=== PATIENT | female | born 1950 | race Caucasian/White ===

== ENCOUNTER 2022-01-05 12:39 | Emergency (ER) | payer MEDICARE ==
[2022-01-05 13:19] VITALS: BP 128/73; PULSE 66; RESP 20; TEMP 98.2
[2022-01-05] MEDS ORDERED: MORPHINE SULFATE 4 MG/ML SYRINGE IM STA (15:08)
[2022-01-05] MEDS ORDERED: KETOROLAC 15 MG/ML 1 ML VIAL IM STA (15:09)
[2022-01-05] MEDS ORDERED: ONDANSETRON ODT 4 MG TAB PO STA (15:09)
--- NOTE | 2022-01-05 15:14 | ED ---
Back Pain HPI - General Chief Complaint: Back Pain/Injury Stated Complaint: back pain Time Seen by Provider: 01/05/22 14:43 Source: patient, RN notes reviewed Mode of arrival: ambulatory Limitations: no limitations - History of Present Illness Initial Comments: 71-year-old female presents emergency Department chief complaint of back pain. This is chronic back pain in nature. Patient states she's had multiple surgeries. She has seen her primary care physician and was seen by another ER has had multiple imaging with no acute findings. Patient does have MRI pending. She is denies any bowel, bladder incontinence or retention. She takes [place] 10-25 [id number]. She denies any rashes denies any dysuria hematuria no abdominal complaints. Patient has no difficulty ambulate in. - Related Data Home Medications Medication Instructions Recorded Confirmed Cholecalciferol [Vitamin D3 (25 2,000 unit PO DAILY 10/30/19 10/30/19 Mcg = 1000 Iu)] Cyanocobalamin (Vitamin B-12) 1,000 mcg PO DAILY 10/30/19 10/30/19 [Vitamin B-12] DULoxetine HCL [Cymbalta] 60 mg PO DAILY 10/30/19 10/30/19 Esomeprazole Magnesium 40 mg PO DAILY 10/30/19 10/30/19 Ezetimibe [Zetia] 10 mg PO DAILY 10/30/19 10/30/19 Folic Acid 1 mg PO DAILY 10/30/19 10/30/19 Furosemide [Lasix] 40 mg PO DAILY PRN 10/30/19 10/30/19 Gabapentin [Neurontin] 400 mg PO TID 10/30/19 10/30/19 HYDROcodone/APAP 10-325MG [[place] 1 tab PO Q6H PRN 10/30/19 10/30/19 10-325] Isosorbide Mononitrate ER [Imdur] 60 mg PO BID 10/30/19 10/30/19 Levothyroxine Sodium [Levo-T] 150 mcg PO DIRECTED 10/30/19 10/30/19 Levothyroxine Sodium [Levo-T] 175 mcg PO DIRECTED 10/30/19 10/30/19 Metoprolol Succinate [Toprol XL] 100 mg PO BID 10/30/19 10/30/19 Nitroglycerin 0.4 mg SL TID PRN 10/30/19 10/30/19 Rosuvastatin [Crestor] 5 mg PO HS 10/30/19 10/30/19 Warfarin Sodium [Coumadin] 5 mg PO DAILY 10/30/19 10/30/19 Warfarin Sodium [Coumadin] 7.5 mg PO DIRECTED 10/30/19 10/30/19 gemfibroziL [Lopid] 600 mg PO BID 10/30/19 10/30/19 Previous Rx's Medication Instructions Recorded Ondansetron Odt [Zofran Odt] 4 mg PO Q8HR PRN #10 tab 01/05/22 predniSONE 50 mg PO DAILY #5 tab 01/05/22 Allergies Allergy/AdvReac Type Severity Reaction Status Date / Time azithromycin [From Zithromax] Allergy Severe Rash/Hives Verified 01/05/22 13:19 bupropion [From Wellbutrin] Allergy Severe Rash/Hives Verified 01/05/22 13:19 cephalexin [From Keflex] Allergy Intermediate Rash/Hives Verified 01/05/22 13:19 lisinopril [From Prinivil] Allergy Intermediate Rash/Hives Verified 01/05/22 13:19 nitrofurantoin Allergy Intermediate Rash/Hives Verified 01/05/22 13:19 [From Macrobid] pentazocine [From Talwin] Allergy Intermediate Rash/Hives Verified 01/05/22 13:19 topiramate [From Topamax] Allergy Intermediate Rash/Hives Verified 01/05/22 13:19 hydromorphone [From Dilaudid] AdvReac Severe Unknown Verified 01/05/22 13:19 propranolol [From Inderal LA] AdvReac Severe Unknown Verified 01/05/22 13:19 codeine AdvReac Intermediate Unknown Verified 01/05/22 13:19 ibuprofen [From Motrin] AdvReac Intermediate Unknown Verified 01/05/22 13:19 Review of Systems ROS Statement: Those systems with pertinent positive or pertinent negative responses have been documented in the HPI. ROS Other: All systems not noted in ROS Statement are negative. Past Medical History Past Medical History: Chest Pain / Angina, COPD, Deep Vein Thrombosis (DVT), GERD/Reflux, Hyperlipidemia, Hypertension, Neurologic Disorder, Osteoarthritis (OA), Thyroid Disorder Additional Past Medical History / Comment(s): SKIN CANCER, CERVICAL CANCER AND THYROID CANCER. DVT IN BOTH LEGS. MS History of Any Multi-Drug Resistant Organisms: None Reported Past Surgical History: Adenoidectomy, Appendectomy, Back Surgery, Breast Surgery, Hysterectomy, Orthopedic Surgery, Tonsillectomy, Tubal Ligation Additional Past Surgical History / Comment(s): CYSTS REMOVED FROM BILATERAL BREASTS. Past Anesthesia/Blood Transfusion Reactions: No Reported Reaction Past Psychological History: Anxiety, Depression Smoking Status: Never smoker Past Alcohol Use History: None Reported Past Drug Use History: None Reported General Exam Limitations: no limitations Head exam: Present: atraumatic, normocephalic, normal inspection Eye exam: Present: normal appearance, PERRL, EOMI. Absent: scleral icterus, conjunctival injection, periorbital swelling ENT exam: Present: normal exam, normal oropharynx, mucous membranes moist Neck exam: Present: normal inspection, full ROM. Absent: tenderness, meningismus, lymphadenopathy Respiratory exam: Present: normal lung sounds bilaterally. Absent: respiratory distress, wheezes, rales, rhonchi, stridor Cardiovascular Exam: Present: regular rate, normal rhythm, normal heart sounds. Absent: systolic murmur, diastolic murmur, rubs, gallop, clicks GI/Abdominal exam: Present: soft, normal bowel sounds. Absent: distended, tenderness, guarding, rebound, rigid Extremities exam: Present: other (Lower extremity strength equal bilaterally neurovascular intact) Back exam: Present: tenderness, muscle spasm, paraspinal tenderness. Absent: full ROM (Pain with range of motion), vertebral tenderness Neurological exam: Present: reflexes normal. Absent: motor sensory deficit Course Vital Signs 01/05/22 13:17 Temperature 98.2 F Pulse Rate 66 Respiratory 20 Rate Blood Pressure 128/73 O2 Sat by Pulse 99 Oximetry Medical Decision Making - Medical Decision Making Patient was offered x-ray patient states she's had multiple x-rays of recent, states that she needs MRI did expand her that she does not have a red flag symptoms she does not have emergent need for an MRI. She has a scheduled appointment for MRI. Patient is on chronic pain medication which she is prescribed patient was given relief in emergency department will be discharged in stable condition she was able to ambulate with no difficulty. She is instructed follow-up with her PCP for further pain medication or increasing pain medication. Disposition Clinical Impression: Lumbar back pain Disposition: HOME SELF-CARE Condition: Stable Instructions (If sedation given, give patient instructions): Back Pain (ED) Additional Instructions: Please return to the Emergency Department if symptoms worsen or any other concerns. Prescriptions: predniSONE 50 mg PO DAILY #5 tab Ondansetron Odt [Zofran Odt] 4 mg PO Q8HR PRN #10 tab PRN Reason: Nausea Is patient prescribed a controlled substance at d/c from ED?: No Referrals: Jj Cee DO [Primary Care Provider] - 1-2 days Time of Disposition: 15:13
== END 2022-01-05 16:22 | disposition home or self-care (01) ==
LOC: EC 12:39
DX: M54.50 Low back pain, unspecified (principal); J44.9 Chronic obstructive pulmonary disease, unspecified; I10 Essential (primary) hypertension; E78.5 Hyperlipidemia, unspecified; K21.9 Gastro-esophageal reflux disease without esophagitis; E03.9 Hypothyroidism, unspecified; Z79.899 Other long term (current) drug therapy; Z79.01 Long term (current) use of anticoagulants; Z88.1 Allergy status to other antibiotic agents; Z88.5 Allergy status to narcotic agent; Z88.2 Allergy status to sulfonamides; Z88.8 Allergy status to other drugs, medicaments and biological substances; Z88.4 Allergy status to anesthetic agent
CPT/HCPCS: 96372 ×2; 99283 ×2; J2270; J1885

== ENCOUNTER 2022-01-07 18:50 | Inpatient (IN) | payer MEDICARE ==
--- NOTE | 2022-01-07 22:31 | XR ---
EXAMINATION TYPE: XR chest 2V DATE OF EXAM: 01/07/2022 COMPARISON: NONE HISTORY: Cough TECHNIQUE: 2 views FINDINGS: There is some patchy airspace pneumonia in the left upper lobe and left lower lobe. Right l raquel is fairly clear. Heart is normal. There is cervical spine fusion surgery. There are no hilar mass es. Diaphragm is normal. Heart size is normal. IMPRESSION: There is diffuse left-sided pneumonia. Normal heart
[2022-01-07] MEDS ORDERED: fentaNYL (PF) 50 MCG/ML 2 ML AMP IVP STA (23:04)
[2022-01-07] MEDS ORDERED: SODIUM CHLORIDE 0.9% 1,000 ML IV ONE (23:05)
[2022-01-07] MEDS ORDERED: LEVOFLOXACIN 500MG-D5W PMX 500 MG in DEXTROSE/WATER 1 100ML.BAG IVPB STA (23:06)
[2022-01-07] MEDS ORDERED: SODIUM CHLORIDE 0.9% 1,000 ML IV SCH (23:15)
[2022-01-07 23:50] LABS: Albumin 3.6 g/dL (3.5-5.0); Calcium 9.5 mg/dL (8.4-10.2); Potassium 3.9 mmol/L (3.5-5.1); Total Bilirubin 0.6 mg/dL (0.2-1.3); Total Protein 5.5 g/dL (6.3-8.2)
[2022-01-08 00:16] LABS: HCT 43.5 % (34.0-46.0); MCH 31.1 pg (25.0-35.0); MCHC 32.3 g/dL (31.0-37.0); MCV 96.3 fL (80.0-100.0); Mean Platelet Volume 8.2; Platelet Count 165 k/uL (150-450); RBC 4.52 m/uL (3.80-5.40); RDW 13.8 % (11.5-15.5); WBC 21.2 k/uL (3.8-10.6)
[2022-01-08] MEDS ORDERED: ALBUTEROL NEBULIZED 2.5 MG/3 ML INHALATION STA (01:05)
[2022-01-08] MEDS ORDERED: IPRATROPIUM-ALBUTEROL 3 ML NEB INHALATION STA (01:05)
[2022-01-08] MEDS ORDERED: NALOXONE 0.4 MG/ML 1 ML VIAL IV PRN (01:24)
--- NOTE | 2022-01-08 01:27 | ED ---
General Adult HPI - General Chief complaint: Back Pain/Injury Stated complaint: Vomiting,coughing blood Time Seen by Provider: 01/07/22 22:54 Source: patient, RN notes reviewed, old records reviewed Mode of arrival: wheelchair Limitations: no limitations - History of Present Illness Initial comments: 71-year-old female presenting for evaluation of cough, dyspnea, back pain. Patient has had symptoms of cough, congestion and chills for the past 5 days. She has a history of COPD. Additionally she developed a right flank pain which radiates to the front and is superficial in nature. She states her skin is tender to the touch. There's been no rash. - Related Data Home Medications Medication Instructions Recorded Confirmed Cholecalciferol [Vitamin D3 (25 2,000 unit PO DAILY 10/30/19 10/30/19 Mcg = 1000 Iu)] Cyanocobalamin (Vitamin B-12) 1,000 mcg PO DAILY 10/30/19 10/30/19 [Vitamin B-12] DULoxetine HCL [Cymbalta] 60 mg PO DAILY 10/30/19 10/30/19 Esomeprazole Magnesium 40 mg PO DAILY 10/30/19 10/30/19 Ezetimibe [Zetia] 10 mg PO DAILY 10/30/19 10/30/19 Folic Acid 1 mg PO DAILY 10/30/19 10/30/19 Furosemide [Lasix] 40 mg PO DAILY PRN 10/30/19 10/30/19 Gabapentin [Neurontin] 400 mg PO TID 10/30/19 10/30/19 HYDROcodone/APAP 10-325MG [[place] 1 tab PO Q6H PRN 10/30/19 10/30/19 10-325] Isosorbide Mononitrate ER [Imdur] 60 mg PO BID 10/30/19 10/30/19 Levothyroxine Sodium [Levo-T] 150 mcg PO DIRECTED 10/30/19 10/30/19 Levothyroxine Sodium [Levo-T] 175 mcg PO DIRECTED 10/30/19 10/30/19 Metoprolol Succinate [Toprol XL] 100 mg PO BID 10/30/19 10/30/19 Nitroglycerin 0.4 mg SL TID PRN 10/30/19 10/30/19 Rosuvastatin [Crestor] 5 mg PO HS 10/30/19 10/30/19 Warfarin Sodium [Coumadin] 5 mg PO DAILY 10/30/19 10/30/19 Warfarin Sodium [Coumadin] 7.5 mg PO DIRECTED 10/30/19 10/30/19 gemfibroziL [Lopid] 600 mg PO BID 10/30/19 10/30/19 Previous Rx's Medication Instructions Recorded Ondansetron Odt [Zofran Odt] 4 mg PO Q8HR PRN #10 tab 01/05/22 predniSONE 50 mg PO DAILY #5 tab 01/05/22 Allergies Allergy/AdvReac Type Severity Reaction Status Date / Time azithromycin [From Zithromax] Allergy Severe Rash/Hives Verified 01/05/22 13:19 bupropion [From Wellbutrin] Allergy Severe Rash/Hives Verified 01/05/22 13:19 cephalexin [From Keflex] Allergy Intermediate Rash/Hives Verified 01/05/22 13:19 lisinopril [From Prinivil] Allergy Intermediate Rash/Hives Verified 01/05/22 13:19 nitrofurantoin Allergy Intermediate Rash/Hives Verified 01/05/22 13:19 [From Macrobid] pentazocine [From Talwin] Allergy Intermediate Rash/Hives Verified 01/05/22 13:19 topiramate [From Topamax] Allergy Intermediate Rash/Hives Verified 01/05/22 13:19 hydromorphone [From Dilaudid] AdvReac Severe Unknown Verified 01/05/22 13:19 propranolol [From Inderal LA] AdvReac Severe Unknown Verified 01/05/22 13:19 codeine AdvReac Intermediate Unknown Verified 01/05/22 13:19 ibuprofen [From Motrin] AdvReac Intermediate Unknown Verified 01/05/22 13:19 Review of Systems ROS Statement: Those systems with pertinent positive or pertinent negative responses have been documented in the HPI. ROS Other: All systems not noted in ROS Statement are negative. Past Medical History Past Medical History: Chest Pain / Angina, COPD, Deep Vein Thrombosis (DVT), GERD/Reflux, Hyperlipidemia, Hypertension, Neurologic Disorder, Osteoarthritis (OA), Thyroid Disorder Additional Past Medical History / Comment(s): SKIN CANCER, CERVICAL CANCER AND THYROID CANCER. DVT IN BOTH LEGS. MS History of Any Multi-Drug Resistant Organisms: None Reported Past Surgical History: Adenoidectomy, Appendectomy, Back Surgery, Breast Surge ry, Hysterectomy, Orthopedic Surgery, Tonsillectomy, Tubal Ligation Additional Past Surgical History / Comment(s): CYSTS REMOVED FROM BILATERAL BREASTS. Past Anesthesia/Blood Transfusion Reactions: No Reported Reaction Past Psychological History: Anxiety, Depression Smoking Status: Never smoker Past Alcohol Use History: None Reported Past Drug Use History: None Reported General Exam Limitations: no limitations General appearance: alert, in no apparent distress Head exam: Present: atraumatic, normocephalic Eye exam: Present: normal appearance, PERRL ENT exam: Present: normal exam Neck exam: Present: normal inspection. Absent: tenderness, meningismus Respiratory exam: Present: respiratory distress, wheezes, rhonchi, decreased breath sounds Cardiovascular Exam: Present: regular rate, normal rhythm GI/Abdominal exam: Present: soft. Absent: distended, tenderness, guarding Extremities exam: Present: normal capillary refill Back exam: Present: CVA tenderness (R) Neurological exam: Present: alert, oriented X3, CN II-XII intact. Absent: motor sensory deficit Psychiatric exam: Present: normal affect, normal mood Skin exam: Present: warm, dry, intact. Absent: cyanosis, diaphoretic Course Vital Signs 01/07/22 01/08/22 01/08/22 19:34 01:37 01:39 Temperature 98.5 F 99.2 F Pulse Rate 50 L 68 67 Respiratory 16 18 Rate Blood Pressure 95/54 121/83 O2 Sat by Pulse 92 L 95 Oximetry EKG Findings - EKG Comments: EKG Findings:: EKG: Sinus rhythm rate is 68 NH interval 163, QRS duration 96, QTC [address] segment elevation. Medical Decision Making - Medical Decision Making 71-year-old female with cough, fever, vomiting, dyspnea and wheezing. X-ray shows an extensive left upper and left lower pneumonia. She has a leukocytosis of 20. Normal electrolytes, normal lactic acid. Initial blood pressure is low but this does respond to fluids. Patient is started on IV antibiotics and IV steroids in addition to IV fluid. She had complained of a right-sided flank pain which is superficial in nature. This may be a developing zoster although there is no rash currently. Abdomen is soft. She will be admitted with pulmonology on consult. - Lab Data Result diagrams: 01/07/22 23:24 01/07/22 23:24 Lab Results 01/07/22 01/07/22 01/07/22 Range/Units 23:24 23:24 23:24 WBC 21.2 H (3.8-10.6) k/uL RBC 4.52 (3.80-5.40) m/uL Hgb 14.0 (11.4-16.0) gm/dL Hct 43.5 (34.0-46.0) % MCV 96.3 (80.0-100.0) fL MCH 31.1 (25.0-35.0) pg MCHC 32.3 (31.0-37.0) g/dL RDW 13.8 (11.5-15.5) % Plt Count 165 (150-450) k/uL MPV 8.2 Neutrophils % (Manual) 75 % Band Neuts % (Manual) 16 % Lymphocytes % (Manual) 6 % Monocytes % (Manual) 3 % Eosinophils % (Manual) 1 % Neutrophils # (Manual) 19.20 H (1.3-7.7) k/uL Lymphocytes # (Manual) 1.27 (1.0-4.8) k/uL Monocytes # (Manual) 0.64 (0-1.0) k/uL Eosinophils # (Manual) 0.21 (0-0.7) k/uL Nucleated RBCs 0 (0-0) /100 WBC Manual Slide Review Performed Anisocytosis (manual) Present Sodium 135 L (137-145) mmol/L Potassium 3.9 (3.5-5.1) mmol/L Chloride 101 (98-107) mmol/L Carbon Dioxide 29 (22-30) mmol/L Anion Gap 5 mmol/L BUN 27 H (7-17) mg/dL Creatinine 0.80 (0.52-1.04) mg/dL Est GFR (CKD-EPI)AfAm 87 (>60 ml/min/1.73 sqM) Est GFR (CKD-EPI)NonAf 75 (>60 ml/min/1.73 sqM) Glucose 90 (74-99) mg/dL Plasma Lactic Acid [place] 1.7 (0.7-2.0) mmol/L Calcium 9.5 (8.4-10.2) mg/dL Total Bilirubin 0.6 (0.2-1.3) mg/dL AST 23 (14-36) U/L ALT 17 (4-34) U/L Alkaline Phosphatase 56 (38-126) U/L NT-Pro-B Natriuret Pep pg/mL Total Protein 5.5 L (6.3-8.2) g/dL Albumin 3.6 (3.5-5.0) g/dL Coronavirus (PCR) (Not Detectd) 01/07/22 01/07/22 Range/Units 23:24 23:24 WBC (3.8-10.6) k/uL RBC (3.80-5.40) m/uL Hgb (11.4-16.0) gm/dL Hct (34.0-46.0) % MCV (80.0-100.0) fL MCH (25.0-35.0) pg MCHC (31.0-37.0) g/dL RDW (11.5-15.5) % Plt Count (150-450) k/uL MPV Neutrophils % (Manual) % Band Neuts % (Manual) % Lymphocytes % (Manual) % Monocytes % (Manual) % Eosinophils % (Manual) % Neutrophils # (Manual) (1.3-7.7) k/uL Lymphocytes # (Manual) (1.0-4.8) k/uL Monocytes # (Manual) (0-1.0) k/uL Eosinophils # (Manual) (0-0.7) k/uL Nucleated RBCs (0-0) /100 WBC Manual Slide Review Anisocytosis (manual) Sodium (137-145) mmol/L Potassium (3.5-5.1) mmol/L Chloride (98-107) mmol/L Carbon Dioxide (22-30) mmol/L Anion Gap mmol/L BUN (7-17) mg/dL Creatinine (0.52-1.04) mg/dL Est GFR (CKD-EPI)AfAm (>60 ml/min/1.73 sqM) Est GFR (CKD-EPI)NonAf (>60 ml/min/1.73 sqM) Glucose (74-99) mg/dL Plasma Lactic Acid [place] (0.7-2.0) mmol/L Calcium (8.4-10.2) mg/dL Total Bilirubin (0.2-1.3) mg/dL AST (14-36) U/L ALT (4-34) U/L Alkaline Phosphatase (38-126) U/L NT-Pro-B Natriuret Pep 1390 pg/mL Total Protein (6.3-8.2) g/dL Albumin (3.5-5.0) g/dL Coronavirus (PCR) Not Detected (Not Detectd) Disposition Clinical Impression: Pneumonia, COPD exacerbation Disposition: ADMITTED IP TO THIS HOSP Condition: Stable Is patient prescribed a controlled substance at d/c from ED?: No Time of Disposition: 01:27
[2022-01-08 01:39] LABS: Band Neutrophils % 16 %; Eosinophils # (M) 0.21 k/uL (0-0.7); Lymphocytes # (M) 1.27 k/uL (1.0-4.8); Monocytes # (M) 0.64 k/uL (0-1.0); Neutrophils % (M) 75 %; Nucleated Red Blood Cells 0 /100 WBC (0-0); Total Cells Counted 200
[2022-01-08 01:40] LABS: Anisocytosis (M) Present
[2022-01-08] MEDS: SODIUM CHLORIDE 0.9% 1,000 ML IV SCH ×3 (03:55→17:58)
[2022-01-08] MEDS: ACETAMINOPHEN TAB 325 MG TAB PO PRN (08:46)
[2022-01-08] MEDS: methylPREDNISolone SOD SUCCI 125 MG/2 ML VIAL IV SCH ×2 (09:00→17:14)
[2022-01-08] MEDS ORDERED: IPRATROPIUM-ALBUTEROL 3 ML NEB INHALATION PRN (09:47)
--- NOTE | 2022-01-08 11:35 | P.CNPUL ---
History of Present Illness Consult date: 01/08/22 Requesting physician: Darling Farias Reason for consult: dyspnea, cough, abnormal CXR/CT Chief complaint: Shortness of breath and cough. History of present illness: Pulmonary consult dated 01/08/2022. 71-year-old female who was seen in the emergency department, on January 07. She apparently came in complaining of back pain, cough, shortness of breath, and coughing up bright red blood. She hadn't been feeling well for a couple weeks prior to admission. She came into the ER on January 05 and was discharged, and then came back in on the , and was admitted. The patient's chest x-ray showed what appears to be pneumonia. The patient does have a history of significant tobacco use, and likely has underlying COPD. Although she did not mention it to me, we talked about her complaints, on auscultation, she was very tight, and she has significant rhonchi and wheezes. White count 21.2, hemoglobin 14, hematocrit 43.5, platelet count 265,000. Sodium 135, potassium 3.9, chlorides 101, CO2 29, BUN 27, and creatinine 0.8. Nasal swab for coronavirus was negative. N-terminal proBNP was 1390. Chest x-ray showed left- sided pneumonia. Review of Systems REVIEW OF SYSTEMS: CONSTITUTIONAL: [Negative.] NEUROLOGIC: [ Negative.] HEENT: [ Negative.] CARDIAC: [Negative.] PULMONARY: Cough, shortness of breath, and hemoptysis. GI: [Negative.] : [Negative.] RHEUMATOLOGIC: Back pain. IMMUNOLOGIC: [ Negative.] ENDOCRINE: [Negative. ] DERMATOLOGIC: [Negative.] Past Medical History Past Medical History: Chest Pain / Angina, COPD, Deep Vein Thrombosis (DVT), GERD/Reflux, Hyperlipidemia, Hypertension, Neurologic Disorder, Osteoarthritis (OA), Thyroid Disorder Additional Past Medical History / Comment(s): SKIN CANCER, CERVICAL CANCER AND THYROID CANCER. DVT IN BOTH LEGS. MS History of Any Multi-Drug Resistant Organisms: None Reported Past Surgical History: Adenoidectomy, Appendectomy, Back Surgery, Breast Surgery, Hysterectomy, Orthopedic Surgery, Tonsillectomy, Tubal Ligation Additional Past Surgical History / Comment(s): CYSTS REMOVED FROM BILATERAL BREASTS. Past Anesthesia/Blood Transfusion Reactions: No Reported Reaction Past Psychological History: Anxiety, Depression Smoking Status: Never smoker Past Alcohol Use History: None Reported Past Drug Use History: None Reported Medications and Allergies Home Medications Medication Instructions Recorded Confirmed Type Cyanocobalamin (Vitamin B-12) 1,000 mcg PO DAILY 10/30/19 01/08/22 History [Vitamin B-12] Esomeprazole Magnesium 40 mg PO BID 10/30/19 01/08/22 History Ezetimibe [Zetia] 10 mg PO DAILY 10/30/19 01/08/22 History Folic Acid 1 mg PO DAILY 10/30/19 01/08/22 History Furosemide [Lasix] 40 mg PO DAILY 10/30/19 01/08/22 History HYDROcodone/APAP 10-325MG [[place] 1 tab PO Q6H PRN 10/30/19 01/08/22 History 10-325] Isosorbide Mononitrate ER [Imdur] 60 mg PO BID 10/30/19 01/08/22 History Levothyroxine Sodium [Levo-T] 150 mcg PO DAILY 10/30/19 01/08/22 History Nitroglycerin 0.4 mg SUBLINGUAL Q5M PRN 10/30/19 01/08/22 History Warfarin Sodium [Coumadin] 5 mg PO [id number] 10/30/19 01/08/22 History Warfarin Sodium [Coumadin] 7.5 mg PO SUMO 10/30/19 01/08/22 History Ondansetron Odt [Zofran Odt] 4 mg PO Q8HR PRN #10 tab 01/05/22 01/08/22 Rx predniSONE 50 mg PO DAILY #5 tab 01/05/22 01/08/22 Rx Cholecalciferol [Vitamin D3 (25 50 mcg PO DAILY 01/08/22 01/08/22 History Mcg = 1000 Iu)] DULoxetine HCL [Cymbalta] 60 mg PO BID 01/08/22 01/08/22 History Gabapentin 800 mg PO BID 01/08/22 01/08/22 History Metoprolol Succinate (ER) [Toprol 50 mg PO DAILY 01/08/22 01/08/22 History Xl] Potassium Chloride [Klor-Con M10] 10 meq PO DAILY 01/08/22 01/08/22 History dilTIAZem HCL [Cardizem] 90 mg PO TID 01/08/22 01/08/22 History Allergies Allergy/AdvReac Type Severity Reaction Status Date / Time azithromycin [From Zithromax] Allergy Severe Rash/Hives Verified 01/08/22 08:37 bupropion [From Wellbutrin] Allergy Severe Rash/Hives Verified 01/08/22 08:37 cephalexin [From Keflex] Allergy Intermediate Rash/Hives Verified 01/08/22 08:37 lisinopril [From Prinivil] Allergy Intermediate Rash/Hives Verified 01/08/22 08:37 nitrofurantoin Allergy Intermediate Rash/Hives Verified 01/08/22 08:37 [From Macrobid] pentazocine [From Talwin] Allergy Intermediate Rash/Hives Verified 01/08/22 08:37 topiramate [From Topamax] Allergy Intermediate Rash/Hives Verified 01/08/22 08:37 hydromorphone [From Dilaudid] AdvReac Severe Unknown Verified 01/08/22 08:37 propranolol [From Inderal LA] AdvReac Severe Unknown Verified 01/08/22 08:37 codeine AdvReac Intermediate Unknown Verified 01/08/22 08:37 ibuprofen [From Motrin] AdvReac Intermediate Unknown Verified 01/08/22 08:37 Physical Exam Osteopathic Statement: *. No significant issues noted on an osteopathic structural exam other than those noted in the History and Physical/Consult. Vitals: Vital Signs Temp Pulse Pulse Resp BP BP Pulse Ox 01/08/22 08:00 81 22 01/08/22 07:00 100.0 F H 81 22 142/68 93 L 01/08/22 03:54 98.9 F 75 19 163/85 92 L 01/08/22 01:58 73 01/08/22 01:39 67 01/08/22 01:37 99.2 F 68 18 121/83 95 01/07/22 19:34 98.5 F 50 L 16 95/54 92 L Intake and Output 01/07/22 01/08/22 01/08/22 22:59 06:59 14:59 Other: # Voids 1 Weight 79.379 kg 79.379 kg No acute distress, oriented 3. No respiratory distress. The patient's on 2 L of oxygen. No audible wheezing. No use of accessory muscles. HEENT examination is grossly unremarkable. Neck supple. Full range of motion. No adenopathy thyromegaly or neck vein distention. Cardiovascular examination reveals regular rhythm rate. S1-S2 normal. No S3 or S4. No discernible murmur noted. Heart sounds are distant. Heart rate 81 bpm. Lungs reveal diminished bilateral breath sounds. There is inspiratory and expiratory wheezes and rhonchi. Slight prolongation on forced maneuver. No crackles. Adventitious lung sounds are bit more prominent on the left side than on the right. Saturations are 93%. Abdomen soft bowel sounds are heard. No masses or tenderness. Extremities are intact. No cyanosis clubbing or edema. Skin is without rash or lesion. Neurologic examination is brief but nonfocal. Results - Laboratory Findings CBC and BMP: 01/07/22 23:24 01/07/22 23:24 Abnormal lab findings: Abnormal Labs 01/07/22 01/07/22 23:24 23:24 WBC 21.2 H Neutrophils # (Manual) 19.20 H Sodium 135 L BUN 27 H Total Protein 5.5 L - Diagnostic Findings Chest x-ray: image reviewed Assessment and Plan Assessment: COPD exacerbation complicated by left-sided pneumonia. History of heavy tobacco use, and likely, underlying COPD. History of bilateral DVT. History of GERD. History of hyperlipidemia. History of hypertension. History of osteoarthritis. History of skin, cervical, and thyroid cancer. Plan: Plan dated 01/08/2022. The patient was placed on DuoNeb's, 4 times a day and when necessary. In addition, we added Levaquin 500 mg a day, and Symbicort 160/4.5, 2 puffs twice a day. Also, the patient's on Solu-Medrol, 60 mg IV push every 8 hours. The patient's getting oxygen at 2 L, and also saline at 130 mL an hour. We will continue to follow the patient and make recommendations along the way. We also ordered a pro-calcitonin level on this patient. We counseled her about the importance of smoking cessation. A nicotine patch will probably help. Time with Patient: Greater than 30
[2022-01-08] MEDS: IPRATROPIUM-ALBUTEROL 3 ML NEB INHALATION SCH ×3 (12:04→19:34)
[2022-01-08] MEDS: SYMBICORT 160-4.5 MCG INHALER INHALATION SCH (19:34)
[2022-01-08] MEDS: LEVOFLOXACIN 500 MG TAB PO SCH (21:07)
[2022-01-09] MEDS: methylPREDNISolone SOD SUCCI 125 MG/2 ML VIAL IV SCH ×4 (00:46→23:12)
[2022-01-09] MEDS: SODIUM CHLORIDE 0.9% 1,000 ML IV SCH ×3 (06:04→23:13)
[2022-01-09] MEDS: SYMBICORT 160-4.5 MCG INHALER INHALATION SCH ×3 (08:55→20:14)
[2022-01-09] MEDS: IPRATROPIUM-ALBUTEROL 3 ML NEB INHALATION SCH ×5 (08:55→20:14)
[2022-01-09] MEDS: ISOSORBIDE MONONITRATE ER 60 MG TAB.ER.24H PO SCH ×2 (09:59→21:29)
[2022-01-09] MEDS: METOPROLOL SUCCINATE (ER) 50 MG TAB.ER.24H PO SCH (10:00)
[2022-01-09] MEDS: DULoxetine HCL 60 MG CAPSULE.DR PO SCH ×2 (10:00→21:29)
[2022-01-09] MEDS: LEVOTHYROXINE 75 MCG TAB PO SCH (10:00)
[2022-01-09] MEDS ORDERED: GABAPENTIN 400 MG CAP PO SCH (10:00)
[2022-01-09] MEDS: DILTIAZEM ORAL 30 MG TAB PO SCH ×3 (10:00→21:29)
[2022-01-09 10:47] LABS: INR 1.4 (<1.2); Prothrombin Time 14.1 sec (9.0-12.0)
[2022-01-09 12:31] LABS: African American GFR (CKD) >90 (>60 ml/min/1.73 sqM); Anion Gap 8 mmol/L; Blood Urea Nitrogen 18 mg/dL (7-17); Calcium 9.4 mg/dL (8.4-10.2); Carbon Dioxide 25 mmol/L (22-30); Chloride 106 mmol/L (98-107); Glucose 144 mg/dL (74-99); Non-African American GFR(CKD) >90 (>60 ml/min/1.73 sqM); Potassium 3.6 mmol/L (3.5-5.1); Sodium 139 mmol/L (137-145)
[2022-01-09 12:32] LABS: Basophils % (A) 0 %; Eosinophils % (A) 0 %; HCT 44.9 % (34.0-46.0); HGB 14.1 gm/dL (11.4-16.0); Lymphocytes # (A) 0.4 k/uL (1.0-4.8); Lymphocytes % (A) 2 %; MCH 29.6 pg (25.0-35.0); MCHC 31.4 g/dL (31.0-37.0); MCV 94.4 fL (80.0-100.0); Mean Platelet Volume 8.3; Monocytes # (A) 0.3 k/uL (0-1.0); Monocytes % (A) 2 %; Neutrophils # (A) 20.4 k/uL (1.3-7.7); Neutrophils % (A) 96 %; Platelet Count 150 k/uL (150-450); RBC 4.76 m/uL (3.80-5.40); RDW 13.5 % (11.5-15.5); WBC 21.1 k/uL (3.8-10.6)
--- NOTE | 2022-01-09 13:46 | P.HPIM ---
History of Present Illness H&P Date: 01/08/22 Chief Complaint: Cough/dyspnea/back pain 71-year-old female presenting for evaluation of cough, dyspnea, back pain. Patient has had symptoms of cough, congestion and chills for the past 5 days. Patient reports that she has been coughing up bright red blood occasionally. She has a history of COPD. Additionally she developed a right flank pain which radiates to the front and is superficial in nature. She states her skin is tender to the touch. There's been no rash. She came into the ER on January 05 and was discharged, and then came back in on the , and was admitted. The patient's chest x-ray showed what appears to be pneumonia. The patient does have a history of significant tobacco use, and likely has underlying COPD. Although she did not mention it to me, we talked about her complaints, on auscultation, she was very tight, and she has significant rhonchi and wheezes. White count 21.2, hemoglobin 14, hematocrit 43.5, platelet count 265,000. Sodium 135, potassium 3.9, chlorides 101, CO2 29, BUN 27, and creatinine 0.8. Nasal swab for coronavirus was negative. N- terminal proBNP was 1390. Chest x-ray showed left-sided pneumonia. Review of Systems REVIEW OF SYSTEMS: CONSTITUTIONAL: No fever, no malaise, no fatigue. HEENT: No recent visual problems or hearing problems. Denied any sore throat. CARDIOVASCULAR: No chest pain, orthopnea, PND, no palpitations, no syncope. PULMONARY: No shortness of breath, no cough, no hemoptysis. GASTROINTESTINAL: No diarrhea, no nausea, no vomiting, no abdominal pain. NEUROLOGICAL: No headaches, no weakness, no numbness. HEMATOLOGICAL: Denies any bleeding or petechiae. GENITOURINARY: Denies any burning micturition, frequency, or urgency. MUSCULOSKELETAL/RHEUMATOLOGICAL: Denies any joint pain, swelling, or any muscle pain. ENDOCRINE: Denies any polyuria or polydipsia. The rest of the 14-point review of systems is negative. Past Medical History Past Medical History: Chest Pain / Angina, COPD, Deep Vein Thrombosis (DVT), GERD/Reflux, Hyperlipidemia, Hypertension, Neurologic Disorder, Osteoarthritis (OA), Thyroid Disorder Additional Past Medical History / Comment(s): SKIN CANCER, CERVICAL CANCER AND THYROID CANCER. DVT IN BOTH LEGS. MS History of Any Multi-Drug Resistant Organisms: None Reported Past Surgical History: Adenoidectomy, Appendectomy, Back Surgery, Breast Surgery, Hysterectomy, Orthopedic Surgery, Tonsillectomy, Tubal Ligation Additional Past Surgical History / Comment(s): CYSTS REMOVED FROM BILATERAL BREASTS. Past Anesthesia/Blood Transfusion Reactions: No Reported Reaction Past Psychological History: Anxiety, Depression Smoking Status: Never smoker Past Alcohol Use History: None Reported Past Drug Use History: None Reported Medications and Allergies Home Medications Medication Instructions Recorded Confirmed Type Cyanocobalamin (Vitamin B-12) 1,000 mcg PO DAILY 10/30/19 01/08/22 History [Vitamin B-12] Esomeprazole Magnesium 40 mg PO BID 10/30/19 01/08/22 History Ezetimibe [Zetia] 10 mg PO DAILY 10/30/19 01/08/22 History Folic Acid 1 mg PO DAILY 10/30/19 01/08/22 History Furosemide [Lasix] 40 mg PO DAILY 10/30/19 01/08/22 History HYDROcodone/APAP 10-325MG [[place] 1 tab PO Q6H PRN 10/30/19 01/08/22 History 10-325] Isosorbide Mononitrate ER [Imdur] 60 mg PO BID 10/30/19 01/08/22 History Levothyroxine Sodium [Levo-T] 150 mcg PO DAILY 10/30/19 01/08/22 History Nitroglycerin 0.4 mg SUBLINGUAL Q5M PRN 10/30/19 01/08/22 History Warfarin Sodium [Coumadin] 5 mg PO [id number] 10/30/19 01/08/22 History Warfarin Sodium [Coumadin] 7.5 mg PO SUMO 10/30/19 01/08/22 History Ondansetron Odt [Zofran Odt] 4 mg PO Q8HR PRN #10 tab 01/05/22 01/08/22 Rx predniSONE 50 mg PO DAILY #5 tab 01/05/22 01/08/22 Rx Cholecalciferol [Vitamin D3 (25 50 mcg PO DAILY 01/08/22 01/08/22 History Mcg = 1000 Iu)] DULoxetine HCL [Cymbalta] 60 mg PO BID 01/08/22 01/08/22 History Gabapentin 800 mg PO BID 01/08/22 01/08/22 History Metoprolol Succinate (ER) [Toprol 50 mg PO DAILY 01/08/22 01/08/22 History Xl] Potassium Chloride [Klor-Con M10] 10 meq PO DAILY 01/08/22 01/08/22 History dilTIAZem HCL [Cardizem] 90 mg PO TID 01/08/22 01/08/22 History Allergies Allergy/AdvReac Type Severity Reaction Status Date / Time azithromycin [From Zithromax] Allergy Severe Rash/Hives Verified 01/08/22 08:37 bupropion [From Wellbutrin] Allergy Severe Rash/Hives Verified 01/08/22 08:37 cephalexin [From Keflex] Allergy Intermediate Rash/Hives Verified 01/08/22 08:37 lisinopril [From Prinivil] Allergy Intermediate Rash/Hives Verified 01/08/22 08:37 nitrofurantoin Allergy Intermediate Rash/Hives Verified 01/08/22 08:37 [From Macrobid] pentazocine [From Talwin] Allergy Intermediate Rash/Hives Verified 01/08/22 08:37 topiramate [From Topamax] Allergy Intermediate Rash/Hives Verified 01/08/22 08:37 hydromorphone [From Dilaudid] AdvReac Severe Unknown Verified 01/08/22 08:37 propranolol [From Inderal LA] AdvReac Severe Unknown Verified 01/08/22 08:37 codeine AdvReac Intermediate Unknown Verified 01/08/22 08:37 ibuprofen [From Motrin] AdvReac Intermediate Unknown Verified 01/08/22 08:37 Physical Exam Vitals: Vital Signs Temp Pulse Pulse Resp BP BP Pulse Ox 01/08/22 08:00 81 22 01/08/22 07:00 100.0 F H 81 22 142/68 93 L 01/08/22 03:54 98.9 F 75 19 163/85 92 L 01/08/22 01:58 73 01/08/22 01:39 67 01/08/22 01:37 99.2 F 68 18 121/83 95 01/07/22 19:34 98.5 F 50 L 16 95/54 92 L Intake and Output 01/07/22 01/08/22 01/08/22 22:59 06:59 14:59 Other: # Voids 1 Weight 79.379 kg 79.379 kg No acute distress, oriented 3. No respiratory distress. The patient's on 2 L of oxygen. No audible wheezing. No use of accessory muscles. HEENT examination is grossly unremarkable. Neck supple. Full range of motion. No adenopathy thyromegaly or neck vein distention. Cardiovascular examination reveals regular rhythm rate. S1-S2 normal. No S3 or S4. No discernible murmur noted. Heart sounds are distant. Heart rate 81 bpm. Lungs reveal diminished bilateral breath sounds. There is inspiratory and expi ratory wheezes and rhonchi. Slight prolongation on forced maneuver. No crackles. Adventitious lung sounds are bit more prominent on the left side than on the right. Saturations are 93%. Abdomen soft bowel sounds are heard. No masses or tenderness. Extremities are intact. No cyanosis clubbing or edema. Skin is without rash or lesion. Neurologic examination is brief but nonfocal. Results CBC & Chem 7: 01/09/22 10:03 01/09/22 10:03 Labs: Abnormal Lab Results - Last 24 Hours (Table) 01/07/22 01/07/22 Range/Units 23:24 23:24 WBC 21.2 H (3.8-10.6) k/uL Neutrophils # (Manual) 19.20 H (1.3-7.7) k/uL Sodium 135 L (137-145) mmol/L BUN 27 H (7-17) mg/dL Total Protein 5.5 L (6.3-8.2) g/dL Thrombosis Risk Factor Assmnt - Choose All That Apply Any of the Below Risk Factors Present?: Yes Each Factor Represents 1 point: Abnormal pulmonary function (COPD), Obesity (BMI >25), Serious lung disease incl. pneumonia (< 1month) Other Risk Factors: Yes Each Risk Factor Represents 2 Points: Age 61-74 years Other congenital or acquired thrombophilia - If yes, enter type in comment: No Thrombosis Risk Factor Assessment Total Risk Factor Score: 5 Thrombosis Risk Factor Assessment Level: High Risk Assessment and Plan Assessment: 1. Left-sided community-acquired pneumonia; patient has been placed on Levaquin 500 milligrams daily; we will monitor CBC, CRP and pro-calcitonin; blood cultures and sputum culture 2. Acute exacerbation COPD; Solu-Medrol 60 mg IV every 8 hours; Abbieb nebulizer treatments 4 times a day and when necessary; continue with home inhaler therapy 3. History of bilateral DVT; anticoagulated on Coumadin; we will monitor PT/INR; pharmacy to dose Coumadin 4. Hypertension; metoprolol XL 50 mg daily, Imdur 60 mg twice a day and Cardizem 90 mg by mouth 3 times a day 5. Hyperlipidemia; Zetia at 10 mg daily 6. Hypothyroidism; levothyroxin 150 MCG daily DVT prophylaxis; SCDs/Coumadin CODE STATUS; full code
--- NOTE | 2022-01-09 13:48 | P.PN ---
Subjective Progress Note Date: 01/09/22 Principal diagnosis: Left-sided pneumonia Acute exacerbation COPD 71-year-old female presenting for evaluation of cough, dyspnea, back pain. Patient has had symptoms of cough, congestion and chills for the past 5 days. Patient reports that she has been coughing up bright red blood occasionally. She has a history of COPD. Additionally she developed a right flank pain which radiates to the front and is superficial in nature. She states her skin is tender to the touch. There's been no rash. She came into the ER on January 05 and was discharged, and then came back in on the , and was admitted. The patient's chest x-ray showed what appears to be pneumonia. The patient does have a history of significant tobacco use, and likely has underlying COPD. Although she did not mention it to me, we talked about her complaints, on auscultation, she was very tight, and she has significant rhonchi and wheezes. White count 21.2, hemoglobin 14, hematocrit 43.5, platelet count 265,000. Sodium 135, potassium 3.9, chlorides 101, CO2 29, BUN 27, and creatinine 0.8. Nasal swab for coronavirus was negative. N- terminal proBNP was 1390. Chest x-ray showed left-sided pneumonia. Objective - Vital Signs Vital signs: Vital Signs Temp 97.9 F 01/09/22 07:00 Pulse 150 H 01/09/22 09:13 Resp 20 01/09/22 08:00 BP 171/80 01/09/22 07:00 Pulse Ox 90 L 01/09/22 09:13 FiO2 Intake & Output 01/08/22 01/09/22 01/09/22 18:59 06:59 18:59 Other: # Voids 1 1 - Exam No acute distress, oriented 3. No respiratory distress. The patient's on 2 L of oxygen. No audible wheezing. No use of accessory muscles. HEENT examination is grossly unremarkable. Neck supple. Full range of motion. No adenopathy thyromegaly or neck vein distention. Cardiovascular examination reveals regular rhythm rate. S1-S2 normal. No S3 or S4. No discernible murmur noted. Heart sounds are distant. Heart rate 81 bpm. Lungs reveal diminished bilateral breath sounds. There is inspiratory and expiratory wheezes and rhonchi. Slight prolongation on forced maneuver. No crackles. Adventitious lung sounds are bit more prominent on the left side than on the right. Saturations are 93%. Abdomen soft bowel sounds are heard. No masses or tenderness. Extremities are intact. No cyanosis clubbing or edema. Skin is without rash or lesion. Neurologic examination is brief but nonfocal. - Labs CBC & Chem 7: 01/09/22 10:03 01/09/22 10:03 Labs: Abnormal Lab Results - Last 24 Hours (Table) 01/07/22 01/09/22 Range/Units 23:24 10:03 PT 14.1 H (9.0-12.0) sec INR 1.4 H (<1.2) Procalcitonin 1.04 H (0.02-0.09) ng/mL Microbiology - Last 24 Hours (Table) 01/07/22 23:00 Blood Culture - Preliminary Blood No Growth after 24 hours Assessment and Plan Assessment: 1. Left-sided community-acquired pneumonia; patient has been placed on Levaquin 500 milligrams daily; we will monitor CBC, CRP and pro-calcitonin; blood cultures and sputum culture 2. Acute exacerbation COPD; Solu-Medrol 60 mg IV every 8 hours; DuoNeb nebulizer treatments 4 times a day and when necessary; continue with home inhaler therapy 3. History of bilateral DVT; anticoagulated on Coumadin; we will monitor PT/INR; pharmacy to dose Coumadin 4. Hypertension; metoprolol XL 50 mg daily, Imdur 60 mg twice a day and Cardizem 90 mg by mouth 3 times a day 5. Hyperlipidemia; Zetia at 10 mg daily 6. Hypothyroidism; levothyroxin 150 MCG daily DVT prophylaxis; SCDs/Coumadin CODE STATUS; full code
--- NOTE | 2022-01-09 14:10 | P.PN ---
Subjective Progress Note Date: 01/09/22 Principal diagnosis: Pneumonia. Pulmonary consult dated 01/08/2022. 71-year-old female who was seen in the emergency department, on January 07. She apparently came in complaining of back pain, cough, shortness of breath, and coughing up bright red blood. She hadn't been feeling well for a couple weeks prior to admission. She came into the ER on January 05 and was discharged, and then came back in on the , and was admitted. The patient's chest x-ray showed what appears to be pneumonia. The patient does have a history of significant tobacco use, and likely has underlying COPD. Although she did not mention it to me, we talked about her complaints, on auscultation, she was very tight, and she has significant rhonchi and wheezes. White count 21.2, hemoglobin 14, hematocrit 43.5, platelet count 265,000. Sodium 135, potassium 3.9, chlorides 101, CO2 29, BUN 27, and creatinine 0.8. Nasal swab for coronavirus was negative. N-terminal proBNP was 1390. Chest x-ray showed left- sided pneumonia. Progress note dated 01/09/2022. The patient was seen in consultation yesterday. Please see my consultation above. She was admitted with a diagnosis of COPD exacerbation, and left sided pneumonia. Currently, she is on 3 L of oxygen. She feeling only a bit better today. She's getting saline at 30 mL an hour. Her complaints include shortness of breath, chest tightness, wheezing, cough, and occasional phlegm production. White count 21.1, hemoglobin 14.1, hematocrit 44.9, and platelet count 250,000. PT 14.1 with an INR 1.4. Sodium 139, potassium 3.6, chloride 106, CO2 25, anion gap 8, BUN 18, and creatinine 0.59. Calcium is 9.4. Testing for bui virus was negative. Pro-calcitonin level was 1.04. Objective - Vital Signs Vital signs: Vital Signs Temp 97.9 F 01/09/22 07:00 Pulse 72 01/09/22 12:37 Resp 20 01/09/22 08:00 BP 171/80 01/09/22 07:00 Pulse Ox 90 L 01/09/22 09:13 FiO2 Intake & Output 0901/09/22 01/09/22 18:59 06:59 18:59 Other: # Voids 1 1 - Exam No acute distress, oriented 3. No respiratory distress. The patient's on 3 L of oxygen. No audible wheezing. No use of accessory muscles. HEENT examination is grossly unremarkable. Neck supple. Full range of motion. No adenopathy thyromegaly or neck vein distention. Cardiovascular examination reveals regular rhythm rate. S1-S2 normal. No S3 or S4. No discernible murmur noted. Heart sounds are distant. Heart rate 72 bpm. Lungs reveal diminished bilateral breath sounds. There is inspiratory and expiratory wheezes and rhonchi. Slight prolongation on forced maneuver. No crackles. Adventitious lung sounds are bit more prominent on the left side than on the right. Saturations are 94 %, on 3 L. Abdomen soft bowel sounds are heard. No masses or tenderness. Extremities are intact. No cyanosis clubbing or edema. Skin is without rash or lesion. Neurologic examination is brief but nonfocal. - Labs CBC & Chem 7: 01/09/22 10:03 01/09/22 10:03 Labs: Abnormal Lab Results - Last 24 Hours (Table) 01/07/22 01/09/22 01/09/22 Range/Units 23:24 10:03 10:03 WBC 21.1 H (3.8-10.6) k/uL Neutrophils # 20.4 H (1.3-7.7) k/uL Lymphocytes # 0.4 L (1.0-4.8) k/uL PT 14.1 H (9.0-12.0) sec INR 1.4 H (<1.2) BUN (7-17) mg/dL Glucose (74-99) mg/dL Procalcitonin 1.04 H (0.02-0.09) ng/mL 01/09/22 Range/Units 10:03 WBC (3.8-10.6) k/uL Neutrophils # (1.3-7.7) k/uL Lymphocytes # (1.0-4.8) k/uL PT (9.0-12.0) sec INR (<1.2) BUN 18 H (7-17) mg/dL Glucose 144 H (74-99) mg/dL Procalcitonin (0.02-0.09) ng/mL Microbiology - Last 24 Hours (Table) 01/07/22 23:00 Blood Culture - Preliminary Blood No Growth after 24 hours Assessment and Plan Assessment: COPD exacerbation complicated by left-sided pneumonia. History of heavy tobacco use, and likely, underlying COPD. History of bilateral DVT. History of GERD. History of hyperlipidemia. History of hypertension. History of osteoarthritis. History of skin, cervical, and thyroid cancer. Plan: Plan dated 01/08/2022. The patient was placed on DuoNeb's, 4 times a day and when necessary. In addition, we added Levaquin 500 mg a day, and Symbicort 160/4.5, 2 puffs twice a day. Also, the patient's on Solu-Medrol, 60 mg IV push every 8 hours. The patient's getting oxygen at 2 L, and also saline at 130 mL an hour. We will continue to follow the patient and make recommendations along the way. We also ordered a pro-calcitonin level on this patient. We counseled her about the importance of smoking cessation. A nicotine patch will probably help. Plan dated 01/09/2022 The patient remains on breathing treatments, Levaquin, and Solu-Medrol. She also is receiving Symbicort 160/4.5, 2 puffs twice a day. We will continue to follow and make recommendations along the way. The patient will eventually need pulmonary function testing. Labs, x-rays, medications are all reviewed. We will continue to follow and make recommendations along the way. Current medications are appropriate. Time with Patient: Less than 30
[2022-01-09 16:43] LABS: Glucose,Whole Blood 144 mg/dL (70-110)
[2022-01-09] MEDS: GABAPENTIN 400 MG CAP PO SCH ×2 (17:23→21:29)
[2022-01-09] MEDS: EZETIMIBE 10 MG TAB PO SCH (17:24)
[2022-01-09] MEDS ORDERED: WARFARIN 5 MG TAB PO ONE (18:00)
[2022-01-09 21:09] LABS: Glucose,Whole Blood 161 mg/dL (70-110)
[2022-01-09] MEDS: LEVOFLOXACIN 500 MG TAB PO SCH (21:29)
[2022-01-10] MEDS: LEVOTHYROXINE 75 MCG TAB PO SCH (05:15)
[2022-01-10 06:14] LABS: INR 1.1 (<1.2)
[2022-01-10 08:06] LABS: Glucose,Whole Blood 126 mg/dL (70-110)
[2022-01-10] MEDS: IPRATROPIUM-ALBUTEROL 3 ML NEB INHALATION SCH ×4 (08:20→19:25)
[2022-01-10] MEDS: SYMBICORT 160-4.5 MCG INHALER INHALATION SCH ×2 (08:20→19:25)
[2022-01-10] MEDS: methylPREDNISolone SOD SUCCI 125 MG/2 ML VIAL IV SCH ×3 (09:00→23:26)
[2022-01-10] MEDS: DILTIAZEM ORAL 30 MG TAB PO SCH ×3 (09:01→20:37)
[2022-01-10] MEDS: GABAPENTIN 400 MG CAP PO SCH ×3 (09:01→20:36)
[2022-01-10] MEDS: ISOSORBIDE MONONITRATE ER 60 MG TAB.ER.24H PO SCH ×2 (09:01→20:36)
[2022-01-10] MEDS: METOPROLOL SUCCINATE (ER) 50 MG TAB.ER.24H PO SCH (09:02)
[2022-01-10] MEDS: DULoxetine HCL 60 MG CAPSULE.DR PO SCH ×2 (09:02→20:36)
[2022-01-10] MEDS: EZETIMIBE 10 MG TAB PO SCH (09:03)
[2022-01-10] MEDS: SODIUM CHLORIDE 0.9% 1,000 ML IV SCH ×3 (09:03→20:39)
[2022-01-10 09:19] LABS: Basophils # (A) 0.01 X 10*3/uL (0.00-0.10); Basophils % (A) 0 %; Eosinophils # (A) 0 X 10*3/uL (0.04-0.35); Eosinophils % (A) 0 %; HCT 39.5 % (37.2-46.3); HGB 12.6 g/dL (12.0-15.0); Immature Grans, Automated 0.8 %; MCH 29.7 pg (27.0-32.0); MCHC 31.9 g/dL (32.0-37.0); MCV 93.2 fL (80.0-97.0); Monocytes # (A) 0.24 X 10*3/uL (0.20-1.00); Monocytes % (A) 1.2 %; NRBC Per 100 WBC 0 /100 WBCS (0.0-0.0); Neutrophils # (A) 19.31 X 10*3/uL (1.80-7.70); Platelet Count 183 X 10*3/uL (140-440); RBC 4.24 X 10*6/uL (4.10-5.20); RDW 14.6 % (11.5-14.5); WBC 20.33 X 10*3/uL (4.50-10.00)
[2022-01-10 09:44] LABS: Anion Gap 8.5 mmol/L (10.00-18.00); BUN/Creat Ratio 28.39 Ratio (12.00-20.00); Blood Urea Nitrogen 21.8 mg/dL (9.0-27.0); Calcium 9.5 mg/dL (8.7-10.3); Carbon Dioxide 27.8 mmol/L (20.0-27.5); Non-African American GFR(CKD) 78.5 (60.0-200.0); Potassium 4.1 mmol/L (3.5-5.5)
[2022-01-10 12:09] LABS: Glucose,Whole Blood 171 mg/dL (70-110)
--- NOTE | 2022-01-10 12:37 | P.PN ---
Subjective Progress Note Date: 01/10/22 Principal diagnosis: Pneumonia. Pulmonary consult dated 01/08/2022. 71-year-old female who was seen in the emergency department, on January 07. She apparently came in complaining of back pain, cough, shortness of breath, and coughing up bright red blood. She hadn't been feeling well for a couple weeks prior to admission. She came into the ER on January 05 and was discharged, and then came back in on the , and was admitted. The patient's chest x-ray showed what appears to be pneumonia. The patient does have a history of significant tobacco use, and likely has underlying COPD. Although she did not mention it to me, we talked about her complaints, on auscultation, she was very tight, and she has significant rhonchi and wheezes. White count 21.2, hemoglobin 14, hematocrit 43.5, platelet count 265,000. Sodium 135, potassium 3.9, chlorides 101, CO2 29, BUN 27, and creatinine 0.8. Nasal swab for coronavirus was negative. N-terminal proBNP was 1390. Chest x-ray showed left- sided pneumonia. Progress note dated 01/09/2022. The patient was seen in consultation yesterday. Please see my consultation above. She was admitted with a diagnosis of COPD exacerbation, and left sided pneumonia. Currently, she is on 3 L of oxygen. She feeling only a bit better today. She's getting saline at 30 mL an hour. Her complaints include shortness of breath, chest tightness, wheezing, cough, and occasional phlegm production. White count 21.1, hemoglobin 14.1, hematocrit 44.9, and platelet count 250,000. PT 14.1 with an INR 1.4. Sodium 139, potassium 3.6, chloride 106, CO2 25, anion gap 8, BUN 18, and creatinine 0.59. Calcium is 9.4. Testing for bui virus was negative. Pro-calcitonin level was 1.04. Progress note dated 01/10/2022. The patient feels better today. She's currently on oxygen at 2 L. The patient will have a chest x-ray done tomorrow. She feels less short of breath, and less congested. She is coughing, but not producing any phlegm. His been no fever or chills. No chest pain or chest discomfort. White count 20.3, he will 12.6, hematocrit 39.5, and platelet count 183,000. Sodium 144, potassium 4.1, chlorides 107, and CO2 is 28, BUN 22, and creatinine 0.8. Her calcitonin was initially 1.04. Follow-up was 0.53. Objective - Vital Signs Vital signs: Vital Signs Temp 97.9 F 01/10/22 07:00 Pulse 68 01/10/22 11:59 Resp 17 01/10/22 08:00 BP 137/74 01/10/22 07:00 Pulse Ox 95 01/10/22 07:00 FiO2 Intake & Output 01/09/22 01/10/22 01/10/22 18:59 06:59 18:59 Intake Total 118 300 Balance 118 300 Intake: Oral 118 300 Other: Voiding Method Toilet # Voids 1 1 - Exam No acute distress, oriented 3. No respiratory distress. The patient's on 2 L of oxygen. No audible wheezing. No use of accessory muscles. HEENT examination is grossly unremarkable. Neck supple. Full range of motion. No adenopathy thyromegaly or neck vein d istention. Cardiovascular examination reveals regular rhythm rate. S1-S2 normal. No S3 or S4. No discernible murmur noted. Heart sounds are distant. Heart rate 88 bpm. Lungs reveal diminished bilateral breath sounds. There is inspiratory and expiratory wheezes and rhonchi. Slight prolongation on forced maneuver. No crackles. Adventitious lung sounds are bit more prominent on the left side than on the right. Saturations are 96% on 2 L. Abdomen soft bowel sounds are heard. No masses or tenderness. Extremities are intact. No cyanosis clubbing or edema. Skin is without rash or lesion. Neurologic examination is brief but nonfocal. - Labs CBC & Chem 7: 01/10/22 05:55 01/10/22 05:55 Labs: Abnormal Lab Results - Last 24 Hours (Table) 01/09/22 01/09/22 01/09/22 Range/Units 10:03 16:42 21:08 WBC (4.50-10.00) X 10*3/uL MCHC (32.0-37.0) g/dL RDW (11.5-14.5) % Immature Gran # (0.00-0.04) X 10*3/uL Neutrophils # (1.80-7.70) X 10*3/uL Lymphocytes # (0.90-5.00) X 10*3/uL Eosinophils # (0.04-0.35) X 10*3/uL Carbon Dioxide (20.0-27.5) mmol/L Anion Gap (10.00-18.00) mmol/L BUN/Creatinine Ratio (12.00-20.00) Ratio Glucose (70-110) mg/dL POC Glucose (mg/dL) 144 H 161 H (70-110) mg/dL Procalcitonin 0.53 H (0.02-0.09) ng/mL 01/10/22 01/10/22 01/10/22 Range/Units 05:55 05:55 08:04 WBC 20.33 H (4.50-10.00) X 10*3/uL MCHC 31.9 L (32.0-37.0) g/dL RDW 14.6 H (11.5-14.5) % Immature Gran # 0.17 H (0.00-0.04) X 10*3/uL Neutrophils # 19.31 H (1.80-7.70) X 10*3/uL Lymphocytes # 0.60 L (0.90-5.00) X 10*3/uL Eosinophils # 0 L (0.04-0.35) X 10*3/uL Carbon Dioxide 27.8 H (20.0-27.5) mmol/L Anion Gap 8.50 L (10.00-18.00) mmol/L BUN/Creatinine Ratio 28.39 H (12.00-20.00) Ratio Glucose 136 H (70-110) mg/dL POC Glucose (mg/dL) 126 H (70-110) mg/dL Procalcitonin (0.02-0.09) ng/mL 01/10/22 Range/Units 12:08 WBC (4.50-10.00) X 10*3/uL MCHC (32.0-37.0) g/dL RDW (11.5-14.5) % Immature Gran # (0.00-0.04) X 10*3/uL Neutrophils # (1.80-7.70) X 10*3/uL Lymphocytes # (0.90-5.00) X 10*3/uL Eosinophils # (0.04-0.35) X 10*3/uL Carbon Dioxide (20.0-27.5) mmol/L Anion Gap (10.00-18.00) mmol/L BUN/Creatinine Ratio (12.00-20.00) Ratio Glucose (70-110) mg/dL POC Glucose (mg/dL) 171 H (70-110) mg/dL Procalcitonin (0.02-0.09) ng/mL Microbiology - Last 24 Hours (Table) 01/07/22 23:00 Blood Culture - Preliminary Blood No Growth after 48 hours Assessment and Plan Assessment: COPD exacerbation complicated by left-sided pneumonia. History of heavy tobacco use, and likely, underlying COPD. History of bilateral DVT. History of GERD. History of hyperlipidemia. History of hypertension. History of osteoarthritis. History of skin, cervical, and thyroid cancer. Plan: Plan dated 01/08/2022. The patient was placed on DuoNeb's, 4 times a day and when necessary. In addition, we added Levaquin 500 mg a day, and Symbicort 160/4.5, 2 puffs twice a day. Also, the patient's on Solu-Medrol, 60 mg IV push every 8 hours. The patient's getting oxygen at 2 L, and also saline at 130 mL an hour. We will continue to follow the patient and make recommendations along the way. We also ordered a pro-calcitonin level on this patient. We counseled her about the importance of smoking cessation. A nicotine patch will probably help. Plan dated 01/09/2022 The patient remains on breathing treatments, Levaquin, and Solu-Medrol. She also is receiving Symbicort 160/4.5, 2 puffs twice a day. We will continue to follow and make recommendations along the way. The patient will eventually need pulmonary function testing. Labs, x-rays, medications are all reviewed. We will continue to follow and make recommendations along the way. Current medications are appropriate. Plan dated 01/10/2022. The patient remains on breathing treatments, Levaquin, and Solu-Medrol. She is also receiving Symbicort, 2 puffs twice a day. The patient appears to be feeling better and doing better. I've ordered a chest x-ray for the morning. Labs, x-rays, and medications are reviewed. Prognosis is guarded. The patient is counseled about the importance of smoking cessation. We'll await tomorrow's chest x-ray. Time with Patient: Less than 30
[2022-01-10 17:45] LABS: Glucose,Whole Blood 140 mg/dL (70-110)
[2022-01-10] MEDS ORDERED: WARFARIN 7.5 MG TAB PO ONE (18:00)
--- NOTE | 2022-01-10 18:22 | P.PN ---
Subjective Progress Note Date: 01/10/22 Principal diagnosis: Left-sided pneumonia Acute exacerbation COPD 71-year-old female presenting for evaluation of cough, dyspnea, back pain. Patient has had symptoms of cough, congestion and chills for the past 5 days. Patient reports that she has been coughing up bright red blood occasionally. She has a history of COPD. Additionally she developed a right flank pain which radiates to the front and is superficial in nature. She states her skin is tender to the touch. There's been no rash. She came into the ER on January 05 and was discharged, and then came back in on the , and was admitted. The patient's chest x-ray showed what appears to be pneumonia. The patient does have a history of significant tobacco use, and likely has underlying COPD. Although she did not mention it to me, we talked about her complaints, on auscultation, she was very tight, and she has significant rhonchi and wheezes. White count 21.2, hemoglobin 14, hematocrit 43.5, platelet count 265,000. Sodium 135, potassium 3.9, chlorides 101, CO2 29, BUN 27, and creatinine 0.8. Nasal swab for coronavirus was negative. N- terminal proBNP was 1390. Chest x-ray showed left-sided pneumonia. 01/10/2022 The patient is seen and evaluated in room at bedsidefeels better today. She's currently on oxygen at 2 L. The patient will have a chest x-ray done tomorrow. She feels less short of breath, and less congested. She is coughing, but not producing any phlegm. His been no fever or chills. No chest pain or chest discomfort. White count 20.3, he will 12.6, hematocrit 39.5, and platelet count 183,000. Sodium 144, potassium 4.1, chlorides 107, and CO2 is 28, BUN 22, and creatinine 0.8. Her calcitonin was initially 1.04. Follow-up was 0.53. The patient remains on breathing treatments, Levaquin, and Solu-Medrol. She is also receiving Symbicort, 2 puffs twice a day. The patient appears to be feeling better and doing better. I've ordered a chest x-ray for the morning. Labs, x-rays, and medications are reviewed. Prognosis is guarded. The patient is counseled about the importance of smoking cessation. We'll await tomorrow's chest x-ray. Objective - Vital Signs Vital signs: Vital Signs Temp 97.9 F 01/10/22 07:00 Pulse 68 01/10/22 11:59 Resp 17 01/10/22 08:00 BP 137/74 01/10/22 07:00 Pulse Ox 95 01/10/22 07:00 FiO2 Intake & Output 01/09/22 01/10/22 01/10/22 18:59 06:59 18:59 Intake Total 118 300 Balance 118 300 Intake: Oral 118 300 Other: Voiding Method Toilet # Voids 1 1 - Labs CBC & Chem 7: 01/10/22 05:55 01/10/22 05:55 Labs: Abnormal Lab Results - Last 24 Hours (Table) 01/09/22 01/09/22 01/09/22 Range/Units 10:03 16:42 21:08 WBC (4.50-10.00) X 10*3/uL MCHC (32.0-37.0) g/dL RDW (11.5-14.5) % Immature Gran # (0.00-0.04) X 10*3/uL Neutrophils # (1.80-7.70) X 10*3/uL Lymphocytes # (0.90-5.00) X 10*3/uL Eosinophils # (0.04-0.35) X 10*3/uL Carbon Dioxide (20.0-27.5) mmol/L Anion Gap (10.00-18.00) mmol/L BUN/Creatinine Ratio (12.00-20.00) Ratio Glucose (70-110) mg/dL POC Glucose (mg/dL) 144 H 161 H (70-110) mg/dL Procalcitonin 0.53 H (0.02-0.09) ng/mL 01/10/22 01/10/22 01/10/22 Range/Units 05:55 05:55 08:04 WBC 20.33 H (4.50-10.00) X 10*3/uL MCHC 31.9 L (32.0-37.0) g/dL RDW 14.6 H (11.5-14.5) % Immature Gran # 0.17 H (0.00-0.04) X 10*3/uL Neutrophils # 19.31 H (1.80-7.70) X 10*3/uL Lymphocytes # 0.60 L (0.90-5.00) X 10*3/uL Eosinophils # 0 L (0.04-0.35) X 10*3/uL Carbon Dioxide 27.8 H (20.0-27.5) mmol/L Anion Gap 8.50 L (10.00-18.00) mmol/L BUN/Creatinine Ratio 28.39 H (12.00-20.00) Ratio Glucose 136 H (70-110) mg/dL POC Glucose (mg/dL) 126 H (70-110) mg/dL Procalcitonin (0.02-0.09) ng/mL 01/10/22 Range/Units 12:08 WBC (4.50-10.00) X 10*3/uL MCHC (32.0-37.0) g/dL RDW (11.5-14.5) % Immature Gran # (0.00-0.04) X 10*3/uL Neutrophils # (1.80-7.70) X 10*3/uL Lymphocytes # (0.90-5.00) X 10*3/uL Eosinophils # (0.04-0.35) X 10*3/uL Carbon Dioxide (20.0-27.5) mmol/L Anion Gap (10.00-18.00) mmol/L BUN/Creatinine Ratio (12.00-20.00) Ratio Glucose (70-110) mg/dL POC Glucose (mg/dL) 171 H (70-110) mg/dL Procalcitonin (0.02-0.09) ng/mL Microbiology - Last 24 Hours (Table) 01/07/22 23:00 Blood Culture - Preliminary Blood No Growth after 48 hours
[2022-01-10 20:22] LABS: Glucose,Whole Blood 154 mg/dL (70-110)
[2022-01-10] MEDS: LEVOFLOXACIN 500 MG TAB PO SCH (20:36)
[2022-01-10] MEDS ORDERED: MELATONIN 3 MG TABLET PO STA (23:35)
[2022-01-11] MEDS: SODIUM CHLORIDE 0.9% 1,000 ML IV SCH ×3 (05:48→20:27)
[2022-01-11] MEDS: LEVOTHYROXINE 75 MCG TAB PO SCH (05:51)
[2022-01-11 06:28] LABS: INR 1.4 (<1.2); Prothrombin Time 14.5 sec (9.0-12.0)
[2022-01-11 07:19] LABS: Glucose,Whole Blood 202 mg/dL (70-110)
[2022-01-11] MEDS: SYMBICORT 160-4.5 MCG INHALER INHALATION SCH ×2 (07:26→20:41)
[2022-01-11] MEDS: IPRATROPIUM-ALBUTEROL 3 ML NEB INHALATION SCH ×4 (07:26→20:42)
--- NOTE | 2022-01-11 07:40 | XR ---
EXAMINATION TYPE: XR chest 2V DATE OF EXAM: 01/11/2022 COMPARISON: Chest x-ray 01/07/2022 HISTORY: Pneumonia, sepsis TECHNIQUE: Frontal and lateral views of the chest are obtained. FINDINGS: There is patchy basilar density noted, improved on the left compared to prior. Aorta is de nse. Prominent lung volumes may be indicative of underlying COPD. The cardiac silhouette size is with in normal limits. The osseous structures are stable, postop changes are noted in the cervical and l umbar spine. IMPRESSION: There is improvement in aeration at the airspace disease in the left lower lobe.
[2022-01-11] MEDS: METOPROLOL SUCCINATE (ER) 50 MG TAB.ER.24H PO SCH (08:52)
[2022-01-11] MEDS: ISOSORBIDE MONONITRATE ER 60 MG TAB.ER.24H PO SCH ×2 (08:52→20:27)
[2022-01-11] MEDS: EZETIMIBE 10 MG TAB PO SCH (08:52)
[2022-01-11] MEDS: DULoxetine HCL 60 MG CAPSULE.DR PO SCH ×2 (08:52→20:26)
[2022-01-11] MEDS: DILTIAZEM ORAL 30 MG TAB PO SCH ×3 (08:52→20:26)
[2022-01-11] MEDS: methylPREDNISolone SOD SUCCI 125 MG/2 ML VIAL IV SCH ×2 (08:52→16:10)
[2022-01-11] MEDS: GABAPENTIN 400 MG CAP PO SCH ×3 (08:56→20:26)
[2022-01-11 09:32] LABS: Basophils # (A) 0.03 X 10*3/uL (0.00-0.10); Basophils % (A) 0.2 %; Eosinophils # (A) 0 X 10*3/uL (0.04-0.35); Eosinophils % (A) 0 %; HCT 37.3 % (37.2-46.3); HGB 12.3 g/dL (12.0-15.0); Immature Grans, Automated 1.8 %; Lymphocytes # (A) 0.69 X 10*3/uL (0.90-5.00); Lymphocytes % (A) 4.1 %; MCH 30.4 pg (27.0-32.0); MCV 92.3 fL (80.0-97.0); Mean Platelet Volume 10.2 fL (9.5-12.2); Monocytes # (A) 0.24 X 10*3/uL (0.20-1.00); Monocytes % (A) 1.4 %; NRBC Per 100 WBC 0 /100 WBCS (0.0-0.0); Neutrophils # (A) 15.64 X 10*3/uL (1.80-7.70); Neutrophils % (A) 92.5 %; Platelet Count 177 X 10*3/uL (140-440); RBC 4.04 X 10*6/uL (4.10-5.20); RDW 14.5 % (11.5-14.5); WBC 16.91 X 10*3/uL (4.50-10.00)
[2022-01-11 12:18] LABS: Glucose,Whole Blood 164 mg/dL (70-110)
--- NOTE | 2022-01-11 15:17 | P.PN ---
Subjective Progress Note Date: 01/11/22 71-year-old female who was seen in the emergency department, on January 07. She apparently came in complaining of back pain, cough, shortness of breath, and coughing up bright red blood. She hadn't been feeling well for a couple weeks prior to admission. She came into the ER on January 05 and was discharged, and then came back in on the , and was admitted. The patient's chest x-ray showed what appears to be pneumonia. The patient does have a history of significant tobacco use, and likely has underlying COPD. Patient with known history of COPD in the lung pneumonia she is being seen for a follow-up in the hospital. The patient is improving. She is feeling better. The white cell count is also improved and the white cell count is down to 16.9 with a hemoglobin of 12.3. The patient also had a elevated pro calcitonin level and 11 is also improvement in the level is down to 0.53. Her cold that 19 testing was negative. INR is at 1.4 and a PT of 14.5 and the patient's electrolytes were all within normal limits. A follow-up chest x-ray was done today and this was compared to the chest x-ray was done earlier on 01/08/2020. There is improvement with interval clearing of the left perihilar/upper lobe pulmonary infiltrate although this has not completely recovered. The pulmonary artery on the right is slightly dilated consistent with pulmonary hypertension and there is some limited infiltration of the right lung base. The patient is currently on broad-spectrum antibiotics and she is on a combination of Levaquin and steroids and bronchodilators. He is on anticoagulation with warfarin 7.5 mg for remote history of DVT and pulmonary embolism. Objective - Vital Signs Vital signs: Vital Signs Temp 98.4 F 01/11/22 14:00 Pulse 94 01/11/22 14:49 Resp 18 01/11/22 14:00 BP 132/66 01/11/22 14:00 Pulse Ox 94 L 01/11/22 14:49 FiO2 Intake & Output 01/10/22 01/11/22 01/11/22 18:59 06:59 18:59 Intake Total 540 118 Balance 540 118 Intake: Oral 540 118 Other: Voiding Method Toilet Toilet Toilet # Voids 3 2 2 - Exam No acute distress, oriented 3. No respiratory distress. The patient's on 2 L of oxygen. No audible wheezing. No use of accessory muscles. HEENT examination is grossly unremarkable. Neck supple. Full range of motion. No adenopathy thyromegaly or neck vein distention. Cardiovascular examination reveals regular rhythm rate. S1-S2 normal. No S3 or S4. No discernible murmur noted. Heart sounds are distant. Heart rate 88 bpm. Lungs reveal diminished bilateral breath sounds. There is inspiratory and expiratory wheezes and rhonchi. Slight prolongation on forced maneuver. No crackles. Adventitious lung sounds are bit more prominent on the left side than on the right. Saturations are 96% on 2 L. Abdomen soft bowel sounds are heard. No masses or tenderness. Extremities are intact. No cyanosis clubbing or edema. Skin is without rash or lesion. Neurologic examination is brief but nonfocal. - Labs CBC & Chem 7: 01/11/22 05:55 01/10/22 05:55 Labs: Abnormal Lab Results - Last 24 Hours (Table) 01/10/22 01/10/22 01/11/22 Range/Units 17:44 20:21 05:55 WBC (4.50-10.00) X 10*3/uL RBC (4.10-5.20) X 10*6/uL Immature Gran # (0.00-0.04) X 10*3/uL Neutrophils # (1.80-7.70) X 10*3/uL Lymphocytes # (0.90-5.00) X 10*3/uL Eosinophils # (0.04-0.35) X 10*3/uL PT 14.5 H (9.0-12.0) sec INR 1.4 H (<1.2) POC Glucose (mg/dL) 140 H 154 H (70-110) mg/dL 01/11/22 01/11/22 01/11/22 Range/Units 05:55 07:17 12:16 WBC 16.91 H (4.50-10.00) X 10*3/uL RBC 4.04 L (4.10-5.20) X 10*6/uL Immature Gran # 0.31 H (0.00-0.04) X 10*3/uL Neutrophils # 15.64 H (1.80-7.70) X 10*3/uL Lymphocytes # 0.69 L (0.90-5.00) X 10*3/uL Eosinophils # 0 L (0.04-0.35) X 10*3/uL PT (9.0-12.0) sec INR (<1.2) POC Glucose (mg/dL) 202 H 164 H (70-110) mg/dL Microbiology - Last 24 Hours (Table) 01/07/22 23:00 Blood Culture - Preliminary Blood No Growth after 72 hours Assessment and Plan Plan: COPD exacerbation complicated by left-sided pneumonia. The patient is improving clinically. The pro calcitonin level is improving. The follow-up chest x-ray showed significant improvement in the left lung pulmonary infiltrate although this has not completely recovered. She is currently on Levaquin. She is on IV Solu-Medrol. She is on bronchodilators. History of heavy tobacco use, and likely, underlying COPD. History of bilateral DVT. History of GERD. History of hyperlipidemia. History of hypertension. History of osteoarthritis. History of skin, cervical, and thyroid cancer Plan Evaluate for home O2, anticoagulated within next 24 hours, the patient may not even need o2 supplementation as the patient is improving significantly. The chest x-rays also improving. As such, we may be able to keep her for today and do a oxygen evaluation tests again tomorrow. Meanwhile, her home inhalers will be resumed. The patient will be sent home on a prednisone burst taper within next 24 hours. Would also continue antibiotic ventilation with warfarin to achieve an INR between 2 and 3. Much improved. Possible discharge within the next 24-48 hours
[2022-01-11 17:06] LABS: Glucose,Whole Blood 128 mg/dL (70-110)
[2022-01-11] MEDS: NYSTATIN 100,000 UNIT/ML SUSP 500,000 UNIT/5 ML CUP PO SCH ×2 (17:34→20:26)
[2022-01-11] MEDS ORDERED: WARFARIN 7.5 MG TAB PO ONE (18:00)
[2022-01-11] MEDS: LEVOFLOXACIN 500 MG TAB PO SCH (20:26)
--- NOTE | 2022-01-11 21:29 | P.PN ---
Subjective Hospital course 71-year-old female presenting for evaluation of cough, dyspnea, back pain. Patient has had symptoms of cough, congestion and chills for the past 5 days. Patient reports that she has been coughing up bright red blood occasionally. She has a history of COPD. Additionally she developed a right flank pain which radiates to the front and is superficial in nature. She states her skin is tender to the touch. There's been no rash. She came into the ER on January 05 and was discharged, and then came back in on the , and was admitted. The patient's chest x-ray showed what appears to be pneumonia. The patient does have a history of significant tobacco use, and likely has underlying COPD. Although she did not mention it to me, we talked about her complaints, on auscultation, she was very tight, and she has significant rhonchi and wheezes. White count 21.2, hemoglobin 14, hematocrit 43.5, platelet count 265,000. Sodium 135, potassium 3.9, chlorides 101, CO2 29, BUN 27, and creatinine 0.8. Nasal swab for coronavirus was negative. N- terminal proBNP was 1390. Chest x-ray showed left-sided pneumonia. 01/10/2022 The patient is seen and evaluated in room at bedsidefeels better today. She's currently on oxygen at 2 L. The patient will have a chest x-ray done tomorrow. She feels less short of breath, and less congested. She is coughing, but not producing any phlegm. His been no fever or chills. No chest pain or chest discomfort. White count 20.3, he will 12.6, hematocrit 39.5, and platelet count 183,000. Sodium 144, potassium 4.1, chlorides 107, and CO2 is 28, BUN 22, and creatinine 0.8. Her calcitonin was initially 1.04. Follow-up was 0.53. The patient remains on breathing treatments, Levaquin, and Solu-Medrol. She is also receiving Symbicort, 2 puffs twice a day. The patient appears to be feeling better and doing better. I've ordered a chest x-ray for the morning. Labs, x-rays, and medications are reviewed. Prognosis is guarded. The patient is counseled about the importance of smoking cessation. We'll await tomorrow's chest x-ray. Resume the care of the patient today 01/11/2022 patient pneumonia is improving both clinically and on imaging, currently kept on Levaquin orally 500 mg daily. Also she is on Solu-Medrol 60 mg, her wheezing is improving as well as her oxygenation a period, from pulmonary perspective patient may be able to go home in 24-48 hours She will need to check for home oxygen prior to discharge She is also on warfarin 7.5 mg for history of bilateral DVT. INR today 1.4, check INR tomorrow. Patient states she has back pain however her gait is normal, even physical therapist recommended home, no need for home care upon discharge. Patient therapist also evaluated the patient Objective - Vital Signs Vital signs: Vital Signs Temp 97.9 F 01/11/22 07:38 Pulse 63 01/11/22 08:00 Resp 16 01/11/22 08:00 BP 127/67 01/11/22 07:38 Pulse Ox 93 L 01/11/22 07:38 FiO2 Intake & Output 01/10/22 01/11/22 01/11/22 18:59 06:59 18:59 Intake Total 540 Balance 540 Intake: Oral 540 Other: Voiding Method Toilet Toilet Toilet # Voids 3 2 - Exam GENERAL: The patient is alert and oriented x3, not in any acute distress. Well developed, well nourished. HEENT: Pupils are round and equally reacting to light. EOMI. No scleral icterus. No conjunctival pallor. Normocephalic, atraumatic. No pharyngeal erythema. No thyromegaly. CARDIOVASCULAR: S1 and S2 present. No murmurs, rubs, or gallops. PULMONARY: Chest is clear to auscultation, mild scattered wheezing, no crackles. ABDOMEN: Soft, nontender, nondistended, normoactive bowel sounds. No palpable organomegaly. MUSCULOSKELETAL: No joint swelling or deformity. EXTREMITIES: No cyanosis, clubbing, or pedal edema. NEUROLOGICAL: Gross neurological examination did not reveal any focal deficits. SKIN: No rashes. no petechiae. - Labs CBC & Chem 7: 01/11/22 05:55 01/10/22 05:55 Labs: Abnormal Lab Results - Last 24 Hours (Table) 01/10/22 01/10/22 01/10/22 Range/Units 12:08 17:44 20:21 WBC (4.50-10.00) X 10*3/uL RBC (4.10-5.20) X 10*6/uL Immature Gran # (0.00-0.04) X 10*3/uL Neutrophils # (1.80-7.70) X 10*3/uL Lymphocytes # (0.90-5.00) X 10*3/uL Eosinophils # (0.04-0.35) X 10*3/uL PT (9.0-12.0) sec INR (<1.2) POC Glucose (mg/dL) 171 H 140 H 154 H (70-110) mg/dL 01/11/22 01/11/22 01/11/22 Range/Units 05:55 05:55 07:17 WBC 16.91 H (4.50-10.00) X 10*3/uL RBC 4.04 L (4.10-5.20) X 10*6/uL Immature Gran # 0.31 H (0.00-0.04) X 10*3/uL Neutrophils # 15.64 H (1.80-7.70) X 10*3/uL Lymphocytes # 0.69 L (0.90-5.00) X 10*3/uL Eosinophils # 0 L (0.04-0.35) X 10*3/uL PT 14.5 H (9.0-12.0) sec INR 1.4 H (<1.2) POC Glucose (mg/dL) 202 H (70-110) mg/dL Microbiology - Last 24 Hours (Table) 01/07/22 23:00 Blood Culture - Preliminary Blood No Growth after 72 hours Assessment and Plan Assessment: 1. Left-sided community-acquired pneumonia; patient has been placed on Levaquin 500 milligrams daily; we will monitor CBC, CRP and pro-calcitonin; blood cultures and sputum culture 2. Acute exacerbation COPD; Solu-Medrol 60 mg IV every 8 hours; DuoNeb nebulizer treatments 4 times a day and when necessary; continue with home inhaler therapy 3. History of bilateral DVT; anticoagulated on Coumadin; we will monitor PT/I NR; pharmacy to dose Coumadin 4. Hypertension; metoprolol XL 50 mg daily, Imdur 60 mg twice a day and Cardizem 90 mg by mouth 3 times a day 5. Hyperlipidemia; Zetia at 10 mg daily 6. Hypothyroidism; levothyroxin 150 MCG daily DVT prophylaxis; SCDs/Coumadin CODE STATUS; full code
[2022-01-11 22:54] LABS: Glucose,Whole Blood 138 mg/dL (70-110)
[2022-01-12] MEDS: methylPREDNISolone SOD SUCCI 125 MG/2 ML VIAL IV SCH ×2 (00:19→08:58)
[2022-01-12] MEDS: SODIUM CHLORIDE 0.9% 1,000 ML IV SCH (05:04)
[2022-01-12] MEDS: LEVOTHYROXINE 75 MCG TAB PO SCH (05:19)
[2022-01-12] MEDS: ACETAMINOPHEN TAB 325 MG TAB PO PRN (05:24)
[2022-01-12 06:36] LABS: INR 2.1 (<1.2); Prothrombin Time 21.4 sec (9.0-12.0)
[2022-01-12 06:53] LABS: Glucose,Whole Blood 129 mg/dL (70-110)
[2022-01-12] MEDS: SYMBICORT 160-4.5 MCG INHALER INHALATION SCH (07:47)
[2022-01-12] MEDS: IPRATROPIUM-ALBUTEROL 3 ML NEB INHALATION SCH ×3 (07:47→15:24)
[2022-01-12] MEDS: METOPROLOL SUCCINATE (ER) 50 MG TAB.ER.24H PO SCH (08:58)
[2022-01-12] MEDS: EZETIMIBE 10 MG TAB PO SCH (08:58)
[2022-01-12] MEDS: DULoxetine HCL 60 MG CAPSULE.DR PO SCH (08:58)
[2022-01-12] MEDS: NYSTATIN 100,000 UNIT/ML SUSP 500,000 UNIT/5 ML CUP PO SCH ×2 (08:58→12:53)
[2022-01-12] MEDS: DILTIAZEM ORAL 30 MG TAB PO SCH (08:59)
[2022-01-12] MEDS: ISOSORBIDE MONONITRATE ER 60 MG TAB.ER.24H PO SCH (08:59)
[2022-01-12] MEDS: GABAPENTIN 400 MG CAP PO SCH (09:02)
[2022-01-12 11:59] LABS: Glucose,Whole Blood 136 mg/dL (70-110)
[2022-01-12 12:56] VITALS: BP 125/60; PULSE 62; RESP 16; TEMP 97.8
--- NOTE | 2022-01-12 15:14 | P.PN ---
Subjective Progress Note Date: 01/12/22 71-year-old female who was seen in the emergency department, on January 07. She apparently came in complaining of back pain, cough, shortness of breath, and coughing up bright red blood. She hadn't been feeling well for a couple weeks prior to admission. She came into the ER on January 05 and was discharged, and then came back in on the , and was admitted. The patient's chest x-ray showed what appears to be pneumonia. The patient does have a history of significant tobacco use, and likely has underlying COPD. Patient with known history of COPD in the lung pneumonia she is being seen for a follow-up in the hospital. The patient is improving. She is feeling better. The white cell count is also improved and the white cell count is down to 16.9 with a hemoglobin of 12.3. The patient also had a elevated pro calcitonin level and 11 is also improvement in the level is down to 0.53. Her cold that 19 testing was negative. INR is at 1.4 and a PT of 14.5 and the patient's electrolytes were all within normal limits. A follow-up chest x-ray was done today and this was compared to the chest x-ray was done earlier on 01/08/2020. There is improvement with interval clearing of the left perihilar/upper lobe pulmonary infiltrate although this has not completely recovered. The pulmonary artery on the right is slightly dilated consistent with pulmonary hypertension and there is some limited infiltration of the right lung base. The patient is currently on broad-spectrum antibiotics and she is on a combination of Levaquin and steroids and bronchodilators. He is on anticoagulation with warfarin 7.5 mg for remote history of DVT and pulmonary embolism. On today's evaluation of 01/12/2022, the patient is extremely well. The patient on room air oxygen. No need for home O2 treatment as the patient did not qualify for home O2. The patient doing actually well for now. Last bronchus spastic and wheezy. She has developed some oropharyngeal candidiasis and she was given nystatin with some limited success. Discussed the case and medical team and the patient can be discharged home on a prednisone burst taper, albuterol HFA, Symbicort and Diflucan. Furthermore, the INR today is at 2.0 which is therapeutic range. Objective - Vital Signs Vital signs: Vital Signs Temp 97.8 F 01/12/22 12:55 Pulse 62 01/12/22 12:55 Resp 16 01/12/22 12:55 BP 125/60 01/12/22 12:55 Pulse Ox 98 01/12/22 12:55 FiO2 Intake & Output 01/11/22 01/12/22 01/12/22 18:59 06:59 18:59 Intake Total 562 480 Balance 562 480 Intake: Oral 562 480 Other: Voiding Method Toilet Toilet # Voids 2 3 - Exam No acute distress, oriented 3. No respiratory distress. The patient's on room air oxygen HEENT examination is grossly unremarkable. Neck supple. Full range of motion. No adenopathy thyromegaly or neck vein distention. Cardiovascular examination reveals regular rhythm rate. S1-S2 normal. No S3 or S4. No discernible murmur noted. Heart sounds are distant. Heart rate 88 bpm. Lungs reveal diminished bilateral breath sounds. There is inspiratory and expiratory wheezes and rhonchi. Slight prolongation on forced maneuver. No crackles. Marked improvement in the air entry bilaterally Abdomen soft bowel sounds are heard. No masses or tenderness. Extremities are intact. No cyanosis clubbing or edema. Skin is without rash or lesion. Neurologic examination is brief but nonfocal. - Labs CBC & Chem 7: 01/11/22 05:55 01/10/22 05:55 Labs: Abnormal Lab Results - Last 24 Hours (Table) 01/11/22 01/11/22 01/12/22 Range/Units 17:04 22:52 05:50 PT 21.4 H (9.0-12.0) sec INR 2.1 H (<1.2) POC Glucose (mg/dL) 128 H 138 H (70-110) mg/dL 01/12/22 01/12/22 Range/Units 06:52 11:57 PT (9.0-12.0) sec INR (<1.2) POC Glucose (mg/dL) 129 H 136 H (70-110) mg/dL Microbiology - Last 24 Hours (Table) 01/07/22 23:00 Blood Culture - Preliminary Blood No Growth after 96 hours Assessment and Plan Plan: COPD exacerbation complicated by left-sided pneumonia. The patient is improving clinically. The pro calcitonin level is improving. The follow-up chest x-ray showed significant improvement in the left lung pulmonary infiltrate although this has not completely recovered. She is currently on Levaquin. She is on IV Solu-Medrol. She is on bronchodilators. The patient is doing extremely well for now. Oxidation is also improved. History of heavy tobacco use, and likely, underlying COPD. History of bilateral DVT. History of GERD. History of hyperlipidemia. History of hypertension. History of osteoarthritis. History of skin, cervical, and thyroid cancer Plan No need for home O2 therapy Complete a course of Levaquin and the pro calcitonin level is improving, compared total of seven-day course and the pneumonia was clearing Diflucan for oropharyngeal candidiasis Prednisone burst taper at time of discharge Symbicort as maintenance Albuterol rescue inhaler on an as-needed basis Outpatient follow-up with pulmonary INR is therapeutic The patient is clear for discharge from the pulmonary standpoint
[2022-01-12] MEDS ORDERED: WARFARIN 5 MG TAB PO ONE (18:00)
--- NOTE | 2022-01-12 21:23 | P.DS ---
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 Patient has had symptoms of cough, congestion and chills for the past 5 days. Patient found to have left sided pneumonia and acute COPD exacerbation with pul monary team followed closely. Patient treated with IV Solu-Medrol and oral Levaquin and she showed interval improvement both clinically and on repeat chest x-ray showed improved pneumonia. Patient does not need oxygen upon discharge as well because of her improvement. On the day of discharge she denies chest pain, dyspnea significantly improved. No change in urine or bowel habits. No fever. No headache or weakness or numbness. Patient was cleared for discharge by pulmonary team to finish tapered steroids and Levaquin 7 days, patient informed and agrees Her INR is therapeutic upon discharge 2.1 Patient informed the Levaquin and Diflucan might drive her INR prior done expected, she was informed to call INR is 2-3 and she agrees. An appointment made for her with her PCP Dr. Negron in 2 days on 01/14 and she stated she will follow-up to check her INR, also I called for Dr. Negron and left a message to call back and responses pending. Patient explained about the risk of bleeding and she verbalized understanding and acceptance. Patient informed to stop blood thinner and to contact physician or 911 on come to emergency room if she starts bleeding and she verbalized understanding. Problems and management plan were discussed with the patient and he verbalized understanding and acceptance Patient was found stable and can be discharged home however he needs follow-up as an outpatient. Patient was instructed to follow up with PCP within one week and patient agrees Patient informed with her appointment with Dr. Mckeon on 01/14 and she agrees with it and also with her appointment with Dr. Negron on 01/14 at 4 PM and she agrees with it as well Physical exam Gen: patient is a AAOx3, no distress CVS: S1-S2, RRR, no murmur Lungs: B/L CTA, no wheezing Abdomen: soft, no distention, no tenderness, positive bowel sounds Extremity: no leg edema or induration Time spent more than 35 minutes Patient Condition at Discharge: Stable Plan - Discharge Summary Discharge Rx Participant: No New Discharge Prescriptions: New Fluconazole [Diflucan] 100 mg PO DAILY 7 Days #7 tab Levofloxacin [Levaquin] 500 mg PO Q24H 7 Days #14 tab predniSONE 10 mg PO DIRECTED #40 tab Budesonide-Formot 160-4.5 Mcg [Symbicort 160-4.5 Mcg Inhaler] 2 puff INHALATION RT-BID each Albuterol Inhaler [Ventolin Hfa Inhaler] 1 puff INHALATION QID PRN #8 gm PRN Reason: Shortness Of Breath Or Wheezing Continue Nitroglycerin 0.4 mg SUBLINGUAL Q5M PRN PRN Reason: Chest Pain Levothyroxine Sodium [Levo-T] 150 mcg PO DAILY Isosorbide Mononitrate ER [Imdur] 60 mg PO BID Furosemide [Lasix] 40 mg PO DAILY Folic Acid 1 mg PO DAILY Ezetimibe [Zetia] 10 mg PO DAILY Warfarin Sodium [Coumadin] 7.5 mg PO SUMO Warfarin Sodium [Coumadin] 5 mg PO Cyanocobalamin (Vitamin B-12) [Vitamin B-12] 1,000 mcg PO DAILY DULoxetine HCL [Cymbalta] 60 mg PO BID Cholecalciferol [Vitamin D3 (25 Mcg = 1000 Iu)] 50 mcg PO DAILY dilTIAZem HCL [Cardizem] 90 mg PO TID Metoprolol Succinate (ER) [Toprol XL] 50 mg PO DAILY Potassium Chloride [Klor-Con M10] 10 meq PO DAILY Ondansetron Odt [Zofran ODT] 4 mg PO Q8HR PRN #10 tab PRN Reason: Nausea Gabapentin 800 mg PO BID Discontinued HYDROcodone/APAP 10-325MG [Priddy 10-325] 1 tab PO Q6H PRN PRN Reason: Pain Esomeprazole Magnesium 40 mg PO BID predniSONE 50 mg PO DAILY #5 tab Discharge Medication List Cyanocobalamin (Vitamin B-12) [Vitamin B-12] 1,000 mcg PO DAILY 10/30/19 [History] Ezetimibe [Zetia] 10 mg PO DAILY 10/30/19 [History] Folic Acid 1 mg PO DAILY 10/30/19 [History] Furosemide [Lasix] 40 mg PO DAILY 10/30/19 [History] Isosorbide Mononitrate ER [Imdur] 60 mg PO BID 10/30/19 [History] Levothyroxine Sodium [Levo-T] 150 mcg PO DAILY 10/30/19 [History] Nitroglycerin 0.4 mg SUBLINGUAL Q5M PRN 10/30/19 [History] Warfarin Sodium [Coumadin] 5 mg PO WEFRSA 10/30/19 [History] Warfarin Sodium [Coumadin] 7.5 mg PO SUMO 10/30/19 [History] Ondansetron Odt [Zofran ODT] 4 mg PO Q8HR PRN #10 tab 01/05/22 [Rx] Cholecalciferol [Vitamin D3 (25 Mcg = 1000 Iu)] 50 mcg PO DAILY 01/08/22 [History] DULoxetine HCL [Cymbalta] 60 mg PO BID 01/08/22 [History] Gabapentin 800 mg PO BID 01/08/22 [History] Metoprolol Succinate (ER) [Toprol XL] 50 mg PO DAILY 01/08/22 [History] Potassium Chloride [Klor-Con M10] 10 meq PO DAILY 01/08/22 [History] dilTIAZem HCL [Cardizem] 90 mg PO TID 01/08/22 [History] Albuterol Inhaler [Ventolin Hfa Inhaler] 1 puff INHALATION QID PRN #8 gm 01/12/22 [Rx] Budesonide-Formot 160-4.5 Mcg [Symbicort 160-4.5 Mcg Inhaler] 2 puff INHALATION RT-BID each 01/12/22 [Rx] Fluconazole [Diflucan] 100 mg PO DAILY 7 Days #7 tab 01/12/22 [Rx] Levofloxacin [Levaquin] 500 mg PO Q24H 7 Days #14 tab 01/12/22 [Rx] predniSONE 10 mg PO DIRECTED #40 tab 01/12/22 [Rx] Follow up Appointment(s)/Referral(s): Trent Mckeon DO [Doctor of Osteopathic Medicine] - 01/20/22 9:00 am Jj Cee DO [Primary Care Provider] - 01/14/22 4:00 pm (we recommend to check your INR with your doctor ) Patient Instructions/Handouts: COPD (Chronic Obstructive Pulmonary Disease) (DC), Community Acquired Pneumonia (DC) Activity/Diet/Wound Care/Special Instructions: Heart healthy diet Activity is restricted till you see your doctor Discharge Disposition: HOME SELF-CARE
== END 2022-01-12 15:23 | disposition home or self-care (01) | DRG 193 ==
LOC: EC 18:50 → 6NMEDSUR 01-08 01:24
PROVIDERS: ADMIT Hospitalist; ATTEND Hospitalist
DX: J18.9 Pneumonia, unspecified organism (principal); J96.01 Acute respiratory failure with hypoxia; J44.0 Chronic obstructive pulmonary disease with (acute) lower respiratory infection; R04.2 Hemoptysis; J44.1 Chronic obstructive pulmonary disease with (acute) exacerbation; B37.0 Candidal stomatitis; E03.9 Hypothyroidism, unspecified; E78.5 Hyperlipidemia, unspecified; Z71.6 Tobacco abuse counseling; M19.90 Unspecified osteoarthritis, unspecified site; F17.210 Nicotine dependence, cigarettes, uncomplicated; F32.A Depression, unspecified; F41.9 Anxiety disorder, unspecified; I10 Essential (primary) hypertension; K21.9 Gastro-esophageal reflux disease without esophagitis; I27.20 Pulmonary hypertension, unspecified; Z20.822 Contact with and (suspected) exposure to COVID-19; Z79.01 Long term (current) use of anticoagulants; Z79.51 Long term (current) use of inhaled steroids; Z79.890 Hormone replacement therapy; Z79.899 Other long term (current) drug therapy; Z85.41 Personal history of malignant neoplasm of cervix uteri; Z85.828 Personal history of other malignant neoplasm of skin; Z85.850 Personal history of malignant neoplasm of thyroid; Z86.711 Personal history of pulmonary embolism; Z86.718 Personal history of other venous thrombosis and embolism; Z90.710 Acquired absence of both cervix and uterus; Z88.6 Allergy status to analgesic agent; Z88.1 Allergy status to other antibiotic agents; Z88.5 Allergy status to narcotic agent
CPT/HCPCS: 36415; 71046; 80048; 80053; 83605; 83880; 84145; 85025; 85610; 87040; 87635; 93005; 94640; 94760; 96365; 96366; 96375; 99285

== ENCOUNTER 2022-07-08 18:35 | Inpatient (IN) | payer MEDICARE ==
[2022-07-08] MEDS ORDERED: IPRATROPIUM-ALBUTEROL 3 ML NEB INHALATION STA (18:40)
[2022-07-08 19:04] LABS: Basophils % (A) 0 %; Eosinophils # (A) 0.2 k/uL (0-0.7); Eosinophils % (A) 2 %; Lymphocytes # (A) 1.6 k/uL (1.0-4.8); Lymphocytes % (A) 16 %; MCH 29.9 pg (25.0-35.0); MCHC 33.3 g/dL (31.0-37.0); MCV 89.7 fL (80.0-100.0); Mean Platelet Volume 7.4; Monocytes # (A) 0.4 k/uL (0-1.0); Monocytes % (A) 3 %; Neutrophils # (A) 8.2 k/uL (1.3-7.7); Neutrophils % (A) 79 %; Platelet Count 178 k/uL (150-450); RBC 5.35 m/uL (3.80-5.40); RDW 13.8 % (11.5-15.5); WBC 10.5 k/uL (3.8-10.6)
--- NOTE | 2022-07-08 19:13 | ED ---
Chest Pain HPI - General Stated Complaint: [facility] PAIN Time Seen by Provider: 07/08/22 18:40 Source: patient, EMS, RN notes reviewed Mode of arrival: EMS Limitations: no limitations - History of Present Illness Initial Comments: 71-year-old female history of COPD heart disease who is a smoker started having chest pain earlier today approximately 4 PM while watching television it did seem to get much improved after nitroglycerin and aspirin. She also states she had palpitations during this period She brought in by EMS she had been seen in at her doctor's office today this where she was transported from. Is reported that she had atrial fibrillation in the office. She denies any fevers chills nausea vomiting sweats MD Complaint: chest pain - Related Data Home Medications Medication Instructions Recorded Confirmed Cyanocobalamin (Vitamin B-12) 1,000 mcg PO DAILY 10/30/19 07/08/22 [Vitamin B-12] Ezetimibe [Zetia] 10 mg PO DAILY 10/30/19 07/08/22 Folic Acid 1 mg PO DAILY 10/30/19 07/08/22 Isosorbide Mononitrate ER [Imdur] 60 mg PO BID 10/30/19 07/08/22 Levothyroxine Sodium [Levo-T] 150 mcg PO DAILY 10/30/19 07/08/22 Warfarin Sodium [Coumadin] 5 mg PO TUWETHSA@2100 10/30/19 07/08/22 Warfarin Sodium [Coumadin] 7.5 mg PO SUMOSA@2100 10/30/19 07/08/22 Cholecalciferol [Vitamin D3 (25 50 mcg PO DAILY 01/08/22 07/08/22 Mcg = 1000 Iu)] DULoxetine HCL [Cymbalta] 60 mg PO BID 01/08/22 07/08/22 Gabapentin 800 mg PO BID 01/08/22 07/08/22 Metoprolol Succinate (ER) [Toprol 50 mg PO DAILY 01/08/22 07/08/22 XL] dilTIAZem HCL [Cardizem] 90 mg PO TID 01/08/22 07/08/22 Esomeprazole Magnesium [NexIUM] 40 mg PO BID 07/08/22 07/08/22 FLUoxetine HCL [PROzac] 20 mg PO BID 07/08/22 07/08/22 HYDROcodone/APAP 10-325MG [Lutz 1 tab PO QID 07/08/22 07/08/22 10-325] Ipratropium-Albuterol Nebulize 3 ml INHALATION RT-QID PRN 07/08/22 07/08/22 [Duoneb 0.5 mg-3 mg/3 ml Soln] Ubrogepant [Ubrelvy] 50 mg PO DAILY PRN 07/08/22 07/08/22 Allergies Allergy/AdvReac Type Severity Reaction Status Date / Time azithromycin [From Zithromax] Allergy Severe Rash/Hives Verified 07/08/22 20:15 bupropion [From Wellbutrin] Allergy Severe Rash/Hives Verified 07/08/22 20:15 cephalexin [From Keflex] Allergy Intermediate Rash/Hives Verified 07/08/22 20:15 lisinopril [From Prinivil] Allergy Intermediate Rash/Hives Verified 07/08/22 20:15 nitrofurantoin Allergy Intermediate Rash/Hives Verified 07/08/22 20:15 [From Macrobid] pentazocine [From Talwin] Allergy Intermediate Rash/Hives Verified 07/08/22 20:15 topiramate [From Topamax] Allergy Intermediate Rash/Hives Verified 07/08/22 20:15 hydromorphone [From Dilaudid] AdvReac Severe Unknown Verified 07/08/22 20:15 propranolol [From Inderal LA] AdvReac Severe Unknown Verified 07/08/22 20:15 codeine AdvReac Intermediate Unknown Verified 07/08/22 20:15 ibuprofen [From Motrin] AdvReac Intermediate Unknown Verified 07/08/22 20:15 Review of Systems ROS Statement: Those systems with pertinent positive or pertinent negative responses have been documented in the HPI. ROS Other: All systems not noted in ROS Statement are negative. EKG Findings - EKG Results: EKG: interpreted by ERMD (EKG interpreted by me showed an sinus tachycardia of 107 SD interval 136 QRS duration 87 daily since QTC 318/[address] configuration this correlates with the one done in the office however does appear to be sinus not atrial fibrillation as the office one indicated) Past Medical History Past Medical History: Chest Pain / Angina, COPD, Deep Vein Thrombosis (DVT), GERD/Reflux, Hyperlipidemia, Hypertension, Neurologic Disorder, Osteoarthritis (OA), Thyroid Disorder Additional Past Medical History / Comment(s): SKIN CANCER, CERVICAL CANCER AND THYROID CANCER. DVT IN BOTH LEGS. MS History of Any Multi-Drug Resistant Organisms: None Reported Past Surgical History: Adenoidectomy, Appendectomy, Back Surgery, Breast Surgery, Hysterectomy, Orthopedic Surgery, Tonsillectomy, Tubal Ligation Additional Past Surgical History / Comment(s): CYSTS REMOVED FROM BILATERAL BREASTS. Past Anesthesia/Blood Transfusion Reactions: No Reported Reaction Past Psychological History: Anxiety, Depression Smoking Status: Current every day smoker General Exam - General Exam Comments Initial Comments: This is a well-developed well-nourished awake alert oriented 4 female Limitations: no limitations General appearance: alert, in no apparent distress Head exam: Present: atraumatic, normocephalic, normal inspection Eye exam: Present: normal appearance, PERRL, EOMI. Absent: scleral icterus, conjunctival injection, periorbital swelling ENT exam: Present: mucous membranes dry Neck exam: Present: normal inspection, full ROM, other (No stridor JVD or bruits). Absent: tenderness, meningismus, lymphadenopathy Respiratory exam: Present: wheezes, decreased breath sounds. Absent: respiratory distress, rales, rhonchi, stridor Cardiovascular Exam: Present: tachycardia. Absent: systolic murmur, diastolic murmur, rubs, gallop, clicks GI/Abdominal exam: Present: soft, normal bowel sounds. Absent: distended, tenderness, guarding, rebound, rigid Extremities exam: Present: normal inspection, full ROM, normal capillary refill. Absent: tenderness, pedal edema, joint swelling, calf tenderness Back exam: Present: normal inspection Neurological exam: Present: alert, oriented X3, CN II-XII intact Psychiatric exam: Present: normal affect, normal mood Skin exam: Present: warm, dry, intact, normal color. Absent: rash Course Vital Signs 07/08/22 07/08/22 07/08/22 18:47 19:35 19:48 Temperature 97.9 F Pulse Rate 110 H 109 H 106 H Respiratory 18 Rate Blood Pressure 118/78 O2 Sat by Pulse 95 Oximetry Procedures - Smoking Cessation Time Spent Discussing Smoking Cessation w/Patient (Minutes): 3 Patient Acknowledges Need for Cessation: Yes Chest Pain MDM - MDM Interpreting imaging no acute processes. I did discuss findings the patient she does demonstrate evidence of elevated troponin she did have chest pain and shortness of breath. She later complains some heartburn while in the supine position he does get this at times. Patient is on Coumadin already. Patient will be admitted with cardiology consultation.Was pt. sent in by a medical professional or institution (SILAS Kaiser, RADIATION PROTECTION SPECIALIST, urgent care, hospital, or care home...) When possible be specific @ -No Did you speak to anyone other than the patient for history (EMS, parent, family, police, friend...)? What history was obtained from this source @ -EMS personnel Did you review nursing and triage notes (agree or disagree)? Why? @ -I reviewed and agree with nursing and triage notes Were old charts reviewed (outside hosp., previous admission, EMS record, old EKG, old radiological studies, urgent care reports/EKG's, care home records)? Report findings @ - old charts were reviewed Differential Diagnosis (chest pain, altered mental status, abdominal pain women, abdominal pain men, vaginal bleeding, weakness, fever, dyspnea, syncope, headache, dizziness, GI bleed, back pain, seizure, CVA, palpatations, mental health, musculoskeletal)? @ -Chest pain, COPD exacerbation EKG interpreted by me (3pts min.). @ -As above X-rays interpreted by me (1pt min.). @ -As above CT interpreted by me (1pt min.). @ -None done U/S interpreted by me (1pt. min.). @ -None done What testing was considered but not performed or refused? (CT, X-rays, U/S, labs)? Why? @ -None What meds were considered but not given or refused? Why? @ -None Did you discuss the management of the patient with other professionals (professionals i.e. SILAS Kaiser, RADIATION PROTECTION SPECIALIST, lab, RT, psych nurse, nursing home social worker, strainer tender, teacher, disbursing officer, ed case manager)? Give summary @ -No Was smoking cessation discussed for >3mins.? @ -S with a 3 minutes Was critical care preformed (if so, how long)? @ -31 minutes Were there social determinants of health that impacted care today? How? (Homelessness, low income, unemployed, alcoholism, drug addiction, transportation, low edu. Level, literacy, decrease access to med. care, half-way, rehab)? @ -No Was there de-escalation of care discussed even if they declined (Discuss DNR or withdrawal of care, Hospice)? DNR status @ -No What co-morbidities impacted this encounter? (DM, HTN, Smoking, COPD, CAD, Cancer, CVA, ARF, Chemo, Hep., AIDS, mental health diagnosis, sleep apnea, morbid obesity)? @ -Smoking, COPD, coronary artery disease] Was patient admitted / discharged? Hospital course, mention meds given and route, prescriptions, significant lab abnormalities, going to OR and other pertinent info. @ -hospital course patient was admitted for inpatient evaluation and treatment she does have an elevated troponin cardiology will be consulted. Serial troponins will be performed Undiagnosed new problem with uncertain prognosis? @ -No Drug Therapy requiring intensive monitoring for toxicity (Heparin, Nitro, Insulin, Cardizem)? @ -The patient is on Coumadin and nitroglycerin when necessary Were any procedures done? @ -No Diagnosis/symptom? @ -Chest pain, unstable angina, COPD Acute, or Chronic, or Acute on Chronic? @ -Acute Uncomplicated (without systemic symptoms) or Complicated (systemic symptoms)? @ -default Side effects of treatment? @ -No Exacerbation, Progression, or Severe Exacerbation? @ -No Poses a threat to life or bodily function? How? (Chest pain, [place], NH, pneumonia, PE, COPD, DKA, ARF, appy, cholecystitis, CVA, Diverticulitis, Homicidal, Suicidal, threat to staff... and all critical care pts) @ -Unstable angina, COPD exacerbation Disposition Clinical Impression: Unstable angina pectoris, Chest pain, COPD exacerbation Disposition: ADMITTED IP TO THIS HOSP Condition: Stable Referrals: Jj Cee DO [Primary Care Provider] - 1-2 days Decision Date: 07/08/22 Decision Time: 20:45
[2022-07-08 19:17] LABS: Albumin 3.3 g/dL (3.5-5.0); Total Bilirubin 0.4 mg/dL (0.2-1.3); Total Protein 5.7 g/dL (6.3-8.2)
[2022-07-08 19:28] LABS: Partial Thromboplastin Time 28.3 sec (22.0-30.0); Prothrombin Time 19.4 sec (9.0-12.0)
--- NOTE | 2022-07-08 19:29 | XR ---
EXAMINATION TYPE: XR chest 2V DATE OF EXAM: 07/08/2022 7:17 PM COMPARISON: Chest radiographs from 01/10/2022 TECHNIQUE: XR chest 2V Frontal and lateral views of the chest. CLINICAL INDICATION:Female, 71 years old with history of Chest Pain; FINDINGS: Lungs/Pleura: There is no evidence of pleural effusion, focal consolidation, or pneumothorax. Pulmonary vascularity: Unremarkable. Heart/mediastinum: Cardiomediastinal silhouette is prominent in size. Musculoskeletal: No acute osseous pathology. There is fixation hardware in the lower cervical spine. IMPRESSION: No acute cardiopulmonary disease/process.
[2022-07-08 19:30] LABS: Magnesium 1.9 mg/dL (1.6-2.3)
[2022-07-08] MEDS ORDERED: MAG HYDROX/AL HYDROX/SIMETH 30 ML, HYOSCYAMINE ELIXIR 10 ML PO STA ×2 (20:56)
[2022-07-08] MEDS ORDERED: NITROGLYCERIN SL TABS 0.4 MG TAB SUBLINGUAL PRN (21:04)
[2022-07-08] MEDS ORDERED: NON FORMULARY DRUG (Ubrogepant [Ubrelvy] 50 MG Tablet) PO PRN (21:06)
[2022-07-08] MEDS ORDERED: NICOTINE 21MG/24HR PATCH TRANSDERM STA (21:06)
[2022-07-08] MEDS ORDERED: HEPARIN SODIUM 1,000 UN/ML (10ML VL) IV ONE (23:29)
[2022-07-08] MEDS ORDERED: HEPARIN SODIUM 1,000 UN/ML (10ML VL) IV PRN (23:29)
[2022-07-08] MEDS: DILTIAZEM ORAL 30 MG TAB PO SCH (23:37)
[2022-07-08] MEDS: HYDROcodone/APAP 10-325MG 1 EACH TAB PO SCH (23:38)
[2022-07-09] MEDS: NITROGLYCERIN OINT 1 INCH/GM PACKET TOPICAL SCH ×5 (00:17→23:06)
[2022-07-09] MEDS: HEPARIN SOD,PORK IN 0.45% NACL 25,000 UNIT in 0.45% NACL 1 250ML.BAG IV SCH (00:26)
[2022-07-09] MEDS: SODIUM CHLORIDE 0.9% 1,000 ML IV SCH ×2 (00:31→20:52)
[2022-07-09] MEDS: LEVOTHYROXINE 75 MCG TAB PO SCH (05:29)
[2022-07-09] MEDS: CYANOCOBALAMIN 500 MCG TAB PO SCH (08:43)
[2022-07-09] MEDS: ASPIRIN 325 MG TAB PO SCH (08:43)
[2022-07-09] MEDS: CHOLECALCIFEROL 25 MCG (1000 IU) TABLET PO SCH (08:43)
[2022-07-09] MEDS: EZETIMIBE 10 MG TAB PO SCH (08:44)
[2022-07-09] MEDS: FLUoxetine HCL 20 MG CAP PO SCH ×2 (08:44→20:52)
[2022-07-09] MEDS: DILTIAZEM ORAL 30 MG TAB PO SCH ×3 (08:44→20:51)
[2022-07-09] MEDS: DULoxetine HCL 60 MG CAPSULE.DR PO SCH ×2 (08:44→20:52)
[2022-07-09] MEDS: GABAPENTIN 400 MG CAP PO SCH ×2 (08:44→20:52)
[2022-07-09] MEDS: FOLIC ACID 1 MG TAB PO SCH (08:44)
[2022-07-09] MEDS: HYDROcodone/APAP 10-325MG 1 EACH TAB PO SCH ×4 (08:44→20:52)
[2022-07-09] MEDS: ISOSORBIDE MONONITRATE ER 60 MG TAB.ER.24H PO SCH ×2 (08:46→20:52)
[2022-07-09] MEDS: METOPROLOL SUCCINATE (ER) 50 MG TAB.ER.24H PO SCH (08:46)
[2022-07-09] MEDS: PANTOPRAZOLE 40 MG TABLET PO SCH ×2 (08:46→20:52)
[2022-07-09] MEDS: IPRATROPIUM 0.5 MG/2.5 ML NEBU INHALATION PRN ×3 (09:50→19:53)
[2022-07-09] MEDS: ALBUTEROL NEBULIZED 2.5 MG/3 ML INHALATION PRN ×3 (09:50→19:52)
--- NOTE | 2022-07-09 10:01 | P.CRDCN ---
History of Present Illness Consult date: 07/09/22 Consult reason: chest pain History of present illness: CHIEF COMPLAINT: CHEST PAIN HISTORY OF PRESENT ILLNESS: [Patient is a pleasant 71-year-old female with significant past medical history of COPD, CAD with 3 prior stents, tobacco abuse, "unstable angina", history of DVT/PE on Coumadin, and hypertension who presented with chest pain. She follows with Dr. Car, cardiology in [place] and last heart stent and cath was approximately 5 years ago. She was sitting watching TV yesterday when she developed mid chest pain. She felt her heart racing and checked her heart rate with the pulse ox was 166. She called her PCP and went into the office, EKG and office reportedly showed a-fib, she was still having chest pains and EMS was ca lled and she was taken to the ED. Chest pain lasted approximately 3 hours and improved some with nitro and aspirin. Troponin elevated at 0.063, 0.108, 0.107. She was started on a heparin drip. INR is 2.0. She reports chest pain improved however she was having heartburn overnight and this resolved with a GI cocktail. She reports having episodes of chest pain approximately 2-3 times a month. She states it's been a few years since her last stress test in heart cath. Telemetry reviewed and patient was in atrial fibrillation for approximately 30 minutes overnight, she denies any symptoms during this timeframe.] REVIEW OF SYSTEMS: No fever or chills. No cough or expectoration. No diaphore sis. Patient denies headache, dizziness, blurred vision, double vision. Patient denies any stomach discomfort. No nausea, vomiting. No hematochezia. No hematemesis. Denies any black stools or blood in his stools. Denies dysuria or hematuria. No muscle weakness or numbness. No chest pain or pressure. Reports fatigue. PHYSICAL EXAMINATION: This is a [71]-year-old [female] in no apparent distress at the time of my examination. HEENT: Head is atraumatic, normocephalic. Pupils are equal, round. Sclerae anicteric. Conjunctivae are clear. Mucous membranes of the mouth are moist. Neck is supple. There is no jugular venous distention. No carotid bruit is heard. CHEST EXAMINATION: Lungs are clear to auscultation. No chest wall tenderness is noted on palpation or with deep breathing. HEART EXAMINATION: Heart regular rate and rhythm. S1, S2 heard. No murmurs, gallops or rub. ABDOMEN: Soft, nontender. Bowel sounds are heard. EXTREMITIES: 2+ peripheral pulses with no evidence of peripheral edema and no calf tenderness noted. NEUROLOGIC EXAMINATION: Patient is awake, alert and oriented x3. IMPRESSION AND PLAN: [1. Chest pain 2. CAD s/p 3 stents, most recent approximately 5 years ago 3. NSTEMI 4. COPD 5. Atrial fibrillation paroxysmal 6. History DVT/PE on coumadin] PLAN: Patient with chest pain concerning for unstable angina with elevated troponins and also intermittent A. fib. We will [check echocardiogram to assess heart function and structure. We'll plan to proceed with a heart catheterization to assess for blockages and intervene if needed. Will check INR if it still elevated we'll plan to proceed with heart cath tomorrow. Continue heparin drip for now. NPO for now.]. I am dictating on behalf of Dr. Davey Bassett's history/physical and assessment/plan. Past Medical History Past Medical History: Chest Pain / Angina, COPD, Deep Vein Thrombosis (DVT), GERD/Reflux, Hyperlipidemia, Hypertension, Neurologic Disorder, Osteoarthritis (OA), Pulmonary Embolus (PE), Thyroid Disorder Additional Past Medical History / Comment(s): SKIN CANCER, CERVICAL CANCER AND THYROID CANCER. DVT IN BOTH LEGS. MS History of Any Multi-Drug Resistant Organisms: C-DIFF Date of last positivie culture/infection: 04/25/2002 MDRO Source:: cdiff Past Surgical History: Adenoidectomy, Appendectomy, Back Surgery, Breast Surg shivam, Hysterectomy, Orthopedic Surgery, Tonsillectomy, Tubal Ligation Additional Past Surgical History / Comment(s): CYSTS REMOVED FROM BILATERAL BREASTSm, NECK SURGERY Past Anesthesia/Blood Transfusion Reactions: No Reported Reaction Past Psychological History: Anxiety, Depression Smoking Status: Current every day smoker Past Alcohol Use History: None Reported Past Drug Use History: None Reported Medications and Allergies Home Medications Medication Instructions Recorded Confirmed Type Cyanocobalamin (Vitamin B-12) 1,000 mcg PO DAILY 10/30/19 07/08/22 History [Vitamin B-12] Ezetimibe [Zetia] 10 mg PO DAILY 10/30/19 07/08/22 History Folic Acid 1 mg PO DAILY 10/30/19 07/08/22 History Isosorbide Mononitrate ER [Imdur] 60 mg PO BID 10/30/19 07/08/22 History Levothyroxine Sodium [Levo-T] 150 mcg PO DAILY 10/30/19 07/08/22 History Warfarin Sodium [Coumadin] 5 mg PO TUWETHFR@209910/30/19 07/08/22 History Warfarin Sodium [Coumadin] 7.5 mg PO SUMOSA@209910/30/19 07/08/22 History Cholecalciferol [Vitamin D3 (25 50 mcg PO DAILY 01/08/22 07/08/22 History Mcg = 1000 Iu)] DULoxetine HCL [Cymbalta] 60 mg PO BID 01/08/22 07/08/22 History Gabapentin 800 mg PO BID 01/08/22 07/08/22 History Metoprolol Succinate (ER) [Toprol 50 mg PO DAILY 01/08/22 07/08/22 History XL] dilTIAZem HCL [Cardizem] 90 mg PO TID 01/08/22 07/08/22 History Esomeprazole Magnesium [NexIUM] 40 mg PO BID 07/08/22 07/08/22 History FLUoxetine HCL [PROzac] 20 mg PO BID 07/08/22 07/08/22 History HYDROcodone/APAP 10-325MG [[place] 1 tab PO QID 07/08/22 07/08/22 History 10-325] Ipratropium-Albuterol Nebulize 3 ml INHALATION RT-QID PRN 07/08/22 07/08/22 History [Duoneb 0.5 mg-3 mg/3 ml Soln] Ubrogepant [Ubrelvy] 50 mg PO DAILY PRN 07/08/22 07/08/22 History Allergies Allergy/AdvReac Type Severity Reaction Status Date / Time azithromycin [From Zithromax] Allergy Severe Rash/Hives Verified 07/08/22 20:15 bupropion [From Wellbutrin] Allergy Severe Rash/Hives Verified 07/08/22 20:15 cephalexin [From Keflex] Allergy Intermediate Rash/Hives Verified 07/08/22 20:15 lisinopril [From Prinivil] Allergy Intermediate Rash/Hives Verified 07/08/22 20:15 nitrofurantoin Allergy Intermediate Rash/Hives Verified 07/08/22 20:15 [From Macrobid] pentazocine [From Talwin] Allergy Intermediate Rash/Hives Verified 07/08/22 20:15 topiramate [From Topamax] Allergy Intermediate Rash/Hives Verified 07/08/22 20:15 hydromorphone [From Dilaudid] AdvReac Severe Unknown Verified 07/08/22 20:15 propranolol [From Inderal LA] AdvReac Severe Unknown Verified 07/08/22 20:15 codeine AdvReac Intermediate Unknown Verified 07/08/22 20:15 ibuprofen [From Motrin] AdvReac Intermediate Unknown Verified 07/08/22 20:15 Physical Exam Vitals: Vital Signs Temp Pulse Pulse Pulse Resp BP BP 07/09/22 08:02 17 07/09/22 07:46 96.4 F L 82 17 133/69 07/09/22 04:00 87 14 07/09/22 01:17 110 H 07/08/22 23:24 07/08/22 23:10 98.2 F 101 H 16 07/08/22 23:03 98.2 F 101 H 16 07/08/22 21:03 104 H 18 104/73 07/08/22 19:48 106 H 07/08/22 19:35 109 H 07/08/22 18:47 97.9 F 110 H 18 118/78 BP Pulse Ox 07/09/22 08:02 07/09/22 07:46 95 07/09/22 04:00 115/74 94 L 07/09/22 01:17 07/08/22 23:24 95 07/08/22 23:10 125/77 95 07/08/22 23:03 125/77 95 07/08/22 21:03 97 07/08/22 19:48 07/08/22 19:35 07/08/22 18:47 95 Intake and Output 07/08/22 07/09/22 07/09/22 22:59 06:59 14:59 Intake Total 81.229 Balance 81.229 Intake: Intake, IV Titration 81.229 Amount Heparin Sod,Pork in 0.45% 81.229 NaCl 25,000 unit In 0.45 % NaCl 1 250ml.bag @ 12 UNITS/KG/HR 9.144 mls/hr IV .Q24H [facility] Rx#: [id number] Other: Voiding Method Toilet Toilet Incontinent Incontinent # Voids 1 1 Weight 76.204 kg 77.5 kg Results 07/08/22 18:55 07/08/22 18:55 Cardiac Enzymes 07/08/22 07/08/22 07/08/22 Range/Units 18:55 18:55 22:15 AST 25 (14-36) U/L Troponin I 0.063 H* 0.108 H* (0.000-0.034) ng/mL 07/09/22 Range/Units 00:22 AST (14-36) U/L Troponin I 0.107 H* (0.000-0.034) ng/mL Coagulation 07/08/22 07/09/22 Range/Units 18:55 07:33 PT 19.4 H (9.0-12.0) sec APTT 28.3 114.9 H* (22.0-30.0) sec CBC 07/08/22 Range/Units 18:55 WBC 10.5 (3.8-10.6) k/uL RBC 5.35 (3.80-5.40) m/uL Hgb 16.0 (11.4-16.0) gm/dL Hct 48.0 H (34.0-46.0) % Plt Count 178 (150-450) k/uL Comprehensive Metabolic Panel 07/08/22 Range/Units 18:55 Sodium 133 L (137-145) mmol/L Potassium 4.0 (3.5-5.1) mmol/L Chloride 100 (98-107) mmol/L Carbon Dioxide 30 (22-30) mmol/L BUN 22 H (7-17) mg/dL Creatinine 0.88 (0.52-1.04) mg/dL Glucose 111 H (74-99) mg/dL Calcium 10.0 (8.4-10.2) mg/dL AST 25 (14-36) U/L ALT 22 (4-34) U/L Alkaline Phosphatase 60 (38-126) U/L Total Protein 5.7 L (6.3-8.2) g/dL Albumin 3.3 L (3.5-5.0) g/dL Current Medications Generic Name Dose Route Start Last Admin Trade Name Freq PRN Reason Stop Dose Admin Hydrocodone Bitart/Acetaminophen 1 each 07/08/22 22:00 07/09/22 08:44 Hydrocodone/Apap 10-325mg 1 Each Tab PO 1 each QID MIKKI Administration Albuterol Sulfate 2.5 mg 07/08/22 22:16 Albuterol Nebulized 2.5 Mg/3 Ml INHALATION RT-QID PRN Shortness Of Breath Or Wheezing Aspirin 325 mg 07/09/22 09:00 07/09/22 08:43 Aspirin 325 Mg Tab PO 325 mg DAILY MIKKI Administration Cholecalciferol 50 mcg 07/09/22 09:00 07/09/22 08:43 Cholecalciferol 25 Mcg (1000 Iu) Tablet PO 50 mcg DAILY MIKKI Administration Cyanocobalamin 1,000 mcg 07/09/22 09:00 07/09/22 08:43 Cyanocobalamin 500 Mcg Tab PO 1,000 mcg DAILY MIKKI Administration Diltiazem HCl 90 mg 07/08/22 22:15 07/09/22 08:44 Diltiazem Oral 30 Mg Tab PO 90 mg TID MIKKI Administration Duloxetine HCl 60 mg 07/09/22 09:00 07/09/22 08:44 Duloxetine Hcl 60 Mg Capsule.Dr PO 60 mg BID MIKKI Administration Ezetimibe 10 mg 07/09/22 09:00 07/09/22 08:44 Ezetimibe 10 Mg Tab PO 10 mg DAILY MIKKI Administration Fluoxetine HCl 20 mg 07/09/22 09:00 07/09/22 08:44 Fluoxetine Hcl 20 Mg Cap PO 20 mg BID MIKKI Administration Folic Acid 1 mg 07/09/22 09:00 07/09/22 08:44 Folic Acid 1 Mg Tab PO 1 mg DAILY MIKKI Administration Gabapentin 800 mg 07/09/22 09:00 07/09/22 08:44 Gabapentin 400 Mg Cap PO 800 mg BID MIKKI Administration Heparin Sodium (Porcine) 0 unit 07/08/22 23:29 Heparin Sodium 1,000 Un/Ml (10ml Vl) IV PER PROTOCOL PRN Low PTT Protocol Sodium Chloride 1,000 mls @ 20 mls/hr 07/08/22 21:15 07/09/22 00:31 Saline 0.9% IV 20 mls/hr .Q24H MIKKI Administration Heparin Sodium/Sodium Chloride 250 mls @ 9.144 mls/hr 07/08/22 23:30 07/09/22 09:19 25,000 unit/ Sodium Chloride IV 0 units/kg/hr .Q24H MIKKI 0 mls/hr Titration Protocol 12 UNITS/KG/HR Ipratropium [place] 0.5 mg 07/08/22 21:06 Ipratropium 0.5 Mg/2.5 Ml Nebu INHALATION RT-QID PRN Shortness Of Breath Isosorbide Mononitrate 60 mg 07/09/22 09:00 07/09/22 08:46 Isosorbide Mononitrate Er 60 Mg Tab.Er.24h PO 60 mg BID [facility] Administration Levothyroxine Sodium 150 mcg 07/09/22 06:30 07/09/22 05:29 Levothyroxine 75 Mcg Tab PO 150 mcg DAILY@0630 [facility] Administration Metoprolol Succinate 50 mg 07/09/22 09:00 07/09/22 08:46 Metoprolol Succinate (Er) 50 Mg Tab.Er.24h PO 50 mg DAILY [facility] Administration Nitroglycerin 0.4 mg 07/08/22 21:04 Nitroglycerin Sl Tabs 0.4 Mg Tab SUBLINGUAL Q5M PRN Chest Pain Nitroglycerin 0.5 inch 07/09/22 00:00 07/09/22 05:29 Nitroglycerin Oint 1 Inch/Gm Packet TOPICAL 0.5 inch Q6HR [facility] Administration Non-Formulary Medication 50 mg 07/08/22 21:06 Ubrogepant [Ubrelvy] PO DAILY PRN Migraine Headache Pantoprazole Sodium 40 mg 07/09/22 09:00 07/09/22 08:46 Pantoprazole 40 Mg Tablet PO 40 mg BID [facility] Administration Intake and Output 07/08/22 07/09/22 07/09/22 22:59 06:59 14:59 Intake Total 81.229 Balance 81.229 Intake: Intake, IV Titration 81.229 Amount Heparin Sod,Pork in 0.45% 81.229 NaCl 25,000 unit In 0.45 % NaCl 1 250ml.bag @ 12 UNITS/KG/HR 9.144 mls/hr IV .Q24H [facility] Rx#: [id number] Other: Voiding Method Toilet Toilet Incontinent Incontinent # Voids 1 1 Weight 76.204 kg 77.5 kg 07/08/22 18:55 07/08/22 18:55
[2022-07-09 11:03] LABS: Chol/HDL Ratio 2.81 Ratio; LDL Cholesterol,Calculated 108.8 mg/dL (0.0-131.0)
[2022-07-09 12:01] LABS: Basophils % (A) 0 %; Eosinophils # (A) 0.2 k/uL (0-0.7); Eosinophils % (A) 2 %; HCT 45.6 % (34.0-46.0); HGB 14.7 gm/dL (11.4-16.0); Lymphocytes # (A) 1.7 k/uL (1.0-4.8); Lymphocytes % (A) 20 %; MCH 30.1 pg (25.0-35.0); MCHC 32.2 g/dL (31.0-37.0); MCV 93.4 fL (80.0-100.0); Mean Platelet Volume 7.9; Monocytes # (A) 0.3 k/uL (0-1.0); Monocytes % (A) 4 %; Neutrophils # (A) 6.1 k/uL (1.3-7.7); Neutrophils % (A) 73 %; Platelet Count 145 k/uL (150-450); RBC 4.88 m/uL (3.80-5.40); RDW 14.1 % (11.5-15.5); WBC 8.3 k/uL (3.8-10.6)
[2022-07-09 12:18] LABS: Albumin 3.2 g/dL (3.5-5.0); Calcium 9.1 mg/dL (8.4-10.2); Potassium 4.4 mmol/L (3.5-5.1)
--- NOTE | 2022-07-09 12:28 | CA ---
Transthoracic Echo Report Name: Keena Beltran Age: 71 Gender: F : 1950 Exam Date: 07/09/2022 10:24 Exam Location: [place] [facility] Ht (in): 66 Wt (lb): 170 Ordering Physician: Debbie Varner Attending/Referring Phys: Butt Welder Judson Hopper RDCS Procedure CPT: Indications: chest pain, A-fib Cardiac Hx: Technical Quality: Fair Contrast 1: Total Dose (mL): Contrast 2: Total Dose (mL): MEASUREMENTS (Male / Female) Normal Values 2D ECHO LV Diastolic Diameter PLAX 3.7 cm 4.2 - 5.9 / 3.9 - 5.3 cm LV Systolic Diameter PLAX 2.5 cm IVS Diastolic Thickness 1.3 cm 0.6 - 1.0 / 0.6 - 0.9 cm LVPW Diastolic Thickness 1.4 cm 0.6 - 1.0 / 0.6 - 0.9 cm LV Relative Wall Thickness 0.7 M-MODE Aortic Root Diameter MM 2.6 cm LA Systolic Diameter MM 3.1 cm LA Ao Ratio MM 1.2 AV Cusp Separation MM 1.5 cm DOPPLER AV Peak Velocity 168.3 cm/s AV Peak Gradient 11.3 mmHg LVOT Peak Velocity 97.5 cm/s LVOT Peak Gradient 3.8 mmHg MV Area PHT 2.2 cm??? Mitral E Point Velocity 56.7 cm/s Mitral A Point Velocity 83.6 cm/s Mitral E to A Ratio 0.7 MV Deceleration Time 343.6 ms TR Peak Velocity 206.9 cm/s TR Peak Gradient 17.1 mmHg FINDINGS Left Ventricle Moderately increased septal wall thickness. Moderately increased posterior wall thickness. Small left ventricular cavity.grade 1 diastolic dysfunction. Left ventricular ejection fraction is estimated at 55-60 %. Right Ventricle Normal right ventricular size. Normal right ventricular global systolic function. Right ventricular systolic pressure within normal limits. Right Atrium Normal right atrial size. Left Atrium Normal left atrial size. Mitral Valve Mitral annular calcification. No mitral regurgitation. Aortic Valve Trileaflet aortic valve. Focal thickening of the aortic valve cusps. Tricuspid Valve No tricuspid regurgitation. Pulmonic Valve Structurally normal pulmonic valve. No pulmonic regurgitation. Pericardium No pericardial effusion. No pleural effusion. Aorta Normal size aortic root and proximal ascending aorta. CONCLUSIONS Normal LV systolic function Moderate concentric left ventricular hypertrophy Normal RV systolic function Mild aortic valve sclerosis Mild mitral regurgitation Previewed by: Dr. Delgado Fraga MD (Electronically Signed) Final Date: 09 July 2022 12:27
[2022-07-09] MEDS: MAG HYDROX/AL HYDROX/SIMETH 30 ML CUP PO PRN (20:16)
[2022-07-09] MEDS ORDERED: WARFARIN 5 MG TAB PO SCH (21:00)
[2022-07-10] MEDS: MAG HYDROX/AL HYDROX/SIMETH 30 ML CUP PO PRN ×2 (00:22→20:31)
[2022-07-10] MEDS: HEPARIN SOD,PORK IN 0.45% NACL 25,000 UNIT in 0.45% NACL 1 250ML.BAG IV SCH ×2 (05:01→06:30)
[2022-07-10] MEDS: NITROGLYCERIN OINT 1 INCH/GM PACKET TOPICAL SCH ×4 (06:24→23:03)
[2022-07-10] MEDS: LEVOTHYROXINE 75 MCG TAB PO SCH (06:25)
[2022-07-10] MEDS: CHOLECALCIFEROL 25 MCG (1000 IU) TABLET PO SCH (06:25)
[2022-07-10] MEDS: ASPIRIN 325 MG TAB PO SCH (06:25)
[2022-07-10] MEDS: FLUoxetine HCL 20 MG CAP PO SCH ×2 (06:25→20:35)
[2022-07-10] MEDS: ISOSORBIDE MONONITRATE ER 60 MG TAB.ER.24H PO SCH ×2 (06:25→20:35)
[2022-07-10] MEDS: CYANOCOBALAMIN 500 MCG TAB PO SCH (06:25)
[2022-07-10] MEDS: EZETIMIBE 10 MG TAB PO SCH (06:25)
[2022-07-10] MEDS: HYDROcodone/APAP 10-325MG 1 EACH TAB PO SCH ×4 (06:26→23:03)
[2022-07-10] MEDS: FOLIC ACID 1 MG TAB PO SCH (06:26)
[2022-07-10] MEDS: PANTOPRAZOLE 40 MG TABLET PO SCH ×2 (06:26→20:35)
[2022-07-10] MEDS: GABAPENTIN 400 MG CAP PO SCH ×2 (06:26→20:35)
[2022-07-10] MEDS: METOPROLOL SUCCINATE (ER) 50 MG TAB.ER.24H PO SCH (06:26)
[2022-07-10] MEDS: DILTIAZEM ORAL 30 MG TAB PO SCH ×3 (06:26→20:35)
[2022-07-10 07:30] LABS: INR 1.7 (<1.2); Partial Thromboplastin Time 51.6 sec (22.0-30.0); Prothrombin Time 16.9 sec (9.0-12.0)
[2022-07-10] MEDS ORDERED: VERAPAMIL 2.5 MG/ML 2 ML AMP ONE (08:13)
[2022-07-10] MEDS ORDERED: fentaNYL (PF) 50 MCG/ML 2 ML AMP ONE (08:17)
[2022-07-10] MEDS ORDERED: SODIUM CHLORIDE 0.9% 500 ML 500 ML IV ONE (08:45)
[2022-07-10] MEDS ORDERED: MIDAZOLAM 2 MG/2 ML VIAL IVP ONE (08:59)
[2022-07-10] MEDS ORDERED: fentaNYL (PF) 50 MCG/ML 2 ML AMP IVP ONE (08:59)
[2022-07-10] MEDS ORDERED: LIDOCAINE 1% INJ 10MG/ML (5 ML VIAL-PF) SQ ONE (09:01)
[2022-07-10] MEDS ORDERED: VERAPAMIL SYRINGE (5 MG/10 ML) INTRAARTER ONE (09:02)
[2022-07-10] MEDS ORDERED: HEPARIN SODIUM 1,000 UN/ML (10ML VL) IVP ONE (09:07)
[2022-07-10] MEDS: PHENYLEPHRINE-0.9% NACL SYG 1,000 MCG/10 ML SYRINGE IV ONE ×2 (09:17→09:30)
[2022-07-10] MEDS ORDERED: IOPAMIDOL-370 100ML BTL INJ ONE (09:29)
--- NOTE | 2022-07-10 09:37 | P.CARDCATH ---
Description of Procedure: PROCEDURES PERFORMED: Left heart catheterization, bilateral coronary angiography, iFR LAD INDICATION: Non-STEMI CONSENT:I have discussed the risks, benefits and alternative therapies for the above-mentioned procedure and for both sedation/analgesia as well as necessary blood product administration, if indicated, as they pertain to this patient. The patient has indicated understanding and acceptance of the risks and procedures discussed. PROCEDURE: After the risks, benefits and alternatives of the above mentioned procedure explained in detail with the patient, informed consent was obtained. Patient was taken to the catheterization lab and prepped and draped in usual fashion. 1% lidocaine was used to anesthetize the left radial artery. A 6- American sheath was placed in the left radial artery using modified Seldinger technique. Left coronary angiography was performed with a 5-American JL 4.0 catheter and right coronary angiography was performed with a 5-American JR5 catheter in various views. A 5-American FR5 catheter was inserted into the left ventricle and pressure measurements were obtained. There was YOHANA 2 flow of the LAD felt most likely related to microvascular dysfunction however given a 40-50% mid LAD stenosis, decision was made to perform iFR. Heparin was given. A 6-American CLS 3.5 guide was used engage left main. A 0.014 pressure wire was advanced into the left main and normalize. The wire was then advanced 1-2 cm distal to the LAD lesion and iFR was performed and normal at 0.92. The wire was then removed. The left radial sheath was removed and a TR band was placed with hemostasis achieved. The patient tolerated the procedure well. Patient was transported back to the post catheterization holding area in stable condition. Conscious Sedation: Patient was monitored under the direct supervision of vision of myself for conscious sedation using Versed and fentanyl for a total duration of 29 minutes HEMODYNAMICS: Aorta: 83/68 LV: 84/5, LVEDP 15 SELECTIVE CORONARY ARTERIOGRAPHY: LEFT MAIN: The left main is a large caliber vessel which bifurcates into the LAD and circumflex. There is no significant stenosis. LEFT ANTERIOR DESCENDING CORONARY ARTERY: LAD is a large caliber vessel which wraps around to the apex. There is YOHANA 2 flow noted. There is a mid LAD 40- 50% stenosis and otherwise mild luminal irregularaties. There is a patent stent in the proximal diagonal 1 branch. LEFT CIRCUMFLEX CORONARY ARTERY: Left circumflex is a moderate caliber vessel with mild luminal irregularities. RIGHT CORONARY ARTERY: The right coronary artery is a very large caliber vessel which gives off a PDA and PLV branch and is the dominant vessel. There is a mid RCA 30-40% stenosis and otherwise normal. FINAL IMPRESSION: 1. Mild to moderate CAD as described above including 30-40% RCA stenosis, 40- 50% mid LAD stenosis 2. YOHANA 2 flow noted of the LAD likely related to microvascular dysfunction 3. iFR LAD normal at 0.92 4. Normal left sided filling pressures PLAN: 1. Aggressive risk factor modification per most recent ACC/AHA guidelines. 2. LAD stenosis appears more in the moderate range and iFR normal with YOHANA 2 flow likely related to microvascular dysfunction. Continue medical therapy.
[2022-07-10] MEDS: ALBUTEROL NEBULIZED 2.5 MG/3 ML INHALATION PRN (11:21)
[2022-07-10] MEDS: IPRATROPIUM 0.5 MG/2.5 ML NEBU INHALATION PRN (11:21)
[2022-07-10] MEDS: DULoxetine HCL 60 MG CAPSULE.DR PO SCH ×2 (11:34→20:35)
[2022-07-10] MEDS ORDERED: WARFARIN 7.5 MG TAB PO SCH (21:00)
--- NOTE | 2022-07-10 21:01 | P.HPIM ---
History of Present Illness H&P Date: 07/09/22 Chief Complaint: Chest pain 71-year-old female with significant past medical history of COPD, CAD with 3 prior stents, tobacco abuse, "unstable angina", history of DVT/PE on Coumadin, and hypertension who presented with chest pain. She follows with Dr. Car, cardiology in [place] and last heart stent and cath was approximately 5 years ago. She was sitting watching TV yesterday when she developed mid chest pain. She felt her heart racing and checked her heart rate with the pulse ox was 166. She called her PCP and went into the office, EKG and office reportedly showed a-fib, she was still having chest pains and EMS was called and she was taken to the ED. Chest pain lasted approximately 3 hours and improved some with nitro and aspirin. Troponin elevated at 0.063, 0.108, 0.107. She was started on a heparin drip. INR is 2.0. She reports chest pain improved however she was having heartburn overnight and this resolved with a GI cocktail. She reports h aving episodes of chest pain approximately 2-3 times a month. She states it's been a few years since her last stress test in heart cath. Review of Systems REVIEW OF SYSTEMS: CONSTITUTIONAL: No fever, no malaise, no fatigue. HEENT: No recent visual problems or hearing problems. Denied any sore throat. CARDIOVASCULAR: No chest pain, orthopnea, PND, no palpitations, no syncope. PULMONARY: No shortness of breath, no cough, no hemoptysis. GASTROINTESTINAL: No diarrhea, no nausea, no vomiting, no abdominal pain. NEUROLOGICAL: No headaches, no weakness, no numbness. HEMATOLOGICAL: Denies any bleeding or petechiae. GENITOURINARY: Denies any burning micturition, frequency, or urgency. MUSCULOSKELETAL/RHEUMATOLOGICAL: Denies any joint pain, swelling, or any muscle pain. ENDOCRINE: Denies any polyuria or polydipsia. The rest of the 14-point review of systems is negative. Past Medical History Past Medical History: Chest Pain / Angina, COPD, Deep Vein Thrombosis (DVT), GERD/Reflux, Hyperlipidemia, Hypertension, Neurologic Disorder, Osteoarthritis (OA), Pulmonary Embolus (PE), Thyroid Disorder Additional Past Medical History / Comment(s): SKIN CANCER, CERVICAL CANCER AND THYROID CANCER. DVT IN BOTH LEGS. MS History of Any Multi-Drug Resistant Organisms: C-DIFF Date of last positivie culture/infection: 04/25/2002 MDRO Source:: cdiff Past Surgical History: Adenoidectomy, Appendectomy, Back Surgery, Breast Surgery, Hysterectomy, Orthopedic Surgery, Tonsillectomy, Tubal Ligation Additional Past Surgical History / Comment(s): CYSTS REMOVED FROM BILATERAL BREASTSm, NECK SURGERY Past Anesthesia/Blood Transfusion Reactions: No Reported Reaction Past Psychological History: Anxiety, Depression Smoking Status: Current every day smoker Past Alcohol Use History: None Reported Past Drug Use History: None Reported Medications and Allergies Home Medications Medication Instructions Recorded Confirmed Type Cyanocobalamin (Vitamin B-12) 1,000 mcg PO DAILY 10/30/19 07/08/22 History [Vitamin B-12] Ezetimibe [Zetia] 10 mg PO DAILY 10/30/19 07/08/22 History Folic Acid 1 mg PO DAILY 10/30/19 07/08/22 History Isosorbide Mononitrate ER [Imdur] 60 mg PO BID 10/30/19 07/08/22 History Levothyroxine Sodium [Levo-T] 150 mcg PO DAILY 10/30/19 07/08/22 History Warfarin Sodium [Coumadin] 5 mg PO TUWETHFR@2100 10/30/19 07/08/22 History Warfarin Sodium [Coumadin] 7.5 mg PO SUMOSA@2100 10/30/19 07/08/22 History Cholecalciferol [Vitamin D3 (25 50 mcg PO DAILY 01/08/22 07/08/22 History Mcg = 1000 Iu)] DULoxetine HCL [Cymbalta] 60 mg PO BID 01/08/22 07/08/22 History Gabapentin 800 mg PO BID 01/08/22 07/08/22 History Metoprolol Succinate (ER) [Toprol 50 mg PO DAILY 01/08/22 07/08/22 History XL] dilTIAZem HCL [Cardizem] 90 mg PO TID 01/08/22 07/08/22 History Esomeprazole Magnesium [NexIUM] 40 mg PO BID 07/08/22 07/08/22 History FLUoxetine HCL [PROzac] 20 mg PO BID 07/08/22 07/08/22 History HYDROcodone/APAP 10-325MG [[place] 1 tab PO QID 07/08/22 07/08/22 History 10-325] Ipratropium-Albuterol Nebulize 3 ml INHALATION RT-QID PRN 07/08/22 07/08/22 History [Duoneb 0.5 mg-3 mg/3 ml Soln] Ubrogepant [Ubrelvy] 50 mg PO DAILY PRN 07/08/22 07/08/22 History Allergies Allergy/AdvReac Type Severity Reaction Status Date / Time azithromycin [From Zithromax] Allergy Severe Rash/Hives Verified 07/08/22 20:15 bupropion [From Wellbutrin] Allergy Severe Rash/Hives Verified 07/08/22 20:15 cephalexin [From Keflex] Allergy Intermediate Rash/Hives Verified 07/08/22 20:15 lisinopril [From Prinivil] Allergy Intermediate Rash/Hives Verified 07/08/22 20:15 nitrofurantoin Allergy Intermediate Rash/Hives Verified 07/08/22 20:15 [From Macrobid] pentazocine [From Talwin] Allergy Intermediate Rash/Hives Verified 07/08/22 20:15 topiramate [From Topamax] Allergy Intermediate Rash/Hives Verified 07/08/22 20:15 hydromorphone [From Dilaudid] AdvReac Severe Unknown Verified 07/08/22 20:15 propranolol [From Inderal LA] AdvReac Severe Unknown Verified 07/08/22 20:15 codeine AdvReac Intermediate Unknown Verified 07/08/22 20:15 ibuprofen [From Motrin] AdvReac Intermediate Unknown Verified 07/08/22 20:15 Physical Exam Vitals: Vital Signs Temp Pulse Pulse Pulse Resp BP BP 07/09/22 16:08 72 07/09/22 15:56 70 07/09/22 14:00 87 63 18 07/09/22 11:46 96.3 F L 63 18 122/58 07/09/22 10:09 68 07/09/22 09:54 66 07/09/22 08:02 82 17 07/09/22 08:00 87 82 17 07/09/22 07:46 96.4 F L 82 17 133/69 07/09/22 04:00 87 14 07/09/22 01:17 110 H 07/08/22 23:24 07/08/22 23:10 98.2 F 101 H 16 07/08/22 23:03 98.2 F 101 H 16 07/08/22 21:03 104 H 18 104/73 07/08/22 19:48 106 H 07/08/22 19:35 109 H 07/08/22 18:47 97.9 F 110 H 18 118/78 BP Pulse Ox 07/09/22 16:08 07/09/22 15:56 07/09/22 14:00 07/09/22 11:46 95 07/09/22 10:09 07/09/22 09:54 94 L 07/09/22 08:02 07/09/22 08:00 07/09/22 07:46 95 07/09/22 04:00 115/74 94 L 07/09/22 01:17 07/08/22 23:24 95 07/08/22 23:10 125/77 95 07/08/22 23:03 125/77 95 07/08/22 21:03 97 07/08/22 19:48 07/08/22 19:35 07/08/22 18:47 95 Intake and Output 07/09/22 07/09/22 07/09/22 06:59 14:59 22:59 Intake Total 681.229 Balance 681.229 Intake: Intake, IV Titration 81.229 Amount Heparin Sod,Pork in 0.45% 81.229 NaCl 25,000 unit In 0.45 % NaCl 1 250ml.bag @ 12 UNITS/KG/HR 9.144 mls/hr IV .[facility]H [facility] Rx#: [id number] Oral 600 Other: Voiding Method Toilet Toilet Incontinent Incontinent # Voids 1 1 Weight 77.5 kg HEENT: Head is atraumatic, normocephalic. Pupils are equal, round. Sclerae anicteric. Conjunctivae are clear. Mucous membranes of the mouth are moist. Neck is supple. There is no jugular venous distention. No carotid bruit is heard. CHEST EXAMINATION: Lungs are clear to auscultation. No chest wall tenderness is noted on palpation or with deep breathing. HEART EXAMINATION: Heart regular rate and rhythm. S1, S2 heard. No murmurs, gallops or rub. ABDOMEN: Soft, nontender. Bowel sounds are heard. EXTREMITIES: 2+ peripheral pulses with no evidence of peripheral edema and no calf tenderness noted. NEUROLOGIC EXAMINATION: Patient is awake, alert and oriented x3. Results CBC & Chem 7: 07/09/22 11:14 07/09/22 11:14 Labs: Abnormal Lab Results - Last 24 Hours (Table) 07/08/22 07/08/22 07/08/22 Range/Units 18:55 18:55 18:55 Hct 48.0 H (34.0-46.0) % Plt Count (150-450) k/uL Neutrophils # 8.2 H (1.3-7.7) k/uL PT 19.4 H (9.0-12.0) sec INR 2.0 H (<1.2) APTT (22.0-30.0) sec Sodium 133 L (137-145) mmol/L Carbon Dioxide (22-30) mmol/L BUN 22 H (7-17) mg/dL Glucose 111 H (74-99) mg/dL Troponin I (0.000-0.034) ng/mL Total Protein 5.7 L (6.3-8.2) g/dL Albumin 3.3 L (3.5-5.0) g/dL Triglycerides (0.00-149.00) mg/dL Cholesterol (0.00-200.00) mg/dL HDL Cholesterol (40.00-60.00) mg/dL 07/08/22 07/08/22 07/09/22 Range/Units 18:55 22:15 00:22 Hct (34.0-46.0) % Plt Count (150-450) k/uL Neutrophils # (1.3-7.7) k/uL PT (9.0-12.0) sec INR (<1.2) APTT (22.0-30.0) sec Sodium (137-145) mmol/L Carbon Dioxide (22-30) mmol/L BUN (7-17) mg/dL Glucose (74-99) mg/dL Troponin I 0.063 H* 0.108 H* 0.107 H* (0.000-0.034) ng/mL Total Protein (6.3-8.2) g/dL Albumin (3.5-5.0) g/dL Triglycerides (0.00-149.00) mg/dL Cholesterol (0.00-200.00) mg/dL HDL Cholesterol (40.00-60.00) mg/dL 07/09/22 07/09/22 07/09/22 Range/Units 07:33 07:33 11:14 Hct (34.0-46.0) % Plt Count (150-450) k/uL Neutrophils # (1.3-7.7) k/uL PT 20.0 H (9.0-12.0) sec INR 2.0 H (<1.2) APTT 114.9 H* (22.0-30.0) sec Sodium (137-145) mmol/L Carbon Dioxide (22-30) mmol/L BUN (7-17) mg/dL Glucose (74-99) mg/dL Troponin I (0.000-0.034) ng/mL Total Protein (6.3-8.2) g/dL Albumin (3.5-5.0) g/dL Triglycerides 194.00 H (0.00-149.00) mg/dL Cholesterol 229.00 H (0.00-200.00) mg/dL HDL Cholesterol 81.40 H (40.00-60.00) mg/dL 07/09/22 07/09/22 07/09/22 Range/Units 11:14 11:14 15:08 Hct (34.0-46.0) % Plt Count 145 L (150-450) k/uL Neutrophils # (1.3-7.7) k/uL PT (9.0-12.0) sec INR (<1.2) APTT 52.1 H (22.0-30.0) sec Sodium (137-145) mmol/L Carbon Dioxide 35 H (22-30) mmol/L BUN 19 H (7-17) mg/dL Glucose 101 H (74-99) mg/dL Troponin I (0.000-0.034) ng/mL Total Protein (6.3-8.2) g/dL Albumin 3.2 L (3.5-5.0) g/dL Triglycerides (0.00-149.00) mg/dL Cholesterol (0.00-200.00) mg/dL HDL Cholesterol (40.00-60.00) mg/dL Thrombosis Risk Factor Assmnt - Choose All That Apply Any of the Below Risk Factors Present?: Yes Each Factor Represents 1 point: Abnormal pulmonary function (COPD) Each Risk Factor Represents 2 Points: Age 61-74 years Each Risk Factor Represents 3 Points: History of DVT/PE Other congenital or acquired thrombophilia - If yes, enter type in comment: No Thrombosis Risk Factor Assessment Total Risk Factor Score: 6 Thrombosis Risk Factor Assessment Level: High Risk Assessment and Plan Assessment: 1. Chest pain 2. CAD s/p 3 stents, most recent approximately 5 years ago 3. NSTEMI 4. COPD 5. Atrial fibrillation paroxysmal 6. History DVT/PE on coumadin 7. Hypertension 8. Hyperlipidemia 9. GERD/gastritis PLAN: Patient with chest pain concerning for unstable angina with elevated troponins and also intermittent A. fib. We will [check echocardiogram to assess heart function and structure. We'll plan to proceed with a heart catheterization to assess for blockages and intervene if needed. Will check INR if it still elevated we'll plan to proceed with heart cath tomorrow. Continue heparin drip for now.
[2022-07-10] MEDS: SODIUM CHLORIDE 0.9% 1,000 ML IV SCH (21:52)
[2022-07-11] MEDS: NITROGLYCERIN OINT 1 INCH/GM PACKET TOPICAL SCH ×2 (05:21→11:41)
[2022-07-11] MEDS: HYDROcodone/APAP 10-325MG 1 EACH TAB PO SCH ×2 (05:21→15:34)
[2022-07-11] MEDS: LEVOTHYROXINE 75 MCG TAB PO SCH (05:21)
[2022-07-11] MEDS ORDERED: ONDANSETRON 4 MG/2 ML VIAL IVP PRN (07:48)
[2022-07-11 07:50] VITALS: BP 130/87; PULSE 61; RESP 18; TEMP 98.2
[2022-07-11] MEDS: CYANOCOBALAMIN 500 MCG TAB PO SCH (07:51)
[2022-07-11] MEDS: FLUoxetine HCL 20 MG CAP PO SCH (07:51)
[2022-07-11] MEDS: CHOLECALCIFEROL 25 MCG (1000 IU) TABLET PO SCH (07:51)
[2022-07-11] MEDS: DULoxetine HCL 60 MG CAPSULE.DR PO SCH (07:51)
[2022-07-11] MEDS: PANTOPRAZOLE 40 MG TABLET PO SCH (07:51)
[2022-07-11] MEDS: DILTIAZEM ORAL 30 MG TAB PO SCH (07:51)
[2022-07-11] MEDS: GABAPENTIN 400 MG CAP PO SCH (07:51)
[2022-07-11] MEDS: ISOSORBIDE MONONITRATE ER 60 MG TAB.ER.24H PO SCH (07:51)
[2022-07-11] MEDS: ASPIRIN 325 MG TAB PO SCH (07:52)
[2022-07-11] MEDS: EZETIMIBE 10 MG TAB PO SCH (07:52)
[2022-07-11] MEDS: METOPROLOL SUCCINATE (ER) 50 MG TAB.ER.24H PO SCH (07:52)
[2022-07-11] MEDS: FOLIC ACID 1 MG TAB PO SCH (07:52)
--- NOTE | 2022-07-11 08:10 | P.PN ---
Subjective 71-year-old female with significant past medical history of COPD, CAD with 3 prior stents, tobacco abuse, "unstable angina", history of DVT/PE on Coumadin, and hypertension who presented with chest pain. She follows with Dr. Car, cardiology in [place] and last heart stent and cath was approximately 5 years ago. She was sitting watching TV yesterday when she developed mid chest pain. She felt her heart racing and checked her heart rate with the pulse ox was 166. She called her PCP and went into the office, EKG and office reportedly showed a-fib, she was still having chest pains and EMS was called and she was taken to the ED. Chest pain lasted approximately 3 hours and improved some with nitro and aspirin. Troponin elevated at 0.063, 0.108, 0.107. She was started on a heparin drip. INR is 2.0. She reports chest pain improved however she was having heartburn overnight and this resolved with a GI cocktail. She reports vergara ving episodes of chest pain approximately 2-3 times a month. She states it's been a few years since her last stress test in heart cath. Patient is status post cardiac catheterization 1. Mild to moderate CAD as described above including 30-40% RCA stenosis, 40- 50% mid LAD stenosis 2. YOHANA 2 flow noted of the LAD likely related to microvascular dysfunction 3. iFR LAD normal at 0.92 4. Normal left sided filling pressures ---Aggressive risk factor modification per most recent ACC/AHA guidelines. -LAD stenosis appears more in the moderate range and iFR normal with YOHANA 2 flow likely related to microvascular dysfunction. Continue medical therapy. Objective - Vital Signs Vital signs: Vital Signs Temp 97.8 F 07/10/22 09:57 Pulse 44 L 07/10/22 09:57 Resp 16 07/10/22 09:57 BP 69/44 07/10/22 10:00 Pulse Ox 98 07/10/22 09:57 FiO2 Intake & Output 07/09/22 07/10/22 07/10/22 18:59 06:59 18:59 Intake Total 799.229 137.16 500 Balance 799.229 137.16 500 Weight 79.7 kg Intake: IV 500 Intake, IV Titration 81.229 137.16 Amount Heparin Sod,Pork in 0.45% 81.229 137.16 NaCl 25,000 unit In 0.45 % NaCl 1 250ml.bag @ 12 UNITS/KG/HR 9.144 mls/hr IV .Q24H [facility] Rx#: [id number] Oral 718 Other: Voiding Method Toilet Toilet Incontinent # Voids 1 2 - Exam HEENT: Head is atraumatic, normocephalic. Pupils are equal, round. Sclerae anicteric. Conjunctivae are clear. Mucous membranes of the mouth are moist. Neck is supple. There is no jugular venous distention. No carotid bruit is heard. CHEST EXAMINATION: Lungs are clear to auscultation. No chest wall tenderness is noted on palpation or with deep breathing. HEART EXAMINATION: Heart regular rate and rhythm. S1, S2 heard. No murmurs, gallops or rub. ABDOMEN: Soft, nontender. Bowel sounds are heard. EXTREMITIES: 2+ peripheral pulses with no evidence of peripheral edema and no calf tenderness noted. NEUROLOGIC EXAMINATION: Patient is awake, alert and oriented x3. - Labs CBC & Chem 7: 07/09/22 11:14 07/09/22 11:14 Labs: Abnormal Lab Results - Last 24 Hours (Table) 07/09/22 07/09/22 07/09/22 Range/Units 07:33 11:14 11:14 Plt Count 145 L (150-450) k/uL PT 20.0 H (9.0-12.0) sec INR 2.0 H (<1.2) APTT (22.0-30.0) sec Carbon Dioxide (22-30) mmol/L BUN (7-17) mg/dL Glucose (74-99) mg/dL Albumin (3.5-5.0) g/dL Triglycerides 194.00 H (0.00-149.00) mg/dL Cholesterol 229.00 H (0.00-200.00) mg/dL HDL Cholesterol 81.40 H (40.00-60.00) mg/dL 07/09/22 07/09/22 07/10/22 Range/Units 11:14 15:08 06:00 Plt Count (150-450) k/uL PT 16.9 H (9.0-12.0) sec INR 1.7 H (<1.2) APTT 52.1 H 51.6 H (22.0-30.0) sec Carbon Dioxide 35 H (22-30) mmol/L BUN 19 H (7-17) mg/dL Glucose 101 H (74-99) mg/dL Albumin 3.2 L (3.5-5.0) g/dL Triglycerides (0.00-149.00) mg/dL Cholesterol (0.00-200.00) mg/dL HDL Cholesterol (40.00-60.00) mg/dL Assessment and Plan Assessment: 1. Chest pain 2. CAD s/p 3 stents, most recent approximately 5 years ago 3. NSTEMI 4. COPD 5. Atrial fibrillation paroxysmal 6. History DVT/PE on coumadin 7. Hypertension 8. Hyperlipidemia 9. GERD/gastritis PLAN: Patient with chest pain concerning for unstable angina with elevated troponins and also intermittent A. fib. We will [check echocardiogram to assess heart function and structure. We'll plan to proceed with a heart catheterization to assess for blockages and intervene if needed. Will check INR if it still elevated we'll plan to proceed with heart cath tomorrow. Continue heparin drip for now.
[2022-07-11 08:13] LABS: INR 1.3 (<1.2); Prothrombin Time 13.2 sec (9.0-12.0)
[2022-07-11 08:29] LABS: Calcium 8.9 mg/dL (8.4-10.2); Potassium 4.5 mmol/L (3.5-5.1)
--- NOTE | 2022-07-11 16:01 | P.PN ---
Subjective Progress Note Date: 07/11/22 HISTORY OF PRESENT ILLNESS: Patient is a pleasant 71-year-old female with significant past medical history of COPD, CAD with 3 prior stents, tobacco abuse, "unstable angina", history of DVT/PE on Coumadin, and hypertension who presented with chest pain. She follows with Dr. Car, cardiology in [place] and last heart stent and cath was approximately 5 years ago. She was sitting watching TV yesterday when she developed mid chest pain. She felt her heart racing and checked her heart rate with the pulse ox was 166. She called her PCP and went into the office, EKG and office reportedly showed a-fib, she was still having chest pains and EMS was called and she was taken to the ED. Chest pain lasted approximately 3 hours and improved some with nitro and aspirin. Troponin elevated at 0.063, 0.108, 0.107. She was started on a heparin drip. INR is 2.0. She reports chest pain improved however she was having heartburn overnight and this resolved with a GI cocktail. She reports having episodes of chest pain approximately 2-3 times a month. She states it's been a few years since her last stress test in heart cath. Telemetry reviewed and patient was in atrial fibrillation for approxi mately 30 minutes overnight, she denies any symptoms during this timeframe. Heart Cath 07/10 revealed: FINAL IMPRESSION: 1. Mild to moderate CAD as described above including 30-40% RCA stenosis, 40- 50% mid LAD stenosis 2. YOHANA 2 flow noted of the LAD likely related to microvascular dysfunction 3. iFR LAD normal at 0.92 4. Normal left sided filling pressures 07/11 Patient reports still having intermittent episodes of chest pain. + wheezing. Denies any dizziness. PHYSICAL EXAMINATION: This is a 71-year-old female in no apparent distress at the time of my examination. HEENT: Head is atraumatic, normocephalic. Pupils are equal, round. Sclerae anicteric. Conjunctivae are clear. Mucous membranes of the mouth are moist. Neck is supple. There is no jugular venous distention. No carotid bruit is heard. CHEST EXAMINATION: Lungs are clear to auscultation. No chest wall tenderness is noted on palpation or with deep breathing. HEART EXAMINATION: Heart regular rate and rhythm. S1, S2 heard. No murmurs, gallops or rub. ABDOMEN: Soft, nontender. Bowel sounds are heard. EXTREMITIES: 2+ peripheral pulses with no evidence of peripheral edema and no calf tenderness noted. NEUROLOGIC EXAMINATION: Patient is awake, alert and oriented x3. IMPRESSION AND PLAN: 1. Chest pain 2. CAD s/p 3 stents, most recent approximately 5 years ago 3. NSTEMI 4. COPD 5. Atrial fibrillation paroxysmal 6. History DVT/PE on coumadin PLAN: Chest pain not likely related to cardiac, heart cath without significant blockages. Patient would like to switch from coumadin to a different anticoagulant. Will DC heparin drip and start Eliquis 5mg po BID. Please provide patient with Eliquis coupon card. Discussed with RN. QUIQUE to DC from cardiology standpoint. 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 I am dictating on behalf of Dr. Davey Bassett's history/physical and assessment/plan. Objective - Vital Signs Vital signs: Vital Signs Temp 98.2 F 07/11/22 07:49 Pulse 61 07/11/22 07:49 Resp 18 07/11/22 08:00 BP 130/87 07/11/22 07:49 Pulse Ox 92 L 07/11/22 07:49 FiO2 Intake & Output 07/10/22 07/11/22 07/11/22 18:59 06:59 18:59 Intake Total 500 136.36 Balance 500 136.36 Weight 81.1 kg Intake: IV 500 Intake, IV Titration 136.36 Amount Heparin Sod,Pork in 0.45% 136.36 NaCl 25,000 unit In 0.45 % NaCl 1 250ml.bag @ 12 UNITS/KG/HR 9.144 mls/hr IV .Q24H [facility] Rx#: [id number] Other: Voiding Method Toilet Toilet # Voids 1 - Labs CBC & Chem 7: 07/09/22 11:14 07/11/22 07:35 Labs: Abnormal Lab Results - Last 24 Hours (Table) 07/11/22 07/11/22 07/11/22 Range/Units 00:34 07:35 07:35 PT 13.2 H (9.0-12.0) sec INR 1.3 H (<1.2) APTT 38.2 H (22.0-30.0) sec Sodium 133 L (137-145) mmol/L Carbon Dioxide 34 H (22-30) mmol/L Glucose 108 H (74-99) mg/dL
[2022-07-11] MEDS ORDERED: APIXABAN 5 MG TAB PO SCH (21:00)
--- NOTE | 2022-07-13 13:20 | CDI ---
Documentation Clarification Form Date: 07/13/2022 1:02:54 PM From: Clair Barton Admit Date: 07/08/2022 9:06:00 PM Patient Name: Keena Beltran Visit Number: [id number] Discharge Date: 07/11/2022 8:24:00 PM ATTENTION: The Clinical Documentation Specialists (CDI) and [facility] Coding Staff appreciate your assistance in clarifying documentation. Please respond to the clarification below the line at the bottom and electronically sign. The CDI & [facility] Coding staff will review the response and follow-up if needed. Please note: Queries are made part of the Legal Health Record. If you have any questions, please contact the author of this message via ITS. Dr. Davey Bassett The patients principal diagnosis the diagnosis that was chiefly responsible for the admission - has not been clearly identified and clarification is requested. H&P 07/09, Consult Note 07/09, and Progress Notes 07/10 and 07/11 state NSTEMI ED Note 07/08: patient demonstrated evidence of elevated troponin, has chest pain with SOB. Consult Note 07/09, H&P 07/09 and Progress Note 07/10: Patient has chest pain concerning for unstable angina with elevated troponins and intermittent A.FIB Progress Note 07/11: chest pain likely not related to cardiac. Heart cath without significant blockages The patient presented with the following: SOB, and chest pain. History/Risk factors: : 71 year old female, history of COPD, heart disease, smoker, hx DVT, GERD, HLD, HTN, anxiety and depression, AFIB, and CAD with 3 prior stents. Clinical Indicators: chest pain, SOB, palpitations, racing heart. Diagnosed with chest pain, NSTEMI, CAD, COPD, Paroxysmal AFIB. GERD/gastritis Lab findings: Trops: 0.063, 0.108, 0.107. PT: 20.0 INR: 2.0 APTT: 114.9, carbon dioxide 35 Vital Signs: T: 97.9, P: 110, R: 18, BP: 118/78 O2: 95 3/2 O2: 90 room air Xray: No acute cardiopulmonary disease Left heart cath with coronary arteries: mild to moderate CAD, 30-40% RCA stenosis, 40-50% mid LAD stenosis. YOHANA 2 flow noted of the LAD likely related to microvascular dysfunction. IFR LAD normal at 0.92. Normal left sided filling pressure. Treatment: placed on Coumadin, heparin drip, at d/c start on eliquis Consults: Internal and Cardio In your professional opinion, can you please clarify which diagnosis, after study, was the reason chiefly responsible for the admission? [ X ] NSTEMI [ ] CAD with Unstable Angina [ ] COPD with Acute Exacerbation [ ] Paroxysmal Atrial Fibrillation [ ] Other, please specify [ ] Unable to determine MTDD
--- NOTE | 2022-07-13 13:21 | CDI ---
Documentation Clarification Form Date: 07/13/2022 12:34:16 PM From: Clair Barton Admit Date: 07/08/2022 9:06:00 PM Patient Name: Keena Beltran Visit Number: [id number] Discharge Date: 07/11/2022 8:24:00 PM ATTENTION: The Clinical Documentation Specialists (CDI) and [facility] Coding Staff appreciate your assistance in clarifying documentation. Please respond to the clarification below the line at the bottom and electronically sign. The CDI & [facility] Coding staff will review the response and follow-up if needed. Please note: Queries are made part of the Legal Health Record. If you have any questions, please contact the author of this message via ITS. Dr. Juan Jose Johnson Conflicting documentation has been found in the medical record. As attending physician, please provide clarification. H&P 07/09, Consult Note 07/09, and Progress Notes 07/10 and 07/11 state NSTEMI ED Note 07/08: patient demonstrated evidence of elevated troponin, has chest pain with SOB. Consult Note 07/09, H&P 07/09 and Progress Note 07/10: Patient has chest pain concerning for unstable angina with elevated troponins and intermittent A.FIB Progress Note 07/11: chest pain likely not related to cardiac. Heart cath without significant blockages. History/Risk Factors: 71 year old female, history of COPD, heart disease, smoker, hx DVT, GERD, HLD, HTN, anxiety and depression, AFIB, and CAD with 3 prior stents. Clinical Indicators: presented with chest pain while watching TV. Palpitations, and racing heart. Diagnosed with unstable angina pectoris, chest pain, COPD exacerbation, NSTEMI, paroxysmal Afib Left heart cath with coronary arteries: mild to moderate CAD, 30-40% RCA stenosis, 40-50% mid LAD stenosis. YOHANA 2 flow noted of the LAD likely related to microvascular dysfunction. IFR LAD normal at 0.92. Normal left sided filling pressure. Treatment: placed on Coumadin, heparin drip, at d/c start on eliquis, heart cath Please clarify which diagnosis is most appropriate: [ ] NSTEMI [ ] TYPE II CO (please specify due to) [ ] Elevated troponins [ ] Other (please specify) [ ] Unable to determine MTDD
== END 2022-07-11 20:24 | disposition home or self-care (01) | DRG 282 ==
LOC: EC 18:35 → 3SCARD 21:06
PROVIDERS: ADMIT Hospitalist; ATTEND Hospitalist
PROC: 4A023N7 Measurement of Cardiac Sampling and Pressure, Left Heart, Percutaneous Approach (ICD-10-PCS; principal; 2022-07-10 07:42)
PROC: B2111ZZ Fluoroscopy of Multiple Coronary Arteries using Low Osmolar Contrast (ICD-10-PCS; principal; 2022-07-10 07:42)
DX: I21.4 Non-ST elevation (NSTEMI) myocardial infarction (principal); E78.5 Hyperlipidemia, unspecified; I25.110 Atherosclerotic heart disease of native coronary artery with unstable angina pectoris; I10 Essential (primary) hypertension; K21.9 Gastro-esophageal reflux disease without esophagitis; K29.70 Gastritis, unspecified, without bleeding; I48.0 Paroxysmal atrial fibrillation; J44.9 Chronic obstructive pulmonary disease, unspecified; F41.9 Anxiety disorder, unspecified; M19.90 Unspecified osteoarthritis, unspecified site; F32.A Depression, unspecified; G35 Multiple sclerosis; F17.200 Nicotine dependence, unspecified, uncomplicated; Z95.5 Presence of coronary angioplasty implant and graft; Z86.718 Personal history of other venous thrombosis and embolism; Z79.01 Long term (current) use of anticoagulants; Z86.711 Personal history of pulmonary embolism; Z85.850 Personal history of malignant neoplasm of thyroid; Z85.828 Personal history of other malignant neoplasm of skin; Z85.41 Personal history of malignant neoplasm of cervix uteri; Z79.899 Other long term (current) drug therapy; Z79.890 Hormone replacement therapy; Z71.6 Tobacco abuse counseling; Z88.1 Allergy status to other antibiotic agents; Z88.8 Allergy status to other drugs, medicaments and biological substances; Z88.5 Allergy status to narcotic agent; Z88.6 Allergy status to analgesic agent
CPT/HCPCS: 36415; 71046; 80048; 80053; 80061; 80069; 83690; 83735; 83880; 84484; 85025; 85379; 85610; 85730; 93005; 93306; 93458; 93799; 94640; 94760; 99285

== ENCOUNTER 2022-07-12 04:41 | Observation (INO) | payer MEDICARE ==
[2022-07-12] MEDS ORDERED: ALBUTEROL NEBULIZED 2.5 MG/3 ML INHALATION STA (05:01)
[2022-07-12] MEDS ORDERED: DEXAMETHASONE SOD PHOSPHATE 10 MG/ML 1 ML VIAL IVP STA (05:01)
[2022-07-12] MEDS ORDERED: IPRATROPIUM 0.5 MG/2.5 ML NEBU INHALATION STA (05:01)
--- NOTE | 2022-07-12 05:15 | ED ---
General Adult HPI - General Chief complaint: Fall Stated complaint: Fall, Head Injury, Light Headed, Dizziness Time Seen by Provider: 07/12/22 04:52 Source: patient, family Mode of arrival: wheelchair Limitations: no limitations - History of Present Illness Initial comments: This is a 71-year-old female with an extensive past medical history including [place] PD and CHF as well as previous blood clots on Coumadin presented to the emergency department after a fall. The patient was discharged from the hospital at 8 PM yesterday evening and stated that she has been weak ever since getting home. The patient stated that she went to the bathroom by herself and became lightheaded and fell backwards, hitting her head on the bathtub. The patient stated that she was in the bathtub for approximately 2 hours that she could not get up. The patient stated that her head hurt and because of being on Coumadin, the patient came to be further evaluated. The patient stated that she also had pain in there thoracic or lumbar spine and her bilateral groin. The patient stated that the pain is worse with movement. The patient denied any other acute pain or complaints at this time. The patient denied any current lightheadedness or dizziness. - Related Data Home Medications Medication Instructions Recorded Confirmed Cyanocobalamin (Vitamin B-12) 1,000 mcg PO DAILY 10/30/19 07/08/22 [Vitamin B-12] Ezetimibe [Zetia] 10 mg PO DAILY 10/30/19 07/08/22 Folic Acid 1 mg PO DAILY 10/30/19 07/08/22 Isosorbide Mononitrate ER [Imdur] 60 mg PO BID 10/30/19 07/08/22 Levothyroxine Sodium [Levo-T] 150 mcg PO DAILY 10/30/19 07/08/22 Warfarin Sodium [Coumadin] 5 mg PO TUWETHFR@209910/30/19 07/08/22 Warfarin Sodium [Coumadin] 7.5 mg PO SUMOSA@209910/30/19 07/08/22 Cholecalciferol [Vitamin D3 (25 50 mcg PO DAILY 01/08/22 07/08/22 Mcg = 1000 Iu)] DULoxetine HCL [Cymbalta] 60 mg PO BID 01/08/22 07/08/22 Gabapentin 800 mg PO BID 01/08/22 07/08/22 Metoprolol Succinate (ER) [Toprol 50 mg PO DAILY 01/08/22 07/08/22 XL] dilTIAZem HCL [Cardizem] 90 mg PO TID 01/08/22 07/08/22 Esomeprazole Magnesium [NexIUM] 40 mg PO BID 07/08/22 07/08/22 FLUoxetine HCL [PROzac] 20 mg PO BID 07/08/22 07/08/22 HYDROcodone/APAP 10-325MG [[place] 1 tab PO QID 07/08/22 07/08/22 10-325] Ipratropium-Albuterol Nebulize 3 ml INHALATION RT-QID PRN 07/08/22 07/08/22 [Duoneb 0.5 mg-3 mg/3 ml Soln] Ubrogepant [Ubrelvy] 50 mg PO DAILY PRN 07/08/22 07/08/22 Previous Rx's Medication Instructions Recorded Aspirin 325 mg PO DAILY tab 07/11/22 Mag Hydrox/Al Hydrox/Simeth 30 ml PO Q4HR PRN ml 07/11/22 [Maalox] Allergies Allergy/AdvReac Type Severity Reaction Status Date / Time azithromycin [From Zithromax] Allergy Severe Rash/Hives Verified 07/12/22 04:52 bupropion [From Wellbutrin] Allergy Severe Rash/Hives Verified 07/12/22 04:52 cephalexin [From Keflex] Allergy Intermediate Rash/Hives Verified 07/12/22 04:52 lisinopril [From Prinivil] Allergy Intermediate Rash/Hives Verified 07/12/22 04:52 nitrofurantoin Allergy Intermediate Rash/Hives Verified 07/12/22 04:52 [From Macrobid] pentazocine [From Talwin] Allergy Intermediate Rash/Hives Verified 07/12/22 04:52 topiramate [From Topamax] Allergy Intermediate Rash/Hives Verified 07/12/22 04:52 hydromorphone [From Dilaudid] AdvReac Severe Unknown Verified 07/12/22 04:52 propranolol [From Inderal [place]] AdvReac Severe Unknown Verified 07/12/22 04:52 codeine AdvReac Intermediate Unknown Verified 07/12/22 04:52 ibuprofen [From Motrin] AdvReac Intermediate Unknown Verified 07/12/22 04:52 Review of Systems ROS Statement: Those systems with pertinent positive or pertinent negative responses have been documented in the HPI. ROS Other: All systems not noted in ROS Statement are negative. Past Medical History Past Medical History: Chest Pain / Angina, COPD, Deep Vein Thrombosis (DVT), GERD/Reflux, Hyperlipidemia, Hypertension, Neurologic Disorder, Osteoarthritis (OA), Pulmonary Embolus (PE), Thyroid Disorder Additional Past Medical History / Comment(s): SKIN CANCER, CERVICAL CANCER AND THYROID CANCER. DVT IN BOTH LEGS. MS History of Any Multi-Drug Resistant Organisms: C-DIFF Date of last positivie culture/infection: 04/25/2002 MDRO Source:: cdiff Past Surgical History: Adenoidectomy, Appendectomy, Back Surgery, Breast Surgery, Hysterectomy, Orthopedic Surgery, Tonsillectomy, Tubal Ligation Additional Past Surgical History / Comment(s): CYSTS REMOVED FROM BILATERAL BREASTSm, NECK SURGERY Past Anesthesia/Blood Transfusion Reactions: No Reported Reaction Past Psychological History: Anxiety, Depression Smoking Status: Current every day smoker Past Alcohol Use History: None Reported Past Drug Use History: None Reported General Exam Limitations: no limitations General appearance: alert, in no apparent distress Head exam: Present: atraumatic, normocephalic, normal inspection Eye exam: Present: normal appearance, PERRL Pupils: Present: normal accommodation ENT exam: Present: normal exam, normal oropharynx, mucous membranes moist Neck exam: Present: normal inspection, full ROM Respiratory exam: Present: wheezes, decreased breath sounds. Absent: normal lung sounds bilaterally, respiratory distress Cardiovascular Exam: Present: regular rate, normal rhythm, normal heart sounds GI/Abdominal exam: Present: soft, normal bowel sounds Extremities exam: Present: normal inspection, full ROM Back exam: Present: normal inspection, full ROM Neurological exam: Present: alert, oriented X3, CN II-XII intact Psychiatric exam: Present: normal affect, normal mood Course Vital Signs 07/12/22 07/12/22 07/12/22 04:48 05:48 05:59 Temperature 98.0 F Pulse Rate 59 L 58 L 58 L Respiratory 16 Rate Blood Pressure 105/60 O2 Sat by Pulse 92 L Oximetry 07/12/22 07/12/22 07/12/22 06:00 06:13 06:17 Temperature Pulse Rate 58 L 58 L 60 Respiratory 18 Rate Blood Pressure 114/61 O2 Sat by Pulse 98 Oximetry EKG Findings - EKG Comments: EKG Findings:: An EKG was obtained and was interpreted by myself showing a rate of 56, RI interval 172, QRS duration of 86 and QTC of 383. This EKG showed a sinus bradycardia with no ST segment elevations or depressions noted. Medical Decision Making - Medical Decision Making Was pt. sent in by a medical professional or institution (, PA, PRODUCT SAFETY CONSULTANT, urgent care, hospital, or half-way...) When possible be specific @ -No Did you speak to anyone other than the patient for history (EMS, parent, family, police, friend...)? What history was obtained from this source @ -Yes, patient's son Did you review nursing and triage notes (agree or disagree)? Why? @ -I reviewed and agree with nursing and triage notes Were old charts reviewed (outside hosp., previous admission, EMS record, old EKG, old radiological studies, urgent care reports/EKG's, half-way records)? Report findings @ -No old charts were reviewed Differential Diagnosis (chest pain, altered mental status, abdominal pain women, abdominal pain men, vaginal bleeding, weakness, fever, dyspnea, syncope, hea dache, dizziness, GI bleed, back pain, seizure, CVA, palpatations, mental health)? @ -Intracranial hemorrhage, skull fracture, lumbar spinal fracture EKG interpreted by me (3pts min.). @ -As above X-rays interpreted by me (1pt min.). @ -Chest x-ray and pelvis x-ray were obtained and were interpreted by myself showing no active disease in the chest, interval office calcification over the right hip joint to correlate tumoral calcinosis. There is no fracture seen. The patient was however not tender over the right hip. CT interpreted by me (1pt min.). @ -CT head and CT C-spine were obtained and were interpreted by myself showing mild cerebral atrophy. There is no acute intracranial abnormalities. There was multilevel anterior and posterior cervical spinal fusion. There was no acute fractures seen. CT of the thoracic and lumbar spine was obtained and was interpreted by myself showing no acute fractures. U/S interpreted by me (1pt. min.). @ -None done What testing was considered but not performed or refused? (CT, X-rays, U/S, labs)? Why? @ -None What meds were considered but not given or refused? Why? @ -None Did you discuss the management of the patient with other professionals (professionals i.e. ., PA, PRODUCT SAFETY CONSULTANT, lab, RT, psych nurse, psychotherapist social worker, education specialist, teacher, space operations officer, geriatric case manager)? Give summary @ -Yes, admitting physician Was smoking cessation discussed for >3mins.? @ -Yes Was critical care preformed (if so, how long)? @ -No Were there social determinants of health that impacted care today? How? (Homelessness, low income, unemployed, alcoholism, drug addiction, transportation, low edu. Level, literacy, decrease access to med. care, [place] [facility], rehab)? @ -No Was there de-escalation of care discussed even if they declined (Discuss DNR or withdrawal of care, Hospice)? DNR status @ -No What co-morbidities impacted this encounter? (DM, HTN, Smoking, COPD, CAD, Cancer, CVA, ARF, Chemo, Hep., AIDS, mental health diagnosis, sleep apnea, morbid obesity)? @ -COPD, asthma, hypertension, multiple blood clots on Coumadin but subtherapeutic at this time Was patient admitted / discharged? Hospital course, mention meds given and route, prescriptions, significant lab abnormalities, going to OR and other pertinent info. @ -The patient was seen and evaluated in emergency department. Physical exam, the patient was resting in bed without any acute distress. Vital signs admission were stable. Due to the nature the patient's fall, imaging was obtained. Laboratory workup was also obtained as the patient had been weak. The patient also received a breathing treatment secondary to the patient's inspiratory and expiratory wheezes bilaterally. All imaging was negative. Laboratory workup was still pending however the patient stated that she continued weakness and inability to inflate at home. Due to the patient stated thrive at home in the setting of generalized weakness, the patient will be admitted for further workup and evaluation and for evaluation by physical therapy and occupational therapy for possible rehabilitation. The patient and her son were agreeable to this plan and all her questions were answered appropriately. The patient was admitted in stable condition. Undiagnosed new problem with uncertain prognosis? @ -No Drug Therapy requiring intensive monitoring for toxicity (Heparin, Nitro, Insulin, Cardizem)? @ -No Were any procedures done? @ -No Diagnosis/symptom? @ -Generalized weakness, failure to thrive Acute, or Chronic, or Acute on Chronic? @ -Acute Uncomplicated (without systemic symptoms) or Complicated (systemic symptoms)? @ -Complicated Side effects of treatment? @ -No Exacerbation, Progression, or Severe Exacerbation? @ -No Poses a threat to life or bodily function? How? (Chest pain, [place], ID, pneumonia, PE, COPD, DKA, ARF, appy, cholecystitis, CVA, Diverticulitis, Homicidal, Suicidal, threat to staff... and all critical care pts) @ -Yes, continued generalized weakness and fall came worsening injuries and possible - Lab Data Result diagrams: 07/12/22 05:17 Lab Results 07/12/22 07/12/22 Range/Units 05:17 05:17 WBC 7.2 (3.8-10.6) k/uL RBC 4.31 (3.80-5.40) m/uL Hgb 12.7 (11.4-16.0) gm/dL Hct 39.6 (34.0-46.0) % MCV 91.9 (80.0-100.0) fL MCH 29.4 (25.0-35.0) pg MCHC 32.0 (31.0-37.0) g/dL RDW 13.9 (11.5-15.5) % Plt Count 124 L (150-450) k/uL MPV 7.5 Neutrophils % 78 % Lymphocytes % 14 % Monocytes % 5 % Eosinophils % 2 % Basophils % 0 % Neutrophils # 5.6 (1.3-7.7) k/uL Lymphocytes # 1.0 (1.0-4.8) k/uL Monocytes # 0.3 (0-1.0) k/uL Eosinophils # 0.1 (0-0.7) k/uL Basophils # 0.0 (0-0.2) k/uL PT 10.7 (9.0-12.0) sec INR 1.0 (<1.2) APTT 24.0 (22.0-30.0) sec Disposition Clinical Impression: Fall, Weakness, Failure to thrive Disposition: ADMITTED IP TO THIS [facility] Condition: Stable Is patient prescribed a controlled substance at d/c from ED?: No Referrals: Jj Cee DO [Primary Care Provider] - 1-2 days Time of Disposition: 06:20 Decision to Admit Reason: Admit from EC Decision Date: 07/12/22 Decision Time: 06:20
--- NOTE | 2022-07-12 05:43 | XR ---
EXAMINATION TYPE: XR chest 2V DATE OF EXAM: 07/12/2022 COMPARISON: NONE HISTORY: Fall. Pain TECHNIQUE: 2 views FINDINGS: There is no heart failure nor confluent pneumonic infiltrate. Costophrenic angles are clear . There are no hilar masses. There are chest leads. Thoracic aorta is atheromatous. IMPRESSION: No active cardiopulmonary disease. No change.
--- NOTE | 2022-07-12 05:46 | XR ---
EXAMINATION TYPE: XR Hip Bilateral and AP pelvis DATE OF EXAM: 07/12/2022 COMPARISON: NONE HISTORY: Fall. Pain TECHNIQUE: 5 views FINDINGS: The pelvic ring is intact. Acetabula appear intact. There is some amorphous calcification p rojected over the lateral aspect of the right femoral head. The proximal femurs show no definite frac ture. The femoral necks are intact. No evidence of avascular necrosis. Sacroiliac joints are intact. There is fusion surgery in the lower lumbar spine. 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 No fracture seen.
[2022-07-12 05:55] LABS: Basophils % (A) 0 %; Eosinophils # (A) 0.1 k/uL (0-0.7); Eosinophils % (A) 2 %; HCT 39.6 % (34.0-46.0); HGB 12.7 gm/dL (11.4-16.0); Lymphocytes % (A) 14 %; MCH 29.4 pg (25.0-35.0); MCV 91.9 fL (80.0-100.0); Mean Platelet Volume 7.5; Monocytes # (A) 0.3 k/uL (0-1.0); Monocytes % (A) 5 %; Neutrophils # (A) 5.6 k/uL (1.3-7.7); Neutrophils % (A) 78 %; Platelet Count 124 k/uL (150-450); RBC 4.31 m/uL (3.80-5.40); RDW 13.9 % (11.5-15.5); WBC 7.2 k/uL (3.8-10.6)
[2022-07-12 05:59] LABS: Prothrombin Time 10.7 sec (9.0-12.0)
--- NOTE | 2022-07-12 06:01 | CT ---
EXAMINATION TYPE: CT brain soniaine wo con DATE OF EXAM: 07/12/2022 COMPARISON: None HISTORY: FALL CT DLP: 1383.7 mGycm Automated exposure control for dose reduction was used. Images obtained of the brain and cervical spine with no contrast. There is cerebral mild cortical atrophy. There is no mass effect or midline shift. No sign of intracr anial hemorrhage. Calvarium is intact. The skull base is intact. There is normal aeration of the mast oid sinuses. There is some straightening of the cervical spine. There is previous anterior and posterior multileve l fusion surgery. There is a slight kyphotic curvature at the C3-4-5 level. There is multilevel facet arthropathy. No focal bone destruction. No evidence of cervical paraspinal mass. Fusion is present a nteriorly from C4 to C7 and posteriorly from T1 to C7 and from C4 to C3. IMPRESSION: Mild cerebral atrophy. No acute intracranial abnormality. Multilevel anterior and posterior cervical spine fusion surgery. No acute fracture seen.
--- NOTE | 2022-07-12 06:17 | CT ---
EXAMINATION TYPE: CT thor lumbar spine wo con DATE OF EXAM: 07/12/2022 COMPARISON: None HISTORY: FALL CT DLP: 125.4 mGycm Automated exposure control for dose reduction was used. Images obtained from T1 to S3 vertebra without contrast. Vertebra are overall fairly normal alignment. There is a mild midthoracic dextroscoliosis. There are rods and screws fusion posteriorly of the lumbar spine from the level of S1 to the L2 vertebra. No th oracic or lumbar compression fracture. There is hypertrophic anterior osteophyte formation in the low er thoracic spine and entire lumbar spine. Thoracic and abdominal aorta is atheromatous. There is no thoracic paraspinal mass. No focal bone destruction. There is multilevel laminectomy in the lumbar sp ine. Sacroiliac joints are intact. IMPRESSION: Multilevel fusion surgery. No fracture. Multilevel spondylotic changes. No focal bone destruction.
[2022-07-12] MEDS ORDERED: NALOXONE 0.4 MG/ML 1 ML VIAL IV PRN (06:23)
[2022-07-12 06:42] LABS: ALT 22 U/L (4-34); African American GFR (CKD) >90 (>60 ml/min/1.73 sqM); Albumin 3.2 g/dL (3.5-5.0); Anion Gap 1 mmol/L; Blood Urea Nitrogen 17 mg/dL (7-17); Calcium 8.3 mg/dL (8.4-10.2); Carbon Dioxide 28 mmol/L (22-30); Chloride 101 mmol/L (98-107); Glucose 106 mg/dL (74-99); Lipase 48 U/L (23-300); Non-African American GFR(CKD) 87 (>60 ml/min/1.73 sqM); Sodium 130 mmol/L (137-145); Total Bilirubin 0.5 mg/dL (0.2-1.3); Total Protein 5.4 g/dL (6.3-8.2)
[2022-07-12 06:59] LABS: AST 27 U/L (14-36); Alkaline Phosphatase 51 U/L (38-126); Potassium 4.4 mmol/L (3.5-5.1)
[2022-07-12] MEDS ORDERED: MAG HYDROX/AL HYDROX/SIMETH 30 ML CUP PO PRN (11:39)
[2022-07-12] MEDS ORDERED: NON FORMULARY DRUG (Ubrogepant [Ubrelvy] 50 MG Tablet) PO PRN (11:39)
[2022-07-12] MEDS ORDERED: IPRATROPIUM-ALBUTEROL 3 ML NEB INHALATION PRN (11:39)
[2022-07-12] MEDS ORDERED: HEPARIN SODIUM 1,000 UN/ML (10ML VL) IV ONE (11:45)
[2022-07-12] MEDS ORDERED: HEPARIN SODIUM 1,000 UN/ML (10ML VL) IV PRN (11:45)
[2022-07-12] MEDS ORDERED: DILTIAZEM ORAL 30 MG TAB PO SCH (12:00)
[2022-07-12] MEDS ORDERED: ASPIRIN 325 MG TAB PO SCH (12:00)
[2022-07-12] MEDS ORDERED: HEPARIN SOD,PORK IN 0.45% NACL 25,000 UNIT in 0.45% NACL 1 250ML.BAG IV SCH (12:15)
[2022-07-12 12:29] LABS: Basophils % (A) 0 %; Eosinophils % (A) 0 %; HCT 37.8 % (34.0-46.0); HGB 12.5 gm/dL (11.4-16.0); Lymphocytes # (A) 0.3 k/uL (1.0-4.8); Lymphocytes % (A) 5 %; MCH 30.3 pg (25.0-35.0); MCHC 33.2 g/dL (31.0-37.0); MCV 91.3 fL (80.0-100.0); Mean Platelet Volume 7.4; Monocytes # (A) 0.1 k/uL (0-1.0); Monocytes % (A) 2 %; Neutrophils # (A) 6.3 k/uL (1.3-7.7); Neutrophils % (A) 92 %; Platelet Count 126 k/uL (150-450); RBC 4.13 m/uL (3.80-5.40); RDW 13.9 % (11.5-15.5); WBC 6.8 k/uL (3.8-10.6)
[2022-07-12 13:11] LABS: Partial Thromboplastin Time 24.2 sec (22.0-30.0)
[2022-07-12] MEDS: HYDROcodone/APAP 10-325MG 1 EACH TAB PO SCH ×3 (14:03→21:38)
[2022-07-12] MEDS: DILTIAZEM ORAL 30 MG TAB PO SCH ×2 (14:05→21:38)
--- NOTE | 2022-07-12 14:07 | P.CRDCN ---
History of Present Illness Consult date: 07/12/22 Reason for Consult (text): CAD History of present illness: HISTORY OF PRESENT ILLNESS: This is a 71-year-old female with significant past medical history of COPD, CAD, tobacco use, "unstable angina", history of DVT/PE on Coumadin, and hypertension, brief episode of atrial fibrillation on last hospitalization. She follows with Dr. Car, cardiology in [place]. Last week, patient presented to the hospital due to chest pain and underwent cardiac catheterization on 07/10 which revealed mild to moderate CAD including 30-40% RCA stenosis, 40-50% mid LAD stenosis, YOHANA 2 flow noted of the LAD likely related to microvascular dysfunction, iFR LAD normal at 0.92, Normal left sided filling pressures. Unfortunately, following that, patient continued to have episodes of chest pain and wheezing thought to be not related to coronary artery disease. 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 We have been asked to evaluate the patient for coronary artery disease. She presented to the emergency center due to feeling weak ever since she was discharged from the hospital 07/10. She states she was home alone and got up to the bathroom with a walker but lost her balance started walking backwards and ended up falling in the bathroom and had to lay there for about 3 hours until somebody was there to help her. She denies any loss of consciousness. She complains of a cough for 3 weeks, no fever or chills. She states she has some chest pain in her lungs. She denies any blood in her stool or urine. She also had pain in the thoracic or lumbar spine areas and bilateral groin and pain is worse with movement. Her initial blood pressure was 105/60. EKG was a sinus bradycardia at rate of [address] changes WBC 7.2, hemoglobin 12.7, platelet count 124. INR 1. Sodium 130. Potassium 4.4, BUN 17 and creatinine 0.71. Blood sugar 106. Troponin 0.046. ProBNP 1010. Lipase 48. Chest x-ray no acute cardiopulmonary disease Bilateral hip and pelvis x-rays revealed calcification of the right hip joint. No fracture seen. CAT scan of the brain and cervical spine revealed mild cerebral atrophy. No acute intracranial abnormality. Multilevel anterior-posterior cervical spine fusion surgery. No acute fracture. Thoracic lumbar spine CT revealed multilevel fusion surgery. No fracture. Multilevel spondylotic changes. No focal bone destruction. Echocardiogram 07/09/2022: EF 55-60%, moderate concentric left ventricular hypertrophy, mild aortic valve sclerosis, mild mitral regurgitation. Home cardiac medications: Aspirin 325 mg daily, Cardizem 90 mg 3 times daily, Imdur 60 mg twice daily, Toprol-XL 50 mg daily, Coumadin 7.5/5 mg alternating REVIEW OF SYSTEMS: Reports generalized weakness and fall. No fever or chills. No cough or expectoration. No diaphoresis. Patient denies headache, dizziness, blurred vision, double vision. Patient denies any stomach discomfort. No nausea, vomiting. No hematochezia. No hematemesis. Denies any black stools or blood in his stools. Denies dysuria or hematuria. No muscle weakness or numbness. No chest pain or pressure. Reports fatigue. Positive fall. PHYSICAL EXAMINATION: This is a 71-year-old female in no apparent distress at the time of my examination. HEENT: Head is atraumatic, normocephalic. Pupils are equal, round. Sclerae anicteric. Conjunctivae are clear. Mucous membranes of the mouth are moist. Neck is supple. There is no jugular venous distention. No carotid bruit is heard. CHEST EXAMINATION: Lungs are clear to auscultation. No chest wall tenderness is noted on palpation or with deep breathing. HEART EXAMINATION: Heart regular rate and rhythm. S1, S2 heard. No murmurs, gallops or rub. ABDOMEN: Soft, nontender. Bowel sounds are heard. EXTREMITIES: 2+ peripheral pulses with no evidence of peripheral edema and no calf tenderness noted. NEUROLOGIC EXAMINATION: Patient is awake, alert and oriented x3. IMPRESSION AND PLAN: 1. Generalized weakness and fall with documented bradycardia 2. CAD s/p 3 stents, most recent approximately 5 years ago 3. Cardiac catheterization on 07/10 revealed mild to moderate CAD as above 4. COPD 5. Atrial fibrillation paroxysmal 6. History DVT/PE on coumadin PLAN: Discontinue heparin drip Discontinue Lopressor and decrease Cardizem to 30 mg 3 times daily Change aspirin 81 mg daily Discontinue Coumadin and start patient on eliquis 5 mg twice daily Start patient on Lipitor 20 mg daily Decrease Imdur to once daily dosing Continue telemetry monitoring Further recommendations as patient progresses Thank you kindly for this consultation. Nurse practitioner note has been reviewed, I agree with the documented findings and plan of care. Patient was seen and examined. Past Medical History Past Medical History: Chest Pain / Angina, COPD, Deep Vein Thrombosis (DVT), GERD/Reflux, Hyperlipidemia, Hypertension, Neurologic Disorder, Osteoarthritis (OA), Pulmonary Embolus (PE), Thyroid Disorder Additional Past Medical History / Comment(s): SKIN CANCER, CERVICAL CANCER AND THYROID CANCER. DVT IN BOTH LEGS. MS History of Any Multi-Drug Resistant Organisms: C-DIFF Date of last positivie culture/infection: 04/25/2002 MDRO Source:: cdiff Past Surgical History: Adenoidectomy, Appendectomy, Back Surgery, Breast Surgery, Hysterectomy, Orthopedic Surgery, Tonsillectomy, Tubal Ligation Additional Past Surgical History / Comment(s): CYSTS REMOVED FROM BILATERAL BREASTSm, NECK SURGERY Past Anesthesia/Blood Transfusion Reactions: No Reported Reaction Past Psychological History: Anxiety, Depression Smoking Status: Current every day smoker Past Alcohol Use History: None Reported Past Drug Use History: None Reported Medications and Allergies Home Medications Medication Instructions Recorded Confirmed Type Cyanocobalamin (Vitamin B-12) 1,000 mcg PO DAILY 10/30/19 07/12/22 History [Vitamin B-12] Ezetimibe [Zetia] 10 mg PO DAILY 10/30/19 07/12/22 History Folic Acid 1 mg PO DAILY 10/30/19 07/12/22 History Isosorbide Mononitrate ER [Imdur] 60 mg PO BID 10/30/19 07/12/22 History Levothyroxine Sodium [Levo-T] 150 mcg PO DAILY 10/30/19 07/12/22 History Warfarin Sodium [Coumadin] 5 mg PO TUWETHFR@2100 10/30/19 07/12/22 History Warfarin Sodium [Coumadin] 7.5 mg PO SUMOSA@2100 10/30/19 07/12/22 History Cholecalciferol [Vitamin D3 (25 50 mcg PO DAILY 01/08/22 07/12/22 History Mcg = 1000 Iu)] DULoxetine HCL [Cymbalta] 60 mg PO BID 01/08/22 07/12/22 History Gabapentin 800 mg PO BID 01/08/22 07/12/22 History Metoprolol Succinate (ER) [Toprol 50 mg PO DAILY 01/08/22 07/12/22 History XL] dilTIAZem HCL [Cardizem] 90 mg PO TID 01/08/22 07/12/22 History Esomeprazole Magnesium [NexIUM] 40 mg PO BID 07/08/22 07/12/22 History FLUoxetine HCL [PROzac] 20 mg PO BID 07/08/22 07/12/22 History HYDROcodone/APAP 10-325MG [[place] 1 tab PO QID 07/08/22 07/12/22 History 10-325] Ipratropium-Albuterol Nebulize 3 ml INHALATION RT-QID PRN 07/08/22 07/12/22 History [Duoneb 0.5 mg-3 mg/3 ml Soln] Ubrogepant [Ubrelvy] 50 mg PO DAILY PRN 07/08/22 07/12/22 History Aspirin 325 mg PO DAILY tab 07/11/22 07/12/22 Rx Mag Hydrox/Al Hydrox/Simeth 30 ml PO Q4HR PRN ml 07/11/22 07/12/22 Rx [Maalox] Allergies Allergy/AdvReac Type Severity Reaction Status Date / Time azithromycin [From Zithromax] Allergy Severe Rash/Hives Verified 07/12/22 06:48 bupropion [From Wellbutrin] Allergy Severe Rash/Hives Verified 07/12/22 06:48 cephalexin [From Keflex] Allergy Intermediate Rash/Hives Verified 07/12/22 06:48 lisinopril [From Prinivil] Allergy Intermediate Rash/Hives Verified 07/12/22 06:48 nitrofurantoin Allergy Intermediate Rash/Hives Verified 07/12/22 06:48 [From Macrobid] pentazocine [From Talwin] Allergy Intermediate Rash/Hives Verified 07/12/22 06:48 topiramate [From Topamax] Allergy Intermediate Rash/Hives Verified 07/12/22 06:48 hydromorphone [From Dilaudid] AdvReac Severe Hallucinati Verified 07/12/22 06:48 ons propranolol [From Inderal [place]] AdvReac Severe MENTAL Verified 07/12/22 06:48 MOOD CHANGES codeine AdvReac Intermediate "BAD Verified 07/12/22 06:48 DREAMS" ibuprofen [From Motrin] AdvReac Intermediate Nausea & Verified 07/12/22 06:48 Vomiting & Diarrhea Physical Exam Vitals: Vital Signs Temp Pulse Pulse Resp BP BP Pulse Ox 07/12/22 08:20 98.3 F 66 18 122/71 93 L 07/12/22 07:34 64 16 112/61 95 07/12/22 06:36 94 L 07/12/22 06:34 88 L 07/12/22 06:17 60 18 114/61 98 07/12/22 06:13 58 L 07/12/22 06:00 58 L 07/12/22 05:59 58 L 07/12/22 05:48 58 L 07/12/22 04:48 98.0 F 59 L 16 105/60 92 L Intake and Output 07/11/22 07/12/22 07/12/22 22:59 06:59 14:59 Other: Weight 84.368 kg Results 07/12/22 12:01 07/12/22 05:17 Cardiac Enzymes 07/12/22 07/12/22 Range/Units 05:17 05:17 AST 27 (14-36) U/L Troponin I 0.046 H* (0.000-0.034) ng/mL Coagulation 07/12/22 Range/Units 05:17 PT 10.7 (9.0-12.0) sec APTT 24.0 (22.0-30.0) sec CBC 07/12/22 Range/Units 05:17 WBC 7.2 (3.8-10.6) k/uL RBC 4.31 (3.80-5.40) m/uL Hgb 12.7 (11.4-16.0) gm/dL Hct 39.6 (34.0-46.0) % Plt Count 124 L (150-450) k/uL Comprehensive Metabolic Panel 07/12/22 Range/Units 05:17 Sodium 130 L (137-145) mmol/L Potassium 4.4 (3.5-5.1) mmol/L Chloride 101 (98-107) mmol/L Carbon Dioxide 28 (22-30) mmol/L BUN 17 (7-17) mg/dL Creatinine 0.71 (0.52-1.04) mg/dL Glucose 106 H (74-99) mg/dL Calcium 8.3 L (8.4-10.2) mg/dL AST 27 (14-36) U/L ALT 22 (4-34) U/L Alkaline Phosphatase 51 (38-126) U/L Total Protein 5.4 L (6.3-8.2) g/dL Albumin 3.2 L (3.5-5.0) g/dL Current Medications Generic Name Dose Route Start Last Admin Trade Name Freq PRN Reason Stop Dose Admin Hydrocodone Bitart/Acetaminophen 1 each 07/12/22 13:00 Hydrocodone/Apap 10-325mg 1 Each Tab PO QID MIKKI Al Hydroxide/Mg Hydroxide 30 ml 07/12/22 11:39 Mag Hydrox/Al Hydrox/Simeth 30 Ml Cup PO Q4HR PRN GI Upset Albuterol Sulfate 2.5 mg 07/12/22 12:00 Albuterol Nebulized 2.5 Mg/3 Ml INHALATION RT-QID PRN Shortness Of Breath Or Wheezing Aspirin 325 mg 07/12/22 12:00 Aspirin 325 Mg Tab PO DAILY [facility] Cholecalciferol 50 mcg 07/13/22 09:00 Cholecalciferol 25 Mcg (1000 Iu) Tablet PO DAILY [facility] Cyanocobalamin 1,000 mcg 07/13/22 09:00 Cyanocobalamin 500 Mcg Tab PO DAILY [facility] Diltiazem HCl 90 mg 07/12/22 12:00 Diltiazem Oral 30 Mg Tab PO TID [facility] Duloxetine HCl 60 mg 07/12/22 21:00 Duloxetine Hcl 60 Mg Capsule.Dr PO BID [facility] Ezetimibe 10 mg 07/13/22 09:00 Ezetimibe 10 Mg Tab PO DAILY [facility] Fluoxetine HCl 20 mg 07/12/22 21:00 Fluoxetine Hcl 20 Mg Cap PO BID [facility] Folic Acid 1 mg 07/13/22 09:00 Folic Acid 1 Mg Tab PO DAILY [facility] Gabapentin 800 mg 07/12/22 21:00 Gabapentin 400 Mg Cap PO BID [facility] Heparin Sodium (Porcine) 0 unit 07/12/22 11:45 Heparin Sodium 1,000 Un/Ml (10ml Vl) IV PER PROTOCOL PRN Low PTT Protocol Heparin Sodium/Sodium Chloride 250 mls @ 15.186 mls/hr 07/12/22 12:15 25,000 unit/ Sodium Chloride IV .[id number] [facility] Protocol 18 UNITS/KG/HR Ipratropium [place] 0.5 mg 07/12/22 12:00 Ipratropium 0.5 Mg/2.5 Ml Nebu INHALATION RT-QID PRN Shortness Of Breath Or Wheezing Isosorbide Mononitrate 60 mg 07/12/22 21:00 Isosorbide Mononitrate Er 60 Mg Tab.Er.24h PO BID [facility] Levothyroxine Sodium 150 mcg 07/13/22 06:30 Levothyroxine 75 Mcg Tab PO DAILY@0630 [facility] Metoprolol Succinate 50 mg 07/13/22 09:00 Metoprolol Succinate (Er) 50 Mg Tab.Er.24h PO DAILY [facility] Miscellaneous Information 1 each 07/12/22 11:49 Warfarin Per Pharmacy MISCELLANE DIRECTED PRN Per Protocol Naloxone HCl 0.2 mg 07/12/22 06:23 Naloxone 0.4 Mg/Ml 1 Ml Vial IV Q2M PRN Opioid Reversal Non-Formulary Medication 50 mg 07/12/22 11:39 Ubrogepant [Ubrelvy] PO DAILY PRN Migraine Headache Pantoprazole Sodium 40 mg 07/12/22 17:30 Pantoprazole 40 Mg Tablet PO AC-BID [facility] Warfarin Sodium 7.5 mg 07/17/22 21:00 Warfarin 7.5 Mg Tab PO SUMOSA@2100 [facility] Protocol Warfarin Sodium 5 mg 07/13/22 21:00 Warfarin 5 Mg Tab PO TUWETHFR@2100 [facility] Protocol Warfarin Sodium 10 mg 07/12/22 21:00 Warfarin 10 Mg Tab PO 07/12/22 21:01 ONCE@2100 ONE Intake and Output 07/11/22 07/12/22 07/12/22 22:59 06:59 14:59 Other: Weight 84.368 kg 07/12/22 05:17 07/12/22 05:17
[2022-07-12] MEDS: PANTOPRAZOLE 40 MG TABLET PO SCH (18:50)
[2022-07-12] MEDS: ALBUTEROL NEBULIZED 2.5 MG/3 ML INHALATION PRN (20:29)
[2022-07-12] MEDS: IPRATROPIUM 0.5 MG/2.5 ML NEBU INHALATION PRN (20:29)
[2022-07-12] MEDS ORDERED: WARFARIN 10 MG TAB PO ONE (21:00)
[2022-07-12] MEDS ORDERED: ISOSORBIDE MONONITRATE ER 60 MG TAB.ER.24H PO SCH (21:00)
[2022-07-12] MEDS: DULoxetine HCL 60 MG CAPSULE.DR PO SCH (21:38)
[2022-07-12] MEDS: APIXABAN 5 MG TAB PO SCH (21:38)
[2022-07-12] MEDS: FLUoxetine HCL 20 MG CAP PO SCH (21:38)
[2022-07-12] MEDS: GABAPENTIN 400 MG CAP PO SCH (21:38)
--- NOTE | 2022-07-12 22:32 | HP ---
HISTORY AND PHYSICAL CHIEF COMPLAINT: Hip pain and fall. HISTORY OF PRESENT ILLNESS: This is a 71-year-old woman with a past medical history of COPD, DVT, GERD, and multiple medical issues, recently had a cardiac catheterization which showed multiple lesions including [id number] CAD, 30-40% RCA stenosis, 40-45% LAD stenosis. 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 The patient is complaining of some back pain and hip pain. X-rays, multiple x-rays did not show any acute abnormality as such. The patient is also taking Coumadin, and the patient is admitted for further evaluation and treatment. There is no history of any fever, rigors, or chills at this time. The movement of the legs are painful. PAST MEDICAL HISTORY: Reviewed, include COPD, DVT, recent cardiac arrest, rest of the history and rest of the chart is also reviewed. HOME MEDICATIONS: Reviewed include DuoNeb, rest of the dose and rest of the medication reviewed. ALLERGIES: Reviewed include Zithromax, rest of the allergies noted. FAMILY HISTORY: No history of heart disease or strokes in the family. SOCIAL HISTORY: History of smoking currently. REVIEW OF SYSTEMS: A 14-point review is negative as mentioned earlier. PHYSICAL EXAMINATION: VITAL SIGNS: Pulse is 66, blood pressure 110/27, respirations 18. HEENT: Conjunctivae normal. NECK: No jugular venous distention. RESPIRATIONS: Clear to auscultation and few scattered rhonchi. ABDOMEN: Soft. NERVOUS SYSTEM: No focal deficits. EXTREMITIES: Legs are painful. SKIN: No ulcer, rash, bleeding. JOINTS: No active deforming arthropathy. LABORATORY DATA: Reviewed. Troponin 0.46. ASSESSMENT: 1. Fall and severe hip pain, rule out fracture. 2. Gait dysfunction. 3. History of recent cardiac arrest with ahlr-sc-[id number] coronary disease. 4. Troponin 0.046, indeterminate. 5. Chronic obstructive pulmonary disease. 6. DVT. 7. Multiple medical issues. RECOMMENDATIONS: This 71-year-old woman presented with multiple complex medical issues, we will monitor the patient closely. I will recommend continue the current medications, symptomatic treatment for the pain will be provided. Exact cause of the pain and syncope is unknown at this time. I will recommend a CT scan of the pelvis if the x-rays are normal. Otherwise, cardiology consultation. I would also recommend D-dimer if it is elevated, probably follow up with CT angio of the chest. The PT/INR is only 1. I would recommend initiate Coumadin and Lovenox as well. The prognosis is guarded. Further recommendations to follow. See orders for details. MMODL / IJN: [id number] /
[2022-07-13] MEDS: LEVOTHYROXINE 75 MCG TAB PO SCH (06:01)
[2022-07-13 07:08] LABS: Basophils % (A) 0 %; Eosinophils % (A) 0 %; HCT 39.4 % (34.0-46.0); Lymphocytes # (A) 0.5 k/uL (1.0-4.8); Lymphocytes % (A) 6 %; MCH 29.6 pg (25.0-35.0); MCHC 32.9 g/dL (31.0-37.0); MCV 89.9 fL (80.0-100.0); Mean Platelet Volume 7.7; Monocytes # (A) 0.3 k/uL (0-1.0); Monocytes % (A) 3 %; Neutrophils % (A) 90 %; Platelet Count 148 k/uL (150-450); RBC 4.38 m/uL (3.80-5.40); RDW 14.3 % (11.5-15.5); WBC 7.8 k/uL (3.8-10.6)
[2022-07-13 07:13] LABS: Prothrombin Time 10.9 sec (9.0-12.0)
[2022-07-13] MEDS: ALBUTEROL NEBULIZED 2.5 MG/3 ML INHALATION PRN ×4 (07:49→21:27)
[2022-07-13] MEDS: IPRATROPIUM 0.5 MG/2.5 ML NEBU INHALATION PRN ×4 (07:49→21:27)
[2022-07-13 07:53] LABS: ALT 22 U/L (4-34); AST 22 U/L (14-36); African American GFR (CKD) >90 (>60 ml/min/1.73 sqM); Albumin 3.1 g/dL (3.5-5.0); Albumin/Globulin Ratio 1.5; Alkaline Phosphatase 57 U/L (38-126); Anion Gap 0 mmol/L; Blood Urea Nitrogen 12 mg/dL (7-17); Carbon Dioxide 34 mmol/L (22-30); Chloride 102 mmol/L (98-107); Globulin 2.1 g/dL; Glucose 123 mg/dL (74-99); Non-African American GFR(CKD) 89 (>60 ml/min/1.73 sqM); Potassium 4.5 mmol/L (3.5-5.1); Sodium 136 mmol/L (137-145); Total Bilirubin 0.3 mg/dL (0.2-1.3); Total Protein 5.2 g/dL (6.3-8.2)
[2022-07-13] MEDS: CHOLECALCIFEROL 25 MCG (1000 IU) TABLET PO SCH (08:40)
[2022-07-13] MEDS: EZETIMIBE 10 MG TAB PO SCH (08:40)
[2022-07-13] MEDS: FLUoxetine HCL 20 MG CAP PO SCH ×2 (08:40→22:08)
[2022-07-13] MEDS: ISOSORBIDE MONONITRATE ER 60 MG TAB.ER.24H PO SCH (08:41)
[2022-07-13] MEDS: APIXABAN 5 MG TAB PO SCH ×2 (08:41→22:09)
[2022-07-13] MEDS: PANTOPRAZOLE 40 MG TABLET PO SCH ×2 (08:41→16:54)
[2022-07-13] MEDS: ASPIRIN 81 MG PO SCH (08:41)
[2022-07-13] MEDS: ATORVASTATIN 20 MG TAB PO SCH (08:42)
[2022-07-13] MEDS: GABAPENTIN 400 MG CAP PO SCH ×2 (08:42→22:09)
[2022-07-13] MEDS: HYDROcodone/APAP 10-325MG 1 EACH TAB PO SCH ×4 (08:42→22:08)
[2022-07-13] MEDS: DULoxetine HCL 60 MG CAPSULE.DR PO SCH ×2 (08:43→22:08)
[2022-07-13] MEDS: FOLIC ACID 1 MG TAB PO SCH (08:44)
[2022-07-13] MEDS: CYANOCOBALAMIN 500 MCG TAB PO SCH (08:44)
[2022-07-13] MEDS: DILTIAZEM ORAL 30 MG TAB PO SCH ×3 (08:44→22:08)
[2022-07-13] MEDS ORDERED: ATORVASTATIN 40 MG TAB PO SCH (09:00)
[2022-07-13] MEDS ORDERED: METOPROLOL SUCCINATE (ER) 50 MG TAB.ER.24H PO SCH (09:00)
--- NOTE | 2022-07-13 09:53 | P.PN ---
Subjective Progress Note Date: 07/13/22 HISTORY OF PRESENT ILLNESS: This is a 71-year-old female with significant past medical history of COPD, CAD, tobacco use, "unstable angina", history of DVT/PE on Coumadin, and hypertension, brief episode of atrial fibrillation on last hospitalization. She follows with Dr. Car, cardiology in [place]. Last week, patient presented to the hospital due to chest pain and underwent cardiac catheterization on 07/10 which revealed mild to moderate CAD including 30-40% RCA stenosis, 40-50% mid LAD stenosis, YOHANA 2 flow noted of the LAD likely related to microvascular dysfunction, iFR LAD normal at 0.92, Normal left sided filling pressures. Unfortunately, following that, patient continued to have episodes of chest pain and wheezing thought to be not related to coronary artery disease. 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 We have been asked to evaluate the patient for coronary artery disease. She presented to the emergency center due to feeling weak ever since she was discharged from the hospital 07/10. She states she was home alone and got up to the bathroom with a walker but lost her balance started walking backwards and ended up falling in the bathroom and had to lay there for about 3 hours until somebody was there to help her. She denies any loss of c onsciousness. She complains of a cough for 3 weeks, no fever or chills. She states she has some chest pain in her lungs. She denies any blood in her stool or urine. She also had pain in the thoracic or lumbar spine areas and bilateral groin and pain is worse with movement. Her initial blood pressure was 105/60. EKG was a sinus bradycardia at rate of [address] changes WBC 7.2, hemoglobin 12.7, platelet count 124. INR 1. Sodium 130. Potassium 4.4, BUN 17 and creatinine 0.71. Blood sugar 106. Troponin 0.046. ProBNP 1010. Lipase 48. Chest x-ray no acute cardiopulmonary disease Bilateral hip and pelvis x-rays revealed calcification of the right hip joint. No fracture seen. CAT scan of the brain and cervical spine revealed mild cerebral atrophy. No acute intracranial abnormality. Multilevel anterior-posterior cervical spine fusion surgery. No acute fracture. Thoracic lumbar spine CT revealed multilevel fusion surgery. No fracture. Multilevel spondylotic changes. No focal bone destruction. Echocardiogram 07/09/2022: EF 55-60%, moderate concentric left ventricular hypertrophy, mild aortic valve sclerosis, mild mitral regurgitation. Home cardiac medications: Aspirin 325 mg daily, Cardizem 90 mg 3 times daily, Imdur 60 mg twice daily, Toprol-XL 50 mg daily, Coumadin 7.5/5 mg alternating 07/13 Patient states that she has a little dizzy, no chest pain. She is working with physical therapy. She remains afebrile, heart rate in the 70s, blood pressure 143/71 and pulse ox 95% on 2 L. Repeat blood work reveals a WBC of 7.8, hemoglobin 13, platelet count 148. Sodium 136, potassium 4.5, BUN 12 and creatinine 0.68. Blood sugar 123. Liver function tests are normal. PHYSICAL EXAMINATION: This is a 71-year-old female in no apparent distress at the time of my examination. HEENT: Head is atraumatic, normocephalic. Pupils are equal, round. Sclerae anicteric. Conjunctivae are clear. Mucous membranes of the mouth are moist. Neck is supple. There is no jugular venous distention. No carotid bruit is heard. CHEST EXAMINATION: Lungs are clear to auscultation. No chest wall tenderness is noted on palpation or with deep breathing. HEART EXAMINATION: Heart regular rate and rhythm. S1, S2 heard. No murmurs, gallops or rub. ABDOMEN: Soft, nontender. Bowel sounds are heard. EXTREMITIES: 2+ peripheral pulses with no evidence of peripheral edema and no calf tenderness noted. NEUROLOGIC EXAMINATION: Patient is awake, alert and oriented x3. IMPRESSION AND PLAN: 1. Generalized weakness and fall with documented bradycardia 2. CAD s/p 3 stents, most recent approximately 5 years ago 3. Cardiac catheterization on 07/10 revealed mild to moderate CAD as above 4. COPD 5. Atrial fibrillation paroxysmal 6. History DVT/PE on coumadin 7. Thrombocytopenia PLAN: Discontinue Lopressor and continued decreased dose of Cardizem 30 mg 3 times daily Continue aspirin 81 mg daily, eliquis 5 mg twice daily, Lipitor 20 mg daily, Imdur to once daily dosing Plan is to continue the current medication regime. Patient is cleared for discharge from cardiology and may follow-up with her primary child development instructor in 1-2 weeks. Cardiology will sign off and follow on an as-needed basis. Please reconsult for any new concerns. Nurse practitioner note has been reviewed, I agree with the documented findings and plan of care. Patient was seen and examined. Objective - Vital Signs Vital signs: Vital Signs Temp 97.9 F 07/13/22 07:42 Pulse 72 07/13/22 07:51 Resp 16 07/13/22 07:42 BP 143/71 07/13/22 07:42 Pulse Ox 95 07/13/22 07:42 FiO2 Intake & Output 07/12/22 07/13/22 07/13/22 18:59 06:59 18:59 Intake Total 300 Balance 300 Weight 84.368 kg Intake: Oral 300 Other: Voiding Method Toilet # Voids 1 1 - Labs CBC & Chem 7: 07/13/22 05:51 07/13/22 05:51 Labs: Abnormal Lab Results - Last 24 Hours (Table) 07/12/22 07/12/22 07/13/22 Range/Units 12:01 12:01 05:51 Plt Count 126 L 148 L (150-450) k/uL Lymphocytes # 0.3 L 0.5 L (1.0-4.8) k/uL D-Dimer 0.83 H (<0.60) mg/L FEU Sodium (137-145) mmol/L Carbon Dioxide (22-30) mmol/L Glucose (74-99) mg/dL Total Protein (6.3-8.2) g/dL Albumin (3.5-5.0) g/dL 07/13/22 Range/Units 05:51 Plt Count (150-450) k/uL Lymphocytes # (1.0-4.8) k/uL D-Dimer (<0.60) mg/L FEU Sodium 136 L (137-145) mmol/L Carbon Dioxide 34 H (22-30) mmol/L Glucose 123 H (74-99) mg/dL Total Protein 5.2 L (6.3-8.2) g/dL Albumin 3.1 L (3.5-5.0) g/dL
--- NOTE | 2022-07-13 12:43 | PN ---
PROGRESS NOTE DATE OF SERVICE: 07/13/2022 SUBJECTIVE: This is a 71-year-old woman who was admitted with fall and severe hip pain, is being closely monitored. The patient is slightly better. The patient would like to go home rather than rehab once the patient improves and CT scan of the hip showed no fractures. Multilevel fusion surgery was noted. No history of fever, rigors, or chills. OBJECTIVE: VITAL SIGNS: On exam, pulse is 74, blood pressure ntd, respirations 18. CHEST: Clear to auscultation. ABDOMEN: Soft, nontender. slightly painful. LABORATORY DATA: Labs are noted. D-dimer is 0.83. ASSESSMENT: 1. Fall and severe hip pain possibly contusion, negative fracture in the CT scan. 2. Gait dysfunction. 3. Elevated D-dimer. 4. History of recent cardiac catheterization with [id number]-[id number] coronary artery disease. 5. Troponin 0.046, indeterminate. 6. Chronic obstructive pulmonary disease. 7. History of deep venous thrombosis. 8. Multiple medical issues. RECOMMENDATIONS AND DISCUSSION: I recommend to continue current medications and symptomatic treatment. I would continue work with PT/OT. Increase ambulation. Cardiology input appreciated. I would also recommend a CT angio of the chest to rule out the possibility of pulmonary embolism. Prognosis guarded. Further recommendations to follow. MMODL / IJN: [id number] / YULI
--- NOTE | 2022-07-13 13:04 | US ---
EXAMINATION TYPE: US venous doppler duplex LE BI DATE OF EXAM: 07/13/2022 12:07 PM COMPARISON: NONE CLINICAL HISTORY: dvt. pain SIDE PERFORMED: Bilateral TECHNIQUE: The lower extremity deep venous system is examined utilizing real time linear array sonog tameka with graded compression, doppler sonography and color-flow sonography. VESSELS IMAGED: Common Femoral Vein Deep Femoral Vein Greater Saphenous Vein * Femoral Vein Popliteal Vein Small Saphenous Vein * Proximal Calf Veins (* superficial vessels) Right Leg: Negative for DVT Left Leg: Negative for DVT IMPRESSION: 1. Bilateral lower extremity ultrasound negative for deep venous thrombosis.
--- NOTE | 2022-07-13 13:42 | CT ---
EXAMINATION TYPE: CT angio chest CT DLP: 326.6 mGycm, Automated exposure control for dose reduction was used. DATE OF EXAM: 07/13/2022 1:35 PM COMPARISON: Chest radiograph 07/12/2022 CLINICAL INDICATION:Female, 71 years old with history of pe; r/o pe TECHNIQUE/CONTRAST: CTA scan of the thorax is performed with IV Contrast, patient injected with 70 mL of Isovue 370, pulm onary embolism protocol. MIP images are created and reviewed. FINDINGS: Pulmonary Artery: There is no evidence for a filling defect within the pulmonary vasculature to sugge st acute pulmonary embolism. The pulmonary artery is of normal size. Lungs/Pleura: No evidence of focal consolidation, pleural effusion or pneumothorax. Mild centrilobula r emphysematous changes. Airway: Large airways are patent. Heart: Heart is within normal limits for size. No pericardial effusion. Moderate coronary artery calc ifications. Vasculature: No evidence of aortic aneurysm. Mild atherosclerotic calcification of the aorta and its branches. Mediastinum: No gross evidence of adenopathy. Musculoskeletal: No acute osseous abnormalities. Anterior cervical fusion and posterior cervical fusi on with laminectomy changes of the cervical spine. Partial visualization of lumbar fusion hardware. S coliotic curvature of the thoracic spine. Soft Tissues: Unremarkable. Lower neck: Thyroid gland appears surgically absent with multiple surgical clips identified. Upper Abdomen: Small hiatal hernia.. IMPRESSION: 1. No evidence of pulmonary embolism. 2. Mild COPD changes.
[2022-07-13] MEDS ORDERED: WARFARIN 5 MG TAB PO SCH (21:00)
[2022-07-14 02:00] VITALS: RESP 16
[2022-07-14] MEDS: HYDROcodone/APAP 10-325MG 1 EACH TAB PO SCH ×3 (02:06→13:53)
[2022-07-14] MEDS: LEVOTHYROXINE 75 MCG TAB PO SCH (05:51)
[2022-07-14 08:10] LABS: Prothrombin Time 10.5 sec (9.0-12.0)
[2022-07-14] MEDS: PANTOPRAZOLE 40 MG TABLET PO SCH (08:41)
[2022-07-14] MEDS: ATORVASTATIN 20 MG TAB PO SCH (08:42)
[2022-07-14] MEDS: ASPIRIN 81 MG PO SCH (08:42)
[2022-07-14] MEDS: APIXABAN 5 MG TAB PO SCH (08:42)
[2022-07-14] MEDS: CHOLECALCIFEROL 25 MCG (1000 IU) TABLET PO SCH (08:42)
[2022-07-14] MEDS: CYANOCOBALAMIN 500 MCG TAB PO SCH (08:42)
[2022-07-14] MEDS: FOLIC ACID 1 MG TAB PO SCH (08:43)
[2022-07-14] MEDS: DULoxetine HCL 60 MG CAPSULE.DR PO SCH (08:43)
[2022-07-14] MEDS: DILTIAZEM ORAL 30 MG TAB PO SCH (08:43)
[2022-07-14] MEDS: EZETIMIBE 10 MG TAB PO SCH (08:43)
[2022-07-14] MEDS: GABAPENTIN 400 MG CAP PO SCH (08:43)
[2022-07-14] MEDS: FLUoxetine HCL 20 MG CAP PO SCH (08:43)
[2022-07-14] MEDS: ISOSORBIDE MONONITRATE ER 60 MG TAB.ER.24H PO SCH (08:45)
[2022-07-14 11:23] LABS: African American GFR (CKD) 86.6 (60.0-200.0); Anion Gap 5.9 mmol/L (10.00-18.00); BUN/Creat Ratio 18.13 Ratio (12.00-20.00); Blood Urea Nitrogen 14.5 mg/dL (9.0-27.0); Carbon Dioxide 32.1 mmol/L (20.0-27.5); Non-African American GFR(CKD) 74.7 (60.0-200.0); Potassium 4.3 mmol/L (3.5-5.5)
[2022-07-14 12:19] VITALS: BP 114/71
[2022-07-14 14:37] VITALS: PULSE 99; TEMP 97.4
--- NOTE | 2022-07-14 15:28 | P.EN ---
Patient will require a hospital bed in order to maintain head of the bed elevated 30-45 at all times to be able to manage her COPD
--- NOTE | 2022-07-15 15:10 | P.DS ---
Providers Date of admission: 07/12/22 06:23 Expected date of discharge: 07/14/22 Attending physician: Juan Jose Johnson MD Consults: 07/12/22 11:37 Consult Physician Routine Consulting Provider: Davey Bassett Consult Reason/Comments: cad Do you want consulting provider notified?: Yes Primary care physician: Jj Cee [facility] Course: Final diagnosis Fall and severe hip pain, possibly contusion, negative fracture on the CT Gait dysfunction Elevated d-dimer with no evidence of PE next line history of recent cardiac catheterization with mild to moderate coronary artery disease Troponin 0.046, indeterminate Chronic obstructive pulmonary disease Findings history of deep vein thrombosis Discharge disposition Patient is being discharged in a stable condition with guarded prognosis to home with home care. Patient will follow-up with in the outpatient setting upon discharge. Patient is to continue with cardiac medications as mentioned below and close outpatient follow-up with cardiology as scheduled. Total time taken is greater than 35 minutes. Hospital course This is a 71-year-old female who was recently admitted with fall and severe hip pain and CT images shows multilevel fusion surgeries with no acute fractures noted. Patient was seen and evaluated by physical therapy initially planning on ECF although patient would like to return home. Patient reports she has support at home in good help her. Patient also requesting a hospital bed to be able to have head of the bed elevated 30-45 at all times to assist and manage her COPD. Strongly encouraged complete tobacco cessation. Home oxygen evaluation was done and will not qualify for oxygen on discharge. Patient has been cleared by consultations. Please refer to other consultation notes for further HPI. Currently no reports of chest pain, shortness of breath, or palpitations. Patient is afebrile. No reports of nausea or vomiting and patient is tolerating diet. Patient will be discharged home today. Patient strongly encouraged to follow-up with primary care provider this week. Guarded prognosis as patient is high risk for readmissions and noncompliance. Physical exam: Gen: This is a 71-year-old female who is awake, alert and oriented 3, well- developed, well-nourished, obese HEENT: Head is atraumatic, normocephalic. Pupils equal, round. Sclerae is anicteric. NECK: Supple. No JVD. No lymphadenopathy. No thyromegaly. LUNGS: Diminished breath sounds bilaterally with some scattered rhonchi noted No intercostal retractions. HEART: S1, S2 are muffled ABDOMEN: Soft. Bowel sounds are present. No masses. No tenderness. EXTREMITIES: No pedal edema. No calf tenderness. NEUROLOGICAL: Patient is awake, alert and oriented x3. Cranial nerves 2 through 12 are grossly intact. Please refer to medication reconciliation sheet for a list of medications. The impression and plan of care has been dictated by Mary Radford, Nurse Practitioner as directed. Dr. Jarrett MD I have performed a history and examination and MDM of this patient, discussed the same with the dictator, and agree with the dictator's assessment and plan as written ,documented as a scribe. Based on total visit time, I have performed more than 50% of the visit. Patient Condition at Discharge: Fair Plan - Discharge Summary Discharge Rx Participant: Yes New Discharge Prescriptions: New Aspirin 81 mg PO DAILY #30 tab Diltiazem Oral [Cardizem*] 30 mg PO TID #90 tab Apixaban [Eliquis] 5 mg PO BID 30 Days #60 tab Atorvastatin [Lipitor] 20 mg PO DAILY tab Continue Levothyroxine Sodium [Levo-T] 150 mcg PO DAILY Isosorbide Mononitrate ER [Imdur] 60 mg PO BID Folic Acid 1 mg PO DAILY Ezetimibe [Zetia] 10 mg PO DAILY Cyanocobalamin (Vitamin B-12) [Vitamin B-12] 1,000 mcg PO DAILY DULoxetine HCL [Cymbalta] 60 mg PO BID Cholecalciferol [Vitamin D3 (25 Mcg = 1000 Iu)] 50 mcg PO DAILY FLUoxetine HCL [PROzac] 20 mg PO BID Esomeprazole Magnesium [NexIUM] 40 mg PO BID Mag Hydrox/Al Hydrox/Simeth [Maalox] 30 ml PO Q4HR PRN ml PRN Reason: Gi Upset Gabapentin 800 mg PO BID HYDROcodone/APAP 10-325MG [Furman 10-325] 1 tab PO QID Ubrogepant [Ubrelvy] 50 mg PO DAILY PRN PRN Reason: Migraine Headache Ipratropium-Albuterol Nebulize [Duoneb 0.5 mg-3 mg/3 ml Soln] 3 ml INHALATION RT-QID PRN #60 each PRN Reason: Shortness Of Breath Discontinued Warfarin Sodium [Coumadin] 7.5 mg PO SUMOSA@2100 Warfarin Sodium [Coumadin] 5 mg PO TUWETHFR@2100 dilTIAZem HCL [Cardizem] 90 mg PO TID Metoprolol Succinate (ER) [Toprol XL] 50 mg PO DAILY Aspirin 325 mg PO DAILY tab Discharge Medication List Cyanocobalamin (Vitamin B-12) [Vitamin B-12] 1,000 mcg PO DAILY 10/30/19 [History] Ezetimibe [Zetia] 10 mg PO DAILY 10/30/19 [History] Folic Acid 1 mg PO DAILY 10/30/19 [History] Isosorbide Mononitrate ER [Imdur] 60 mg PO BID 10/30/19 [History] Levothyroxine Sodium [Levo-T] 150 mcg PO DAILY 10/30/19 [History] Cholecalciferol [Vitamin D3 (25 Mcg = 1000 Iu)] 50 mcg PO DAILY 01/08/22 [History] DULoxetine HCL [Cymbalta] 60 mg PO BID 01/08/22 [History] Gabapentin 800 mg PO BID 01/08/22 [History] Esomeprazole Magnesium [NexIUM] 40 mg PO BID 07/08/22 [History] FLUoxetine HCL [PROzac] 20 mg PO BID 07/08/22 [History] HYDROcodone/APAP 10-325MG [Furman 10-325] 1 tab PO QID 07/08/22 [History] Ubrogepant [Ubrelvy] 50 mg PO DAILY PRN 07/08/22 [History] Mag Hydrox/Al Hydrox/Simeth [Maalox] 30 ml PO Q4HR PRN ml 07/11/22 [Rx] Apixaban [Eliquis] 5 mg PO BID 30 Days #60 tab 07/14/22 [Rx] Aspirin 81 mg PO DAILY #30 tab 07/14/22 [Rx] Atorvastatin [Lipitor] 20 mg PO DAILY tab 07/14/22 [Rx] Diltiazem Oral [Cardizem*] 30 mg PO TID #90 tab 07/14/22 [Rx] Ipratropium-Albuterol Nebulize [Duoneb 0.5 mg-3 mg/3 ml Soln] 3 ml INHALATION RT-QID PRN #60 each 07/14/22 [Rx] Follow up Appointment(s)/Referral(s): Jj Cee DO [Primary Care Provider] - 07/16/22 2:00 pm [facility] Visiting Nurse, [NON-STAFF] - 1 Week (Office will call to make a follow up appointment with patient.) Patient Instructions/Handouts: Failure to Thrive (DC) Activity/Diet/Wound Care/Special Instructions: Activity Limited until follow-up Follow-up primary care provider on discharge Follow-up cardiology outpatient Continue taking medications as prescribed Avoid tobacco use and exposure Continue breathing treatments 4 times daily and as needed Diet as tolerated Activity Limited until seen by DR. Zhang Disposition: HOME WITH HOME HEALTH SERVICES
[2022-07-17] MEDS ORDERED: WARFARIN 7.5 MG TAB PO SCH (21:00)
== END 2022-07-14 16:08 | disposition home health service (06) ==
LOC: EC 04:41 → INTOOBSV 06:23 → 4SSUR 06:23 → 5NMEDONC 07:31 → UNDODISIN 07-14 16:08
PROVIDERS: ADMIT Internal Medicine; ATTEND Internal Medicine
DX: M25.559 Pain in unspecified hip (principal); R26.89 Other abnormalities of gait and mobility; J44.9 Chronic obstructive pulmonary disease, unspecified; I50.9 Heart failure, unspecified; K21.9 Gastro-esophageal reflux disease without esophagitis; E78.5 Hyperlipidemia, unspecified; F41.9 Anxiety disorder, unspecified; F32.A Depression, unspecified; G31.89 Other specified degenerative diseases of nervous system; I25.10 Atherosclerotic heart disease of native coronary artery without angina pectoris; F17.200 Nicotine dependence, unspecified, uncomplicated; K44.9 Diaphragmatic hernia without obstruction or gangrene; I70.0 Atherosclerosis of aorta; R79.89 Other specified abnormal findings of blood chemistry; R00.1 Bradycardia, unspecified; M25.78 Osteophyte, vertebrae; D69.6 Thrombocytopenia, unspecified; I48.0 Paroxysmal atrial fibrillation; Z79.01 Long term (current) use of anticoagulants; Z79.899 Other long term (current) drug therapy; Z88.1 Allergy status to other antibiotic agents; Z88.8 Allergy status to other drugs, medicaments and biological substances; Z88.3 Allergy status to other anti-infective agents; Z86.718 Personal history of other venous thrombosis and embolism; Z90.710 Acquired absence of both cervix and uterus; Z85.828 Personal history of other malignant neoplasm of skin; Z85.41 Personal history of malignant neoplasm of cervix uteri; Z85.850 Personal history of malignant neoplasm of thyroid; Z98.51 Tubal ligation status; Z98.1 Arthrodesis status; Z86.74 Personal history of sudden cardiac arrest; Z95.5 Presence of coronary angioplasty implant and graft
CPT/HCPCS: 96374; 99285; 36415; 94640 ×4; 93005 ×2; 97530; 97162; 97535; 97166; 85379; 83880; 80053 ×2; 80048; 83690; 83735; 84484 ×2; 85025 ×2; 85610 ×3; 85730; 73521; 71046; 93970; 72128; 72125; 72131; 70450; 71275; G0378 ×3; J1100; Q9967

== ENCOUNTER 2022-08-13 10:59 | Day surgery (SDC) | payer MEDICARE ==
[2022-08-10 09:44] VITALS: BMI 26.6
[~2022-08-13 10:59] MED LIST: SODIUM CHLORIDE 0.9% 1,000 ML IV SCH
[2022-08-13] MEDS ORDERED: SODIUM CHLORIDE 0.9% 500 ML 500 ML IV ONE (11:13)
[2022-08-13 11:31] VITALS: BP 125/67; PULSE 75; RESP 16; TEMP 98.7
[2022-08-13] MEDS ORDERED: LIDOCAINE 1% INJ 10MG/ML (20 ML MDV) SQ ONE (12:37)
--- NOTE | 2022-08-13 12:49 | P.PCN ---
Description of Procedure: Procedure: Insertion of Linq loop recorder Indication: Bradycardia, syncope, atrial fibrillation CONSENT:I have discussed the risks, benefits and alternative therapies for the above-mentioned procedure. The patient has indicated understanding and acceptance of the risks and procedures discussed. PROCEDURE: Patient was brought to the catheterization lab in a fasting state. Patient was prepped and draped in the usual fashion. 1% lidocaine was used to anesthetize the area of the left third intercostal space. Using the loop re jolly incision device, a small 0.5 cm incision was made in the left 3rd intercostal space. Next the Linq loop recorder was deployed in the 3rd intercostal space subcutaneously using the insertion tool. Thresholds were checked and were excellent at 0.22V. Next the incision was closed using Dermabond. Steristrips were placed over the incision and the procedure was completed. The patient tolerated the procedure well. The patient was transported to the post cath holding area in stable condition. Linq loop recorder serial number: [id number]
== END 2022-08-13 13:42 | disposition home or self-care (01) ==
LOC: CATHEP 10:59
PROVIDERS: ATTEND Internal Medicine
DX: I48.0 Paroxysmal atrial fibrillation (principal); J44.9 Chronic obstructive pulmonary disease, unspecified; I25.10 Atherosclerotic heart disease of native coronary artery without angina pectoris; I10 Essential (primary) hypertension; E78.2 Mixed hyperlipidemia; F17.210 Nicotine dependence, cigarettes, uncomplicated; Z86.73 Personal history of transient ischemic attack (TIA), and cerebral infarction without residual deficits; Z82.49 Family history of ischemic heart disease and other diseases of the circulatory system; Z79.82 Long term (current) use of aspirin; Z79.899 Other long term (current) drug therapy
CPT/HCPCS: 33285; C1764; J0690; J2001

== ENCOUNTER 2023-04-02 22:55 | Emergency (ER) | payer MEDICARE ==
[2023-04-02 23:11] VITALS: RESP 18; TEMP 98.3
--- NOTE | 2023-04-02 23:57 | CT ---
EXAM: CT Head Without Intravenous Contrast CLINICAL HISTORY: ITS.REASON CT Reason: fall + eliquis TECHNIQUE: Axial computed tomography images of the head/brain without intravenous contrast. CTDI is 45.3 mGy and DLP is 1125 mGy-cm. This CT exam was performed using one or more of the following dose reduction techniques: automated exposure control, adjustment of the mA and/or kV according to patient size, and/or use of iterative reconstruction technique. COMPARISON: 07/12/2022. FINDINGS: Brain: Small vessel disease of aging. No hemorrhage. No abnormal extra-axial collection is noted. Midline shift: Midline anatomy is unremarkable. Ventricles: Unremarkable. No ventriculomegaly. Bones/joints: Calvarium is unremarkable. No acute fracture. Soft tissues: A 6.2 x 1.6 cm scalp hematoma is noted at the vertex. Sinuses: Mild chronic ethmoid sinusitis. 1 cm polyp versus mucous retention is posteriorly at the right maxillary sinus. Mastoid air cells: Mastoid air cells are well pneumatized. Other findings: Age-related changes. IMPRESSION: 1. Scalp hematoma at the vertex. 2. Age-related changes and small vessel disease of aging. 3. No acute intracranial pathology. 4. If there is concern for etiology such as early acute lacunar infarcts, MRI imaging of the brain with diffusion-weighted sequences should be performed. EXAM: CT Cervical Spine Without Intravenous Contrast CLINICAL HISTORY: ITS.REASON CT Reason: fall + eliquis TECHNIQUE: Axial computed tomography images of the cervical spine without intravenous contrast. CTDI is 10.9 mGy and DLP is 340.1 mGy-cm. This CT exam was performed using one or more of the following dose reduction techniques: automated exposure control, adjustment of the mA and/or kV according to patient size, and/or use of iterative reconstruction technique. COMPARISON: No previous studies. FINDINGS: Vertebrae: Extensive postsurgical changes the cervical spine. Straightening and reversal of the curvature of the cervical spine suggestive of muscle spasm. There is a normal relationship of C1 and C2. Dextroscoliosis. Transaxial images of the cervical spine reveals multilevel posterior facet hypertrophy and disc osteophyte complexes. No acute fracture. Discs/spinal canal/neural foramina: Moderate degenerative disc disease. No spinal canal stenosis. Soft tissues: Unremarkable. Lung apices: Lung apices are unremarkable. Other findings: Extensive orthopedic hardware is noted in place and is intact. IMPRESSION: 1. Extensive postsurgical changes the cervical spine, similar to that noted on the previous study. 2. No acute injury detected.
[2023-04-03] MEDS ORDERED: DIPH,PERTUS(ACELL)TETVAC-LF 0.5 ML VIAL IM ONE (00:01)
[2023-04-03] MEDS ORDERED: MORPHINE SULFATE 4 MG/ML SYRINGE IV STA (00:01)
[2023-04-03] MEDS ORDERED: LIDOCAINE 1% INJ 10MG/ML (20 ML MDV) SQ STA (02:00)
--- NOTE | 2023-04-03 03:08 | ED ---
Fall HPI - General Chief Complaint: Fall Stated Complaint: fall Time Seen by Provider: 04/02/23 23:12 Source: EMS Mode of arrival: EMS - History of Present Illness Initial Comments: Patient is 72-year-old woman brought to have evaluation after she fell this evening. The patient reported that she had been drinking, lost balance and fell striking head on fireplace stone. No loss consciousness. Localize pain. MD Complaint: fall -: minutes(s) Fall From: standing When Fall Occurred: just prior to arrival Fall Witnessed: yes, by family Place Fall Occurred: home Loss of Consciousness: none Prolonged Down Time?: no Symptoms Prior to Fall: none Location: head Severity: mild Quality: sharp Context: tripped/slipped Associated Symptoms: headache - Related Data Home Medications Medication Instructions Recorded Confirmed Cyanocobalamin (Vitamin B-12) 1,000 mcg PO DAILY 10/30/19 08/13/22 [Vitamin B-12] Ezetimibe [Zetia] 10 mg PO DAILY 10/30/19 08/13/22 Folic Acid 1 mg PO DAILY 10/30/19 08/13/22 Isosorbide Mononitrate ER [Imdur] 60 mg PO DAILY 10/30/19 08/13/22 Levothyroxine Sodium [Levo-T] 150 mcg PO DAILY 10/30/19 08/13/22 Cholecalciferol [Vitamin D3 (25 50 mcg PO DAILY 01/08/22 08/13/22 Mcg = 1000 Iu)] DULoxetine HCL [Cymbalta] 60 mg PO BID 01/08/22 08/13/22 Gabapentin 800 mg PO BID 01/08/22 08/13/22 Esomeprazole Magnesium [NexIUM] 40 mg PO BID 07/08/22 08/13/22 FLUoxetine HCL [PROzac] 20 mg PO BID 07/08/22 08/13/22 HYDROcodone/APAP 10-325MG [[place] 1 tab PO QID 07/08/22 08/13/22 10-325] Ubrogepant [Ubrelvy] 50 mg PO DAILY PRN 07/08/22 08/13/22 Previous Rx's Medication Instructions Recorded Mag Hydrox/Al Hydrox/Simeth 30 ml PO Q4HR PRN ml 07/11/22 [Maalox] Apixaban [Eliquis] 5 mg PO BID 30 Days #60 tab 07/14/22 Aspirin 81 mg PO DAILY #30 tab 07/14/22 Atorvastatin [Lipitor] 20 mg PO DAILY tab 07/14/22 Diltiazem Oral [Cardizem*] 30 mg PO TID #90 tab 07/14/22 Ipratropium-Albuterol Nebulize 3 ml INHALATION RT-QID PRN #60 each 07/14/22 [Duoneb 0.5 mg-3 mg/3 ml Soln] Allergies Allergy/AdvReac Type Severity Reaction Status Date / Time azithromycin [From Zithromax] Allergy Severe Rash/Hives Verified 04/02/23 23:06 bupropion [From Wellbutrin] Allergy Severe Rash/Hives Verified 04/02/23 23:06 cephalexin [From Keflex] Allergy Intermediate Rash/Hives Verified 04/02/23 23:06 lisinopril [From Prinivil] Allergy Intermediate Rash/Hives Verified 04/02/23 23:06 nitrofurantoin Allergy Intermediate Rash/Hives Verified 04/02/23 23:06 [From Macrobid] pentazocine [From Talwin] Allergy Intermediate Rash/Hives Verified 04/02/23 23:06 topiramate [From Topamax] Allergy Intermediate Rash/Hives Verified 04/02/23 23:06 hydromorphone [From Dilaudid] AdvReac Severe Hallucinati Verified 04/02/23 23:06 ons propranolol [From Inderal [place]] AdvReac Severe MENTAL Verified 04/02/23 23:06 MOOD CHANGES codeine AdvReac Intermediate "BAD Verified 04/02/23 23:06 DREAMS" ibuprofen [From Motrin] AdvReac Intermediate Nausea & Verified 04/02/23 23:06 Vomiting & Diarrhea Review of Systems ROS Statement: Those systems with pertinent positive or pertinent negative responses have been documented in the HPI. ROS Other: All systems not noted in ROS Statement are negative. Constitutional: Denies: fever, weakness Eyes: Denies: vision change ENT: Denies: ear pain, hearing loss, epistaxis Respiratory: Denies: cough, dyspnea Cardiovascular: Denies: chest pain, palpitations, syncope Gastrointestinal: Denies: abdominal pain, vomiting Genitourinary: Denies: dysuria, hematuria Musculoskeletal: Denies: back pain Skin: Denies: rash Neurological: Reports: headache. Denies: weakness, numbness, confusion Hematological/Lymphatic: Reports: easy bleeding Past Medical History Past Medical History: Cancer, Chest Pain / Angina, COPD, Deep Vein Thrombosis (DVT), GERD/Reflux, Hyperlipidemia, Hypertension, Neurologic Disorder, Osteoarthritis (OA), Pulmonary Embolus (PE), Thyroid Disorder Additional Past Medical History / Comment(s): SKIN CANCER, CERVICAL CANCER AND THYROID CANCER. DVT IN BOTH LEGS. MS History of Any Multi-Drug Resistant Organisms: C-DIFF Date of last positivie culture/infection: 04/25/2002 MDRO Source:: cdiff Past Surgical History: Adenoidectomy, Appendectomy, Back Surgery, Breast Surgery, Heart Catheterization, Hysterectomy, Orthopedic Surgery, Tonsillectomy, Tubal Ligation Additional Past Surgical History / Comment(s): CYSTS REMOVED FROM BILATERAL BREAST, Sm NECK SURGERY, COLONOSCOPY, Past Anesthesia/Blood Transfusion Reactions: No Reported Reaction Past Psychological History: Anxiety, Depression Smoking Status: Current every day smoker - Past Family History Mother Family Medical History: Cancer, Chest Pain / Angina, Congestive Heart Failure (CHF), COPD, Hyperlipidemia, Hypertension, Myocardial Infarction ([place]) Father Family Medical History: Congestive Heart Failure (CHF), COPD, Musculoskeletal Disorder General Exam General appearance: alert, in no apparent distress Head exam: Present: normocephalic, other (Posterior scalp laceration. There is some adjacent tenderness. No evident deformity.) Eye exam: Present: normal appearance, PERRL, EOMI. Absent: scleral icterus, conjunctival injection Neck exam: Present: normal inspection, full ROM. Absent: tenderness Respiratory exam: Present: normal lung sounds bilaterally. Absent: respiratory distress, wheezes, rales, rhonchi, stridor Cardiovascular Exam: Present: regular rate, normal rhythm, normal heart sounds. Absent: systolic murmur, diastolic murmur, rubs, gallop GI/Abdominal exam: Present: soft. Absent: distended, tenderness, guarding Extremities exam: Present: normal inspection, normal capillary refill. Absent: pedal edema, calf tenderness Back exam: Present: normal inspection Neurological exam: Present: alert, oriented X3. Absent: motor sensory deficit Skin exam: Present: warm, dry, normal color, other (Linear Posterior scalp laceration approximately 7 cm.). Absent: rash Course Vital Signs 04/02/23 04/03/23 04/03/23 23:02 00:30 02:00 Temperature 98.3 F Pulse Rate 68 69 76 Respiratory 18 18 18 Rate Blood Pressure 146/81 142/75 137/78 O2 Sat by Pulse 95 95 95 Oximetry Procedures - Laceration Laceration #2 Consent Obtained: verbal consent Indication: laceration Site: scalp Description: linear Depth: simple, single layer Anesthetic Used: lidocaine 1% Anesthesia Technique: local infiltration Type of Sutures: nylon Size of Sutures: 5-0 Number of Sutures: 8 Technique: simple, interrupted Patient Tolerated Procedure: well, no complications Medical Decision Making - Medical Decision Making This patient is 72-year-old woman here to have evaluation after falling and striking her head. The patient is on blood thinning medication and therefore sent for CT of the brain. Following this I did perform suture repair, see the note a note that this should be for laceration 1 there is no laceration The patient had computed tomography scan of the brain which I interpreted as negative for acute bony injury or acute intracranial hemorrhage Was pt. sent in by a medical professional or institution (Dr. PA, ALUMNI RELATIONS OFFICER, urgent care, hospital, or half-way...) When possible be specific @ -[No] Did you speak to anyone other than the patient for history (EMS, parent, family, police, friend...)? What history was obtained from this source @ -[Family has additional history Did you review nursing and triage notes (agree or disagree)? Why? @ -[I reviewed and agree with nursing and triage notes] Were old charts reviewed (outside hosp., previous admission, EMS record, old EKG, old radiological studies, urgent care reports/EKG's, half-way records)? Report findings @ -[No old charts were reviewed] Differential Diagnosis (chest pain, altered mental status, abdominal pain women, abdominal pain men, vaginal bleeding, weakness, fever, dyspnea, syncope, headache, dizziness, GI bleed, back pain, seizure, CVA, palpatations, mental health, musculoskeletal)? @ -[Differential Musculoskeletal Muscular strain, contusion, ligament sprain, fracture, arthritis, septic arthritis, bursitis, cellulitis, muscle spasm, nerve compression, DVT, arterial occlusion, herpes zoster, electrolyte abnormality, tumor.... This is not meant to be in all inclusive list EKG interpreted by me (3pts min.). @ -[As above] X-rays interpreted by me (1pt min.). @ -[None done] CT interpreted by me (1pt min.). @ -[I interpreted as above U/S interpreted by me (1pt. min.). @ -[None done] What testing was considered but not performed or refused? (CT, X-rays, U/S, labs)? Why? @ -[None] What meds were considered but not given or refused? Why? @ -[None] Did you discuss the management of the patient with other professionals (professionals i.e. , PA, ALUMNI RELATIONS OFFICER, lab, RT, psych nurse, social group worker, tactical air control party, teacher, contracting officer, case management assistant)? Give summary @ -[No] Was smoking cessation discussed for >3mins.? @ -[No] Was critical care preformed (if so, how long)? @ -[No] Were there social determinants of health that impacted care today? How? (Homelessness, low income, unemployed, alcoholism, drug addiction, t ransportation, low edu. Level, literacy, decrease access to med. care, [facility], rehab)? @ -[No] Was there de-escalation of care discussed even if they declined (Discuss DNR or withdrawal of care, Hospice)? DNR status @ -[No] What co-morbidities impacted this encounter? (DM, HTN, Smoking, COPD, CAD, Cancer, CVA, ARF, Chemo, Hep., AIDS, mental health diagnosis, sleep apnea, morbid obesity)? @ -[None] Was patient admitted / discharged? Hospital course, mention meds given and route, prescriptions, significant lab abnormalities, going to OR and other pertinent info. @ -[Patient is 72-year-old woman seen after a fall. She is feeling better after course in emergency department and requesting to go home. She does appear stable. Undiagnosed new problem with uncertain prognosis? @ -[No] Drug Therapy requiring intensive monitoring for toxicity (Heparin, Nitro, Insulin, Cardizem)? @ -[No] Were any procedures done? @ -[Laceration repair as in the note Diagnosis/symptom? @ -[Acute fall Acute minor head injury Acute scalp laceration with suture repair Acute, or Chronic, or Acute on Chronic? @ -Acute Uncomplicated (without systemic symptoms) or Complicated (systemic symptoms)? @ -[Uncomplicated Side effects of treatment? @ -[No] Exacerbation, Progression, or Severe Exacerbation? @ -[No] Poses a threat to life or bodily function? How? (Chest pain, [place], [place], pneumonia, PE, COPD, DKA, ARF, appy, cholecystitis, CVA, Diverticulitis, Homicidal, Suicidal, threat to staff... and all critical care pts) @ -[No] - EKG Data -: EKG Interpreted by Me EKG shows normal: sinus rhythm (With sinus arrhythmia), axis (Normal), intervals (Normal), QRS complexes (Normal) Rate: normal (Rate 67 bpm) Interpretation: nonspecific ST-T wave changes Disposition Clinical Impression: Fall, Scalp laceration, Head injury Disposition: HOME SELF-CARE Condition: Good Instructions (If sedation given, give patient instructions): Laceration (ED), Fall Prevention for Older Adults (ED), Head Injury (ED) Is patient prescribed a controlled substance at d/c from ED?: No Referrals: Jj Cee DO [Primary Care Provider] - 1-2 days
[2023-04-03] MEDS ORDERED: BACITRACIN OINT 1 EACH PACKET TOPICAL ONE (03:11)
[2023-04-03 03:21] VITALS: BP 137/78; PULSE 76
== END 2023-04-03 03:42 | disposition home or self-care (01) ==
LOC: EC 22:55
DX: S01.01XA Laceration without foreign body of scalp, initial encounter (principal); I10 Essential (primary) hypertension; J44.9 Chronic obstructive pulmonary disease, unspecified; K21.9 Gastro-esophageal reflux disease without esophagitis; M19.90 Unspecified osteoarthritis, unspecified site; Z86.718 Personal history of other venous thrombosis and embolism; F41.9 Anxiety disorder, unspecified; F32.A Depression, unspecified; F17.200 Nicotine dependence, unspecified, uncomplicated; Z88.5 Allergy status to narcotic agent; Z88.8 Allergy status to other drugs, medicaments and biological substances; Z88.6 Allergy status to analgesic agent; Z88.1 Allergy status to other antibiotic agents; Z79.890 Hormone replacement therapy; Z79.01 Long term (current) use of anticoagulants; Z79.899 Other long term (current) drug therapy; Z23 Encounter for immunization; W01.198A Fall on same level from slipping, tripping and stumbling with subsequent striking against other object, initial encounter; Y92.009 Unspecified place in unspecified non-institutional (private) residence as the place of occurrence of the external cause
CPT/HCPCS: 72125; 70450; 90715; 99285; 96374; 90471; 12001; J2270; J2001

== ENCOUNTER → 2023-04-12 | Outpatient (CLI) | payer MEDICARE ==
--- NOTE | 2023-04-12 17:13 | CT ---
EXAMINATION TYPE: CT brain wo con CT DLP: 1645.0 mGycm, Automated exposure control for dose reduction was used. DATE OF EXAM: 04/12/2023 4:58 PM COMPARISON: 04/02/2023. CLINICAL INDICATION:Female, 72 years old with history of W19.XXXA FALL, Multiple recent falls TECHNIQUE: Brain: Axial CT images of the brain were obtained with coronal and sagittal reformats created and rev iewed. Contrast used: None. Oral contrast used: None. FINDINGS: Brain: Extra-axial spaces: No abnormal extra-axial fluid collections. Ventricular system: Dilatation in proportion to cerebral atrophy. Cerebral parenchyma: Cerebral atrophy. No acute intraparenchymal hemorrhage or mass effect. The levin -white junction is well differentiated. Scattered hypoattenuating areas are seen within the white mat ter. Cerebellum: Unremarkable. Mass effect: No evidence of midline shift. Intracranial vasculature: Atherosclerotic calcifications of the intracranial vessels. Soft tissues: Left posterior soft tissue scalp edema. Calvarium/osseous structures: No depressed skull fracture. Paranasal sinuses and mastoid air cells: Mild scattered paranasal sinus disease. Visualized orbits: Orbital contents are intact. IMPRESSION: 1. No acute intracranial process. 2. Nonspecific white matter changes, likely secondary to chronic small vessel ischemic disease. 3. Left posterior scalp edema without evidence for fracture.
== END | disposition home or self-care (01) ==
LOC: RADCTMAIN 16:31
PROVIDERS: ATTEND Student in an Organized Health Care Education/Training Program
DX: S09.90XA Unspecified injury of head, initial encounter (principal); R90.82 White matter disease, unspecified; R29.6 Repeated falls; R60.0 Localized edema
CPT/HCPCS: 70450

== ENCOUNTER → 2024-03-31 | Outpatient (CLI) | payer MEDICARE ==
--- NOTE | 2024-03-31 12:18 | MR ---
EXAMINATION TYPE: MR brain/cspine wo DATE OF EXAM: 03/31/2024 12:07 PM COMPARISON: None. CLINICAL INDICATION: Female, 73 years old with history of R26.89 OTHER ABNORMALITIES OF GAIT AND MOBI LITY, Repeated falls, Dizziness, Left side numbness, Forgetfulness, Abnormal immunological serum, Hx Thyroid, skin, cervical cancer, Apr 2023 fell and hit head, Hx Neck surgery IV Contrast: cc (None if empty) TECHNIQUE: Multiplanar, multisequence imaging of the cervical spine is performed without contrast. FINDINGS: MRI BRAIN: The ventricles and basal cisterns and sulci over convexities are moderately enlarged consistent with moderate atrophy. There is moderate to marked decreased density in the periventricular white matter and within the emmett consistent with chronic ischemic white matter demyelination Based on the diffusion weighted imaging, there is no diffusion restriction or acute ischemic event. There is no mass effect or shift of midline structures. On susceptibility weighted imaging, there is no microhemorrhage. Intraorbital contents appear normal and symmetric. The visualized paranasal sinuses and mastoid air c ells are well aerated. MRI cervical spine: There is pannus formation at the C1/C2 articulation suggesting rheumatoid arthritis. There are extensive postsurgical changes of interbody fusion and posterior metallic fusion from C4 th rough C7. There is mild degeneration of the C2-3 and C3-4 intervertebral discs were there is mild spondylosis. There is no cervical disc herniation There is mild cervical stenosis at the C2-3 and C3-4 levels. The cervical cord is normal in size and signal intensity. IMPRESSION: 1. Moderate cerebral atrophy and moderate chronic ischemic white matter demyelination. 2. No mass effect or acute ischemic event. 3. Postsurgical changes of cervical fusion as described above. 4. Mild cervical stenosis at the C2-3 and C3-4 levels. 5. No cervical disc herniation. 6. No cervical cord abnormality. [facility], , 03/31/2024 12:15 PM
== END | disposition home or self-care (01) ==
LOC: RADMRIMAIN 10:17
PROVIDERS: ATTEND Psychiatry & Neurology Neurology
DX: S09.90XA Unspecified injury of head, initial encounter (principal); M48.02 Spinal stenosis, cervical region; R76.8 Other specified abnormal immunological findings in serum; R26.89 Other abnormalities of gait and mobility; R29.6 Repeated falls; I67.82 Cerebral ischemia; G31.9 Degenerative disease of nervous system, unspecified; M47.812 Spondylosis without myelopathy or radiculopathy, cervical region; W19.XXXA Unspecified fall, initial encounter; Z98.1 Arthrodesis status
CPT/HCPCS: 70551; 72141

== ENCOUNTER 2024-09-09 13:44 | Inpatient (IN) | payer MEDICARE ==
--- NOTE | 2024-09-09 14:16 | ED ---
General Adult HPI - General Chief complaint: Fall Stated complaint: weakness, SOB Time Seen by Provider: 09/09/24 13:49 Source: EMS Mode of arrival: EMS - History of Present Illness Initial comments: Dictation was produced using [employer] dictation software. please excuse any grammatical, word or spelling errors. Chief Complaint: 74-year-old female history of COPD presents to the emergency department for weakness and frequent falls History of Present Illness: Patient 74-year-old female brought in from home by EMS. EMS was called by patient's sister. Patient has been feeling weak for the last 3 to 4 days. Had multiple falls since then. Complains of dyspnea and cough. States her cough is nonproductive. Denies any pain complaints. Patient does take anticoagulation medication. She has no known history of heart failure but does report cardiac history. EMS reported upon initial evaluation she was hypoxic given a breathing treatment with improvement of hypoxia. The ROS documented in this emergency department record has been reviewed and confirmed by me. Those systems with pertinent positive or negative responses have been documented in the HPI. All other systems are other negative and/or noncontributory. - Related Data Home Medications Medication Instructions Recorded Confirmed Cyanocobalamin (Vitamin B-12) 1,000 mcg PO DAILY 10/30/19 08/13/22 [Vitamin B-12] Ezetimibe [Zetia] 10 mg PO DAILY 10/30/19 08/13/22 Folic Acid 1 mg PO DAILY 10/30/19 08/13/22 Isosorbide Mononitrate ER [Imdur] 60 mg PO DAILY 10/30/19 08/13/22 Levothyroxine Sodium [Levo-T] 150 mcg PO DAILY 10/30/19 08/13/22 Cholecalciferol [Vitamin D3 (25 50 mcg PO DAILY 01/08/22 08/13/22 Mcg = 1000 Iu)] DULoxetine HCL [Cymbalta] 60 mg PO BID 01/08/22 08/13/22 Gabapentin 800 mg PO BID 01/08/22 08/13/22 Esomeprazole Magnesium [NexIUM] 40 mg PO BID 07/08/22 08/13/22 FLUoxetine HCL [PROzac] 20 mg PO BID 07/08/22 08/13/22 HYDROcodone/APAP 10-325MG [Redfield 1 tab PO QID 07/08/22 08/13/22 10-325] Ubrogepant [Ubrelvy] 50 mg PO DAILY PRN 07/08/22 08/13/22 Previous Rx's Medication Instructions Recorded Mag Hydrox/Al Hydrox/Simeth 30 ml PO Q4HR PRN ml 07/11/22 [Maalox] Apixaban [Eliquis] 5 mg PO BID 30 Days #60 tab 07/14/22 Aspirin 81 mg PO DAILY #30 tab 07/14/22 Atorvastatin [Lipitor] 20 mg PO DAILY tab 07/14/22 Diltiazem Oral [Cardizem*] 30 mg PO TID #90 tab 07/14/22 Ipratropium-Albuterol Nebulize 3 ml INHALATION RT-QID PRN #60 each 07/14/22 [Duoneb 0.5 mg-3 mg/3 ml Soln] Allergies Allergy/AdvReac Type Severity Reaction Status Date / Time azithromycin [From Zithromax] Allergy Severe Rash/Hives Verified 09/09/24 13:51 bupropion [From Wellbutrin] Allergy Severe Rash/Hives Verified 09/09/24 13:51 cephalexin [From Keflex] Allergy Intermediate Rash/Hives Verified 09/09/24 13:51 lisinopril [From Prinivil] Allergy Intermediate Rash/Hives Verified 09/09/24 13:51 nitrofurantoin Allergy Intermediate Rash/Hives Verified 09/09/24 13:51 [From Macrobid] pentazocine [From Talwin] Allergy Intermediate Rash/Hives Verified 09/09/24 13:51 topiramate [From Topamax] Allergy Intermediate Rash/Hives Verified 09/09/24 13:51 hydromorphone [From Dilaudid] AdvReac Severe Hallucinati Verified 09/09/24 13:51 ons propranolol [From Inderal LA] AdvReac Severe MENTAL Verified 09/09/24 13:51 MOOD CHANGES codeine AdvReac Intermediate "BAD Verified 09/09/24 13:51 DREAMS" ibuprofen [From Motrin] AdvReac Intermediate Nausea & Verified 09/09/24 13:51 Vomiting & Diarrhea Review of Systems ROS Statement: Those systems with pertinent positive or pertinent negative responses have been documented in the HPI. ROS Other: All systems not noted in ROS Statement are negative. Past Medical History Past Medical History: Cancer, Chest Pain / Angina, COPD, Deep Vein Thrombosis (DVT), GERD/Reflux, Hyperlipidemia, Hypertension, Neurologic Disorder, Osteoarthritis (OA), Pulmonary Embolus (PE), Thyroid Disorder Additional Past Medical History / Comment(s): SKIN CANCER, CERVICAL CANCER AND THYROID CANCER. DVT IN BOTH LEGS. MS History of Any Multi-Drug Resistant Organisms: C-DIFF Date of last positivie culture/infection: 04/25/2002 MDRO Source:: cdiff Past Surgical History: Adenoidectomy, Appendectomy, Back Surgery, Breast Surgery, Heart Catheterization, Hysterectomy, Orthopedic Surgery, Tonsillectomy, Tubal Ligation Additional Past Surgical History / Comment(s): CYSTS REMOVED FROM BILATERAL BREAST, Sm NECK SURGERY, COLONOSCOPY, Past Anesthesia/Blood Transfusion Reactions: No Reported Reaction Past Psychological History: Anxiety, Depression Smoking Status: Current every day smoker - Past Family History Mother Family Medical History: Cancer, Chest Pain / Angina, Congestive Heart Failure (CHF), COPD, Hyperlipidemia, Hypertension, Myocardial Infarction ([place]) Father Family Medical History: Congestive Heart Failure (CHF), COPD, Musculoskeletal Disorder General Exam - General Exam Comments Initial Comments: PHYSICAL EXAM: General Impression: Alert and oriented x3, not in acute distress HEENT: Normocephalic atraumatic, extra-ocular movements intact, pupils equal and reactive to light bilaterally, dry mucous membranes Cardiovascular: Heart regular rate and rhythm Chest: Diffuse lung rhonchi Abdomen: abdomen soft, non-tender, non-distended, no organomegaly Musculoskeletal: Pulses present and equal in all extremities, no peripheral edema Motor: no focal deficits noted Neurological: CN II-XII grossly intact, no focal motor or sensory deficits noted Skin: Intact with no visualized rashes Psych: Normal affect and mood Course Vital Signs 09/09/24 09/09/24 09/09/24 13:51 13:55 14:01 Temperature 100.2 F H Pulse Rate 104 H 100 102 H Respiratory 19 18 Rate Blood Pressure 125/75 91/54 84/40 O2 Sat by Pulse 97 94 L 94 L Oximetry 09/09/24 14:51 Temperature Pulse Rate 93 Respiratory 16 Rate Blood Pressure 91/51 O2 Sat by Pulse 90 L Oximetry EKG Findings - EKG Comments: EKG Findings:: My EKG interpretation: Ventricular rate 100, sinus tachycardia, NV 120, QRS 81, QTc 4 5. No NV prolongation, no QTC prolongation, no ST or T- wave changes noted. EKG compared to June 29, 2024 showing no changes. Overall, this EKG is unremarkable Procedures - Sepsis Sepsis Focused Exam #1 Time Sepsis Criteria Met: 15:35 Sepsis Focused Exam Date: 09/09/24 Sepsis Focused Exam Time: 15:36 Sepsis Focused Exam Complete: Yes Vital Signs & RN Notes Reviewed: Yes Capillary Refill: < 2 Seconds: Fingers, Toes Peripheral Pulses: Normal: Radial (R), Radial (L), Posterior Tibialis (R), Post erior Tibialis (L), Dorsalis Pedis (R), Dorsalis Pedis (L) Skin Color: Normal for Patient Respiratory Exam: rhonchi Cardiovascular Exam: regular rate Medical Decision Making - Medical Decision Making Was pt. sent in by a medical professional or institution (, PA, FINANCIAL ADMINISTRATION OFFICER, urgent care, hospital, or fci...) When possible be specific @ -No Did you speak to anyone other than the patient for history (EMS, parent, family, police, friend...)? What history was obtained from this source @ -No Did you review nursing and triage notes (agree or disagree)? Why? @ -I reviewed and agree with nursing and triage notes Were old charts reviewed (outside hosp., previous admission, EMS record, old EKG, old radiological studies, urgent care reports/EKG's, fci records)? Report findings @ -No old charts were reviewed Differential Diagnosis (chest pain, altered mental status, abdominal pain women, abdominal pain men, vaginal bleeding, musculoskeletal, weakness, fever, dyspnea, syncope, headache, dizziness, GI bleed, back pain, seizure, CVA, palpatations, mental health)? @ -Differential Dyspnea: Coronary syndrome, arrhythmia, tamponade, asthma, COPD, pulmonary embolism, pneumonia, pneumothorax, pulmonary effusion, anaphylaxis, diabetic ketoacidosis, flailed chest, pulmonary contusion, diaphragmatic rupture, anemia, neuromuscular, this is not meant to be an all-inclusive list. EKG interpreted by me (3pts min.). @ -See above X-rays interpreted by me (1pt min.). @ -Chest x-ray shows multifocal pneumonia CT interpreted by me (1pt min.). @ -CT brain shows no acute processes U/S interpreted by me (1pt. min.). @ -None done What testing was considered but not performed or refused? (CT, X-rays, U/S, labs)? Why? @ -None What meds were considered but not given or refused? Why? @ -None Was smoking cessation discussed for >3mins.? @ -No Were there social determinants of health that impacted care today? How? (Homelessness, low income, unemployed, alcoholism, drug addiction, transportation, low edu. Level, literacy, decrease access to med. care, senior care, rehab)? @ -No Was there de-escalation of care discussed even if they declined (Discuss DNR or withdrawal of care, Hospice)? DNR status @ -No What co-morbidities impacted this encounter? (DM, HTN, Smoking, COPD, CAD, Cancer, CVA, ARF, Chemo, Hep., AIDS, mental health diagnosis, sleep apnea, morbid obesity)? @ -COPD Was patient admitted / discharged? Hospital course, mention meds given and route, prescriptions, significant lab abnormalities, going to OR and other pertinent info. @ -74-year-old female presents emergency department with generalized weakness cough and lung rhonchi. Patient has low-grade temperature of 100.2, heart rate 104, initial blood pressure 125/75. While being monitored in the emergency department her blood pressure dropped to 84/40 raising suspicion of sepsis. Patient given 30 cc/kg bolus. X-ray shows pneumonia. Patient given antibiotics clinical presentation consistent with pneumonia sepsis. Blood pressure responded to fluids. Laboratory evaluation obtained leukocytosis 18. Did you discuss the management of the patient with other professionals ( professionals i.e. , PA, FINANCIAL ADMINISTRATION OFFICER, lab, RT, psych nurse, manager social work, head of talent management, teacher, conservation enforcement officer, case mgr)? Give summary @ -Case discussed with hospitalist for admission Was critical care preformed (if so, how long)? @ -Yes, 33 minutes for management of pneumonia sepsis Undiagnosed new problem with uncertain prognosis? @ -No Drug Therapy requiring intensive monitoring for toxicity (Heparin, Nitro, Insulin, Cardizem)? @ -No Were any procedures done? @ -No Diagnosis/symptom? Acute, or Chronic, or Acute on Chronic? Uncomplicated (without systemic symptoms) or Complicated (systemic symptoms)? @ -Acute complicated pneumonia sepsis Side effects of treatment? @ -No Exacerbation, Progression, or Severe Exacerbation? @ -No Poses a threat to life or bodily function? How? (Chest pain, [place], [place], pneumonia, PE, COPD, DKA, ARF, appy, cholecystitis, CVA, Diverticulitis, Homicidal, Trudy cidal, threat to staff... and all critical care pts) @ -yes - Lab Data Result diagrams: 09/09/24 13:56 09/09/24 13:56 Lab Results 09/09/24 09/09/24 09/09/24 Range/Units 13:56 13:56 13:56 WBC 18.18 H (4.50-10.00) 10*3/uL RBC 4.39 (4.10-5.20) 10*6/uL Hgb 13.8 (12.0-15.0) g/dL Hct 40.2 (37.2-46.3) % MCV 91.6 (80.0-97.0) fL MCH 31.4 (27.0-32.0) pg MCHC 34.3 (32.0-37.0) g/dL Plt Count 202 (140-440) 10*3/uL MPV 10.0 (9.5-12.2) fL Immature Gran % (Auto) 0.8 % Neutrophils % 92.2 % Lymphocytes % 2.6 % Monocytes % 4.0 % Eosinophils % 0.0 % Basophils % 0.4 % Immature Gran # 0.14 H (0.00-0.04) 10*3/uL Neutrophils # 16.78 H (1.80-7.70) 10*3/uL Lymphocytes # 0.47 L (0.90-5.00) 10*3/uL Monocytes # 0.72 (0.20-1.00) 10*3/uL Eosinophils # 0.00 L (0.04-0.35) 10*3/uL Basophils # 0.07 (0.00-0.10) 10*3/uL PT 11.1 (10.0-12.5) sec INR 1.0 (<1.2) APTT 23.4 (22.0-30.0) sec Sodium 135 L (137-145) mmol/L Potassium 4.0 (3.5-5.1) mmol/L Chloride 101 (98-107) mmol/L Carbon Dioxide 27 (22-30) mmol/L Anion Gap 7 mmol/L BUN 18 H (7-17) mg/dL Creatinine 0.87 (0.52-1.04) mg/dL Est GFR (CKD-EPI)AfAm 77 (>60 ml/min/1.73 sqM) Est GFR (CKD-EPI)NonAf 66 (>60 ml/min/1.73 sqM) Glucose 128 H (74-99) mg/dL Plasma Lactic Acid Rodger (0.7-2.0) mmol/L Calcium 9.9 (8.4-10.2) mg/dL Magnesium 1.6 (1.6-2.3) mg/dL Total Bilirubin 0.7 (0.2-1.3) mg/dL AST 24 (14-36) U/L ALT 13 (4-34) U/L Alkaline Phosphatase 73 (38-126) U/L Troponin I (0.000-0.034) ng/mL NT-Pro-B Natriuret Pep 1560 pg/mL Total Protein 6.2 L (6.3-8.2) g/dL Albumin 3.7 (3.5-5.0) g/dL 09/09/24 09/09/24 Range/Units 13:56 13:56 WBC (4.50-10.00) 10*3/uL RBC (4.10-5.20) 10*6/uL Hgb (12.0-15.0) g/dL Hct (37.2-46.3) % MCV (80.0-97.0) fL MCH (27.0-32.0) pg MCHC (32.0-37.0) g/dL Plt Count (140-440) 10*3/uL MPV (9.5-12.2) fL Immature Gran % (Auto) % Neutrophils % % Lymphocytes % % Monocytes % % Eosinophils % % Basophils % % Immature Gran # (0.00-0.04) 10*3/uL Neutrophils # (1.80-7.70) 10*3/uL Lymphocytes # (0.90-5.00) 10*3/uL Monocytes # (0.20-1.00) 10*3/uL Eosinophils # (0.04-0.35) 10*3/uL Basophils # (0.00-0.10) 10*3/uL PT (10.0-12.5) sec INR (<1.2) APTT (22.0-30.0) sec Sodium (137-145) mmol/L Potassium (3.5-5.1) mmol/L Chloride (98-107) mmol/L Carbon Dioxide (22-30) mmol/L Anion Gap mmol/L BUN (7-17) mg/dL Creatinine (0.52-1.04) mg/dL Est GFR (CKD-EPI)AfAm (>60 ml/min/1.73 sqM) Est GFR (CKD-EPI)NonAf (>60 ml/min/1.73 sqM) Glucose (74-99) mg/dL Plasma Lactic Acid Rodger 1.8 (0.7-2.0) mmol/L Calcium (8.4-10.2) mg/dL Magnesium (1.6-2.3) mg/dL Total Bilirubin (0.2-1.3) mg/dL AST (14-36) U/L ALT (4-34) U/L Alkaline Phosphatase (38-126) U/L Troponin I 0.021 (0.000-0.034) ng/mL NT-Pro-B Natriuret Pep pg/mL Total Protein (6.3-8.2) g/dL Albumin (3.5-5.0) g/dL Disposition Clinical Impression: Pneumonia Disposition: ADMITTED IP TO THIS [facility] Condition: Serious Referrals: Mary Carmen Perez MD [Primary Care Provider] - 1-2 days Decision Time: 15:36
[2024-09-09 14:20] LABS: Basophils # (A) 0.07 10*3/uL (0.00-0.10); Basophils % (A) 0.4 %; HCT 40.2 % (37.2-46.3); HGB 13.8 g/dL (12.0-15.0); Lymphocytes # (A) 0.47 10*3/uL (0.90-5.00); Lymphocytes % (A) 2.6 %; MCH 31.4 pg (27.0-32.0); MCHC 34.3 g/dL (32.0-37.0); MCV 91.6 fL (80.0-97.0); Monocytes # (A) 0.72 10*3/uL (0.20-1.00); Neutrophils # (A) 16.78 10*3/uL (1.80-7.70); Neutrophils % (A) 92.2 %; Platelet Count 202 10*3/uL (140-440); RBC 4.39 10*6/uL (4.10-5.20); RDW 13.7 % (11.5-14.5); WBC 18.18 10*3/uL (4.50-10.00)
[2024-09-09 14:30] LABS: ALT 13 U/L (4-34); AST 24 U/L (14-36); African American GFR (CKD) 77 (>60 ml/min/1.73 sqM); Albumin 3.7 g/dL (3.5-5.0); Alkaline Phosphatase 73 U/L (38-126); Anion Gap 7 mmol/L; Blood Urea Nitrogen 18 mg/dL (7-17); Calcium 9.9 mg/dL (8.4-10.2); Carbon Dioxide 27 mmol/L (22-30); Chloride 101 mmol/L (98-107); Glucose 128 mg/dL (74-99); Magnesium 1.6 mg/dL (1.6-2.3); Non-African American GFR(CKD) 66 (>60 ml/min/1.73 sqM); Partial Thromboplastin Time 23.4 sec (22.0-30.0); Prothrombin Time 11.1 sec (10.0-12.5); Sodium 135 mmol/L (137-145); Total Bilirubin 0.7 mg/dL (0.2-1.3); Total Protein 6.2 g/dL (6.3-8.2)
[2024-09-09 14:38] LABS: NT-Pro-B-Type Natriuretic Pept 1560 pg/mL
[2024-09-09] MEDS: LACTATED RINGERS 1,000 ML IV ONE (14:48)
--- NOTE | 2024-09-09 15:07 | XR ---
EXAMINATION TYPE: XR chest 2V DATE OF EXAM: 09/09/2024 3:02 PM COMPARISON: Prior chest radiograph 07/12/2022. CLINICAL INDICATION: Female, 74 years old with history of dyspnea; [facility] TECHNIQUE: XR chest 2V Frontal and lateral views of the chest. FINDINGS: Cardiac silhouette is stable. Patchy bilateral interstitial infiltrating opacities, most of the right lung base. Loop recorder melba ce noted. No sizable pleural effusion. No pneumothorax. No acute osseous amount. IMPRESSION: Patchy interstitial and airspace opacities bilaterally suspicious for multifocal pneumonia in the pro per clinical setting. [facility], , 09/09/2024 3:04 PM
[2024-09-09] MEDS ORDERED: PNEUMONIA PROTOCOL UTILIZED 1 EACH MISC PO PRN (15:31)
--- NOTE | 2024-09-09 15:37 | CT ---
EXAMINATION TYPE: CT brain wo con DATE OF EXAM: 09/09/2024 3:16 PM COMPARISON: CT brain study 04/12/2023. CLINICAL INDICATION: Female, 74 years old with history of dyspnea, weaknesss TECHNIQUE: Brain: Axial CT images of the brain were obtained with coronal and sagittal reformats created and rev iewed. Contrast used: None. Oral contrast used: None. CT DLP: 1170.4 mGycm, Automated exposure control for dose reduction was used. FINDINGS: Brain: Extra-axial spaces: No abnormal extra-axial fluid collections. Ventricular system: Within normal limits Cerebral parenchyma: No acute intraparenchymal hemorrhage or mass effect. The levin-white junction is well differentiated. Scattered hypoattenuating areas are seen within the white matter. Cerebellum: Unremarkable. Mass effect: No evidence of midline shift. Intracranial vasculature: unremarkable Soft tissues: Normal. Calvarium/osseous structures: No depressed skull fracture. Paranasal sinuses and mastoid air cells: Mild scattered paranasal sinus disease. Visualized orbits: Orbital contents are intact. IMPRESSION: No acute intracranial process. [facility], , 09/09/2024 3:35 PM
[2024-09-09] MEDS: LACTATED RINGERS IV ONE (15:49)
[2024-09-09] MEDS: LACTATED RINGERS 1,000 ML IV SCH (15:50)
[2024-09-09] MEDS: LEVOFLOXACIN 750MG-D5W PMX 750 MG in DEXTROSE/WATER 1 150ML.BAG IVPB STA (16:30)
[2024-09-09 16:51] LABS: Appearance,Urine Clear (Clear); Bilirubin,Urine Negative (Negative); Blood,Urine Negative (Negative); Color,Urine Colorless; Glucose,Urine (UA) Negative (Negative); Ketones,Urine Negative (Negative); Leukocyte Esterase,Urine Negative (Negative); Nitrite,Urine Negative (Negative); Protein,Urine Negative (Negative); Urobilinogen,Urine <2.0 mg/dL (<2.0)
[2024-09-09 17:13] LABS: Influenza A Not Detected (Not Detectd); Influenza B Not Detected (Not Detectd); RSV Not Detected (Not Detectd)
[2024-09-09] MEDS: PIPERACILLIN-TAZOBACTAM 3.375 GM in SODIUM CHLORIDE 0.9% 100 ML IVPB SCH (18:12)
[2024-09-09] MEDS: methylPREDNISolone SOD SUCCI 125 MG/2 ML VIAL IV SCH (18:15)
[2024-09-09] MEDS: IPRATROPIUM-ALBUTEROL 3 ML NEB INHALATION SCH (18:36)
[2024-09-09] MEDS: APIXABAN 5 MG TAB PO SCH (20:27)
[2024-09-09] MEDS: DULoxetine HCL 60 MG CAPSULE.DR PO SCH (20:27)
[2024-09-09] MEDS: PANTOPRAZOLE 40 MG TABLET PO SCH (20:27)
--- NOTE | 2024-09-09 20:28 | P.CNPUL ---
History of Present Illness Consult date: 09/09/24 Reason for consult: pneumonia History of present illness: This is a 74-year-old female patient, known history of COPD, presented to the emergency department with generalized weakness and frequent falls and worsening shortness of breath. Apparently, the patient's condition has been decompensating over the past 3 to 4 days. She had increased cough and congestion along with worsening shortness of breath. Her cough was nonproductive. Based on that, the patient was brought into the hospital. Chest x-ray was done in the ED and the patient was found to have a new onset right lower lobe consolidation/pneumonia. The patient was found to have a low-grade fever. The patient had also leukocytosis with a white cell count of 18, hemoglobin 13.8 and a platelet count of 202. Normal coagulation profile. Normal D-dimer. Normal electrolytes. BUN was 18 with a creatinine of 0.8. proBNP level was 0560. UA was negative. Viral screen was negative. The patient was given a dose of Levaquin and subsequently started on a combination of Levaquin and Zosyn. Hemodynamically stable. Currently on 3 L of oxygen by nasal cannula.. No travel history. No sick contacts. CT scan of the head showed no acute abnormalities. EKG showed sinus tachycardia along with some nonspecific changes. Review of Systems Constitutional: Reports fatigue, Reports weakness Eyes: denies as per HPI, denies blurred vision, denies bulging eye, denies decreased vision, denies diplopia, denies discharge, denies dry eye, denies irritation, denies itching, denies pain, denies photophobia, denies loss of peripheral vision, denies loss of vision, denies tunnel vision/blind spots Ears: deny: decreased hearing, ear discharge, earache, tinnitus Ears, nose, mouth and throat: Reports as per HPI Breasts: absent: as per HPI, change in shape, gynecomastia, masses, nipple discharge, pain, skin changes, swelling Cardiovascular: Reports decreased exercise tolerance, Reports dyspnea on exertion Respiratory: Reports congestion, Reports cough, Reports dyspnea Genitourinary: Reports as per HPI Musculoskeletal: Reports frequent falls Musculoskeletal: absent: ankle pain, ankle stiffness, ankle swelling, as per HPI, elbow pain, elbow stiffness, elbow swelling, foot pain, foot stiffness, foot swelling, hand pain, hand stiffness, hand swelling, hip pain, hip stiffness, hip swelling, knee pain, knee stiffness, knee swelling, shoulder pain, shoulder stiffness, shoulder swelling, wrist pain, wrist stiffness, wrist swelling Integumentary: Reports as per HPI Neurological: Reports as per HPI, Reports weakness Psychiatric: Reports as per HPI Endocrine: Reports as per HPI, Reports fatigue Hematologic/Lymphatic: Reports as per HPI Allergic/Immunologic: Reports as per HPI Past Medical History Past Medical History: Cancer, Chest Pain / Angina, COPD, Deep Vein Thrombosis (DVT), GERD/Reflux, Hyperlipidemia, Hypertension, Neurologic Disorder, Osteoarthritis (OA), Pulmonary Embolus (PE), Thyroid Disorder Additional Past Medical History / Comment(s): SKIN CANCER, CERVICAL CANCER AND THYROID CANCER. DVT IN BOTH LEGS. MS History of Any Multi-Drug Resistant Organisms: C-DIFF Date of last positivie culture/infection: 04/25/2002 MDRO Source:: cdiff Past Surgical History: Adenoidectomy, Appendectomy, Back Surgery, Breast Surgery, Heart Catheterization, Hysterectomy, Orthopedic Surgery, Tonsillectomy, Tubal Ligation Additional Past Surgical History / Comment(s): CYSTS REMOVED FROM BILATERAL BREAST, Sm NECK SURGERY, COLONOSCOPY, Past Anesthesia/Blood Transfusion Reactions: No Reported Reaction Past Psychological History: Anxiety, Depression Smoking Status: Current every day smoker - Past Family History Mother Family Medical History: Cancer, Chest Pain / Angina, Congestive Heart Failure (CHF), COPD, Hyperlipidemia, Hypertension, Myocardial Infarction ([place]) Father Family Medical History: Congestive Heart Failure (CHF), COPD, Musculoskeletal Disorder Medications and Allergies Home Medications Medication Instructions Recorded Confirmed Type Isosorbide Mononitrate ER [Imdur] 60 mg PO DAILY 10/30/19 09/09/24 History DULoxetine HCL [Cymbalta] 60 mg PO BID 01/08/22 09/09/24 History Gabapentin 800 mg PO BID PRN 01/08/22 09/09/24 History Esomeprazole Magnesium [NexIUM] 40 mg PO BID 07/08/22 09/09/24 History HYDROcodone/APAP 10-325MG [Lolita 1 tab PO QID PRN 07/08/22 09/09/24 History 10-325] Apixaban [Eliquis] 5 mg PO BID 30 Days #60 tab 07/14/22 09/09/24 Rx Diltiazem Oral [Cardizem*] 30 mg PO TID #90 tab 07/14/22 09/09/24 Rx ALPRAZolam [Xanax] 0.25 mg PO BID PRN 09/09/24 09/09/24 History Atorvastatin [Lipitor] 40 mg PO DAILY 09/09/24 09/09/24 History Furosemide [Lasix] 40 mg PO DAILY PRN 09/09/24 09/09/24 History Levothyroxine Sodium [Synthroid] 137 mcg PO DAILY 09/09/24 09/09/24 History Ofatumumab [Kesimpta Pen] 20 mg SQ TU 09/09/24 09/09/24 History Umeclidinium Brm/Vilanterol Tr 1 puff INHALATION RT-DAILY 09/09/24 09/09/24 History [Anoro Ellipta 62.5-25 Mcg INH] Allergies Allergy/AdvReac Type Severity Reaction Status Date / Time azithromycin [From Zithromax] Allergy Severe Rash/Hives Verified 09/09/24 16:23 bupropion [From Wellbutrin] Allergy Severe Rash/Hives Verified 09/09/24 16:23 cephalexin [From Keflex] Allergy Intermediate Rash/Hives Verified 09/09/24 16:23 lisinopril [From Prinivil] Allergy Intermediate Rash/Hives Verified 09/09/24 16:23 nitrofurantoin Allergy Intermediate Rash/Hives Verified 09/09/24 16:23 [From Macrobid] pentazocine [From Talwin] Allergy Intermediate Rash/Hives Verified 09/09/24 16:23 topiramate [From Topamax] Allergy Intermediate Rash/Hives Verified 09/09/24 16:23 hydromorphone [From Dilaudid] AdvReac Severe Hallucinati Verified 09/09/24 16:23 ons propranolol [From Inderal LA] AdvReac Severe MENTAL Verified 09/09/24 16:23 MOOD CHANGES codeine AdvReac Intermediate "BAD Verified 09/09/24 16:23 DREAMS" ibuprofen [From Motrin] AdvReac Intermediate Nausea & Verified 09/09/24 16:23 Vomiting & Diarrhea Physical Exam Vitals: Vital Signs Temp Pulse Resp BP Pulse Ox 09/09/24 16:39 99.2 F 90 18 119/69 93 L 09/09/24 15:59 89 19 118/57 91 L 09/09/24 15:47 89 16 112/60 91 L 09/09/24 14:51 93 16 91/51 90 L 09/09/24 14:01 102 H 84/40 94 L 09/09/24 13:55 100 18 91/54 94 L 09/09/24 13:51 100.2 F H 104 H 19 125/75 97 Intake and Output 09/09/24 09/09/24 09/09/24 06:59 14:59 22:59 Other: Weight 65.771 kg The patient appeared well nourished and normally developed. Vital signs as documented. The patient is comfortable on 2 L of oxygen by nasal cannula. She is not using accessory muscles of breathing. Head exam is unremarkable. No scleral icterus or corneal arcus noted. Neck is without jugular venous distension, thyromegaly, or carotid bruits. Carotid upstrokes are brisk bilaterally. Lungs are clear to auscultation and percussion. The patient has crackles in the right lung base Cardiac exam reveals the PMI to be normally sized and situated. Rhythm is regular. First and second heart sounds normal. No murmurs, rubs or gallops. Abdominal exam reveals normal bowel sounds, no masses, no organomegaly and no aortic enlargement. Extremities are nonedematous and both femoral and pedal pulses are normal. Examination of the skin revealed no evidence of significant rashes, suspicious appearing nevi or other concerning lesions. Neurologically, the patient is awake and alert and the patient does not have any focal neurological deficit. Cranial nerves are essentially intact. Results - Laboratory Findings CBC and BMP: 09/09/24 13:56 09/09/24 13:56 PT/INR, D-dimer PT 11.1 sec (10.0-12.5) 09/09/24 13:56 INR 1.0 (<1.2) 09/09/24 13:56 Abnormal lab findings: Abnormal Labs 09/09/24 09/09/24 13:56 13:56 WBC 18.18 H Immature Gran # 0.14 H Neutrophils # 16.78 H Lymphocytes # 0.47 L Eosinophils # 0.00 L Sodium 135 L BUN 18 H Glucose 128 H Total Protein 6.2 L - Diagnostic Findings Chest x-ray: image reviewed Assessment and Plan Plan: Acute community-acquired right lower lobe pneumonia, likely bacterial. Patient has developed leukocytosis. The patient has developed increased shortness of breath and hypoxic respiratory failure. 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
[2024-09-09] MEDS: DILTIAZEM ORAL 30 MG TAB PO SCH (21:28)
--- NOTE | 2024-09-10 02:51 | HP ---
HISTORY AND PHYSICAL CHIEF COMPLAINT: Weakness, fall and shortness of breath and cough. HISTORY OF PRESENT ILLNESS: This is a 74-year-old woman with a past medical history of multiple medical problems including COPD, was having weakness and frequent falls at home. The patient also had shortness of breath and cough. Chest x-ray showed bilateral pneumonia, and the patient is being admitted for further evaluation and treatment. There is no history of any fever, rigors, or chills. PAST MEDICAL HISTORY: Reviewed, include COPD, DVT, pulmonary embolism. Rest of the history and rest of the chart is also reviewed. HOME MEDICATIONS: Reviewed, include DuoNeb. Dose and rest of medications reviewed. ALLERGIES: Multiple allergies, Zithromax, rest of allergies noted. FAMILY HISTORY: History of CHF, COPD. Rest of the history is also noted. REVIEW OF SYSTEMS: A 14-point review of systems is negative except as mentioned in history of present illness. PHYSICAL EXAMINATION: VITAL SIGNS: Pulse is 90, blood pressure 118/69, and respirations 18. HEENT: Sclerae and conjunctivae normal. NECK: No JVD. CARDIOVASCULAR: S1, S2. RESPIRATIONS: A few scattered rhonchi and crackles. ABDOMEN: Soft, nontender. LEGS: No edema. NERVOUS SYSTEM: No focal deficit. LABORATORY DATA: WBC 18.8. ASSESSMENT: 1. Acute bilateral pneumonia, possibly aspiration. 2. Increased WBC. 3. Weakness and multiple falls. 4. Chronic obstructive pulmonary disease, acute exacerbation. 5. History of pulmonary embolus. 6. Hypertension. 7. Hyperlipidemia. 8. History of chest pain. 9. History of multiple complex medical issues. RECOMMENDATIONS: Recommend to continue current medications, symptomatic treatment. We will initiate broad-spectrum antibiotics, and as well as bronchodilators. Pulmonary consultation, D- dimer, CT angio if the D-dimer is positive, viral testing. Resume home medications once they are confirmed. Prognosis guarded. Further recommendations to follow. MMODL / IJN: [id number] /
[2024-09-10] MEDS: HYDROcodone/APAP 10-325MG 1 EACH TAB PO PRN (03:55)
[2024-09-10 05:41] LABS: Basophils # (A) 0.04 10*3/uL (0.00-0.10); Basophils % (A) 0.2 %; HCT 39.7 % (37.2-46.3); HGB 13.1 g/dL (12.0-15.0); Lymphocytes # (A) 0.38 10*3/uL (0.90-5.00); Lymphocytes % (A) 2.2 %; MCH 30.7 pg (27.0-32.0); Mean Platelet Volume 10.5 fL (9.5-12.2); Monocytes # (A) 0.13 10*3/uL (0.20-1.00); Monocytes % (A) 0.7 %; Neutrophils % (A) 96.1 %; Platelet Count 169 10*3/uL (140-440); RBC 4.27 10*6/uL (4.10-5.20); WBC 17.49 10*3/uL (4.50-10.00)
[2024-09-10 06:22] LABS: African American GFR (CKD) 85 (>60 ml/min/1.73 sqM); Anion Gap 6 mmol/L; Blood Urea Nitrogen 19 mg/dL (7-17); Calcium 9.6 mg/dL (8.4-10.2); Carbon Dioxide 29 mmol/L (22-30); Chloride 103 mmol/L (98-107); Glucose 141 mg/dL (74-99); Non-African American GFR(CKD) 74 (>60 ml/min/1.73 sqM); Sodium 138 mmol/L (137-145)
[2024-09-10] MEDS: LEVOTHYROXINE 137 MCG TAB PO SCH (09:17)
[2024-09-10] MEDS: ISOSORBIDE MONONITRATE ER 60 MG TAB.ER.24H PO SCH (10:16)
[2024-09-10] MEDS: ATORVASTATIN 40 MG TAB PO SCH (10:16)
[2024-09-10] MEDS: GABAPENTIN 400 MG CAP PO PRN (10:17)
[2024-09-10] MEDS: LEVOFLOXACIN 750 MG TAB PO SCH (10:17)
--- NOTE | 2024-09-10 14:35 | CT ---
EXAMINATION TYPE: CT angio chest CT DLP: 319.8 mGycm, Automated exposure control for dose reduction was used. DATE OF EXAM: 09/10/2024 2:25 PM COMPARISON: CTA chest 07/13/2022 CLINICAL INDICATION:Female, 74 years old with history of pe; LUIGI, eval for PE TECHNIQUE/CONTRAST: CTA scan of the thorax is performed with IV Contrast, patient injected with 100 mL of Isovue 370, pul monary embolism protocol. MIP images are created and reviewed. FINDINGS: Pulmonary Artery: There is no evidence for a filling defect within the pulmonary vasculature to sugge st acute pulmonary embolism. The pulmonary artery is mildly dilated measuring up to 3.3 cm. Reflux o f contrast into the IVC. Lungs/Pleura: No pneumothorax. Mild centrilobular emphysematous changes. Trace left pleural effusion. Bilateral lower lobe patchy consolidative opacities with air bronchograms. Additional reticular inte rstitial thickening in the right upper lobe. Airway: Large airways are patent. Heart: Heart is within normal limits for size. No pericardial effusion. Moderate coronary artery calc ifications. Vasculature: No evidence of aortic aneurysm. Mild atherosclerotic calcification of the aorta and its branches. Mediastinum: No gross evidence of adenopathy. Musculoskeletal: No acute osseous abnormalities. Anterior cervical fusion and posterior cervical fusi on with laminectomy changes of the cervical spine. Partial visualization of lumbar fusion hardware. S coliotic curvature of the thoracic spine. Soft Tissues: Unremarkable. Lower neck: Thyroid gland appears surgically absent with multiple surgical clips identified. Upper Abdomen: Small hiatal hernia. IMPRESSION: 1. No evidence of pulmonary embolism. 2. Bilateral lower lobe patchy consolidative opacities with additional interstitial thickening within the right upper lobe. These are most consistent with pneumonia. 3. Mild emphysematous changes. 4. Trace left pleural effusion. 5. Dilated main pulmonary artery suggesting pulmonary arterial hypertension. [facility], , 09/10/2024 2:32 PM
--- NOTE | 2024-09-10 14:43 | XR ---
EXAMINATION TYPE: XR chest 2V DATE OF EXAM: 09/10/2024 1:53 PM COMPARISON: 09/10/2024 CLINICAL INDICATION: Female, 74 years old with history of short of breath/ hypoxia, , TECHNIQUE: AP and lateral views FINDINGS: Heart upper limits of normal in size. Mild hyperinflation. Loop recorder device projects along the le ft hilum. Patchy interstitial changes, right greater than left and trace bilateral pleural effusions are present. Some shifting opacities compared to prior exam, improved at the right base now. ACDF and posterior cervical fusion hardware. IMPRESSION: Patchy and interstitial changes, right greater than left, with some shifting opacities compared to ye . Trace bilateral pleural effusions persist. Correlate for residual mild CHF. [facility], , 09/10/2024 2:40 PM
--- NOTE | 2024-09-10 14:49 | PN ---
PROGRESS NOTE DATE OF SERVICE: 09/10/2024 SUBJECTIVE: This is a 74-year-old woman, who was admitted with COPD acute exacerbation/acute bilateral pneumonia with possibly aspiration, is being closely monitored. The patient is also complaining of falls and weakness. The patient is mildly confused also. Multiple consultants are following the patient closely. PAST MEDICAL HISTORY: Reviewed. REVIEW OF SYSTEMS: 14-point review of systems is negative except as mentioned earlier. CURRENT MEDICATIONS: Reviewed. OBJECTIVE: VITAL SIGNS: Pulse is 84, blood pressure 120/60, respirations 18. HEENT: Conjunctivae normal. CARDIOVASCULAR: S1, S2 muffled. RESPIRATIONS: Breath sounds diminished at the bases. Scattered rhonchi. ABDOMEN: Soft. NERVOUS SYSTEM: No stroke. LABORATORY DATA: WBC 17.49. ASSESSMENT: 1. Chronic obstructive pulmonary disease acute exacerbation, acute bilateral pneumonia with possibly aspiration. 2. Increased WBC. 3. Weakness and multiple falls. 4. History of pulmonary embolism. 5. Hypertension. 6. Hyperlipidemia. 7. History of chest pain. 8. History of multiple complex medical issues. 9. Gait dysfunction. RECOMMENDATIONS: Continue current medications, symptomatic treatment. Otherwise, at this time continue with the antibiotics. D-dimer is elevated. I recommend CT angio of the chest also to complete the workup. Modified barium swallow, broad-spectrum IV antibiotics, pulmonary consultation, bronchodilators, PT/OT evaluation, possible ECF rehab. Further recommendations to follow. JOSÉ / THORN: [id number] /
--- NOTE | 2024-09-10 16:21 | P.PN ---
Subjective Progress Note Date: 09/10/24 This is a 74-year-old female patient, known history of COPD, presented to the emergency department with generalized weakness and frequent falls and worsening shortness of breath. Apparently, the patient's condition has been decompensating over the past 3 to 4 days. She had increased cough and congestion along with worsening shortness of breath. Her cough was nonproductive. Based on that, the patient was brought into the hospital. Chest x-ray was done in the ED and the patient was found to have a new onset right lower lobe consolidation/pneumonia. The patient was found to have a low-grade fever. The patient had also leukocytosis with a white cell count of 18, hemoglobin 13.8 and a platelet count of 202. Normal coagulation profile. Normal D-dimer. Normal electrolytes. BUN was 18 with a creatinine of 0.8. proBNP level was 0560. UA was negative. Viral screen was negative. The patien t was given a dose of Levaquin and subsequently started on a combination of Levaquin and Zosyn. Hemodynamically stable. Currently on 3 L of oxygen by nasal cannula.. No travel history. No sick contacts. CT scan of the head showed no acute abnormalities. EKG showed sinus tachycardia along with some nonspecific changes. The patient is seen today September 10, 2024 in follow-up in the emergency department. She is currently resting on a stretcher. Awake and alert in no acute distress. She is dyspneic with conversation. Dyspneic with minimal exertion. Maintaining O2 saturations in the 90s on a Ventimask. She is afebrile. Hemodynamically stable. Follow-up chest x-ray reveals patchy and interstitial changes right greater than left with some shifting opacities compared to yesterday. Suspect residual mild congestive heart failure. Trace bilateral pleural effusions persist. CT angiogram reveals no evidence of pulmonary embolism. There is bilateral lower lobe patchy consolidative opacities with additional interstitial thickening within the right upper lobe. Most consistent with pneumonia. Mild emphysema changes. Trace left pleural effusion. White count 17.4. Hemoglobin 13.1. Platelets 169. Sodium 138. Potassium 4.0. Bicarb 29. BUN 19. Creatinine 0.8. Glucose 141. She is continued on DuoNeb inhalations, Solu-Medrol. Antibiotics in the form of Zosyn and Levaquin. Anticoagulated with Eliquis. Objective - Vital Signs Vital signs: Vital Signs Temp 97.0 F L 09/10/24 14:32 Pulse 90 09/10/24 15:29 Resp 20 09/10/24 15:29 BP 123/79 09/10/24 14:52 Pulse Ox 92 L 09/10/24 14:52 FiO2 Intake & Output 09/09/24 09/10/24 09/10/24 18:59 06:59 18:59 Output Total 1300 Balance -1300 Weight 65.771 kg Output: Urine 1300 - Exam GENERAL EXAM: Alert, 74-year-old female, currently on a Ventimask, fairly comfortable in no apparent distress. HEAD: Normocephalic. EYES: Normal reaction of pupils, equal size. NOSE: Clear with pink turbinates. THROAT: No erythema or exudates. NECK: No masses, no JVD. CHEST: No chest wall deformity. LUNGS: Equal air entry with bilateral scattered rhonchi, few crackles in the bases. CVS: S1 and S2 normal with no audible murmur, regular rhythm. ABDOMEN: No hepatosplenomegaly, normal bowel sounds, no guarding or rigidity. SPINE: No scoliosis or deformity SKIN: No rashes CENTRAL NERVOUS SYSTEM: No focal deficits, tone is normal in all 4 extremities. EXTREMITIES: There is no peripheral edema. No clubbing, no cyanosis. Peripheral pulses are intact. - Labs CBC & Chem 7: 09/10/24 04:14 09/10/24 04:14 Labs: Abnormal Lab Results - Last 24 Hours (Table) 09/09/24 09/10/24 09/10/24 Range/Units 13:56 04:14 04:14 WBC 17.49 H (4.50-10.00) 10*3/uL Immature Gran # 0.14 H (0.00-0.04) 10*3/uL Neutrophils # 16.80 H (1.80-7.70) 10*3/uL Lymphocytes # 0.38 L (0.90-5.00) 10*3/uL Monocytes # 0.13 L (0.20-1.00) 10*3/uL Eosinophils # 0.00 L (0.04-0.35) 10*3/uL D-Dimer 0.70 H (<0.60) mg/L FEU BUN 19 H (7-17) mg/dL Glucose 141 H (74-99) mg/dL Assessment and Plan Assessment: Acute community-acquired right lower lobe pneumonia, likely bacterial. Patient has developed leukocytosis. Currently on Zosyn and Levaquin Acute hypoxic respiratory failure secondary to above currently on a Ventimask Acute leukocytosis Acute fever, recovered COPD, currently inactive and stable Hypertension Hyperlipidemia History of thyroid cancer with previous thyroidectomy History of skin cancer History of DVT in lower extremities with pulmonary embolism maintained on anticoagulation with Eliquis History of multiple sclerosis maintained on ofatumumab on outpatient basis Plan: The patient was seen and evaluated Imaging, labs and medications reviewed Continue Zosyn and Levaquin Titrate the FiO2 as tolerated Continue bronchodilators Add Symbicort Anticoagulated with Eliquis Titrate the FiO2 as tolerated We will continue to follow I have personally seen and examined the patient, performed the documentation and the assessment and plan as written. Number of minutes spent on the visit: 10 Dictation was produced using achvr dictation software. Please excuse any grammatical, word or spelling errors.
[2024-09-10] MEDS: FUROSEMIDE 10 MG/ML 4 ML VIAL IV STA (17:54)
--- NOTE | 2024-09-10 18:37 | XR ---
EXAMINATION TYPE: XR Hip Complete RT DATE OF EXAM: 09/10/2024 6:15 PM COMPARISON: 07/12/2022. CLINICAL INDICATION: Female, 74 years old with history of pain, pain TECHNIQUE: XR Hip Complete RT; Frontal and lateral views FINDINGS: No evidence for acute process, joint dislocation or significant soft tissue swelling. Osteo phyte formation of the superior acetabulum of the hip. There is mild joint space narrowing. Heterotro phic calcification seen on the right greater trochanter. Fixation hardware in the spine appears intac t. I discussed the arterial vasculature. IMPRESSION: 1. No evidence for acute process. 2. Mild hip osteoarthrosis. [facility], , 09/10/2024 6:35 PM
[2024-09-10] MEDS: SYMBICORT 160-4.5 MCG INHALER INHALATION SCH (19:55)
[2024-09-10 21:54] LABS: Glucose,Whole Blood 219 mg/dL (70-110)
[2024-09-11] MEDS: ALPRAZolam 0.25 MG TAB PO PRN (04:22)
[2024-09-11 06:01] LABS: Glucose,Whole Blood 146 mg/dL (70-110)
--- NOTE | 2024-09-11 07:28 | XR ---
EXAMINATION TYPE: XR chest 1V portable DATE OF EXAM: 09/11/2024 6:53 AM COMPARISON: 09/10/2024 CLINICAL INDICATION: Female, 74 years old with history of CHF, , FINDINGS: ACDF and posterior cervical fusion hardware. Heart normal size. Hyperinflation. Patchy bilateral inte rstitial opacities suggests that the perihilar regions and right base persists. Not significantly juan nged. IMPRESSION: COPD with a few scattered bilateral interstitial infiltrates persist. [facility], Workstation: [email or web address], 09/11/2024 7:26 AM
[2024-09-11 08:35] LABS: Basophils # (A) 0.03 10*3/uL (0.00-0.10); Basophils % (A) 0.2 %; HCT 39.2 % (37.2-46.3); HGB 12.8 g/dL (12.0-15.0); Lymphocytes # (A) 0.41 10*3/uL (0.90-5.00); Lymphocytes % (A) 2.1 %; MCH 30.8 pg (27.0-32.0); MCHC 32.7 g/dL (32.0-37.0); MCV 94.2 fL (80.0-97.0); Monocytes # (A) 0.36 10*3/uL (0.20-1.00); Monocytes % (A) 1.8 %; Neutrophils # (A) 18.46 10*3/uL (1.80-7.70); Neutrophils % (A) 93.6 %; Platelet Count 207 10*3/uL (140-440); RBC 4.16 10*6/uL (4.10-5.20); RDW 14.2 % (11.5-14.5); WBC 19.71 10*3/uL (4.50-10.00)
[2024-09-11 08:55] LABS: African American GFR (CKD) 80 (>60 ml/min/1.73 sqM); Anion Gap 5 mmol/L; Blood Urea Nitrogen 21 mg/dL (7-17); Calcium 9.7 mg/dL (8.4-10.2); Carbon Dioxide 32 mmol/L (22-30); Chloride 102 mmol/L (98-107); Glucose 136 mg/dL (74-99); Non-African American GFR(CKD) 69 (>60 ml/min/1.73 sqM); Potassium 3.4 mmol/L (3.5-5.1); Sodium 139 mmol/L (137-145)
[2024-09-11 11:36] LABS: Glucose,Whole Blood 224 mg/dL (70-110)
--- NOTE | 2024-09-11 12:18 | FL ---
Exam Date: 09/11/2024 11:09 AM. Modified barium swallow for dysphagia. Consistencies administered: Various consistency of barium. No images were sent to PACS. Please see speech pathology report. DAP: Not recorded mGym2 Gycm2 [facility], , 09/11/2024 12:16 PM
[2024-09-11] MEDS ORDERED: Potassium Replacement Protocol 1 EACH MISC MISCELLANE PRN (13:20)
[2024-09-11] MEDS ORDERED: OFATUMUMAB 20 MG/0.4 ML SQ SCH (13:30)
[2024-09-11] MEDS: POTASSIUM CHLORIDE ER 20 MEQ TAB.ER PO SCH (13:54)
--- NOTE | 2024-09-11 14:35 | P.PN ---
Subjective Progress Note Date: 09/11/24 Principal diagnosis: Acute community-acquired pneumonia This is a 74-year-old female patient, known history of COPD, presented to the emergency department with generalized weakness and frequent falls and worsening shortness of breath. Apparently, the patient's condition has been decompensating over the past 3 to 4 days. She had increased cough and congestion along with worsening shortness of breath. Her cough was nonproductive. Based on that, the patient was brought into the hospital. Chest x-ray was done in the ED and the patient was found to have a new onset right lower lobe consolidation/pneumonia. The patient was found to have a low-grade fever. The patient had also leukocytosis with a white cell count of 18, hemoglobin 13.8 and a platelet count of 202. Normal coagulation profile. Normal D-dimer. Normal electrolytes. BUN was 18 with a creatinine of 0.8. proBNP level was 0560. UA was negative. Viral screen was negative. The patient was given a dose of Levaquin and subsequently started on a combination of Levaquin and Zosyn. Hemodynamically stable. Currently on 3 L of oxygen by nasal cannula.. No travel history. No sick contacts. CT scan of the head showed no acute abnormalities. EKG showed sinus tachycardia along with some nonspecific changes. The patient is seen today September 10, 2024 in follow-up in the emergency department. She is currently resting on a stretcher. Awake and alert in no acute distress. She is dyspneic with conversation. Dyspneic with minimal exertion. Maintaining O2 saturations in the 90s on a Ventimask. She is afebrile. Hemodynamically stable. Follow-up chest x-ray reveals patchy and interstitial changes right greater than left with some shifting opacities compared to yesterday. Suspect residual mild congestive heart failure. Trace bilateral pleural effusions persist. CT angiogram reveals no evidence of pulmonary embolism. There is bilateral lower lobe patchy consolidative opacities with additional interstitial thickening within the right upper lobe. Most consistent with pneumonia. Mild emphysema changes. Trace left pleural effusion. White count 17.4. Hemoglobin 13.1. Platelets 169. Sodium 138. Potassium 4.0. Bicarb 29. BUN 19. Creatinine 0.8. Glucose 141. She is continued on DuoNeb inhalations, Solu-Medrol. Antibiotics in the form of Zosyn and Levaquin. Anticoagulated with Eliquis. Patient was seen today on 09/11/2024, patient is feeling a bit better, however the patient is up her O2 requirement, now on 11 L high flow nasal cannula. Chest x-ray today continues to show bilateral infiltrates/interstitial with COPD. Patient is on broad-spectrum antibiotics, obviously she is not quite ready to be discharged home. Sputum cultures are pending but so far nondiagnos tic based on the Gram stain, blood cultures are also nondiagnostic and negative so far. Objective - Vital Signs Vital signs: Vital Signs Temp 97.7 F 09/11/24 11:42 Pulse 93 09/11/24 13:18 Resp 20 09/11/24 11:42 BP 144/78 09/11/24 11:42 Pulse Ox 92 L 09/11/24 11:42 FiO2 Intake & Output 09/10/24 09/11/24 09/11/24 18:59 06:59 18:59 Intake Total 20 120 Output Total 2100 1650 Balance -2100 -1630 120 Weight 67.7 kg Intake: IV 20 Invasive Line 1 10 Invasive Line 2 10 Oral 120 Output: Urine 2099 1650 Other: Voiding Method Diaper Diaper External Catheter - Exam GENERAL EXAM: Revealed 74-year-old female in no distress on high flow nasal cannula HEAD: Normocephalic. EYES: Normal reaction of pupils, equal size. NOSE: Clear with pink turbinates. THROAT: No erythema or exudates. NECK: No masses, no JVD. CHEST: No chest wall deformity. LUNGS: Crackles and rhonchi noted bilaterally CVS: S1 and S2 normal with no audible murmur, regular rhythm. ABDOMEN: No hepatosplenomegaly, normal bowel sounds, no guarding or rigidity. SKIN: No rashes CENTRAL NERVOUS SYSTEM: Alert oriented x 3 no focal deficit EXTREMITIES: No clubbing edema or cyanosis - Labs CBC & Chem 7: 09/11/24 07:58 09/11/24 07:58 Labs: Abnormal Lab Results - Last 24 Hours (Table) 09/10/24 09/11/24 09/11/24 Range/Units 21:53 06:00 07:58 WBC 19.71 H (4.50-10.00) 10*3/uL Immature Gran # 0.45 H (0.00-0.04) 10*3/uL Neutrophils # 18.46 H (1.80-7.70) 10*3/uL Lymphocytes # 0.41 L (0.90-5.00) 10*3/uL Eosinophils # 0.00 L (0.04-0.35) 10*3/uL Potassium (3.5-5.1) mmol/L Carbon Dioxide (22-30) mmol/L BUN (7-17) mg/dL Glucose (74-99) mg/dL POC Glucose (mg/dL) 219 H 146 H (70-110) mg/dL 09/11/24 09/11/24 Range/Units 07:58 11:33 WBC (4.50-10.00) 10*3/uL Immature Gran # (0.00-0.04) 10*3/uL Neutrophils # (1.80-7.70) 10*3/uL Lymphocytes # (0.90-5.00) 10*3/uL Eosinophils # (0.04-0.35) 10*3/uL Potassium 3.4 L (3.5-5.1) mmol/L Carbon Dioxide 32 H (22-30) mmol/L BUN 21 H (7-17) mg/dL Glucose 136 H (74-99) mg/dL POC Glucose (mg/dL) 224 H (70-110) mg/dL Microbiology - Last 24 Hours (Table) 09/10/24 08:23 Gram Stain - Preliminary Sputum Sputum Culture - Preliminary 09/09/24 15:58 Blood Culture - Preliminary Blood Assessment and Plan Assessment: Impression: Acute hypoxic respiratory failure Acute community-acquired pneumonia likely bacterial patient remains on antibiotics in the form of Zosyn and Levaquin Benign essential hypertension History of underlying COPD which is presently inactive 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 Recommendation: Continue antibiotics Continue bronchodilators Continue oxygen and titrate accordingly Continue Symbicort and DuoNeb Continue Eliquis Titrate FiO2 accordingly Will continue to follow Prognosis remains guarded Time with Patient: Less than 30
[2024-09-11] MEDS: OFATUMUMAB 20 MG/0.4 ML SQ SCH ×2 (14:45→14:46)
--- NOTE | 2024-09-11 15:54 | PN ---
PROGRESS NOTE DATE OF SERVICE: 09/11/2024 SUBJECTIVE: This is a 74-year-old woman who was admitted with COPD acute exacerbation, acute bilateral pneumonia, is improving significantly. No chest pain. No palpitations. No fever. PHYSICAL EXAMINATION: VITAL SIGNS: Pulse is 87, blood pressure 144/78, and respirations 20. CHEST: A few scattered rhonchi and crackles. ABDOMEN: Soft. NERVOUS SYSTEM: Nonfocal. LABORATORY DATA: WBC 19.7. Other labs are noted. ASSESSMENT: 1. Chronic obstructive pulmonary disease acute exacerbation with acute bilateral pneumonia with possible aspiration. 2. Increased WBC. 3. Weakness and multiple falls. 4. History of pulmonary embolism. 5. Hypertension. 6. Hyperlipidemia. 7. History of multiple complex medical issues. RECOMMENDATIONS: Recommend to continue current medications and continue with antibiotics. Repeat labs in the morning. Guarded prognosis. Further recommendations to follow. MMODL / IJN: [id number] /
[2024-09-11 16:41] LABS: Glucose,Whole Blood 163 mg/dL (70-110)
[2024-09-11 20:02] LABS: Glucose,Whole Blood 156 mg/dL (70-110)
[2024-09-12 06:04] LABS: Glucose,Whole Blood 150 mg/dL (70-110)
[2024-09-12 08:02] LABS: Basophils # (A) 0.02 10*3/uL (0.00-0.10); Basophils % (A) 0.1 %; HCT 37.2 % (37.2-46.3); HGB 11.9 g/dL (12.0-15.0); Lymphocytes # (A) 0.28 10*3/uL (0.90-5.00); Lymphocytes % (A) 1.6 %; MCH 30.4 pg (27.0-32.0); MCV 94.9 fL (80.0-97.0); Mean Platelet Volume 9.5 fL (9.5-12.2); Monocytes # (A) 0.35 10*3/uL (0.20-1.00); Neutrophils # (A) 16.07 10*3/uL (1.80-7.70); Neutrophils % (A) 92.4 %; Platelet Count 197 10*3/uL (140-440); RBC 3.92 10*6/uL (4.10-5.20); RDW 14.5 % (11.5-14.5)
[2024-09-12 08:23] LABS: ALT 17 U/L (4-34); AST 28 U/L (14-36); African American GFR (CKD) >90 (>60 ml/min/1.73 sqM); Albumin 2.9 g/dL (3.5-5.0); Alkaline Phosphatase 60 U/L (38-126); Anion Gap 5 mmol/L; Blood Urea Nitrogen 19 mg/dL (7-17); Calcium 9.4 mg/dL (8.4-10.2); Carbon Dioxide 30 mmol/L (22-30); Chloride 104 mmol/L (98-107); Glucose 164 mg/dL (74-99); Non-African American GFR(CKD) 86 (>60 ml/min/1.73 sqM); Potassium 3.9 mmol/L (3.5-5.1); Sodium 139 mmol/L (137-145); Total Bilirubin 0.4 mg/dL (0.2-1.3); Total Protein 5.3 g/dL (6.3-8.2)
[2024-09-12] MEDS ORDERED: DEXTROSE 50% SYRINGE 50 ML IVP PRN ×2 (10:53)
[2024-09-12 11:12] LABS: Glucose,Whole Blood 189 mg/dL (70-110)
[2024-09-12] MEDS: INSULIN LISPRO (HumaLOG) 100 UNIT/ML 10 mL VL SQ SCH (11:22)
--- NOTE | 2024-09-12 14:26 | P.PN ---
Subjective Progress Note Date: 09/12/24 Principal diagnosis: Acute community-acquired pneumonia This is a 74-year-old female patient, known history of COPD, presented to the emergency department with generalized weakness and frequent falls and worsening shortness of breath. Apparently, the patient's condition has been decompensating over the past 3 to 4 days. She had increased cough and congestion along with worsening shortness of breath. Her cough was nonproductive. Based on that, the patient was brought into the hospital. Chest x-ray was done in the ED and the patient was found to have a new onset right lower lobe consolidation/pneumonia. The patient was found to have a low-grade fever. The patient had also leukocytosis with a white cell count of 18, hemoglobin 13.8 and a platelet count of 202. Normal coagulation profile. Normal D-dimer. Normal electrolytes. BUN was 18 with a creatinine of 0.8. proBNP level was 0560. UA was negative. Viral screen was negative. The patient was given a dose of Levaquin and subsequently started on a combination of Levaquin and Zosyn. Hemodynamically stable. Currently on 3 L of oxygen by nasal cannula.. No travel history. No sick contacts. CT scan of the head showed no acute abnormalities. EKG showed sinus tachycardia along with some nonspecific changes. The patient is seen today September 10, 2024 in follow-up in the emergency department. She is currently resting on a stretcher. Awake and alert in no acute distress. She is dyspneic with conversation. Dyspneic with minimal exertion. Maintaining O2 saturations in the 90s on a Ventimask. She is afebrile. Hemodynamically stable. Follow-up chest x-ray reveals patchy and interstitial changes right greater than left with some shifting opacities compared to yesterday. Suspect residual mild congestive heart failure. Trace bilateral pleural effusions persist. CT angiogram reveals no evidence of pulmonary embolism. There is bilateral lower lobe patchy consolidative opacities with additional interstitial thickening within the right upper lobe. Most consistent with pneumonia. Mild emphysema changes. Trace left pleural effusion. White count 17.4. Hemoglobin 13.1. Platelets 169. Sodium 138. Potassium 4.0. Bicarb 29. BUN 19. Creatinine 0.8. Glucose 141. She is continued on DuoNeb inhalations, Solu-Medrol. Antibiotics in the form of Zosyn and Levaquin. Anticoagulated with Eliquis. Patient was seen today on 09/11/2024, patient is feeling a bit better, however the patient is up her O2 requirement, now on 11 L high flow nasal cannula. Chest x-ray today continues to show bilateral infiltrates/interstitial with COPD. Patient is on broad-spectrum antibiotics, obviously she is not quite ready to be discharged home. Sputum cultures are pending but so far nondiagnos tic based on the Gram stain, blood cultures are also nondiagnostic and negative so far. Seen today on 09/12/2024, patient continues to have intermittent episodes of cough and shortness of breath, she is on 8 L high flow nasal cannula, O2 sats is 95%. Chest x-ray from 2 days ago showed COPD with scattered bilateral interstitial infiltrates which have persisted since admission. Patient is being evaluated by speech therapy for possible aspiration pneumonia. Remains on bronchodilators for her underlying COPD, patient had previous history of pulmonary embolism as well as history of hypertension and she has multiple complex medical issues. Continues to have leukocytosis with WBC of 17.4 hemogl obin 11.9 electrolytes are normal renal profile is normal Objective - Vital Signs Vital signs: Vital Signs Temp 97.5 F L 09/12/24 08:00 Pulse 92 09/12/24 12:15 Resp 20 09/12/24 12:00 BP 135/74 09/12/24 12:00 Pulse Ox 95 09/12/24 12:16 FiO2 Intake & Output 09/11/24 09/12/24 09/12/24 18:59 06:59 18:59 Intake Total 1017 20 776 Output Total 850 300 Balance 1017 -830 476 Weight 78.7 kg Intake: IV 20 Invasive Line 2 20 Oral 1017 776 Output: Urine 850 300 Other: Voiding Method Diaper Diaper Diaper External Catheter External Catheter External Catheter # Voids 1 # Bowel Movements 1 - Exam GENERAL EXAM: Revealed 74-year-old female in no distress on 8 L high flow nasal cannula HEAD: Normocephalic. EYES: Normal reaction of pupils, equal size. NOSE: Clear with pink turbinates. THROAT: No erythema or exudates. NECK: No masses, no JVD. CHEST: No chest wall deformity. LUNGS: Rhonchi and wheezes noted bilaterally. CVS: S1 and S2 normal with no audible murmur, regular rhythm. ABDOMEN: No hepatosplenomegaly, normal bowel sounds, no guarding or rigidity. SKIN: No rashes CENTRAL NERVOUS SYSTEM: Alert oriented x 3 no focal deficit EXTREMITIES: No clubbing edema or cyanosis - Labs CBC & Chem 7: 09/12/24 07:19 09/12/24 07:19 Labs: Abnormal Lab Results - Last 24 Hours (Table) 09/11/24 09/11/24 09/12/24 Range/Units 16:39 20:01 06:03 WBC (4.50-10.00) 10*3/uL RBC (4.10-5.20) 10*6/uL Hgb (12.0-15.0) g/dL Immature Gran # (0.00-0.04) 10*3/uL Neutrophils # (1.80-7.70) 10*3/uL Lymphocytes # (0.90-5.00) 10*3/uL Eosinophils # (0.04-0.35) 10*3/uL BUN (7-17) mg/dL Glucose (74-99) mg/dL POC Glucose (mg/dL) 163 H 156 H 150 H (70-110) mg/dL Total Protein (6.3-8.2) g/dL Albumin (3.5-5.0) g/dL 09/12/24 09/12/24 09/12/24 Range/Units 07:19 07:19 11:09 WBC 17.40 H (4.50-10.00) 10*3/uL RBC 3.92 L (4.10-5.20) 10*6/uL Hgb 11.9 L (12.0-15.0) g/dL Immature Gran # 0.68 H (0.00-0.04) 10*3/uL Neutrophils # 16.07 H (1.80-7.70) 10*3/uL Lymphocytes # 0.28 L (0.90-5.00) 10*3/uL Eosinophils # 0.00 L (0.04-0.35) 10*3/uL BUN 19 H (7-17) mg/dL Glucose 164 H (74-99) mg/dL POC Glucose (mg/dL) 189 H (70-110) mg/dL Total Protein 5.3 L (6.3-8.2) g/dL Albumin 2.9 L (3.5-5.0) g/dL Microbiology - Last 24 Hours (Table) 09/10/24 08:23 Gram Stain - Final Sputum Sputum Culture - Final Debby albicans 09/09/24 15:58 Blood Culture - Preliminary Blood Assessment and Plan Assessment: Impression: Acute hypoxic respiratory failure Acute community-acquired pneumonia likely bacterial patient remains on antibiotics in the form of Zosyn and Levaquin Benign essential hypertension History of underlying COPD which is presently inactive 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 Recommendation: Continue antibiotics Continue bronchodilators Continue oxygen and titrate accordingly Continue Symbicort and DuoNeb Continue Eliquis Titrate FiO2 accordingly Not quite ready for discharge as long as she is requiring high FiO2 Will continue to follow Prognosis remains guarded Time with Patient: Less than 30
[2024-09-12 16:18] LABS: Glucose,Whole Blood 176 mg/dL (70-110)
[2024-09-12] MEDS: FLUCONAZOLE 100 MG TAB PO ONE (16:53)
[2024-09-12] MEDS: NICOTINE 21MG/24HR PATCH TRANSDERM SCH (17:47)
[2024-09-12 20:11] LABS: Glucose,Whole Blood 195 mg/dL (70-110)
[2024-09-13 06:03] LABS: Glucose,Whole Blood 156 mg/dL (70-110)
--- NOTE | 2024-09-13 07:27 | XR ---
EXAMINATION TYPE: XR chest 1V portable DATE OF EXAM: 09/13/2024 6:59 AM COMPARISON: 09/11/2024 CLINICAL INDICATION: Female, 74 years old with history of sob, , FINDINGS: Partially visualized ACDF hardware and posterior cervical fusion. A loop recorder device projects at the left midlung. Heart upper limits of normal size. Worsening diffuse interstitial opacities. Develo pment of Vandana B lines now at the lung bases. Possible trace pleural effusions. IMPRESSION: Worsening interstitial pulmonary edema versus interstitial infiltrates. Possible trace pleural effusi ons now. [facility], Workstation: [employer], 09/13/2024 7:25 AM
[2024-09-13] MEDS: FLUCONAZOLE 100 MG TAB PO SCH (08:02)
[2024-09-13 08:44] LABS: Basophils # (A) 0.02 10*3/uL (0.00-0.10); Basophils % (A) 0.1 %; HCT 37.9 % (37.2-46.3); Lymphocytes # (A) 0.38 10*3/uL (0.90-5.00); Lymphocytes % (A) 2.5 %; MCH 30.5 pg (27.0-32.0); MCHC 31.7 g/dL (32.0-37.0); MCV 96.4 fL (80.0-97.0); Mean Platelet Volume 9.9 fL (9.5-12.2); Monocytes # (A) 0.39 10*3/uL (0.20-1.00); Monocytes % (A) 2.6 %; Neutrophils # (A) 13.93 10*3/uL (1.80-7.70); Neutrophils % (A) 92.9 %; Platelet Count 210 10*3/uL (140-440); RBC 3.93 10*6/uL (4.10-5.20); RDW 14.5 % (11.5-14.5)
[2024-09-13 09:05] LABS: African American GFR (CKD) >90 (>60 ml/min/1.73 sqM); Anion Gap 1 mmol/L; Blood Urea Nitrogen 18 mg/dL (7-17); Calcium 9.4 mg/dL (8.4-10.2); Carbon Dioxide 36 mmol/L (22-30); Chloride 103 mmol/L (98-107); Glucose 103 mg/dL (74-99); Magnesium 1.9 mg/dL (1.6-2.3); Non-African American GFR(CKD) 86 (>60 ml/min/1.73 sqM); Potassium 4.2 mmol/L (3.5-5.1); Sodium 140 mmol/L (137-145)
--- NOTE | 2024-09-13 10:13 | P.PN ---
Subjective Progress Note Date: 09/12/24 This is a pleasant 74-year-old female who was recently admitted with increasing shortness of breath with COPD exacerbation along with acute bilateral pneumonia initially improving although requiring more oxygen and reporting increased shortness of breath overnight currently on 8 L high flow. Patient reports continued weakness as well although is attempting to get up and work with physical therapy. Would strongly recommend ECF for continued strength and mobility although patient has persistent ongoing home and reports her grandson is her caregiver and care provide care. Will be agreeable to home care with rehab in the home. Will have PT/OT therapy evaluate and would recommend working with her daily. Encouraged increase activity as tolerated and sitting up more frequently in the chair. Patient also to continue with incentive spirometer use at least 10 times every hour while awake. Patient is maintained on antibiotics at this time along with [id number] DuoNeb treatments and IV steroids with pulmonary following. Review of systems: Constitutional: No reports of fatigue, fever, or chills Cardiovascular: No reports of chest pain or palpitations Respiratory: reports of continued shortness of breath and persistent cough GI: No reports of nausea, no reports of vomiting, no diarrhea : No reports of dysuria or retention Neurovascular: reports of generalized weakness All medications have been reviewed PHYSICAL EXAMINATION: GENERAL: The patient is alert and oriented x4, Well developed, well nourished. Elderly appearing HEENT: Pupils are round and equally reacting to light. EOMI. no scleral icterus. No conjunctival pallor. Normocephalic, atraumatic. No pharyngeal erythema. No thyromegaly. CARDIOVASCULAR: S1 and S2 muffled PULMONARY: diminished breath sounds bilaterally with expiratory wheezing and coarse scattered rhonchi noted. ABDOMEN: soft. Nontender on exam. obese. non-distended, normoactive bowel sounds. No palpable organomegaly. MUSCULOSKELETAL: No joint swelling or deformity. EXTREMITIES: No cyanosis, clubbing, or pedal edema. NEUROLOGICAL: Gross neurological examination did not reveal any focal deficits. Diffuse weakness SKIN: No rashes. Assessment: Chronic obstructive pulmonary disease acute exacerbation with acute bilateral pneumonia with possible aspiration, present on admission Increased WBC Weakness and multiple falls History of pulmonary embolism History of atrial fibrillation, currently rate controlled History of DVTs bilaterally in lower extremities History of multiple cancers including skin cancer, cervical cancer, thyroid cancer History of anxiety/depression History of continued ongoing nicotine abuse History of osteoarthritis History of multiple sclerosis Hypertension Hyperlipidemia GI prophylaxis DVT prophylaxis Full code Plan: Recommend to continue with current medications and management with pulmonary fo llowing. Patient is currently maintained on [id number] DuoNeb treatments along with IV steroids and will continue. Patient is requiring 8 L high flow and recommend to continue with incentive sp irometer use and aggressively use at least 10 times every hour while awake and also continued coughing and deep breathing and wean FiO2 as tolerated Home Cory following recommend to continue with current medications and management Will follow-up on repeat chest x-ray in the a.m. Recommend PT/OT therapy daily as patient is significantly weak. Patient is adamant she is returning home and does not want a go to rehab and reports her grandson is her caregiver with history of MS Follow-up on repeat labs and replace electrolytes per protocol Due to multiple complex medical issues, overall prognosis is guarded The impression and plan of care has been dictated by Mary Radford, nurse practitioner as directed. Dr. Jarrett MD I have performed a history and examination and MDM of this patient, discussed the same with the dictator, and agree with the dictator's assessment and plan a s written ,documented as a scribe. Based on total visit time, I have performed more than 50% of the visit. Any additional findings or plans will be noted. Objective - Vital Signs Vital signs: Vital Signs Temp 97.8 F 09/12/24 16:00 Pulse 87 09/12/24 16:00 Resp 20 09/12/24 16:00 BP 151/70 09/12/24 16:00 Pulse Ox 95 09/12/24 16:00 FiO2 Intake & Output 09/12/24 09/12/24 09/13/24 06:59 18:59 06:59 Intake Total 20 1556 Output Total 850 1000 Balance -830 556 Weight 78.7 kg Intake: IV 20 Invasive Line 2 20 Oral 1556 Output: Urine 850 1000 Other: Voiding Method Diaper Diaper External Catheter External Catheter # Voids 1 # Bowel Movements 1 - Labs CBC & Chem 7: 09/13/24 07:17 09/13/24 07:17 Labs: Abnormal Lab Results - Last 24 Hours (Table) 09/11/24 09/12/24 09/12/24 Range/Units 20:01 06:03 07:19 WBC 17.40 H (4.50-10.00) 10*3/uL RBC 3.92 L (4.10-5.20) 10*6/uL Hgb 11.9 L (12.0-15.0) g/dL Immature Gran # 0.68 H (0.00-0.04) 10*3/uL Neutrophils # 16.07 H (1.80-7.70) 10*3/uL Lymphocytes # 0.28 L (0.90-5.00) 10*3/uL Eosinophils # 0.00 L (0.04-0.35) 10*3/uL BUN (7-17) mg/dL Glucose (74-99) mg/dL POC Glucose (mg/dL) 156 H 150 H (70-110) mg/dL Total Protein (6.3-8.2) g/dL Albumin (3.5-5.0) g/dL 09/12/24 09/12/24 09/12/24 Range/Units 07:19 11:09 16:11 WBC (4.50-10.00) 10*3/uL RBC (4.10-5.20) 10*6/uL Hgb (12.0-15.0) g/dL Immature Gran # (0.00-0.04) 10*3/uL Neutrophils # (1.80-7.70) 10*3/uL Lymphocytes # (0.90-5.00) 10*3/uL Eosinophils # (0.04-0.35) 10*3/uL BUN 19 H (7-17) mg/dL Glucose 164 H (74-99) mg/dL POC Glucose (mg/dL) 189 H 176 H (70-110) mg/dL Total Protein 5.3 L (6.3-8.2) g/dL Albumin 2.9 L (3.5-5.0) g/dL Microbiology - Last 24 Hours (Table) 09/10/24 08:23 Gram Stain - Final Sputum Sputum Culture - Final Debby albicans 09/09/24 15:58 Blood Culture - Preliminary Blood
[2024-09-13 11:17] LABS: Glucose,Whole Blood 150 mg/dL (70-110)
--- NOTE | 2024-09-13 13:08 | P.PN ---
Subjective Progress Note Date: 09/13/24 Principal diagnosis: Acute community-acquired pneumonia This is a 74-year-old female patient, known history of COPD, presented to the emergency department with generalized weakness and frequent falls and worsening shortness of breath. Apparently, the patient's condition has been decompensating over the past 3 to 4 days. She had increased cough and congestion along with worsening shortness of breath. Her cough was nonproductive. Based on that, the patient was brought into the hospital. Chest x-ray was done in the ED and the patient was found to have a new onset right lower lobe consolidation/pneumonia. The patient was found to have a low-grade fever. The patient had also leukocytosis with a white cell count of 18, hemoglobin 13.8 and a platelet count of 202. Normal coagulation profile. Normal D-dimer. Normal electrolytes. BUN was 18 with a creatinine of 0.8. proBNP level was 0560. UA was negative. Viral screen was negative. The patient was given a dose of Levaquin and subsequently started on a combination of Levaquin and Zosyn. Hemodynamically stable. Currently on 3 L of oxygen by nasal cannula.. No travel history. No sick contacts. CT scan of the head showed no acute abnormalities. EKG showed sinus tachycardia along with some nonspecific changes. The patient is seen today September 10, 2024 in follow-up in the emergency department. She is currently resting on a stretcher. Awake and alert in no acute distress. She is dyspneic with conversation. Dyspneic with minimal exertion. Maintaining O2 saturations in the 90s on a Ventimask. She is afebrile. Hemodynamically stable. Follow-up chest x-ray reveals patchy and interstitial changes right greater than left with some shifting opacities compared to yesterday. Suspect residual mild congestive heart failure. Trace bilateral pleural effusions persist. CT angiogram reveals no evidence of pulmonary embolism. There is bilateral lower lobe patchy consolidative opacities with additional interstitial thickening within the right upper lobe. Most consistent with pneumonia. Mild emphysema changes. Trace left pleural effusion. White count 17.4. Hemoglobin 13.1. Platelets 169. Sodium 138. Potassium 4.0. Bicarb 29. BUN 19. Creatinine 0.8. Glucose 141. She is continued on DuoNeb inhalations, Solu-Medrol. Antibiotics in the form of Zosyn and Levaquin. Anticoagulated with Eliquis. Patient was seen today on 09/11/2024, patient is feeling a bit better, however the patient is up her O2 requirement, now on 11 L high flow nasal cannula. Chest x-ray today continues to show bilateral infiltrates/interstitial with COPD. Patient is on broad-spectrum antibiotics, obviously she is not quite ready to be discharged home. Sputum cultures are pending but so far nondiagnos tic based on the Gram stain, blood cultures are also nondiagnostic and negative so far. Seen today on 09/12/2024, patient continues to have intermittent episodes of cough and shortness of breath, she is on 8 L high flow nasal cannula, O2 sats is 95%. Chest x-ray from 2 days ago showed COPD with scattered bilateral interstitial infiltrates which have persisted since admission. Patient is being evaluated by speech therapy for possible aspiration pneumonia. Remains on bronchodilators for her underlying COPD, patient had previous history of pulmonary embolism as well as history of hypertension and she has multiple complex medical issues. Continues to have leukocytosis with WBC of 17.4 hemogl obin 11.9 electrolytes are normal renal profile is normal Seen today on 09/13/2024, slightly better but nonetheless continues to have some intermittent episodes of cough and wheezing however overnight we were able to titrate her FiO2 down to 4 L instead of 8 L yesterday. Chest x-ray today showed minimal change, I believe it is better although the radiologist feels it is worsening but clinically the patient is better and the chest x-ray to me looks better WBC count is 15, improving compared to 18.18 on admission sputum so far is nondiagnostic final culture is showing mostly Debby albicans, blood cultures have been negative. Patient remains on Zosyn she is also on bronchodilators and on methylprednisolone which I will change to 40 mg IV push every 8 hours. Objective - Vital Signs Vital signs: Vital Signs Temp 97.8 F 09/13/24 11:14 Pulse 88 09/13/24 11:49 Resp 18 09/13/24 11:14 BP 152/78 09/13/24 11:14 Pulse Ox 95 09/13/24 11:14 FiO2 Intake & Output 09/12/24 09/13/24 09/13/24 18:59 06:59 18:59 Intake Total 1556 480 Output Total 1000 1650 300 Balance 556 -1650 180 Weight 82.1 kg Intake: Oral 1556 480 Output: Urine 1000 1650 300 Other: Voiding Method Diaper Diaper External Catheter External Catheter External Catheter # Voids 1 # Bowel Movements 1 - Exam GENERAL EXAM: Revealed 74-year-old female in no distress on 4 L nasal cannula O2 sat 95% HEAD: Normocephalic. EYES: Normal reaction of pupils, equal size. NOSE: Clear with pink turbinates. THROAT: No erythema or exudates. NECK: No masses, no JVD. CHEST: No chest wall deformity. LUNGS: Diminished breath sounds at the bases with occasional rhonchi noted on forced expiratory maneuver CVS: S1 and S2 normal with no audible murmur, regular rhythm. ABDOMEN: No hepatosplenomegaly, normal bowel sounds, no guarding or rigidity. SKIN: No rashes CENTRAL NERVOUS SYSTEM: Alert oriented x 3 no focal deficit EXTREMITIES: No clubbing edema or cyanosis - Labs CBC & Chem 7: 09/13/24 07:17 09/13/24 07:17 Labs: Abnormal Lab Results - Last 24 Hours (Table) 09/12/24 09/12/24 09/13/24 Range/Units 16:11 20:09 06:02 WBC (4.50-10.00) 10*3/uL RBC (4.10-5.20) 10*6/uL MCHC (32.0-37.0) g/dL Immature Gran # (0.00-0.04) 10*3/uL Neutrophils # (1.80-7.70) 10*3/uL Lymphocytes # (0.90-5.00) 10*3/uL Eosinophils # (0.04-0.35) 10*3/uL Carbon Dioxide (22-30) mmol/L BUN (7-17) mg/dL Glucose (74-99) mg/dL POC Glucose (mg/dL) 176 H 195 H 156 H (70-110) mg/dL 09/13/24 09/13/24 09/13/24 Range/Units 07:17 07:17 11:15 WBC 15.00 H (4.50-10.00) 10*3/uL RBC 3.93 L (4.10-5.20) 10*6/uL MCHC 31.7 L (32.0-37.0) g/dL Immature Gran # 0.28 H (0.00-0.04) 10*3/uL Neutrophils # 13.93 H (1.80-7.70) 10*3/uL Lymphocytes # 0.38 L (0.90-5.00) 10*3/uL Eosinophils # 0.00 L (0.04-0.35) 10*3/uL Carbon Dioxide 36 H (22-30) mmol/L BUN 18 H (7-17) mg/dL Glucose 103 H (74-99) mg/dL POC Glucose (mg/dL) 150 H (70-110) mg/dL Microbiology - Last 24 Hours (Table) 09/09/24 15:58 Blood Culture - Preliminary Blood Assessment and Plan Assessment: Impression: Acute hypoxic respiratory failure Acute community-acquired pneumonia likely bacterial patient remains on Zosyn 3.375 g every 8 hours, sputum cultures are nondiagnostic Benign essential hypertension History of underlying COPD which is presently inactive 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 Recommendation: Continue antibiotics Continue bronchodilators Continue oxygen and titrate accordingly Continue Symbicort and DuoNeb Continue Eliquis Titrate FiO2 accordingly Not quite ready for discharge, remains relatively quite symptomatic Repeat chest x-ray in the next 24 hours Will continue to follow Prognosis remains guarded Time with Patient: Less than 30
[2024-09-13] MEDS: methylPREDNISolone SOD SUCCI 40 MG/ML 1 ML VIAL IV SCH (15:45)
[2024-09-13 16:28] LABS: Glucose,Whole Blood 142 mg/dL (70-110)
[2024-09-13] MEDS: guaiFENesin SYRUP 100MG/5ML 200 MG/10 ML CUP PO PRN (16:31)
[2024-09-13] MEDS: FUROSEMIDE 10 MG/ML 2 ML VIAL IV SCH (17:54)
--- NOTE | 2024-09-13 18:54 | P.PN ---
Subjective Progress Note Date: 09/13/24 This is a pleasant 74-year-old female who was recently admitted with increasing shortness of breath with COPD exacerbation along with acute bilateral pneumonia initially improving although requiring more oxygen and reporting increased shortness of breath overnight currently on 8 L high flow. Patient reports continued weakness as well although is attempting to get up and work with physical therapy. Would strongly recommend ECF for continued strength and mobility although patient has persistent ongoing home and reports her grandson is her caregiver and care provide care. Will be agreeable to home care with rehab in the home. Will have PT/OT therapy evaluate and would recommend working with her daily. Encouraged increase activity as tolerated and sitting up more frequently in the chair. Patient also to continue with incentive spirometer use at least 10 times every hour while awake. Patient is maintained on antibiotics at this time along with [id number] DuoNeb treatments and IV steroids with pulmonary following. 09/13/2024 Patient is seen in follow-up with pulmonary following closely. Patient is continued on 5 L via nasal cannula and titrated as tolerated reporting feeling s lightly improved. Patient continues with significant cough and will add as needed medications for supportive care. Encouraged continued incentive spirometer use and increase activity as tolerated. Patient evaluated by PT/OT therapy and patient is adamant she is returning home. Will discuss with case management/social work regarding discharge planning for necessary equipment. Will discuss further with pulmonary regarding discharge planning possibly in the next 24 hours. Patient was maintained on IV fluids and will discontinue and start Lasix twice daily with follow-up labs in AM. Review of systems: Constitutional: No reports of fatigue, fever, or chills Cardiovascular: No reports of chest pain or palpitations Respiratory: reports of continued shortness of breath and persistent cough GI: No reports of nausea, no reports of vomiting, no diarrhea : No reports of dysuria or retention Neurovascular: reports of generalized weakness All medications have been reviewed PHYSICAL EXAMINATION: GENERAL: The patient is alert and oriented x4, Well developed, well nourished. Elderly appearing HEENT: Pupils are round and equally reacting to light. EOMI. no scleral icterus. No conjunctival pallor. Normocephalic, atraumatic. No pharyngeal erythema. No thyromegaly. CARDIOVASCULAR: S1 and S2 muffled PULMONARY: diminished breath sounds bilaterally with expiratory wheezing and co arse scattered rhonchi noted. ABDOMEN: soft. Nontender on exam. obese. non-distended, normoactive bowel sounds. No palpable organomegaly. MUSCULOSKELETAL: No joint swelling or deformity. EXTREMITIES: No cyanosis, clubbing, or pedal edema. NEUROLOGICAL: Gross neurological examination did not reveal any focal deficits. Diffuse weakness SKIN: No rashes. 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 Patient is currently maintained on [id number] DuoNeb treatments along with IV steroids and will continue. Patient is requiring 4-5 L via nasal cannula and recommend to continue with incentive spirometer use and aggressively use at least 10 times every hour while awake and also continued coughing and deep breathing and wean FiO2 as tolerated Pulmonary following recommend to continue with current medications and management Recommend PT/OT therapy daily as patient is significantly weak. Patient is adamant she is returning home and does not want a go to rehab and reports her grandson is her caregiver with history of MS. Will discuss with case management regarding discharge planning and any necessary equipment that are needed Follow-up on repeat labs and replace electrolytes per protocol. Discontinue IV fluids and will start IV Lasix and monitor kidney functions closely Discussed with the patient about continuing incentive spirometer use at least 10 times every hour while awake Due to multiple complex medical issues, overall prognosis is guarded Will discuss with pulmonary regarding possible discharge planning in the next 24 to 48 hours The impression and plan of care has been dictated by Mary Radford, nurse practitioner as directed. Dr. Jarrett MD I have performed a history and examination and MDM of this patient, discussed the same with the dictator, and agree with the dictator's assessment and plan as written ,documented as a scribe. Based on total visit time, I have performed more than 50% of the visit. Any additional findings or plans will be noted. Objective - Vital Signs Vital signs: Vital Signs Temp 97.8 F 09/13/24 15:48 Pulse 97 09/13/24 15:48 Resp 20 09/13/24 15:48 BP 150/76 09/13/24 15:48 Pulse Ox 96 09/13/24 15:48 FiO2 Intake & Output 09/12/24 09/13/24 09/13/24 18:59 06:59 18:59 Intake Total 1556 1372 Output Total 1000 1650 800 Balance 556 -1650 572 Weight 82.1 kg Intake: IV 10 Invasive Line 2 10 Oral 1556 1362 Output: Urine 1000 1650 800 Other: Voiding Method Diaper Diaper External Catheter External Catheter External Catheter # Voids 1 # Bowel Movements 1 - Labs CBC & Chem 7: 09/13/24 07:17 09/13/24 07:17 Labs: Abnormal Lab Results - Last 24 Hours (Table) 09/12/24 09/13/24 09/13/24 Range/Units 20:09 06:02 07:17 WBC 15.00 H (4.50-10.00) 10*3/uL RBC 3.93 L (4.10-5.20) 10*6/uL MCHC 31.7 L (32.0-37.0) g/dL Immature Gran # 0.28 H (0.00-0.04) 10*3/uL Neutrophils # 13.93 H (1.80-7.70) 10*3/uL Lymphocytes # 0.38 L (0.90-5.00) 10*3/uL Eosinophils # 0.00 L (0.04-0.35) 10*3/uL Carbon Dioxide (22-30) mmol/L BUN (7-17) mg/dL Glucose (74-99) mg/dL POC Glucose (mg/dL) 195 H 156 H (70-110) mg/dL 09/13/24 09/13/24 09/13/24 Range/Units 07:17 11:15 16:27 WBC (4.50-10.00) 10*3/uL RBC (4.10-5.20) 10*6/uL MCHC (32.0-37.0) g/dL Immature Gran # (0.00-0.04) 10*3/uL Neutrophils # (1.80-7.70) 10*3/uL Lymphocytes # (0.90-5.00) 10*3/uL Eosinophils # (0.04-0.35) 10*3/uL Carbon Dioxide 36 H (22-30) mmol/L BUN 18 H (7-17) mg/dL Glucose 103 H (74-99) mg/dL POC Glucose (mg/dL) 150 H 142 H (70-110) mg/dL Microbiology - Last 24 Hours (Table) 09/09/24 15:58 Blood Culture - Preliminary Blood
[2024-09-13 20:08] LABS: Glucose,Whole Blood 135 mg/dL (70-110)
[2024-09-13] MEDS: guaiFENesin 600 MG TABLET.ER PO SCH (21:10)
[2024-09-14] MEDS: DILTIAZEM 125 MG in DEXTROSE 5% IN WATER 100 ML IV SCH (00:34)
[2024-09-14] MEDS: DILTIAZEM 5 MG/ML 5 ML VIAL IVP STA (00:38)
[2024-09-14 06:05] LABS: Glucose,Whole Blood 137 mg/dL (70-110)
[2024-09-14 07:01] LABS: Basophils # (A) 0.03 10*3/uL (0.00-0.10); Basophils % (A) 0.2 %; HCT 37.3 % (37.2-46.3); HGB 12.2 g/dL (12.0-15.0); Lymphocytes # (A) 0.51 10*3/uL (0.90-5.00); Lymphocytes % (A) 3.3 %; MCH 30.5 pg (27.0-32.0); MCHC 32.7 g/dL (32.0-37.0); MCV 93.3 fL (80.0-97.0); Mean Platelet Volume 9.5 fL (9.5-12.2); Monocytes # (A) 0.72 10*3/uL (0.20-1.00); Monocytes % (A) 4.6 %; Neutrophils # (A) 14.16 10*3/uL (1.80-7.70); Neutrophils % (A) 90.4 %; Platelet Count 217 10*3/uL (140-440); RDW 14.1 % (11.5-14.5); WBC 15.66 10*3/uL (4.50-10.00)
[2024-09-14 07:40] LABS: African American GFR (CKD) >90 (>60 ml/min/1.73 sqM); Anion Gap 1 mmol/L; Blood Urea Nitrogen 22 mg/dL (7-17); Calcium 9.1 mg/dL (8.4-10.2); Carbon Dioxide 37 mmol/L (22-30); Chloride 97 mmol/L (98-107); Glucose 124 mg/dL (74-99); Magnesium 1.9 mg/dL (1.6-2.3); Non-African American GFR(CKD) 79 (>60 ml/min/1.73 sqM); Potassium 3.4 mmol/L (3.5-5.1); Sodium 135 mmol/L (137-145)
[2024-09-14] MEDS: POTASSIUM CHLORIDE ER 20 MEQ TAB.ER PO SCH (08:00)
[2024-09-14] MEDS: DILTIAZEM CD 180 MG CAP.ER.24H PO SCH (10:32)
[2024-09-14 11:40] LABS: Glucose,Whole Blood 157 mg/dL (70-110)
--- NOTE | 2024-09-14 11:57 | P.CRDCN ---
History of Present Illness Consult date: 09/14/24 Reason for Consult (text): Afib with rvr History of present illness: This is a 74-year-old female patient of Dr. Bassett with past medical history of COPD, CAD status post PCI, history hydrous yeah all all unstable angina, history of DVT and PE on anticoagulation with Eliquis, hypertension, bradycardia, atrial fibrillation. She was last seen in the office in July 2022 and at that time plan was for event monitor or loop recorder monitoring for bradycardic episodes as well as atrial fibrillation. Also discussed option of ablation as patient is sensitive to rate control medications given bradycardic episodes. Unfortunately, patient has not followed up. Patient presented to [facility] emergency center on 09/09 due to generalized weakness and frequent falls. She states she has had days up to 5 falls per day. She actually had a fall this morning in her hospital room and did not hit her head. We have been asked to evaluate the patient for A-fib with RVR. Patient states that she developed palpitations last evening. No chest pain or pressure. Blood pressure 125/83, pulse ox 92% on 4 L nasal cannula, heart rate is in the 80s. Telemetry is atrial fibrillation. -EKG: Atrial fibrillation 150 bpm. -Chest x-ray: Worsening interstitial pulmonary edema versus interstitial and filtrates performed on 09/13. -Laboratory studies: WBC 15.6, hemoglobin 12.2, sodium 135, potassium 3.4, BUN 22 creatinine 0.76. -Home cardiac medications: Eliquis 5 mg twice daily, atorvastatin 40 mg at bedtime, Cardizem 30 mg 3 times daily, Lasix 40 mg daily as needed, Imdur 60 mg daily. - Review Of Systems: At the time of my exam: CONSTITUTIONAL: Denies fever or chills. HEENT: Denies blurred vision, vision changes, or eye pain. Denies hemoptysis CARDIOVASCULAR: Denies chest pain. Denies orthopnea. Denies PND. Denies palpita tions RESPIRATORY: Denies shortness of breath. GASTROINTESTINAL: Denies abdominal pain. Denies nausea or vomiting. HEMATOLOGIC: Denies bleeding disorders. GENITOURINARY: Denies any blood in urine. SKIN: Denies puritis. Denies rash. Physical examination: Gen: This is a 74-year-old female in no acute distress VS: reviewed HEENT: Head is atraumatic, normocephalic. Pupils equal, round. Sclerae is anicteric. NECK: Supple. No JVD. LUNGS: Clear to auscultation. No wheezes or rhonchi. No intercostal retractions. HEART: Irregular rate and rhythm. No murmur. ABDOMEN: Soft No tenderness. EXTREMITIES: No pedal edema. No calf tenderness. NEUROLOGICAL: Patient is awake, alert and oriented x3. Assessment: Paroxysmal atrial fibrillation with episode of RVR, currently rate controlled Multiple falls including one fall this morning in the hospital Acute hypoxic respiratory failure secondary to gram-negative pneumonia COPD CAD status post PCI MS History of DVT and PE Hypertension Bradycardia Plan: Continue patient's home cardiac medications Change Cardizem to 180 mg CD daily Hold Eliquis due to frequent falls Anticoagulation will be addressed in the office visit as well as consider Watchm an procedure Patient is cleared for discharge from cardiology perspective and will follow-up in the office with Dr. Bassett in 1 week. Thank you kindly for this consultation. Nurse practitioner note has been reviewed, I agree with documented findings and plan of care. Patient was seen and examined. Past Medical History Past Medical History: Atrial Fibrillation, Cancer, Chest Pain / Angina, COPD, Deep Vein Thrombosis (DVT), GERD/Reflux, Hyperlipidemia, Hypertension, Neurologic Disorder, Osteoarthritis (OA), Pulmonary Embolus (PE), Thyroid Disorder Additional Past Medical History / Comment(s): SKIN CANCER, CERVICAL CANCER AND THYROID CANCER. DVT IN BOTH LEGS. MS History of Any Multi-Drug Resistant Organisms: C-DIFF Date of last positivie culture/infection: 04/25/2002 MDRO Source:: cdiff Past Surgical History: Adenoidectomy, Appendectomy, Back Surgery, Breast Surgery, Heart Catheterization With Stent, Hysterectomy, Orthopedic Surgery, Tonsillectomy, Tubal Ligation Additional Past Surgical History / Comment(s): CYSTS REMOVED FROM BILATERAL BREAST, Sm NECK SURGERY, COLONOSCOPY, Past Anesthesia/Blood Transfusion Reactions: No Reported Reaction Date of Last Stent Placement:: 03/18/2010 Past Psychological History: Anxiety, Depression Smoking Status: Current every day smoker Past Alcohol Use History: None Reported Additional Past Alcohol Use History / Comment(s): SMOKING 1/2 PPD SINCE AGE 13 Past Drug Use History: None Reported - Past Family History Mother Family Medical History: Cancer, Chest Pain / Angina, Congestive Heart Failure (CHF), COPD, Hyperlipidemia, Hypertension, Myocardial Infarction (ID) Father Family Medical History: Congestive Heart Failure (CHF), COPD, Musculoskeletal Disorder Medications and Allergies Home Medications Medication Instructions Recorded Confirmed Type Isosorbide Mononitrate ER [Imdur] 60 mg PO DAILY 10/30/19 09/09/24 History DULoxetine HCL [Cymbalta] 60 mg PO BID 01/08/22 09/09/24 History Gabapentin 800 mg PO BID PRN 01/08/22 09/09/24 History Esomeprazole Magnesium [NexIUM] 40 mg PO BID 07/08/22 09/09/24 History HYDROcodone/APAP 10-325MG [[place] 1 tab PO QID PRN 07/08/22 09/09/24 History 10-325] Apixaban [Eliquis] 5 mg PO BID 30 Days #60 tab 07/14/22 09/09/24 Rx Diltiazem Oral [Cardizem*] 30 mg PO TID #90 tab 07/14/22 09/09/24 Rx ALPRAZolam [Xanax] 0.25 mg PO BID PRN 09/09/24 09/09/24 History Atorvastatin [Lipitor] 40 mg PO DAILY 09/09/24 09/09/24 History Furosemide [Lasix] 40 mg PO DAILY PRN 09/09/24 09/09/24 History Levothyroxine Sodium [Synthroid] 137 mcg PO DAILY 09/09/24 09/09/24 History Ofatumumab [Kesimpta Pen] 20 mg SQ TU 09/09/24 09/09/24 History Umeclidinium Brm/Vilanterol Tr 1 puff INHALATION RT-DAILY 09/09/24 09/09/24 History [Anoro Ellipta 62.5-25 Mcg INH] Allergies Allergy/AdvReac Type Severity Reaction Status Date / Time azithromycin [From Zithromax] Allergy Severe Rash/Hives Verified 09/09/24 16:23 bupropion [From Wellbutrin] Allergy Severe Rash/Hives Verified 09/09/24 16:23 cephalexin [From Keflex] Allergy Intermediate Rash/Hives Verified 09/09/24 16:23 lisinopril [From Prinivil] Allergy Intermediate Rash/Hives Verified 09/09/24 16:23 nitrofurantoin Allergy Intermediate Rash/Hives Verified 09/09/24 16:23 [From Macrobid] pentazocine [From Talwin] Allergy Intermediate Rash/Hives Verified 09/09/24 16:23 topiramate [From Topamax] Allergy Intermediate Rash/Hives Verified 09/09/24 16:23 hydromorphone [From Dilaudid] AdvReac Severe Hallucinati Verified 09/09/24 16:23 ons propranolol [From Inderal LA] AdvReac Severe MENTAL Verified 09/09/24 16:23 MOOD CHANGES codeine AdvReac Intermediate "BAD Verified 09/09/24 16:23 DREAMS" ibuprofen [From Motrin] AdvReac Intermediate Nausea & Verified 09/09/24 16:23 Vomiting & Diarrhea Physical Exam Vitals: Vital Signs Temp Pulse Pulse Resp BP Pulse Ox 09/14/24 07:56 98.2 F 89 18 125/83 92 L 09/14/24 03:53 98.2 F 85 16 110/68 96 09/14/24 00:55 136 H 18 134/84 95 09/14/24 00:42 150 H 18 118/87 93 L 09/13/24 23:51 122 H 18 152/83 97 09/13/24 21:55 92 09/13/24 21:43 92 09/13/24 20:11 97.8 F 97 18 146/81 98 09/13/24 15:48 97.8 F 97 20 150/76 96 09/13/24 15:46 98 09/13/24 15:34 96 09/13/24 11:49 88 09/13/24 11:37 92 09/13/24 11:14 97.8 F 87 18 152/78 95 Intake and Output 09/13/24 09/14/24 09/14/24 22:59 06:59 14:59 Intake Total 1272 12.167 240 Output Total 3750 1000 500 Balance -4512 -017.833 -260 Intake: IV 10 10 Invasive Line 2 10 10 Intake, IV Titration 2.167 Amount Diltiazem 125 mg In 2.167 Dextrose 5% in Water 100 ml @ 5 MG/HR 5 mls/hr IV .Q24H [facility] Rx#:[id number] Oral 1262 240 Output: Urine 3750 1000 500 Other: Voiding Method External Catheter External Catheter Weight 81.1 kg Results 09/14/24 06:31 09/14/24 06:31 CBC 09/14/24 Range/Units 06:31 WBC 15.66 H (4.50-10.00) 10*3/uL RBC 4.00 L (4.10-5.20) 10*6/uL Hgb 12.2 (12.0-15.0) g/dL Hct 37.3 (37.2-46.3) % Plt Count 217 (140-440) 10*3/uL Comprehensive Metabolic Panel 09/13/24 09/14/24 Range/Units 07:17 06:31 Sodium 140 135 L (137-145) mmol/L Potassium 4.2 3.4 L (3.5-5.1) mmol/L Chloride 103 97 L (98-107) mmol/L Carbon Dioxide 36 H 37 H (22-30) mmol/L BUN 18 H 22 H (7-17) mg/dL Creatinine 0.70 0.76 (0.52-1.04) mg/dL Glucose 103 H 124 H (74-99) mg/dL Calcium 9.4 9.1 (8.4-10.2) mg/dL Current Medications Generic Name Dose Route Start Last Admin Trade Name Freq PRN Reason Stop Dose Admin Hydrocodone Bitart/Acetaminophen 1 each 09/09/24 17:04 09/14/24 03:56 Hydrocodone/Apap 10-325mg 1 Each Tab PO 1 each QID PRN Administration Pain Albuterol/Ipratropium 3 ml 09/09/24 16:00 09/13/24 21:42 Ipratropium-Albuterol 3 Ml Neb INHALATION 3 ml RT-QID MIKKI Administration Alprazolam 0.25 mg 09/11/24 03:31 09/14/24 08:00 Alprazolam 0.25 Mg Tab PO 0.25 mg BID PRN Administration Anxiety Apixaban 5 mg 09/09/24 21:00 09/14/24 08:00 Apixaban 5 Mg Tab PO 5 mg BID MIKKI Administration Protocol Atorvastatin Calcium 40 mg 09/10/24 09:00 09/14/24 08:00 Atorvastatin 40 Mg Tab PO 40 mg DAILY MIKKI Administration Budesonide/Formoterol Fumarate 2 puff 09/10/24 20:00 09/13/24 21:42 Symbicort 160-4.5 Mcg Inhaler INHALATION 2 puff RT-BID MIKKI Administration Dextrose/Water 25 ml 09/12/24 10:53 Dextrose 50% Syringe 50 Ml IVP PER PROTOCOL PRN Hypoglycemia Protocol Dextrose/Water 50 ml 09/12/24 10:53 Dextrose 50% Syringe 50 Ml IVP PER PROTOCOL PRN Hypoglycemia Protocol Diltiazem HCl 30 mg 09/09/24 22:00 09/14/24 08:00 Diltiazem Oral 30 Mg Tab PO 30 mg TID MIKKI Administration Duloxetine HCl 60 mg 09/09/24 21:00 09/14/24 08:01 Duloxetine Hcl 60 Mg Capsule.Dr PO 60 mg BID MIKKI Administration Fluconazole 100 mg 09/13/24 09:00 09/14/24 08:00 Fluconazole 100 Mg Tab PO 100 mg DAILY MIKKI Administration Protocol Furosemide 20 mg 09/13/24 17:45 09/14/24 08:00 Furosemide 10 Mg/Ml 2 Ml Vial IV 20 mg Q12HR MIKKI Administration Gabapentin 800 mg 09/09/24 17:04 09/14/24 07:59 Gabapentin 400 Mg Cap PO 800 mg BID PRN Administration Pain Guaifenesin 600 mg 09/13/24 21:00 09/14/24 08:00 Guaifenesin 600 Mg Tablet.Er PO 600 mg Q12HR MIKKI Administration Guaifenesin 200 mg 09/13/24 16:18 09/14/24 03:56 Guaifenesin Syrup 100mg/5ml 200 Mg/10 Ml Cup PO 200 mg Q6HR PRN Administration Cough Piperacillin Sod/Tazobactam 100 mls @ 25 mls/hr 09/09/24 18:00 09/14/24 01:01 Sod 3.375 gm/ Sodium Chloride IVPB 25 mls/hr Q8H MIKKI Administration Protocol Diltiazem HCl 125 mg/ Dextrose 125 mls @ 5 mls/hr 09/14/24 00:30 09/14/24 01:00 /Water IV 10 mg/hr .Q24H MIKKI 10 mls/hr Titration Protocol 5 MG/HR Insulin Human Lispro 0 unit 09/12/24 12:30 09/14/24 06:09 Insulin Lispro (Humalog) 100 Unit/Ml 10 Ml Vl SQ Not Given ACHS MIKKI Protocol Isosorbide Mononitrate 60 mg 09/10/24 09:00 09/14/24 08:00 Isosorbide Mononitrate Er 60 Mg Tab.Er.24h PO 60 mg DAILY MIKKI Administration Levothyroxine Sodium 137 mcg 09/10/24 06:30 09/14/24 06:35 Levothyroxine 137 Mcg Tab PO 137 mcg DAILY@0630 MIKKI Administration Methylprednisolone Sodium Succinate 40 mg 09/13/24 16:00 09/14/24 08:00 Methylprednisolone Sod Succi 40 Mg/Ml 1 Ml Vial IV 40 mg Q8HR MIKKI Administration Miscellaneous Information 1 each 09/09/24 15:31 Pneumonia Protocol Utilized 1 Each Misc PO ONCE PRN Per Protocol Miscellaneous Information 1 each 09/11/24 13:20 Potassium Replacement Protocol 1 Each Misc MISCELLANE DAILY PRN Per Protocol Protocol Nicotine 1 patch 09/12/24 17:15 09/14/24 08:01 Nicotine 21mg/24hr Patch TRANSDERM 1 patch DAILY MIKKI Administration Ofatumumab [Kesimpta 1 each 09/11/24 14:30 09/11/24 14:46 Pen] 20 Mg/0.4 Ml SQ 1 each TU MIKKI Administration Pantoprazole Sodium 40 mg 09/09/24 21:00 09/14/24 08:02 Pantoprazole 40 Mg Tablet PO 40 mg BID MIKKI Administration Potassium Chloride 20 meq 09/14/24 08:00 09/14/24 08:00 Potassium Chloride Er 20 Meq Tab.Er PO 09/14/24 09:01 20 meq Q1HR MIKKI Administration Protocol Intake and Output 09/13/24 09/14/24 09/14/24 22:59 06:59 14:59 Intake Total 1272 12.167 240 Output Total 3750 1000 500 Balance -2478 -987.833 -260 Intake: IV 10 10 Invasive Line 2 10 10 Intake, IV Titration 2.167 Amount Diltiazem 125 mg In 2.167 Dextrose 5% in Water 100 ml @ 5 MG/HR 5 mls/hr IV .Q24H [facility] Rx#:[id number] Oral 1262 240 Output: Urine 3750 1000 500 Other: Voiding Method External Catheter External Catheter Weight 81.1 kg 09/14/24 06:31 09/14/24 06:31
--- NOTE | 2024-09-14 13:37 | P.PN ---
Subjective Progress Note Date: 09/14/24 Principal diagnosis: Acute community-acquired pneumonia This is a 74-year-old female patient, known history of COPD, presented to the emergency department with generalized weakness and frequent falls and worsening shortness of breath. Apparently, the patient's condition has been decompensating over the past 3 to 4 days. She had increased cough and congestion along with worsening shortness of breath. Her cough was nonproductive. Based on that, the patient was brought into the hospital. Chest x-ray was done in the ED and the patient was found to have a new onset right lower lobe consolidation/pneumonia. The patient was found to have a low-grade fever. The patient had also leukocytosis with a white cell count of 18, hemoglobin 13.8 and a platelet count of 202. Normal coagulation profile. Normal D-dimer. Normal electrolytes. BUN was 18 with a creatinine of 0.8. proBNP level was 0560. UA was negative. Viral screen was negative. The patient was given a dose of Levaquin and subsequently started on a combination of Levaquin and Zosyn. Hemodynamically stable. Currently on 3 L of oxygen by nasal cannula.. No travel history. No sick contacts. CT scan of the head showed no acute abnormalities. EKG showed sinus tachycardia along with some nonspecific changes. The patient is seen today September 10, 2024 in follow-up in the emergency department. She is currently resting on a stretcher. Awake and alert in no acute distress. She is dyspneic with conversation. Dyspneic with minimal exertion. Maintaining O2 saturations in the 90s on a Ventimask. She is afebrile. Hemodynamically stable. Follow-up chest x-ray reveals patchy and interstitial changes right greater than left with some shifting opacities compared to yesterday. Suspect residual mild congestive heart failure. Trace bilateral pleural effusions persist. CT angiogram reveals no evidence of pulmonary embolism. There is bilateral lower lobe patchy consolidative opacities with additional interstitial thickening within the right upper lobe. Most consistent with pneumonia. Mild emphysema changes. Trace left pleural effusion. White count 17.4. Hemoglobin 13.1. Platelets 169. Sodium 138. Potassium 4.0. Bicarb 29. BUN 19. Creatinine 0.8. Glucose 141. She is continued on DuoNeb inhalations, Solu-Medrol. Antibiotics in the form of Zosyn and Levaquin. Anticoagulated with Eliquis. Patient was seen today on 09/11/2024, patient is feeling a bit better, however the patient is up her O2 requirement, now on 11 L high flow nasal cannula. Chest x-ray today continues to show bilateral infiltrates/interstitial with COPD. Patient is on broad-spectrum antibiotics, obviously she is not quite ready to be discharged home. Sputum cultures are pending but so far nondiagnos tic based on the Gram stain, blood cultures are also nondiagnostic and negative so far. Seen today on 09/12/2024, patient continues to have intermittent episodes of cough and shortness of breath, she is on 8 L high flow nasal cannula, O2 sats is 95%. Chest x-ray from 2 days ago showed COPD with scattered bilateral interstitial infiltrates which have persisted since admission. Patient is being evaluated by speech therapy for possible aspiration pneumonia. Remains on bronchodilators for her underlying COPD, patient had previous history of pulmonary embolism as well as history of hypertension and she has multiple complex medical issues. Continues to have leukocytosis with WBC of 17.4 hemogl obin 11.9 electrolytes are normal renal profile is normal Seen today on 09/13/2024, slightly better but nonetheless continues to have some intermittent episodes of cough and wheezing however overnight we were able to titrate her FiO2 down to 4 L instead of 8 L yesterday. Chest x-ray today showed minimal change, I believe it is better although the radiologist feels it is worsening but clinically the patient is better and the chest x-ray to me looks better WBC count is 15, improving compared to 18.18 on admission sputum so far is nondiagnostic final culture is showing mostly Debby albicans, blood cultures have been negative. Patient remains on Zosyn she is also on bronchodilators and on methylprednisolone which I will change to 40 mg IV push every 8 hours. Patient was seen today on 09/14/2024, patient is doing better from the pulmonary perspective, down to 4 L nasal cannula and her O2 sats of 92% patient was seen today by cardiology for paroxysmal atrial fibrillation and RVR, and apparently she had multiple falls in the past, patient was placed on Cardizem drip initially now on Cardizem orally 180 mg daily patient may eventually require Watchman procedure because of potential issues with her anticoagulations and frequent falls. She was cleared for discharge by cardiology, and I will go ahead and also cleared the patient for discharge since she is cleared by other consultants. Patient did receive adequate treatment for her COPD and pneumonia including multiple bronchodilators, steroids, and Zosyn. WBC count today is 15.6 hemoglobin is 12 electrolytes are normal bicarb is 37 BUN is normal creatinine is normal Objective - Vital Signs Vital signs: Vital Signs Temp 98.2 F 09/14/24 07:56 Pulse 84 09/14/24 12:18 Resp 16 09/14/24 12:18 BP 137/79 09/14/24 12:18 Pulse Ox 92 L 09/14/24 12:18 FiO2 Intake & Output 09/13/24 09/14/24 09/14/24 18:59 06:59 18:59 Intake Total 1372 522.167 250 Output Total 800 4250 500 Balance 572 -3727.833 -250 Weight 81.1 kg Intake: IV 10 20 10 Invasive Line 2 10 20 Invasive Line 3 10 Intake, IV Titration 2.167 Amount Diltiazem 125 mg In 2.167 Dextrose 5% in Water 100 ml @ 5 MG/HR 5 mls/hr IV .Q24H [facility] Rx#:[id number] Oral 1362 500 240 Output: Urine 800 4250 500 Other: Voiding Method External Catheter External Catheter External Catheter - Exam GENERAL EXAM: Revealed 74-year-old female in no distress on 4 L nasal cannula O2 sat 92% HEAD: Normocephalic. EYES: Normal reaction of pupils, equal size. NOSE: Clear with pink turbinates. THROAT: No erythema or exudates. NECK: No masses, no JVD. CHEST: No chest wall deformity. LUNGS: Diminished breath sounds at the bases no rhonchi no wheezes CVS: S1 and S2 normal with no audible murmur, regular rhythm. ABDOMEN: No hepatosplenomegaly, normal bowel sounds, no guarding or rigidity. SKIN: No rashes CENTRAL NERVOUS SYSTEM: Alert oriented x 3 no focal deficit EXTREMITIES: No clubbing edema or cyanosis - Labs CBC & Chem 7: 09/14/24 06:31 09/14/24 06:31 Labs: Abnormal Lab Results - Last 24 Hours (Table) 09/13/24 09/13/24 09/14/24 Range/Units 16:27 20:06 06:04 WBC (4.50-10.00) 10*3/uL RBC (4.10-5.20) 10*6/uL Immature Gran # (0.00-0.04) 10*3/uL Neutrophils # (1.80-7.70) 10*3/uL Lymphocytes # (0.90-5.00) 10*3/uL Eosinophils # (0.04-0.35) 10*3/uL Sodium (137-145) mmol/L Potassium (3.5-5.1) mmol/L Chloride (98-107) mmol/L Carbon Dioxide (22-30) mmol/L BUN (7-17) mg/dL Glucose (74-99) mg/dL POC Glucose (mg/dL) 142 H 135 H 137 H (70-110) mg/dL 09/14/24 09/14/24 09/14/24 Range/Units 06:31 06:31 11:34 WBC 15.66 H (4.50-10.00) 10*3/uL RBC 4.00 L (4.10-5.20) 10*6/uL Immature Gran # 0.24 H (0.00-0.04) 10*3/uL Neutrophils # 14.16 H (1.80-7.70) 10*3/uL Lymphocytes # 0.51 L (0.90-5.00) 10*3/uL Eosinophils # 0.00 L (0.04-0.35) 10*3/uL Sodium 135 L (137-145) mmol/L Potassium 3.4 L (3.5-5.1) mmol/L Chloride 97 L (98-107) mmol/L Carbon Dioxide 37 H (22-30) mmol/L BUN 22 H (7-17) mg/dL Glucose 124 H (74-99) mg/dL POC Glucose (mg/dL) 157 H (70-110) mg/dL Assessment and Plan Assessment: Impression: Acute hypoxic respiratory failure Acute community-acquired pneumonia likely bacterial patient remains on Zosyn 3.375 g every 8 hours, sputum cultures are nondiagnostic Benign essential hypertension History of underlying COPD which is presently inactive History of DVT, and pulmonary embolism has been on Eliquis all along. History of MS, on treatment. Recommendation: DC antibiotics continue antibiotics Continue bronchodilators Continue oxygen and titrate accordingly Continue Symbicort and DuoNeb Continue Eliquis Continue oxygen and titrate accordingly Will clear for discharge if cleared by other consultants. Prognosis remains guarded Time with Patient: Less than 30
[2024-09-14 15:08] VITALS: BMI 28.8
[2024-09-14 16:53] LABS: Glucose,Whole Blood 198 mg/dL (70-110)
[2024-09-14 20:32] LABS: Glucose,Whole Blood 121 mg/dL (70-110)
[2024-09-15 06:44] LABS: Glucose,Whole Blood 99 mg/dL (70-110)
--- NOTE | 2024-09-15 06:50 | P.PN ---
Subjective Progress Note Date: 09/14/24 This is a pleasant 74-year-old female who was recently admitted with increasing shortness of breath with COPD exacerbation along with acute bilateral pneumonia initially improving although requiring more oxygen and reporting increased shortness of breath overnight currently on 8 L high flow. Patient reports continued weakness as well although is attempting to get up and work with physical therapy. Would strongly recommend ECF for continued strength and mobility although patient has persistent ongoing home and reports her grandson is her caregiver and care provide care. Will be agreeable to home care with rehab in the home. Will have PT/OT therapy evaluate and would recommend working with her daily. Encouraged increase activity as tolerated and sitting up more frequently in the chair. Patient also to continue with incentive spirometer use at least 10 times every hour while awake. Patient is maintained on antibiotics at this time along with [id number] DuoNeb treatments and IV steroids with pulmonary following. 09/13/2024 Patient is seen in follow-up with pulmonary following closely. Patient is continued on 5 L via nasal cannula and titrated as tolerated reporting feeling s lightly improved. Patient continues with significant cough and will add as needed medications for supportive care. Encouraged continued incentive spirometer use and increase activity as tolerated. Patient evaluated by PT/OT therapy and patient is adamant she is returning home. Will discuss with case management/social work regarding discharge planning for necessary equipment. Will discuss further with pulmonary regarding discharge planning possibly in the next 24 hours. Patient was maintained on IV fluids and will discontinue and start Lasix twice daily with follow-up labs in AM. 09/14/2024 Patient is seen in follow-up this morning reportedly had a fall from nursing staff due to weakness attempting to rendering equipment tender the bathroom and again was persistent ongoing home with her grandson taking care of her. Patient has been counseled multiple times on fall risk and patient is high risk would recommend rehab although patient is adamant she is returning home. Patient did have irregular rhythm with elevated heart rates with A-fib RVR. Patient does have history of A-fib and patient was placed on Cardizem drip per protocol with cardiology on consult. Medications adjusted and patient has converted and currently rate controlled. Patient was scheduled for discharge home today. Review of systems: Constitutional: No reports of fatigue, fever, or chills Cardiovascular: No reports of chest pain or palpitations Respiratory: reports of continued shortness of breath and persistent cough GI: No reports of nausea, no reports of vomiting, no diarrhea : No reports of dysuria or retention Neurovascular: reports of generalized weakness All medications have been reviewed PHYSICAL EXAMINATION: GENERAL: The patient is alert and oriented x4, Well developed, well nourished. Elderly appearing HEENT: Pupils are round and equally reacting to light. EOMI. no scleral icterus. No conjunctival pallor. Normocephalic, atraumatic. No pharyngeal erythema. No thyromegaly. CARDIOVASCULAR: S1 and S2 muffled PULMONARY: diminished breath sounds bilaterally with expiratory wheezing and coarse scattered rhonchi noted. ABDOMEN: soft. Nontender on exam. obese. non-distended, normoactive bowel sounds. No palpable organomegaly. MUSCULOSKELETAL: No joint swelling or deformity. EXTREMITIES: No cyanosis, clubbing, or pedal edema. NEUROLOGICAL: Gross neurological examination did not reveal any focal deficits. Diffuse weakness SKIN: No rashes. 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 Patient is currently maintained on [id number] DuoNeb treatment s along with IV steroids and will continue. Patient to be transition to oral prednisone Patient is requiring 3-4 L via nasal cannula and recommend to continue with incentive spirometer use and aggressively use at least 10 times every hour while awake and also continued coughing and deep breathing and wean FiO2 as tolerated. Patient does qualify for home O2 to manage her COPD and discharge is being arranged with oxygen per case management Pulmonary following recommend to continue with current medications and management Recommend PT/OT therapy daily as patient is significantly weak. Patient was adamant on returning home and does not want a go to rehab and reports her grandson is her caregiver with history of MS. family has discussed with her further after falling today and patient is now agreeable to go to rehab. Will discuss with case management regarding discharge planning and placed referrals to ECF. Patient will require an insurance authorization and unless it is obtained on 09/15/2024, patient will likely not go to ECF until Tuesday given the holiday and insurance companies are closed to obtain authorization. Follow-up on repeat labs and replace electrolytes per protocol. Discussed with the patient about continuing incentive spirometer use at least 10 times every hour while awake Due to multiple complex medical issues, overall prognosis is guarded The impression and plan of care has been dictated by Mary Radford, nurse practitioner as directed. Dr. Jarrett MD I have performed a history and examination and MDM of this patient, discussed th e same with the dictator, and agree with the dictator's assessment and plan as written ,documented as a scribe. Based on total visit time, I have performed more than 50% of the visit. Any additional findings or plans will be noted. Objective - Vital Signs Vital signs: Vital Signs Temp 98.2 F 09/14/24 07:56 Pulse 84 09/14/24 12:18 Resp 16 09/14/24 12:18 BP 137/79 09/14/24 12:18 Pulse Ox 92 L 09/14/24 12:18 FiO2 Intake & Output 09/13/24 09/14/24 09/14/24 18:59 06:59 18:59 Intake Total 1372 522.167 250 Output Total 800 4250 500 Balance 572 -3727.833 -250 Weight 81.1 kg Intake: IV 10 20 10 Invasive Line 2 10 20 Invasive Line 3 10 Intake, IV Titration 2.167 Amount Diltiazem 125 mg In 2.167 Dextrose 5% in Water 100 ml @ 5 MG/HR 5 mls/hr IV .Q24H [facility] Rx#:[id number] Oral 1362 500 240 Output: Urine 800 4250 500 Other: Voiding Method External Catheter External Catheter External Catheter - Labs CBC & Chem 7: 09/14/24 06:31 09/14/24 06:31 Labs: Abnormal Lab Results - Last 24 Hours (Table) 09/13/24 09/13/24 09/14/24 Range/Units 16:27 20:06 06:04 WBC (4.50-10.00) 10*3/uL RBC (4.10-5.20) 10*6/uL Immature Gran # (0.00-0.04) 10*3/uL Neutrophils # (1.80-7.70) 10*3/uL Lymphocytes # (0.90-5.00) 10*3/uL Eosinophils # (0.04-0.35) 10*3/uL Sodium (137-145) mmol/L Potassium (3.5-5.1) mmol/L Chloride (98-107) mmol/L Carbon Dioxide (22-30) mmol/L BUN (7-17) mg/dL Glucose (74-99) mg/dL POC Glucose (mg/dL) 142 H 135 H 137 H (70-110) mg/dL 09/14/24 09/14/24 09/14/24 Range/Units 06:31 06:31 11:34 WBC 15.66 H (4.50-10.00) 10*3/uL RBC 4.00 L (4.10-5.20) 10*6/uL Immature Gran # 0.24 H (0.00-0.04) 10*3/uL Neutrophils # 14.16 H (1.80-7.70) 10*3/uL Lymphocytes # 0.51 L (0.90-5.00) 10*3/uL Eosinophils # 0.00 L (0.04-0.35) 10*3/uL Sodium 135 L (137-145) mmol/L Potassium 3.4 L (3.5-5.1) mmol/L Chloride 97 L (98-107) mmol/L Carbon Dioxide 37 H (22-30) mmol/L BUN 22 H (7-17) mg/dL Glucose 124 H (74-99) mg/dL POC Glucose (mg/dL) 157 H (70-110) mg/dL
[2024-09-15 07:26] LABS: Basophils # (A) 0.06 10*3/uL (0.00-0.10); Basophils % (A) 0.3 %; HCT 41.2 % (37.2-46.3); HGB 13.3 g/dL (12.0-15.0); Lymphocytes # (A) 1.17 10*3/uL (0.90-5.00); Lymphocytes % (A) 6.7 %; MCH 30.6 pg (27.0-32.0); MCHC 32.3 g/dL (32.0-37.0); MCV 94.7 fL (80.0-97.0); Mean Platelet Volume 9.6 fL (9.5-12.2); Monocytes % (A) 5.1 %; Neutrophils # (A) 14.91 10*3/uL (1.80-7.70); Neutrophils % (A) 85.3 %; Platelet Count 287 10*3/uL (140-440); RBC 4.35 10*6/uL (4.10-5.20); RDW 14.1 % (11.5-14.5); WBC 17.49 10*3/uL (4.50-10.00)
[2024-09-15 07:37] LABS: African American GFR (CKD) 67 (>60 ml/min/1.73 sqM); Blood Urea Nitrogen 30 mg/dL (7-17); Calcium 9.7 mg/dL (8.4-10.2); Chloride 92 mmol/L (98-107); Glucose 96 mg/dL (74-99); Non-African American GFR(CKD) 58 (>60 ml/min/1.73 sqM); Sodium 137 mmol/L (137-145)
[2024-09-15 07:45] LABS: Anion Gap 6 mmol/L
[2024-09-15 08:06] LABS: Carbon Dioxide 39 mmol/L (22-30)
[2024-09-15] MEDS: predniSONE 20 MG TAB PO SCH (08:31)
--- NOTE | 2024-09-15 10:21 | P.PN ---
Subjective This is a pleasant 74-year-old female who was recently admitted with increasing shortness of breath with COPD exacerbation along with acute bilateral pneumonia initially improving although requiring more oxygen and reporting increased shortness of breath overnight currently on 8 L high flow. Patient reports continued weakness as well although is attempting to get up and work with physical therapy. Would strongly recommend ECF for continued strength and mobility although patient has persistent ongoing home and reports her grandson is her caregiver and care provide care. Will be agreeable to home care with rehab in the home. Will have PT/OT therapy evaluate and would recommend working with her daily. Encouraged increase activity as tolerated and sitting up more frequently in the chair. Patient also to continue with incentive spirometer use at least 10 times every hour while awake. Patient is maintained on antibiotics at this time along with [id number] DuoNeb treatments and IV steroids with pulmonary following. 09/13/2024 Patient is seen in follow-up with pulmonary following closely. Patient is continued on 5 L via nasal cannula and titrated as tolerated reporting feeling slightly improved. Patient continues with significant cough and will add as needed medications for supportive care. Encouraged continued incentive spirometer use and increase activity as tolerated. Patient evaluated by PT/OT therapy and patient is adamant she is returning home. Will discuss with case management/social work regarding discharge planning for necessary equipment. Will discuss further with pulmonary regarding discharge planning possibly in the next 24 hours. Patient was maintained on IV fluids and will discontinue and sta rt Lasix twice daily with follow-up labs in AM. 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 Patient has been counseled multiple times on fall risk and patient is high risk would recommend rehab although patient is adamant she is returning home. Patient did have irregular rhythm with elevated heart rates with A-fib RVR. Patient does have history of A-fib and patient was placed on Cardizem drip per protocol with harjit rodriguez on consult. Medications adjusted and patient has converted and currently rate controlled. Patient was scheduled for discharge home today. 09/15 Patient states her breathing is slightly better No chest pain or coughing He has 1+ bilateral leg edema She is on Eliquis at home which is held by superintendent recreation yesterday because of risk of falling and to be reassessed as an outpatient upon discharge Will start on subcutaneous heparin Pulmonary also following Objective - Vital Signs Vital signs: Vital Signs Temp 97.6 F 09/15/24 08:15 Pulse 86 09/15/24 09:14 Resp 16 09/15/24 08:15 BP 129/79 09/15/24 08:15 Pulse Ox 99 09/15/24 09:06 FiO2 Intake & Output 09/14/24 09/15/24 09/15/24 18:59 06:59 18:59 Intake Total 840 340 Output Total 900 Balance -60 340 Weight 81.1 kg Intake: IV 20 Invasive Line 3 20 Intake, IV Titration 100 100 Amount Piperacillin-Tazobactam 3 100 100 .375 gm In Sodium Chloride 0.9% 100 ml @ 25 mls/hr IVPB Q8H [facility] Rx#: [id number] Oral 720 240 Output: Urine 900 Other: Voiding Method External Catheter External Catheter # Bowel Movements 3 - Exam GENERAL: The patient is alert and oriented x3, not in any acute distress. Well developed, well nourished. HEENT: Pupils are round and equally reacting to light. EOMI. No scleral icterus. No conjunctival pallor. Normocephalic, atraumatic. No pharyngeal erythema. No thyromegaly. CARDIOVASCULAR: S1 and S2 present. No murmurs, rubs, or gallops. PULMONARY: Chest is clear to auscultation, no wheezing , no crackles. ABDOMEN: Soft, nontender, nondistended, normoactive bowel sounds. No palpable organomegaly. MUSCULOSKELETAL: No joint swelling or deformity. EXTREMITIES: No cyanosis, clubbing, or pedal edema. NEUROLOGICAL: Gross neurological examination did not reveal any focal deficits. SKIN: No rashes. no petechiae. - Labs CBC & Chem 7: 09/15/24 06:27 09/15/24 06:27 Labs: Abnormal Lab Results - Last 24 Hours (Table) 09/14/24 09/14/24 09/14/24 Range/Units 11:34 16:51 20:32 WBC (4.50-10.00) 10*3/uL Immature Gran # (0.00-0.04) 10*3/uL Neutrophils # (1.80-7.70) 10*3/uL Eosinophils # (0.04-0.35) 10*3/uL Chloride (98-107) mmol/L Carbon Dioxide (22-30) mmol/L BUN (7-17) mg/dL POC Glucose (mg/dL) 157 H 198 H 121 H (70-110) mg/dL 09/15/24 09/15/24 Range/Units 06:27 06:27 WBC 17.49 H (4.50-10.00) 10*3/uL Immature Gran # 0.45 H (0.00-0.04) 10*3/uL Neutrophils # 14.91 H (1.80-7.70) 10*3/uL Eosinophils # 0.00 L (0.04-0.35) 10*3/uL Chloride 92 L (98-107) mmol/L Carbon Dioxide 39 H (22-30) mmol/L BUN 30 H (7-17) mg/dL POC Glucose (mg/dL) (70-110) mg/dL Microbiology - Last 24 Hours (Table) 09/09/24 15:58 Blood Culture - Final Blood Assessment and Plan Assessment: ssessment: Chronic obstructive pulmonary disease acute exacerbation with acute bilateral pneumonia with possible aspiration, present on admission Increased WBC Weakness and multiple falls with a fall today on 09/14/2024 in the bathroom, no injuries noted History of pulmonary embolism History of atrial fibrillation, currently rate controlled 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 Patient is currently maintained on [id number] DuoNeb treatments along with IV steroids and will continue. Patient to be transition to oral prednisone Patient is requiring 3-4 L via nasal cannula and recommend to continue with incentive spirometer use and aggressively use at least 10 times every hour while awake and also continued coughing and deep breathing and wean FiO2 as tolerated. Patient does qualify for home O2 to manage her COPD and discharge is being arranged with oxygen per case management Pulmonary following recommend to continue with current medications and management Recommend PT/OT therapy daily as patient is significantly weak. Patient was adamant on returning home and does not want a go to rehab and reports her grandson is her caregiver with history of MS. family has discussed with her further after falling today and patient is now agreeable to go to rehab. Will discuss with case management regarding discharge planning and placed referrals to ECF. Patient will require an insurance authorization and unless it is obtained on 09/15/2024, patient will likely not go to ECF until Tuesday given the holiday and insurance companies are closed to obtain authorization. Follow-up on repeat labs and replace electrolytes per protocol. Discussed with the patient about continuing incentive spirometer use at least 10 times every hour while awake Due to multiple complex medical issues, overall prognosis is guarded Hold Eliquis by superintendent recreation and start subcutaneous heparin
[2024-09-15 11:19] LABS: Glucose,Whole Blood 152 mg/dL (70-110)
--- NOTE | 2024-09-15 11:27 | P.PN ---
Subjective Progress Note Date: 09/15/24 This is Wilner Kay NP, I'm dictating on behalf of Dr. Brink's H&P and A&P. Patient was interviewed and examined. Patient is a pleasant 74-year-old female who came to the hospital and was found to have atrial fibrillation with rapid ventricular response. Patient was switched over to Cardizem 180 mg CD daily yesterday, and this appears to be controlling her rate. Patient reports that she is feeling much better today. Her heart rate is below 100 at this time. GENERAL: Well-appearing, well-nourished and in no acute distress. NECK: Supple without JVD or thyromegaly. LUNGS: Breath sounds clear to auscultation bilaterally. Respiration equal and unlabored. No wheezes, rales or rhonchi. HEART: Regular rate and rhythm without murmurs, rubs or gallops. S1 and S2 heard. EXTREMITIES: Normal range of motion, no edema. No clubbing or cyanosis. Peripheral pulses intact and strong. VITALS: Temp 97.6, pulse 88, respirations 16, blood pressure 129/79, O2 saturation 98% on 4 L TELEMETRY: Atrial fibrillation with controlled ventricular response LABS: White count 17.4, hemoglobin 13.3, platelets 287, sodium 137, potassium 4, chloride 92, BUN 30, creatinine 0.97, calcium 9.7 IMPRESSION: 1. Paroxysmal atrial fibrillation with episodes of RVR, currently rate controlled 2. Multiple falls including 1 fall in the hospital 3. Acute hypoxic respiratory failure secondary to gram-negative pneumonia 4. COPD 5. CAD status post PCI 6. MS 7. History of DVT and PE 8. Hypertension 9. Bradycardia PLAN: No changes to medications recommended at this time. Patient appears to be well-controlled on her current regimen. No further recommendations from a cardiology standpoint. Thank you for allowing us to participate in the care of this patient. Objective - Vital Signs Vital signs: Vital Signs Temp 97.6 F 09/15/24 08:15 Pulse 86 09/15/24 09:14 Resp 16 09/15/24 08:15 BP 129/79 09/15/24 08:15 Pulse Ox 99 09/15/24 09:06 FiO2 Intake & Output 09/14/24 09/15/24 09/15/24 18:59 06:59 18:59 Intake Total 840 340 Output Total 900 Balance -60 340 Weight 81.1 kg Intake: IV 20 Invasive Line 3 20 Intake, IV Titration 100 100 Amount Piperacillin-Tazobactam 3 100 100 .375 gm In Sodium Chloride 0.9% 100 ml @ 25 mls/hr IVPB Q8H [facility] Rx#: [id number] Oral 720 240 Output: Urine 900 Other: Voiding Method External Catheter External Catheter # Bowel Movements 3 - Labs CBC & Chem 7: 09/15/24 06:27 09/15/24 06:27 Labs: Abnormal Lab Results - Last 24 Hours (Table) 09/14/24 09/14/24 09/14/24 Range/Units 11:34 16:51 20:32 WBC (4.50-10.00) 10*3/uL Immature Gran # (0.00-0.04) 10*3/uL Neutrophils # (1.80-7.70) 10*3/uL Eosinophils # (0.04-0.35) 10*3/uL Chloride (98-107) mmol/L Carbon Dioxide (22-30) mmol/L BUN (7-17) mg/dL POC Glucose (mg/dL) 157 H 198 H 121 H (70-110) mg/dL 09/15/24 09/15/24 09/15/24 Range/Units 06:27 06:27 11:17 WBC 17.49 H (4.50-10.00) 10*3/uL Immature Gran # 0.45 H (0.00-0.04) 10*3/uL Neutrophils # 14.91 H (1.80-7.70) 10*3/uL Eosinophils # 0.00 L (0.04-0.35) 10*3/uL Chloride 92 L (98-107) mmol/L Carbon Dioxide 39 H (22-30) mmol/L BUN 30 H (7-17) mg/dL POC Glucose (mg/dL) 152 H (70-110) mg/dL Microbiology - Last 24 Hours (Table) 09/09/24 15:58 Blood Culture - Final Blood
--- NOTE | 2024-09-15 15:27 | P.PN ---
Subjective Progress Note Date: 09/15/24 Principal diagnosis: Acute community-acquired pneumonia This is a 74-year-old female patient, known history of COPD, presented to the emergency department with generalized weakness and frequent falls and worsening shortness of breath. Apparently, the patient's condition has been decompensating over the past 3 to 4 days. She had increased cough and congestion along with worsening shortness of breath. Her cough was nonproductive. Based on that, the patient was brought into the hospital. Chest x-ray was done in the ED and the patient was found to have a new onset right lower lobe consolidation/pneumonia. The patient was found to have a low-grade fever. The patient had also leukocytosis with a white cell count of 18, hemoglobin 13.8 and a platelet count of 202. Normal coagulation profile. Normal D-dimer. Normal electrolytes. BUN was 18 with a creatinine of 0.8. proBNP level was 0560. UA was negative. Viral screen was negative. The patient was given a dose of Levaquin and subsequently started on a combination of Levaquin and Zosyn. Hemodynamically stable. Currently on 3 L of oxygen by nasal cannula.. No travel history. No sick contacts. CT scan of the head showed no acute abnormalities. EKG showed sinus tachycardia along with some nonspecific changes. The patient is seen today September 10, 2024 in follow-up in the emergency department. She is currently resting on a stretcher. Awake and alert in no acute distress. She is dyspneic with conversation. Dyspneic with minimal exertion. Maintaining O2 saturations in the 90s on a Ventimask. She is afebrile. Hemodynamically stable. Follow-up chest x-ray reveals patchy and interstitial changes right greater than left with some shifting opacities compared to yesterday. Suspect residual mild congestive heart failure. Trace bilateral pleural effusions persist. CT angiogram reveals no evidence of pulmonary embolism. There is bilateral lower lobe patchy consolidative opacities with additional interstitial thickening within the right upper lobe. Most consistent with pneumonia. Mild emphysema changes. Trace left pleural effusion. White count 17.4. Hemoglobin 13.1. Platelets 169. Sodium 138. Potassium 4.0. Bicarb 29. BUN 19. Creatinine 0.8. Glucose 141. She is continued on DuoNeb inhalations, Solu-Medrol. Antibiotics in the form of Zosyn and Levaquin. Anticoagulated with Eliquis. Patient was seen today on 09/11/2024, patient is feeling a bit better, however the patient is up her O2 requirement, now on 11 L high flow nasal cannula. Chest x-ray today continues to show bilateral infiltrates/interstitial with COPD. Patient is on broad-spectrum antibiotics, obviously she is not quite ready to be discharged home. Sputum cultures are pending but so far nondiagnos tic based on the Gram stain, blood cultures are also nondiagnostic and negative so far. Seen today on 09/12/2024, patient continues to have intermittent episodes of cough and shortness of breath, she is on 8 L high flow nasal cannula, O2 sats is 95%. Chest x-ray from 2 days ago showed COPD with scattered bilateral interstitial infiltrates which have persisted since admission. Patient is being evaluated by speech therapy for possible aspiration pneumonia. Remains on bronchodilators for her underlying COPD, patient had previous history of pulmonary embolism as well as history of hypertension and she has multiple complex medical issues. Continues to have leukocytosis with WBC of 17.4 hemogl obin 11.9 electrolytes are normal renal profile is normal Seen today on 09/13/2024, slightly better but nonetheless continues to have some intermittent episodes of cough and wheezing however overnight we were able to titrate her FiO2 down to 4 L instead of 8 L yesterday. Chest x-ray today showed minimal change, I believe it is better although the radiologist feels it is worsening but clinically the patient is better and the chest x-ray to me looks better WBC count is 15, improving compared to 18.18 on admission sputum so far is nondiagnostic final culture is showing mostly Debby albicans, blood cultures have been negative. Patient remains on Zosyn she is also on bronchodilators and on methylprednisolone which I will change to 40 mg IV push every 8 hours. Patient was seen today on 09/14/2024, patient is doing better from the pulmonary perspective, down to 4 L nasal cannula and her O2 sats of 92% patient was seen today by cardiology for paroxysmal atrial fibrillation and RVR, and apparently she had multiple falls in the past, patient was placed on Cardizem drip initially now on Cardizem orally 180 mg daily patient may eventually require Watchman procedure because of potential issues with her anticoagulations and frequent falls. She was cleared for discharge by cardiology, and I will go ahead and also cleared the patient for discharge since she is cleared by other consultants. Patient did receive adequate treatment for her COPD and pneumonia including multiple bronchodilators, steroids, and Zosyn. WBC count today is 15.6 hemoglobin is 12 electrolytes are normal bicarb is 37 BUN is normal creatinine is normal Seen today on 09/15/2024, continues to do well from the pulmonary perspective, patient is now on oral Cardizem for her atrial fibrillation, on 2 L nasal cannula and O2 sats of 98%, patient's rate is now currently controlled, being followed by cardiology, considering the patient had multiple falls including 1 fall in the hospital, now she is being considered to go to rehab instead of going home. Again from the pulmonary perspective I am clearing the patient for discharge. WBC count today is 17.4 hemoglobin 13.3 electrolytes are normal renal profile is normal Objective - Vital Signs Vital signs: Vital Signs Temp 97.6 F 09/15/24 08:15 Pulse 80 09/15/24 12:30 Resp 18 09/15/24 11:27 BP 132/78 09/15/24 11:26 Pulse Ox 98 09/15/24 11:27 FiO2 Intake & Output 09/14/24 09/15/24 09/15/24 18:59 06:59 18:59 Intake Total 840 562 Output Total 900 200 Balance -60 362 Weight 81.1 kg Intake: IV 20 Invasive Line 3 20 Intake, IV Titration 100 100 Amount Piperacillin-Tazobactam 3 100 100 .375 gm In Sodium Chloride 0.9% 100 ml @ 25 mls/hr IVPB Q8H [facility] Rx#: [id number] Oral 720 462 Output: Urine 900 200 Other: Voiding Method External Catheter External Catheter Toilet # Voids 1 # Bowel Movements 3 - Exam GENERAL EXAM: Revealed 74-year-old female in no distress on 2 L nasal cannula clinically improved from the pulmonary perspective HEAD: Normocephalic. EYES: Normal reaction of pupils, equal size. NOSE: Clear with pink turbinates. THROAT: No erythema or exudates. NECK: No masses, no JVD. CHEST: No chest wall deformity. LUNGS: Diminished breath sounds at the bases no rhonchi no wheezes CVS: S1 and S2 normal with no audible murmur, regular rhythm. ABDOMEN: No hepatosplenomegaly, normal bowel sounds, no guarding or rigidity. SKIN: No rashes CENTRAL NERVOUS SYSTEM: Alert oriented x 3 no focal deficit EXTREMITIES: No clubbing edema or cyanosis - Labs CBC & Chem 7: 09/15/24 06:27 09/15/24 06:27 Labs: Abnormal Lab Results - Last 24 Hours (Table) 09/14/24 09/14/24 09/15/24 Range/Units 16:51 20:32 06:27 WBC 17.49 H (4.50-10.00) 10*3/uL Immature Gran # 0.45 H (0.00-0.04) 10*3/uL Neutrophils # 14.91 H (1.80-7.70) 10*3/uL Eosinophils # 0.00 L (0.04-0.35) 10*3/uL Chloride (98-107) mmol/L Carbon Dioxide (22-30) mmol/L BUN (7-17) mg/dL POC Glucose (mg/dL) 198 H 121 H (70-110) mg/dL 09/15/24 09/15/24 Range/Units 06:27 11:17 WBC (4.50-10.00) 10*3/uL Immature Gran # (0.00-0.04) 10*3/uL Neutrophils # (1.80-7.70) 10*3/uL Eosinophils # (0.04-0.35) 10*3/uL Chloride 92 L (98-107) mmol/L Carbon Dioxide 39 H (22-30) mmol/L BUN 30 H (7-17) mg/dL POC Glucose (mg/dL) 152 H (70-110) mg/dL Microbiology - Last 24 Hours (Table) 09/09/24 15:58 Blood Culture - Final Blood Assessment and Plan Assessment: Impression: Acute hypoxic respiratory failure Acute community-acquired pneumonia likely bacterial patient remains on Zosyn 3.375 which I will discontinue today. Benign essential hypertension History of underlying COPD which is presently inactive History of DVT, and pulmonary embolism has been on Eliquis all along. History of MS, on treatment. Recommendation: Discontinue Zosyn Continue bronchodilators Continue oxygen and titrate accordingly Continue Symbicort and DuoNeb Continue Eliquis Continue oxygen and titrate accordingly Again clear for discharge to rehab. Prognosis remains guarded Time with Patient: Less than 30
[2024-09-15 16:17] LABS: Glucose,Whole Blood 129 mg/dL (70-110)
[2024-09-15 20:14] LABS: Glucose,Whole Blood 150 mg/dL (70-110)
[2024-09-15] MEDS: HEPARIN SODIUM,PORCINE 5,000 UNIT/ML 1 ML VIAL SQ SCH (21:33)
[2024-09-16 06:03] LABS: Glucose,Whole Blood 111 mg/dL (70-110)
--- NOTE | 2024-09-16 11:23 | P.PN ---
Subjective This is a pleasant 74-year-old female who was recently admitted with increasing shortness of breath with COPD exacerbation along with acute bilateral pneumonia initially improving although requiring more oxygen and reporting increased shortness of breath overnight currently on 8 L high flow. Patient reports continued weakness as well although is attempting to get up and work with physical therapy. Would strongly recommend ECF for continued strength and mobility although patient has persistent ongoing home and reports her grandson is her caregiver and care provide care. Will be agreeable to home care with rehab in the home. Will have PT/OT therapy evaluate and would recommend working with her daily. Encouraged increase activity as tolerated and sitting up more frequently in the chair. Patient also to continue with incentive spirometer use at least 10 times every hour while awake. Patient is maintained on antibiotics at this time along with [id number] DuoNeb treatments and IV steroids with pulmonary following. 09/13/2024 Patient is seen in follow-up with pulmonary following closely. Patient is continued on 5 L via nasal cannula and titrated as tolerated reporting feeling slightly improved. Patient continues with significant cough and will add as needed medications for supportive care. Encouraged continued incentive spirometer use and increase activity as tolerated. Patient evaluated by PT/OT therapy and patient is adamant she is returning home. Will discuss with case management/social work regarding discharge planning for necessary equipment. Will discuss further with pulmonary regarding discharge planning possibly in the next 24 hours. Patient was maintained on IV fluids and will discontinue and sta rt Lasix twice daily with follow-up labs in AM. 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 Patient has been counseled multiple times on fall risk and patient is high risk would recommend rehab although patient is adamant she is returning home. Patient did have irregular rhythm with elevated heart rates with A-fib RVR. Patient does have history of A-fib and patient was placed on Cardizem drip per protocol with harjit rodriguez on consult. Medications adjusted and patient has converted and currently rate controlled. Patient was scheduled for discharge home today. 09/15 Patient states her breathing is slightly better No chest pain or coughing He has 1+ bilateral leg edema She is on Eliquis at home which is held by truck switcher yesterday because of risk of falling and to be reassessed as an outpatient upon discharge Will start on subcutaneous heparin Pulmonary also following 09/16 Patient still very weak Still short of breath and coughing with little improvement Still on 2 L oxygen via nasal cannula Patient is not ready for discharge yet as she is still symptomatic She remains on IV fluconazole and, IV Zosyn and IV Lasix 1 mg twice daily and prednisone 40 mg Objective - Vital Signs Vital signs: Vital Signs Temp 97.4 F L 09/16/24 08:00 Pulse 92 09/16/24 09:28 Resp 16 09/16/24 08:00 BP 154/95 09/16/24 08:00 Pulse Ox 91 L 09/16/24 09:19 FiO2 Intake & Output 09/15/24 09/16/24 09/16/24 18:59 06:59 18:59 Intake Total 802 200 120 Output Total 200 3000 Balance 602 -2800 120 Weight 80.8 kg Intake: Intake, IV Titration 100 Amount Piperacillin-Tazobactam 3 100 .375 gm In Sodium Chloride 0.9% 100 ml @ 25 mls/hr IVPB Q8H [facility] Rx#: [id number] Oral 702 200 120 Output: Urine 200 3000 Other: Voiding Method Toilet External Catheter External Catheter # Voids 1 - Exam GENERAL: The patient is alert and oriented x3, not in any acute distress. Well developed, well nourished. HEENT: Pupils are round and equally reacting to light. EOMI. No scleral icterus. No conjunctival pallor. Normocephalic, atraumatic. No pharyngeal erythema. No thyromegaly. CARDIOVASCULAR: S1 and S2 present. No murmurs, rubs, or gallops. PULMONARY: Chest is clear to auscultation, no wheezing , no crackles. ABDOMEN: Soft, nontender, nondistended, normoactive bowel sounds. No palpable organomegaly. MUSCULOSKELETAL: No joint swelling or deformity. EXTREMITIES: No cyanosis, clubbing, or pedal edema. NEUROLOGICAL: Gross neurological examination did not reveal any focal deficits. SKIN: No rashes. no petechiae. 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 Patient is currently maintained on [id number] DuoNeb treatments along with IV steroids and will continue. Patient to be transition to oral prednisone Patient is requiring 3-4 L via nasal cannula and recommend to continue with incentive spirometer use and aggressively use at least 10 times every hour while awake and also continued coughing and deep breathing and wean FiO2 as tolerated. Patient does qualify for home O2 to manage her COPD and discharge is being arranged with oxygen per case management Pulmonary following recommend to continue with current medications and management Recommend PT/OT therapy daily as patient is significantly weak. Patient was adamant on returning home and does not want a go to rehab and reports her grandson is her caregiver with history of MS. family has discussed with her further after falling today and patient is now agreeable to go to rehab. Will discuss with case management regarding discharge planning and placed referrals to ECF. Patient will require an insurance authorization and unless it is obt ained on 09/15/2024, patient will likely not go to ECF until Tuesday given the holiday and insurance companies are closed to obtain authorization. Follow-up on repeat labs and replace electrolytes per protocol. Discussed with the patient about continuing incentive spirometer use at least 10 times every hour while awake Due to multiple complex medical issues, overall prognosis is guarded Hold Eliquis by truck switcher and start subcutaneous heparin
[2024-09-16 11:35] LABS: Glucose,Whole Blood 107 mg/dL (70-110)
[2024-09-16 16:25] LABS: Glucose,Whole Blood 139 mg/dL (70-110)
[2024-09-16 20:44] LABS: Glucose,Whole Blood 175 mg/dL (70-110)
[2024-09-17 06:08] LABS: Glucose,Whole Blood 152 mg/dL (70-110)
--- NOTE | 2024-09-17 08:50 | P.PN ---
Subjective This is a pleasant 74-year-old female who was recently admitted with increasing shortness of breath with COPD exacerbation along with acute bilateral pneumonia initially improving although requiring more oxygen and reporting increased shortness of breath overnight currently on 8 L high flow. Patient reports continued weakness as well although is attempting to get up and work with physical therapy. Would strongly recommend ECF for continued strength and mobility although patient has persistent ongoing home and reports her grandson is her caregiver and care provide care. Will be agreeable to home care with rehab in the home. Will have PT/OT therapy evaluate and would recommend working with her daily. Encouraged increase activity as tolerated and sitting up more frequently in the chair. Patient also to continue with incentive spirometer use at least 10 times every hour while awake. Patient is maintained on antibiotics at this time along with [id number] DuoNeb treatments and IV steroids with pulmonary following. 09/13/2024 Patient is seen in follow-up with pulmonary following closely. Patient is continued on 5 L via nasal cannula and titrated as tolerated reporting feeling slightly improved. Patient continues with significant cough and will add as needed medications for supportive care. Encouraged continued incentive spirometer use and increase activity as tolerated. Patient evaluated by PT/OT therapy and patient is adamant she is returning home. Will discuss with case management/social work regarding discharge planning for necessary equipment. Will discuss further with pulmonary regarding discharge planning possibly in the next 24 hours. Patient was maintained on IV fluids and will discontinue and sta rt Lasix twice daily with follow-up labs in AM. 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 Patient has been counseled multiple times on fall risk and patient is high risk would recommend rehab although patient is adamant she is returning home. Patient did have irregular rhythm with elevated heart rates with A-fib RVR. Patient does have history of A-fib and patient was placed on Cardizem drip per protocol with harjit rodriguez on consult. Medications adjusted and patient has converted and currently rate controlled. Patient was scheduled for discharge home today. 09/15 Patient states her breathing is slightly better No chest pain or coughing He has 1+ bilateral leg edema She is on Eliquis at home which is held by guide dog instructor yesterday because of risk of falling and to be reassessed as an outpatient upon discharge Will start on subcutaneous heparin Pulmonary also following 09/16 Patient still very weak Still short of breath and coughing with little improvement Still on 2 L oxygen via nasal cannula Patient is not ready for discharge yet as she is still symptomatic She remains on IV fluconazole and, IV Zosyn and IV Lasix 1 mg twice daily and prednisone 40 mg 09/17 Patient feels better today Wants to go home Currently on 2 L oxygen via nasal cannula, she is not on oxygen at home. She still have some exertional dyspnea She has still limited air entry on both sides but there is no wheezing or basilar crepitation She remains on IV fluconazole and, IV Zosyn and IV Lasix 1 mg twice daily and prednisone 40 mg Objective - Vital Signs Vital signs: Vital Signs Temp 97.6 F 09/17/24 04:00 Pulse 95 09/17/24 04:00 Resp 16 09/17/24 04:00 BP 112/65 09/17/24 04:00 Pulse Ox 94 L 09/17/24 04:00 FiO2 Intake & Output 09/16/24 09/17/24 09/17/24 18:59 06:59 18:59 Intake Total 582 240 Output Total 1650 1325 Balance -1068 -1325 240 Weight 76.3 kg Intake: Oral 582 240 Output: Urine 1650 1325 Other: Voiding Method External Catheter External Catheter # Voids 1 - Exam GENERAL: The patient is alert and oriented x3, not in any acute distress. Well developed, well nourished. HEENT: Pupils are round and equally reacting to light. EOMI. No scleral icterus. No conjunctival pallor. Normocephalic, atraumatic. No pharyngeal erythema. No thyromegaly. CARDIOVASCULAR: S1 and S2 present. No murmurs, rubs, or gallops. PULMONARY: Chest is clear to auscultation, no wheezing , no crackles. ABDOMEN: Soft, nontender, nondistended, normoactive bowel sounds. No palpable organomegaly. MUSCULOSKELETAL: No joint swelling or deformity. EXTREMITIES: No cyanosis, clubbing, or pedal edema. NEUROLOGICAL: Gross neurological examination did not reveal any focal deficits. SKIN: No rashes. no petechiae. 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 Patient is currently maintained on [id number] DuoNeb treatments along with IV steroids and will continue. Patient to be transition to oral prednisone Patient is requiring 3-4 L via nasal cannula and recommend to continue with incentive spirometer use and aggressively use at least 10 times every hour while awake and also continued coughing and deep breathing and wean FiO2 as tolerated. Patient does qualify for home O2 to manage her COPD and discharge is being arranged with oxygen per case management Pulmonary following recommend to continue with current medications and management Recommend PT/OT therapy daily as patient is significantly weak. Patient was adamant on returning home and does not want a go to rehab and reports her grandson is her caregiver with history of MS. family has discussed with her further after falling today and patient is now agreeable to go to rehab. Will discuss with case management regarding discharge planning and placed referrals to ECF. Patient will require an insurance authorization and unless it is obtained on 09/15/2024, patient will likely not go to ECF until Tuesday given the holiday and insurance companies are closed to obtain authorization. Follow-up on repeat labs and replace electrolytes per protocol. Discussed with the patient about continuing incentive spirometer use at least 10 times every hour while awake Due to multiple complex medical issues, overall prognosis is guarded Hold Eliquis by guide dog instructor and start subcutaneous heparin
[2024-09-17 10:32] VITALS: RESP 18
[2024-09-17 11:15] LABS: Glucose,Whole Blood 95 mg/dL (70-110)
[2024-09-17 16:09] LABS: Glucose,Whole Blood 207 mg/dL (70-110)
[2024-09-17 20:52] LABS: Glucose,Whole Blood 194 mg/dL (70-110)
[2024-09-18 06:19] LABS: Glucose,Whole Blood 166 mg/dL (70-110)
[2024-09-18 06:57] LABS: Basophils # (A) 0.02 10*3/uL (0.00-0.10); Basophils % (A) 0.2 %; Eosinophils # (A) 0.07 10*3/uL (0.04-0.35); Eosinophils % (A) 0.6 %; HCT 38.2 % (37.2-46.3); HGB 12.5 g/dL (12.0-15.0); Lymphocytes # (A) 1.51 10*3/uL (0.90-5.00); Lymphocytes % (A) 12.8 %; MCH 30.5 pg (27.0-32.0); MCHC 32.7 g/dL (32.0-37.0); MCV 93.2 fL (80.0-97.0); Mean Platelet Volume 9.2 fL (9.5-12.2); Monocytes # (A) 0.54 10*3/uL (0.20-1.00); Monocytes % (A) 4.6 %; Neutrophils # (A) 9.35 10*3/uL (1.80-7.70); Neutrophils % (A) 79.2 %; Platelet Count 233 10*3/uL (140-440); RDW 14.1 % (11.5-14.5)
[2024-09-18 07:08] LABS: African American GFR (CKD) 71 (>60 ml/min/1.73 sqM); Anion Gap -1 mmol/L; Blood Urea Nitrogen 30 mg/dL (7-17); Calcium 9.5 mg/dL (8.4-10.2); Carbon Dioxide 37 mmol/L (22-30); Chloride 98 mmol/L (98-107); Glucose 96 mg/dL (74-99); Magnesium 2.1 mg/dL (1.6-2.3); Non-African American GFR(CKD) 62 (>60 ml/min/1.73 sqM); Potassium 4.1 mmol/L (3.5-5.1); Sodium 134 mmol/L (137-145)
--- NOTE | 2024-09-18 08:12 | P.DS ---
Providers Date of admission: 09/09/24 15:31 Attending physician: Darling Farias Consults: 09/09/24 15:31 Consult Physician Routine Consulting Provider: Lakshmi Rodriguez Consult Reason/Comments: pneumonia Do you want consulting provider notified?: Yes 09/14/24 00:16 Consult Physician Routine Consulting Provider: Davey Bassett Consult Reason/Comments: Afib RVR Do you want consulting provider notified?: Yes, Notify in am Primary care physician: Mary Carmen Perez MD Hospital Course: Diagnoses: Chronic obstructive pulmonary disease acute exacerbation with acute bilateral pneumonia with possible aspiration, present on admission. Patient finished her antibiotic. Currently improved and patient off antibiotic Increased WBC leukocytosis multifactorial including above Weakness and multiple falls with a fall today on 09/14/2024 in the bathroom, no injuries noted. 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 She was treated with IV antibiotics IV Zosyn and fluconazole, IV Lasix, and steroids prednisone. Patient showed interval improvement. Patient's saturating 94% on room air with no significant dyspnea. Kept on oral prednisone and antibiotics was discontinued Artists' Model also evaluated the patient for her A-fib problem. Because of mul tiple falls recommended to hold Eliquis now and to be reassessed with her sales and marketing director Dr. Bassett in 1 week after discharge. Currently patient is off Eliquis Given that patient doing well no other new complaint Patient was cleared for discharge by both cardiology and pulmonary service. Actually cardiology service signed off the case Patient will require rehab upon discharge given her generalized weakness and multiple falls Problems and management plan were discussed with the patient and he verbalized understanding and acceptance Patient was found stable and can be discharged home in guarded prognosis however he needs follow-up as an outpatient. Patient was instructed to follow up with PCP within one week and patient agrees Patient will require to see her sales and marketing director Dr. Bassett in 1 week to assess for resuming her Eliquis. Recommend patient follow-up with client coordinator Dr. Gupta in 2 weeks after discharge Physical exam Gen: patient is a AAOx3, no distress CVS: S1-S2, RRR, no murmur Lungs: B/L CTA, no wheezing Abdomen: soft, no distention, no tenderness, positive bowel sounds Extremity: no leg edema or induration Time spent more than 35 minutes Patient Condition at Discharge: Serious Plan - Discharge Summary Discharge Rx Participant: Yes New Discharge Prescriptions: New Amoxic-Pot Clav 875-125Mg [Augmentin 875-125] 1 tab PO Q12HR 7 Days #14 tab Diltiazem Cd [Cardizem CD] 180 mg PO DAILY 30 Days #30 cap guaiFENesin SYRUP 100MG/5ML [Robitussin] 200 mg PO Q6HR PRN #240 ml PRN Reason: Cough Budesonide-Formot 160-4.5 Mcg [Symbicort 160-4.5 Mcg Inhaler] 2 puff INHALATION RT-BID #1 each Fluconazole [Diflucan] 100 mg PO DAILY 7 Days #7 tab Ipratropium-Albuterol Nebulize [Duoneb 0.5 mg-3 mg/3 ml Soln] 3 ml INHALATION RT-QID #100 each Nicotine 21Mg/24Hr Patch [Habitrol] 1 patch TRANSDERM DAILY #30 patch guaiFENesin [Mucinex] 600 mg PO Q12HR 10 Days #20 tab predniSONE See Taper PO DIRECTED #30 tab Continue Isosorbide Mononitrate ER [Imdur] 60 mg PO DAILY DULoxetine HCL [Cymbalta] 60 mg PO BID Esomeprazole Magnesium [NexIUM] 40 mg PO BID Furosemide [Lasix] 40 mg PO DAILY PRN PRN Reason: Edema Levothyroxine Sodium [Synthroid] 137 mcg PO DAILY Gabapentin 800 mg PO BID PRN PRN Reason: Pain HYDROcodone/APAP 10-325MG [[place] 10-325] 1 tab PO QID PRN PRN Reason: Pain Atorvastatin [Lipitor] 40 mg PO DAILY Umeclidinium Brm/Vilanterol Tr [Anoro Ellipta 62.5-25 Mcg INH] 1 puff INHALATION RT-DAILY Ofatumumab [Kesimpta Pen] 20 mg SQ TU ALPRAZolam [Xanax] 0.25 mg PO BID PRN PRN Reason: Anxiety Discontinued Diltiazem Oral [Cardizem*] 30 mg PO TID #90 tab Apixaban [Eliquis] 5 mg PO BID 30 Days #60 tab Discharge Medication List Isosorbide Mononitrate ER [Imdur] 60 mg PO DAILY 10/30/19 [History] DULoxetine HCL [Cymbalta] 60 mg PO BID 01/08/22 [History] Gabapentin 800 mg PO BID PRN 01/08/22 [History] Esomeprazole Magnesium [NexIUM] 40 mg PO BID 07/08/22 [History] HYDROcodone/APAP 10-325MG [[place] 10-325] 1 tab PO QID PRN 07/08/22 [History] ALPRAZolam [Xanax] 0.25 mg PO BID PRN 09/09/24 [History] Atorvastatin [Lipitor] 40 mg PO DAILY 09/09/24 [History] Furosemide [Lasix] 40 mg PO DAILY PRN 09/09/24 [History] Levothyroxine Sodium [Synthroid] 137 mcg PO DAILY 09/09/24 [History] Ofatumumab [Kesimpta Pen] 20 mg SQ TU 09/09/24 [History] Umeclidinium Brm/Vilanterol Tr [Anoro Ellipta 62.5-25 Mcg INH] 1 puff INHALATION RT-DAILY 09/09/24 [History] Amoxic-Pot Clav 875-125Mg [Augmentin 875-125] 1 tab PO Q12HR 7 Days #14 tab 09/14/24 [Rx] Budesonide-Formot 160-4.5 Mcg [Symbicort 160-4.5 Mcg Inhaler] 2 puff INHALATION RT-BID #1 each 09/14/24 [Rx] Diltiazem Cd [Cardizem CD] 180 mg PO DAILY 30 Days #30 cap 09/14/24 [Rx] Fluconazole [Diflucan] 100 mg PO DAILY 7 Days #7 tab 09/14/24 [Rx] Ipratropium-Albuterol Nebulize [Duoneb 0.5 mg-3 mg/3 ml Soln] 3 ml INHALATION RT-QID #100 each 09/14/24 [Rx] Nicotine 21Mg/24Hr Patch [Habitrol] 1 patch TRANSDERM DAILY #30 patch 09/14/24 [Rx] guaiFENesin SYRUP 100MG/5ML [Robitussin] 200 mg PO Q6HR PRN #240 ml 09/14/24 [Rx] guaiFENesin [Mucinex] 600 mg PO Q12HR 10 Days #20 tab 09/14/24 [Rx] predniSONE See Taper PO DIRECTED #30 tab 09/14/24 [Rx] Follow up Appointment(s)/Referral(s): Ciaran Gomez MD [STAFF PHYSICIAN] - 10/15/24 1:30 pm Mary Carmen Perez MD [Primary Care Provider] - 1-2 days Davey Bassett DO [STAFF PHYSICIAN] - 09/26/24 10:30 am [facility] [NON-STAFF] - As Needed (oxygen) [facility] Visiting Nurse, [NON-STAFF] - Activity/Diet/Wound Care/Special Instructions: Activity limited until follow-up Follow-up with primary care provider on discharge Follow-up with cardiology outpatient Continue holding Eliquis until cardiology follow-up Continue with current medications Continue prednisone taper until finished Continue with antibiotics until complete Recommend outpatient follow-up with pulmonary Continue with supplemental oxygen and wean as tolerated Continue with incentive spirometer use at least 10 times every hour while awake Follow-up with [facility] provider outpatient Discharge Disposition: HOME WITH HOME HEALTH SERVICES
[2024-09-18 11:14] VITALS: TEMP 98
[2024-09-18 12:03] LABS: Glucose,Whole Blood 187 mg/dL (70-110)
[2024-09-18 16:24] VITALS: BP 118/72; PULSE 93
[2024-09-18 17:16] LABS: Glucose,Whole Blood 220 mg/dL (70-110)
[2024-10-09] MEDS ORDERED: OFATUMUMAB 20 MG/0.4 ML SQ SCH (09:00)
== END 2024-09-18 17:28 | disposition home health service (06) | DRG 177 ==
LOC: EC 13:44 → 3SCARD 15:31
PROVIDERS: ADMIT Hospitalist; ATTEND Hospitalist
DX: J15.69 Pneumonia due to other Gram-negative bacteria (principal); J96.01 Acute respiratory failure with hypoxia; C91.10 Chronic lymphocytic leukemia of B-cell type not having achieved remission; J44.1 Chronic obstructive pulmonary disease with (acute) exacerbation; J44.0 Chronic obstructive pulmonary disease with (acute) lower respiratory infection; I48.0 Paroxysmal atrial fibrillation; G35 Multiple sclerosis; I10 Essential (primary) hypertension; E89.0 Postprocedural hypothyroidism; F32.A Depression, unspecified; J43.9 Emphysema, unspecified; J69.0 Pneumonitis due to inhalation of food and vomit; R29.6 Repeated falls; E78.5 Hyperlipidemia, unspecified; F41.9 Anxiety disorder, unspecified; R00.1 Bradycardia, unspecified; I25.10 Atherosclerotic heart disease of native coronary artery without angina pectoris; M19.90 Unspecified osteoarthritis, unspecified site; W18.30XA Fall on same level, unspecified, initial encounter; Z91.198 Patient's noncompliance with other medical treatment and regimen for other reason; Z79.01 Long term (current) use of anticoagulants; Z91.81 History of falling; Z95.5 Presence of coronary angioplasty implant and graft; Z79.890 Hormone replacement therapy; Z79.899 Other long term (current) drug therapy; Z85.41 Personal history of malignant neoplasm of cervix uteri; Z85.828 Personal history of other malignant neoplasm of skin; Z79.82 Long term (current) use of aspirin; Z85.850 Personal history of malignant neoplasm of thyroid; Z86.711 Personal history of pulmonary embolism; Z86.718 Personal history of other venous thrombosis and embolism; Y92.230 Patient room in hospital as the place of occurrence of the external cause; F17.210 Nicotine dependence, cigarettes, uncomplicated
CPT/HCPCS: 36415; 70450; 71045; 71046; 71275; 73502; 74230; 80048; 80053; 81003; 83605; 83735; 83880; 84484; 85025; 85379; 85610; 85730; 87040; 87070; 87205; 87449; 87636; 93005; 94640; 94760; 96361; 96365; 96375; 96376; 99291

== ENCOUNTER 2024-10-03 16:06 | Observation (INO) | payer MEDICARE ==
[2024-10-03] MEDS: SODIUM CHLORIDE 0.9% 1,000 ML IV STA (16:36)
[2024-10-03] MEDS: DILTIAZEM 5 MG/ML 5 ML VIAL IVP STA (16:40)
[2024-10-03 16:42] LABS: Basophils # (A) 0.01 10*3/uL (0.00-0.10); Basophils % (A) 0.1 %; Eosinophils # (A) 0.23 10*3/uL (0.04-0.35); Eosinophils % (A) 2.3 %; HCT 38.8 % (37.2-46.3); HGB 12.8 g/dL (12.0-15.0); Lymphocytes # (A) 1.72 10*3/uL (0.90-5.00); Lymphocytes % (A) 17.1 %; MCH 31.1 pg (27.0-32.0); MCV 94.4 fL (80.0-97.0); Mean Platelet Volume 9.8 fL (9.5-12.2); Monocytes # (A) 0.37 10*3/uL (0.20-1.00); Monocytes % (A) 3.7 %; Neutrophils # (A) 7.67 10*3/uL (1.80-7.70); Neutrophils % (A) 76.3 %; Platelet Count 190 10*3/uL (140-440); RBC 4.11 10*6/uL (4.10-5.20); RDW 14.2 % (11.5-14.5); WBC 10.05 10*3/uL (4.50-10.00)
[2024-10-03 16:56] LABS: ALT 18 U/L (4-34); AST 21 U/L (14-36); African American GFR (CKD) 85 (>60 ml/min/1.73 sqM); Albumin 3.6 g/dL (3.5-5.0); Alkaline Phosphatase 67 U/L (38-126); Anion Gap 8 mmol/L; Blood Urea Nitrogen 20 mg/dL (7-17); Calcium 10.1 mg/dL (8.4-10.2); Carbon Dioxide 29 mmol/L (22-30); Chloride 101 mmol/L (98-107); Glucose 105 mg/dL (74-99); Magnesium 1.3 mg/dL (1.6-2.3); Non-African American GFR(CKD) 74 (>60 ml/min/1.73 sqM); Potassium 3.6 mmol/L (3.5-5.1); Sodium 138 mmol/L (137-145); Total Bilirubin 0.4 mg/dL (0.2-1.3); Total Protein 5.9 g/dL (6.3-8.2)
[2024-10-03] MEDS: DILTIAZEM 125 MG in DEXTROSE 5% IN WATER 100 ML IV SCH (16:57)
[2024-10-03 16:59] LABS: Prothrombin Time 11.2 sec (10.0-12.5)
[2024-10-03 17:04] LABS: Partial Thromboplastin Time 21.9 sec (22.0-30.0)
--- NOTE | 2024-10-03 17:18 | XR ---
EXAMINATION TYPE: XR chest 2V DATE OF EXAM: 10/03/2024 4:53 PM COMPARISON: Chest radiographs from 09/13/2024. CLINICAL INDICATION: Female, 74 years old with history of dysrhythmia; TECHNIQUE: XR chest 2V Frontal and lateral views of the chest. FINDINGS: Lungs/Pleura: There is no evidence of pleural effusion, focal consolidation, or pneumothorax. Pulmonary vascularity: Unremarkable. Heart/mediastinum: Cardiomediastinal silhouette is unremarkable. A loop recorder projects over the le ft thorax over the heart. Musculoskeletal: No acute osseous pathology. There is fixation hardware in the lower cervical spine. IMPRESSION: Right lower medial reticular opacities similar to 09/13/2024. [facility], , 10/03/2024 5:15 PM
--- NOTE | 2024-10-03 17:56 | ED ---
General Adult HPI - General Chief complaint: Arrhythmia/Palpitations Stated complaint: AFIB/Chest pain Time Seen by Provider: 10/03/24 16:15 Source: patient, family, RN notes reviewed, old records reviewed Mode of arrival: ambulatory Limitations: no limitations - History of Present Illness Initial comments: This is a 74-year-old female who has a past medical history significant for cardiac disease as well as atrial fibrillation. Patient states she is on Eliquis. Patient states since Tuesday she has been having tachycardia. Patient states her heart rate got up to 170 beats a minute. Patient states she also feels short of breath and has a little chest discomfort. Patient denies any recent fever chills or cough. Patient denies any illegal drug use. Patient states she still smokes. - Related Data Home Medications Medication Instructions Recorded Confirmed Isosorbide Mononitrate ER [Imdur] 60 mg PO DAILY 10/30/19 09/09/24 DULoxetine HCL [Cymbalta] 60 mg PO BID 01/08/22 09/09/24 Gabapentin 800 mg PO BID PRN 01/08/22 09/09/24 Esomeprazole Magnesium [NexIUM] 40 mg PO BID 07/08/22 09/09/24 Atorvastatin [Lipitor] 40 mg PO DAILY 09/09/24 09/09/24 Furosemide [Lasix] 40 mg PO DAILY PRN 09/09/24 09/09/24 Levothyroxine Sodium [Synthroid] 137 mcg PO DAILY 09/09/24 09/09/24 Umeclidinium Brm/Vilanterol Tr 1 puff INHALATION RT-DAILY 09/09/24 09/09/24 [Anoro Ellipta 62.5-25 Mcg INH] Previous Rx's Medication Instructions Recorded Budesonide-Formot 160-4.5 Mcg 2 puff INHALATION RT-BID #1 each 09/14/24 [Symbicort 160-4.5 Mcg Inhaler] Diltiazem Cd [Cardizem CD] 180 mg PO DAILY 30 Days #30 cap 09/14/24 Fluconazole [Diflucan] 100 mg PO DAILY 7 Days #7 tab 09/14/24 Ipratropium-Albuterol Nebulize 3 ml INHALATION RT-QID #100 each 09/14/24 [Duoneb 0.5 mg-3 mg/3 ml Soln] Nicotine 21Mg/24Hr Patch [Habitrol] 1 patch TRANSDERM DAILY #30 patch 09/14/24 guaiFENesin SYRUP 100MG/5ML 200 mg PO Q6HR PRN #240 ml 09/14/24 [Robitussin] guaiFENesin [Mucinex] 600 mg PO Q12HR 10 Days #20 tab 09/14/24 predniSONE See Taper PO DIRECTED #30 tab 09/14/24 ALPRAZolam [Xanax] 0.25 mg PO BID PRN 3 Days #6 tab 09/18/24 Apixaban [Eliquis] 5 mg PO BID #60 tab 09/18/24 HYDROcodone/APAP 10-325MG [[place] 1 tab PO QID PRN 3 Days #10 tab 09/18/24 10-325] Allergies Allergy/AdvReac Type Severity Reaction Status Date / Time azithromycin [From Zithromax] Allergy Severe Rash/Hives Verified 09/09/24 16:23 bupropion [From Wellbutrin] Allergy Severe Rash/Hives Verified 09/09/24 16:23 cephalexin [From Keflex] Allergy Intermediate Rash/Hives Verified 09/09/24 16:23 lisinopril [From Prinivil] Allergy Intermediate Rash/Hives Verified 09/09/24 16:23 nitrofurantoin Allergy Intermediate Rash/Hives Verified 09/09/24 16:23 [From Macrobid] pentazocine [From Talwin] Allergy Intermediate Rash/Hives Verified 09/09/24 16:23 topiramate [From Topamax] Allergy Intermediate Rash/Hives Verified 09/09/24 16:23 hydromorphone [From Dilaudid] AdvReac Severe Hallucinati Verified 09/09/24 16:23 ons propranolol [From Inderal LA] AdvReac Severe MENTAL Verified 09/09/24 16:23 MOOD CHANGES codeine AdvReac Intermediate "BAD Verified 09/09/24 16:23 DREAMS" ibuprofen [From Motrin] AdvReac Intermediate Nausea & Verified 09/09/24 16:23 Vomiting & Diarrhea Review of Systems ROS Statement: Those systems with pertinent positive or pertinent negative responses have been documented in the HPI. ROS Other: All systems not noted in ROS Statement are negative. Past Medical History Past Medical History: Atrial Fibrillation, Cancer, Chest Pain / Angina, COPD, Deep Vein Thrombosis (DVT), GERD/Reflux, Hyperlipidemia, Hypertension, Neurologic Disorder, Osteoarthritis (OA), Pulmonary Embolus (PE), Thyroid Disorder Additional Past Medical History / Comment(s): SKIN CANCER, CERVICAL CANCER AND THYROID CANCER.M.S. DVT IN BOTH LEGS. MS History of Any Multi-Drug Resistant Organisms: C-DIFF Date of last positivie culture/infection: 04/25/2002 MDRO Source:: cdiff Past Surgical History: Adenoidectomy, Appendectomy, Back Surgery, Breast Surgery, Heart Catheterization With Stent, Hysterectomy, Orthopedic Surgery, Tonsillectomy, Tubal Ligation Additional Past Surgical History / Comment(s): CYSTS REMOVED FROM BILATERAL BREAST, Sm NECK SURGERY, COLONOSCOPY, Past Anesthesia/Blood Transfusion Reactions: No Reported Reaction Date of Last Stent Placement:: 03/18/2010 Past Psychological History: Anxiety, Depression Smoking Status: Current every day smoker Past Alcohol Use History: None Reported Past Drug Use History: None Reported - Past Family History Mother Family Medical History: Cancer, Chest Pain / Angina, Congestive Heart Failure (CHF), COPD, Hyperlipidemia, Hypertension, Myocardial Infarction ([place]) Father Family Medical History: Congestive Heart Failure (CHF), COPD, Musculoskeletal Disorder General Exam - General Exam Comments Initial Comments: GENERAL: Patient is well-developed and well-nourished. Patient is nontoxic and well- hydrated and is in mild distress. ENT: Neck is soft and supple. No significant lymphadenopathy is noted. Oropharynx is clear. Moist mucous membranes. Neck has full range of motion without eliciting any pain. EYES: The sclera were anicteric and conjunctiva were pink and moist. Extraocular movements were intact and pupils were equal round and reactive to light. Eyelids were unremarkable. PULMONARY: Unlabored respirations. Good breath sounds bilaterally. No audible rales rhonchi or wheezing was noted. CARDIOVASCULAR: Patient has an irregular heart rate and it is about 145 beats a minute ABDOMEN: Soft and nontender with normal bowel sounds. SKIN: Skin is clear with no lesions or rashes and otherwise unremarkable. NEUROLOGIC: Patient is alert and oriented x3. Cranial nerves II through XII are grossly intact. Motor and sensory are also intact. Normal speech, volume and content. Symmetrical smile. MUSCULOSKELETAL: Normal extremities with adequate strength and full range of motion. LYMPHATICS: No significant lymphadenopathy is noted PSYCHIATRIC: Normal psychiatric evaluation. Limitations: no limitations Course Vital Signs 10/03/24 10/03/24 10/03/24 16:13 16:26 16:44 Temperature 98.1 F Pulse Rate 177 H 151 H 105 H Respiratory 20 24 Rate Blood Pressure 94/74 150/101 149/96 O2 Sat by Pulse 99 100 98 Oximetry 10/03/24 10/03/24 16:59 17:36 Temperature Pulse Rate 86 85 Respiratory Rate Blood Pressure O2 Sat by Pulse Oximetry Medical Decision Making - Medical Decision Making EKG is interpreted by myself but EKG shows atrial flutter at 130 bpm QRS is 134 QT interval is 296 QTc is 373. Patient's EKG shows no ST segment ovation. After patient was given Cardizem patient's heart rate slowed down. EKG is interpreted by myself and shows atrial flutter at 86 bpm IA 157 QRS 119 QT interval is 303 QTc is 346. Patient's EKG shows no ST segment elevation. Was pt. sent in by a medical professional or institution (, PA, LEARNING AND DEVELOPMENT OFFICER, urgent care, hospital, or longterm...) When possible be specific @ -No Did you speak to anyone other than the patient for history (EMS, parent, family, police, friend...)? What history was obtained from this source @ -No Did you review nursing and triage notes (agree or disagree)? Why? @ -I reviewed and agree with nursing and triage notes Were old charts reviewed (outside hosp., previous admission, EMS record, old EKG, old radiological studies, urgent care reports/EKG's, longterm records)? Report findings @ -No old charts were reviewed Differential Diagnosis? @ -Differential Palpitations Ventricular arrhythmias, atrial arrhythmias, myocardial infarction, anemia, thyrotoxicosis, electrolyte imbalance, hypokalemia, pulmonary embolism, pulmonary disease, drugs, alcohol, anxiety, stress.... This is not meant to be an all-inclusive list. EKG interpreted by me (3pts min.). @ -As above X-rays interpreted by me (1pt min.). @ -Chest x-ray shows no acute abnormality CT interpreted by me (1pt min.). @ -None done U/S interpreted by me (1pt. min.). @ -None done What testing was considered but not performed or refused? (CT, X-rays, U/S, labs)? Why? @ -None What meds were considered but not given or refused? Why? @ -None Did you discuss the management of the patient with other professionals (willy johnson ipaty Kasier, PA, LEARNING AND DEVELOPMENT OFFICER, lab, RT, psych nurse, elementary school social worker, ship's pilot, teacher, special officer, adult protective caseworker)? Give summary @ -I spoke with [facility]ist agreed to admit the patient I ad mitted the patient I wrote admitting orders Was smoking cessation discussed for >3mins.? @ -No Was critical care preformed (if so, how long)? @ -35 minutes Were there social determinants of health that impacted care today? How? (Homelessness, low income, unemployed, alcoholism, drug addiction, trans portation, low edu. Level, literacy, decrease access to med. care, long-term, rehab)? @ -No Was there de-escalation of care discussed even if they declined (Discuss DNR or withdrawal of care, Hospice)? DNR status @ -No What co-morbidities impacted this encounter? (DM, HTN, Smoking, COPD, CAD, Cancer, CVA, ARF, Chemo, Hep., AIDS, mental health diagnosis, sleep apnea, morbid obesity)? @ -None Was patient admitted / discharged? Hospital course, mention meds given and route, prescriptions, significant lab abnormalities, going to OR and other pertinent info. @ -Patient was given a Cardizem bolus and placed on a Cardizem drip the patient slowed the rate down from 140 beats a minute to 86. [facility]. The drip will be continued on the floor. Undiagnosed new problem with uncertain prognosis? @ -No Drug Therapy requiring intensive monitoring for toxicity (Heparin, Nitro, Insulin, Cardizem)? @ -No Were any procedures done? @ -No Diagnosis/symptom? @ -Atrial flutter with rapid ventricular response Acute, or Chronic, or Acute on Chronic? @ -Acute Uncomplicated (without systemic symptoms) or Complicated (systemic symptoms)? @ -Complicated Side effects of treatment? @ -No Exacerbation, Progression, or Severe Exacerbation? @ -No Poses a threat to life or bodily function? How? (Chest pain, [place], [place], pneumonia, PE, COPD, DKA, ARF, appy, cholecystitis, CVA, Diverticulitis, Homicidal, Suicidal, threat to staff... and all critical care pts) @ -Yes this can lead to poor perfusion and endorgan dysfunction Diagnosis/symptom? @ -Hypomagnesemia Acute, or Chronic, or Acute on Chronic? @ -Acute Uncomplicated (without systemic symptoms) or Complicated (systemic symptoms)? @ -Uncomplicated Side effects of treatment? @ -None Exacerbation, Progression, or Severe Exacerbation] @ -No Poses a threat to life or bodily function? @ -No - Lab Data Result diagrams: 10/03/24 16:30 10/03/24 16:30 Lab Results 10/03/24 10/03/24 10/03/24 Range/Units 16:30 16:30 16:30 WBC 10.05 H (4.50-10.00) 10*3/uL RBC 4.11 (4.10-5.20) 10*6/uL Hgb 12.8 (12.0-15.0) g/dL Hct 38.8 (37.2-46.3) % MCV 94.4 (80.0-97.0) fL MCH 31.1 (27.0-32.0) pg MCHC 33.0 (32.0-37.0) g/dL Plt Count 190 (140-440) 10*3/uL MPV 9.8 (9.5-12.2) fL Immature Gran % (Auto) 0.5 % Neutrophils % 76.3 % Lymphocytes % 17.1 % Monocytes % 3.7 % Eosinophils % 2.3 % Basophils % 0.1 % Immature Gran # 0.05 H (0.00-0.04) 10*3/uL Neutrophils # 7.67 (1.80-7.70) 10*3/uL Lymphocytes # 1.72 (0.90-5.00) 10*3/uL Monocytes # 0.37 (0.20-1.00) 10*3/uL Eosinophils # 0.23 (0.04-0.35) 10*3/uL Basophils # 0.01 (0.00-0.10) 10*3/uL PT 11.2 (10.0-12.5) sec INR 1.0 (<1.2) APTT 21.9 L (22.0-30.0) sec Sodium 138 (137-145) mmol/L Potassium 3.6 (3.5-5.1) mmol/L Chloride 101 (98-107) mmol/L Carbon Dioxide 29 (22-30) mmol/L Anion Gap 8 mmol/L BUN 20 H (7-17) mg/dL Creatinine 0.80 (0.52-1.04) mg/dL Est GFR (CKD-EPI)AfAm 85 (>60 ml/min/1.73 sqM) Est GFR (CKD-EPI)NonAf 74 (>60 ml/min/1.73 sqM) Glucose 105 H (74-99) mg/dL Calcium 10.1 (8.4-10.2) mg/dL Magnesium 1.3 L (1.6-2.3) mg/dL Total Bilirubin 0.4 (0.2-1.3) mg/dL AST 21 (14-36) U/L ALT 18 (4-34) U/L Alkaline Phosphatase 67 (38-126) U/L Troponin I (0.000-0.034) ng/mL Total Protein 5.9 L (6.3-8.2) g/dL Albumin 3.6 (3.5-5.0) g/dL 10/03/24 Range/Units 16:30 WBC (4.50-10.00) 10*3/uL RBC (4.10-5.20) 10*6/uL Hgb (12.0-15.0) g/dL Hct (37.2-46.3) % MCV (80.0-97.0) fL MCH (27.0-32.0) pg MCHC (32.0-37.0) g/dL Plt Count (140-440) 10*3/uL MPV (9.5-12.2) fL Immature Gran % (Auto) % Neutrophils % % Lymphocytes % % Monocytes % % Eosinophils % % Basophils % % Immature Gran # (0.00-0.04) 10*3/uL Neutrophils # (1.80-7.70) 10*3/uL Lymphocytes # (0.90-5.00) 10*3/uL Monocytes # (0.20-1.00) 10*3/uL Eosinophils # (0.04-0.35) 10*3/uL Basophils # (0.00-0.10) 10*3/uL PT (10.0-12.5) sec INR (<1.2) APTT (22.0-30.0) sec Sodium (137-145) mmol/L Potassium (3.5-5.1) mmol/L Chloride (98-107) mmol/L Carbon Dioxide (22-30) mmol/L Anion Gap mmol/L BUN (7-17) mg/dL Creatinine (0.52-1.04) mg/dL Est GFR (CKD-EPI)AfAm (>60 ml/min/1.73 sqM) Est GFR (CKD-EPI)NonAf (>60 ml/min/1.73 sqM) Glucose (74-99) mg/dL Calcium (8.4-10.2) mg/dL Magnesium (1.6-2.3) mg/dL Total Bilirubin (0.2-1.3) mg/dL AST (14-36) U/L ALT (4-34) U/L Alkaline Phosphatase (38-126) U/L Troponin I 0.025 (0.000-0.034) ng/mL Total Protein (6.3-8.2) g/dL Albumin (3.5-5.0) g/dL Disposition Clinical Impression: Atrial flutter with rapid ventricular response, Hypomagnesemia Disposition: ADMITTED IP TO THIS HOSP Referrals: Nonstaff,Physician [Primary Care Provider] - 1-2 days Time of Disposition: 17:55
[2024-10-03] MEDS ORDERED: NITROGLYCERIN SL TABS 0.4 MG TAB SUBLINGUAL PRN (17:57)
[2024-10-03] MEDS: MAGNESIUM SULFATE-D5W PMX 1 GM in DEXTROSE/WATER 1 100ML.BAG IVPB SCH (18:12)
[2024-10-04] MEDS ORDERED: ALPRAZolam 0.25 MG TAB PO PRN (06:06)
[2024-10-04] MEDS ORDERED: GABAPENTIN 400 MG CAP PO PRN (06:06)
[2024-10-04] MEDS: LEVOTHYROXINE 137 MCG TAB PO SCH (06:52)
[2024-10-04] MEDS: TIOTROPIUM 2.5 MCG INHALER INHALATION SCH (08:06)
[2024-10-04] MEDS: IPRATROPIUM-ALBUTEROL 3 ML NEB INHALATION SCH (08:06)
[2024-10-04] MEDS: SYMBICORT 160-4.5 MCG INHALER INHALATION SCH (08:06)
[2024-10-04] MEDS: FORMOTEROL FUMARATE 20 MCG/2 ML NEBU INHALATION SCH (08:06)
[2024-10-04] MEDS: ISOSORBIDE MONONITRATE ER 60 MG TAB.ER.24H PO SCH (08:46)
[2024-10-04] MEDS: DULoxetine HCL 60 MG CAPSULE.DR PO SCH (08:46)
[2024-10-04] MEDS: ASPIRIN 325 MG TAB PO SCH (08:47)
[2024-10-04] MEDS: PANTOPRAZOLE 40 MG TABLET PO SCH (08:47)
[2024-10-04] MEDS: ATORVASTATIN 40 MG TAB PO SCH (08:47)
[2024-10-04] MEDS: APIXABAN 5 MG TAB PO SCH (08:47)
[2024-10-04] MEDS: DILTIAZEM CD 180 MG CAP.ER.24H PO SCH (09:07)
[2024-10-04] MEDS: METOPROLOL TARTRATE 12.5 MG TAB PO SCH (09:07)
[2024-10-04 10:30] LABS: Chol/HDL Ratio 2.75 Ratio; LDL Cholesterol,Calculated 89.2 mg/dL (0.0-131.0)
--- NOTE | 2024-10-04 11:14 | P.CRDCN ---
History of Present Illness History of present illness: HISTORY OF PRESENT ILLNESS: This is a 74-year-old female with a past medical history significant for atrial fibrillation, bradycardia, DVT/PE, hypertension, hyperlipidemia, and coronary a rtery disease with previous stenting. Patient follows in the office with Dr. Bassett but has not been seen in the office since July 2022. We have been asked to see the patient in consultation for atrial flutter. Patient examined at the bedside in the emergency room. Patient presented to the hospital with a chief complaint of palpitations. Patient was found to be in atrial flutter with RVR. She was started on IV Cardizem. She remained in atrial flutter with heart rate in the 80s at the time of examination. She denies any chest pain or pressure. She denies any shortness of breath. She remains on IV Cardizem this morning at 5 mg an hour. DIAGNOSTICS: - EKG reveals a flutter with RVR. - Chest xray right lower medial reticular opacities. - Laboratory data: WBC 10.05. Hemoglobin 12.8. Platelet count 190. Sodium 138. Potassium 3.6. BUN 20. Creatinine 0.80. Troponin negative x 3. - Current home cardiac medications include Eliquis 5 mg twice a day, Lipitor 40 mg daily, Cardizem CD 180 mg daily, Lasix 40 mg daily as needed, Imdur 60 mg daily. - Most recent echocardiogram obtained in June 2022 reveals EF 55 to 60% with no significant valvular dysfunction. - Cardiac catheterization history: June 2022 revealing mild to moderate CAD including 30 to 40% RCA stenosis, 40 to 50% mid LAD stenosis, patent stent in the proximal diagonal 1 branch REVIEW OF SYSTEMS: At the time of my exam: CONSTITUTIONAL: Denies fever or chills. HEENT: Denies blurred vision, vision changes, or eye pain. Denies hemoptysis CARDIOVASCULAR: Denies chest pain. Denies orthopnea. Denies PND. Denies palpitations RESPIRATORY: Denies shortness of breath. GASTROINTESTINAL: Denies abdominal pain. Denies nausea or vomiting. HEMATOLOGIC: Denies bleeding disorders. GENITOURINARY: Denies any blood in urine. SKIN: Denies pruitis. Denies rash. PHYSICAL EXAM: VITAL SIGNS: Reviewed. GENERAL: Well-developed in no acute distress. HEENT: Head is normocephalic. Pupils are equal, round. Sclerae anicteric. Mucous membranes of the mouth are moist. Neck supple. No JVD or thyromegaly LUNGS: Respirations even and unlabored. Lungs essentially clear to auscultation bilaterally. HEART: Irregular rate and rhythm. S1 and S2 heard. Systolic murmur noted at left sternal border ABDOMEN: Soft. Nondistended. Nontender. EXTREMITIES: Normal range of motion. No clubbing or cyanosis. Peripheral pulses intact. No lower extremity edema NEUROLOGIC: Awake and alert. Oriented x 3. ASSESSMENT: Palpitations Typical atrial flutter with RVR, currently rate controlled Paroxysmal atrial fibrillation History of bradycardia Coronary artery disease with previous stenting (performed in [facility] with Dr. Car) History of DVT/PE, on Eliquis outpatient History of hypertension History of hyperlipidemia PLAN: Obtain 2D echo to assess cardiac structure and function Continue anticoagulation with Eliquis Discontinue IV Cardizem Resume oral Cardizem CD 180 mg daily Add metoprolol tartrate 12.5 mg twice daily. Patient has a known sensitivity to rate controlling medications with bradycardia. Continue telemetry monitoring Further recommendations pending patient course Nurse practitioner note has been reviewed by physician. Signing provider agrees with the documented findings, assessment, and plan of care documented by PROMOTIONAL ADVERTISING ASSISTANT as a scribe. Past Medical History Past Medical History: Atrial Fibrillation, Cancer, Chest Pain / Angina, COPD, Deep Vein Thrombosis (DVT), GERD/Reflux, Hyperlipidemia, Hypertension, Neurologic Disorder, Osteoarthritis (OA), Pulmonary Embolus (PE), Thyroid Disorder Additional Past Medical History / Comment(s): SKIN CANCER, CERVICAL CANCER AND THYROID CANCER.M.S. DVT IN BOTH LEGS. MS History of Any Multi-Drug Resistant Organisms: C-DIFF Date of last positivie culture/infection: 04/25/2002 MDRO Source:: cdiff Past Surgical History: Adenoidectomy, Appendectomy, Back Surgery, Breast Surgery, Heart Catheterization With Stent, Hysterectomy, Orthopedic Surgery, Tonsillectomy, Tubal Ligation Additional Past Surgical History / Comment(s): CYSTS REMOVED FROM BILATERAL BREAST, Sm NECK SURGERY, COLONOSCOPY, Past Anesthesia/Blood Transfusion Reactions: No Reported Reaction Date of Last Stent Placement:: 03/18/2010 Past Psychological History: Anxiety, Depression Smoking Status: Current every day smoker Past Alcohol Use History: None Reported Past Drug Use History: None Reported - Past Family History Mother Family Medical History: Cancer, Chest Pain / Angina, Congestive Heart Failure (CHF), COPD, Hyperlipidemia, Hypertension, Myocardial Infarction ([place]) Father Family Medical History: Congestive Heart Failure (CHF), COPD, Musculoskeletal Disorder Medications and Allergies Home Medications Medication Instructions Recorded Confirmed Type Isosorbide Mononitrate ER [Imdur] 60 mg PO DAILY 10/30/19 10/03/24 History DULoxetine HCL [Cymbalta] 60 mg PO BID 01/08/22 10/03/24 History Gabapentin 800 mg PO BID PRN 01/08/22 10/03/24 History Esomeprazole Magnesium [NexIUM] 40 mg PO BID 07/08/22 10/03/24 History Atorvastatin [Lipitor] 40 mg PO DAILY 09/09/24 10/03/24 History Furosemide [Lasix] 40 mg PO DAILY PRN 09/09/24 10/03/24 History Levothyroxine Sodium [Synthroid] 137 mcg PO DAILY 09/09/24 10/03/24 History Umeclidinium Brm/Vilanterol Tr 1 puff INHALATION RT-DAILY 09/09/24 10/03/24 History [Anoro Ellipta 62.5-25 Mcg INH] Budesonide-Formot 160-4.5 Mcg 2 puff INHALATION RT-BID #1 each 09/14/24 10/03/24 Rx [Symbicort 160-4.5 Mcg Inhaler] Diltiazem Cd [Cardizem CD] 180 mg PO DAILY 30 Days #30 cap 09/14/24 10/03/24 Rx Ipratropium-Albuterol Nebulize 3 ml INHALATION RT-QID #100 each 09/14/24 10/03/24 Rx [Duoneb 0.5 mg-3 mg/3 ml Soln] ALPRAZolam [Xanax] 0.25 mg PO BID PRN 3 Days #6 tab 09/18/24 10/03/24 Rx Apixaban [Eliquis] 5 mg PO BID #60 tab 09/18/24 10/03/24 Rx HYDROcodone/APAP 10-325MG [[place] 1 tab PO QID PRN 3 Days #10 tab 09/18/24 10/03/24 Rx 10-325] Allergies Allergy/AdvReac Type Severity Reaction Status Date / Time azithromycin [From Zithromax] Allergy Severe Rash/Hives Verified 10/03/24 19:07 bupropion [From Wellbutrin] Allergy Severe Rash/Hives Verified 10/03/24 19:07 cephalexin [From Keflex] Allergy Intermediate Rash/Hives Verified 10/03/24 19:07 lisinopril [From Prinivil] Allergy Intermediate Rash/Hives Verified 10/03/24 19:07 nitrofurantoin Allergy Intermediate Rash/Hives Verified 10/03/24 19:07 [From Macrobid] pentazocine [From Talwin] Allergy Intermediate Rash/Hives Verified 10/03/24 19:07 topiramate [From Topamax] Allergy Intermediate Rash/Hives Verified 10/03/24 19:07 hydromorphone [From Dilaudid] AdvReac Severe Hallucinati Verified 10/03/24 19:07 ons propranolol [From Inderal LA] AdvReac Severe MENTAL Verified 10/03/24 19:07 MOOD CHANGES codeine AdvReac Intermediate "BAD Verified 10/03/24 19:07 DREAMS" ibuprofen [From Motrin] AdvReac Intermediate Nausea & Verified 10/03/24 19:07 Vomiting & Diarrhea Physical Exam Vitals: Vital Signs Temp Pulse Resp BP Pulse Ox 10/04/24 11:00 85 16 124/78 98 10/04/24 09:59 86 16 143/78 95 10/04/24 09:00 85 16 140/70 98 10/04/24 08:31 84 10/04/24 08:20 84 10/04/24 08:18 84 10/04/24 08:10 95 10/04/24 08:08 84 10/04/24 07:43 86 16 146/84 98 10/04/24 06:00 85 16 137/82 96 10/04/24 02:00 86 16 126/68 97 10/03/24 22:00 84 18 125/68 97 10/03/24 21:00 83 16 119/70 98 10/03/24 19:31 85 18 124/79 98 10/03/24 18:05 85 25 H 127/74 98 10/03/24 17:36 85 10/03/24 16:59 86 10/03/24 16:44 105 H 149/96 98 10/03/24 16:26 151 H 24 150/101 100 10/03/24 16:13 98.1 F 177 H 20 94/74 99 Intake and Output 10/03/24 10/04/24 10/04/24 22:59 06:59 14:59 Other: Weight 70.307 kg Results 10/03/24 16:30 10/03/24 16:30 Cardiac Enzymes 10/03/24 10/03/24 10/03/24 Range/Units 16:30 16:30 20:15 AST 21 (14-36) U/L Troponin I 0.025 0.031 (0.000-0.034) ng/mL 10/03/24 Range/Units 22:23 AST (14-36) U/L Troponin I 0.024 (0.000-0.034) ng/mL Coagulation 10/03/24 Range/Units 16:30 PT 11.2 (10.0-12.5) sec APTT 21.9 L (22.0-30.0) sec Lipids 10/04/24 Range/Units 05:16 Triglycerides 108.00 (0.00-149.00) mg/dL Cholesterol 174.00 (0.00-200.00) mg/dL HDL Cholesterol 63.20 H (40.00-60.00) mg/dL Cholesterol/HDL Ratio 2.75 Ratio CBC 10/03/24 Range/Units 16:30 WBC 10.05 H (4.50-10.00) 10*3/uL RBC 4.11 (4.10-5.20) 10*6/uL Hgb 12.8 (12.0-15.0) g/dL Hct 38.8 (37.2-46.3) % Plt Count 190 (140-440) 10*3/uL Comprehensive Metabolic Panel 10/03/24 Range/Units 16:30 Sodium 138 (137-145) mmol/L Potassium 3.6 (3.5-5.1) mmol/L Chloride 101 (98-107) mmol/L Carbon Dioxide 29 (22-30) mmol/L BUN 20 H (7-17) mg/dL Creatinine 0.80 (0.52-1.04) mg/dL Glucose 105 H (74-99) mg/dL Calcium 10.1 (8.4-10.2) mg/dL AST 21 (14-36) U/L ALT 18 (4-34) U/L Alkaline Phosphatase 67 (38-126) U/L Total Protein 5.9 L (6.3-8.2) g/dL Albumin 3.6 (3.5-5.0) g/dL Current Medications Generic Name Dose Route Start Last Admin Trade Name Freq PRN Reason Stop Dose Admin Hydrocodone Bitart/Acetaminophen 1 each 10/04/24 06:06 Hydrocodone/Apap 10-325mg 1 Each Tab PO QID PRN Pain Albuterol/Ipratropium 3 ml 10/04/24 08:00 10/04/24 08:06 Ipratropium-Albuterol 3 Ml Neb INHALATION 3 ml RT-QID MIKKI Administration Alprazolam 0.25 mg 10/04/24 06:06 Alprazolam 0.25 Mg Tab PO BID PRN Anxiety Apixaban 5 mg 10/04/24 09:00 10/04/24 08:47 Apixaban 5 Mg Tab PO 5 mg BID MIKKI Administration Protocol Atorvastatin Calcium 40 mg 10/04/24 09:00 10/04/24 08:47 Atorvastatin 40 Mg Tab PO 40 mg DAILY MIKKI Administration Budesonide/Formoterol Fumarate 2 puff 10/04/24 08:00 10/04/24 08:12 Symbicort 160-4.5 Mcg Inhaler INHALATION Not Given RT-BID MIKKI Diltiazem HCl 180 mg 10/04/24 09:00 10/04/24 09:07 Diltiazem Cd 180 Mg Cap.Er.24h PO 180 mg DAILY MIKKI Administration Duloxetine HCl 60 mg 10/04/24 09:00 10/04/24 08:46 Duloxetine Hcl 60 Mg Capsule.Dr PO 60 mg BID MIKKI Administration Formoterol Fumarate 20 mcg 10/04/24 08:00 10/04/24 08:06 Formoterol Fumarate 20 Mcg/2 Ml Nebu INHALATION 20 mcg RT-BID MIKKI Administration Gabapentin 800 mg 10/04/24 06:06 Gabapentin 400 Mg Cap PO BID PRN Pain Isosorbide Mononitrate 60 mg 10/04/24 09:00 10/04/24 08:46 Isosorbide Mononitrate Er 60 Mg Tab.Er.24h PO 60 mg DAILY MIKKI Administration Levothyroxine Sodium 137 mcg 10/04/24 06:00 10/04/24 06:52 Levothyroxine 137 Mcg Tab PO 137 mcg DAILY@0600 MIKKI Administration Metoprolol Tartrate 12.5 mg 10/04/24 09:00 10/04/24 09:07 Metoprolol Tartrate 12.5 Mg Tab PO 12.5 mg BID MIKKI Administration Nitroglycerin 0.4 mg 10/03/24 17:57 Nitroglycerin Sl Tabs 0.4 Mg Tab SUBLINGUAL Q5M PRN Chest Pain Pantoprazole Sodium 40 mg 10/04/24 07:30 10/04/24 08:47 Pantoprazole 40 Mg Tablet PO 40 mg [id number] MIKKI Administration Tiotropium [place] 2 puff 10/04/24 08:00 10/04/24 08:06 Tiotropium 2.5 Mcg Inhaler INHALATION 2 puff RT-DAILY MIKKI Administration Intake and Output 10/03/24 10/04/24 10/04/24 22:59 06:59 14:59 Other: Weight 70.307 kg 10/03/24 16:30 10/03/24 16:30
[2024-10-04] MEDS ORDERED: MAGNESIUM SULFATE-D5W PMX 1 GM in DEXTROSE/WATER 1 100ML.BAG IVPB SCH (13:45)
--- NOTE | 2024-10-04 13:54 | P.HPIM ---
History of Present Illness H&P Date: 10/04/24 This is a pleasant 74-year-old female with medical history significant for atrial fibrillation, DVT and PE, COPD, CLL, hypertension, hyperlipidemia, GERD, thyroid cancer, skin cancer, cervical cancer. Patient is a current every day smoker reports to smoking 1 pack per day. She comes into the hospital yesterday afternoon with the sensations of feeling her heart racing since Tuesday. Patient was admitted to the hospital from september 09 to september 18 for pneumonia was discharged to [facility]. Patient was discharged to home from [facility] on Tuesday states she was doing well at home for the first few days. She then began feeling the palpitations. She states that her heart rate got up to 170 bpm has been feeling short of breath with some chest discomfort. She is anticoagulated with Eliquis on an outpatient basis for her known history of atrial fibrillation. EKG here does reveal atrial flutter with a heart rate of 130s with no significant ST or T wave changes. White blood cell count of 10.05, BUN of 20 creatinine 0.80 magnesium 1.3. Troponin level is [id number]. Patient was started on IV Cardizem and heart rate is now controlled. She was also given 2 bags of IV magnesium and a 1 L fluid bolus. She is currently on oral Cardizem at 180 mg daily. REVIEW OF SYSTEMS: CONSTITUTIONAL: No fever, no malaise, no fatigue. HEENT: No recent visual problems or hearing problems. Denied any sore throat. CARDIOVASCULAR: No chest pain, orthopnea, PND, no palpitations, no syncope. PULMONARY: No shortness of breath, no cough, no hemoptysis. GASTROINTESTINAL: No diarrhea, no nausea, no vomiting, no abdominal pain. NEUROLOGICAL: No headaches, no weakness, no numbness. HEMATOLOGICAL: Denies any bleeding or petechiae. GENITOURINARY: Denies any burning micturition, frequency, or urgency. MUSCULOSKELETAL/RHEUMATOLOGICAL: Denies any joint pain, swelling, or any muscle pain. ENDOCRINE: Denies any polyuria or polydipsia. The rest of the 14-point review of systems is negative. PHYSICAL EXAMINATION: GENERAL: The patient is alert and oriented x3, not in any acute distress. Well developed, well nourished. HEENT: Pupils are round and equally reacting to light. EOMI. No scleral icterus. No conjunctival pallor. Normocephalic, atraumatic. No pharyngeal erythema. No thyromegaly. CARDIOVASCULAR: S1 and S2 present. No murmurs, rubs, or gallops. PULMONARY: Chest is clear to auscultation, no wheezing or crackles. ABDOMEN: Soft, nontender, nondistended, normoactive bowel sounds. No palpable organomegaly. MUSCULOSKELETAL: No joint swelling or deformity. EXTREMITIES: No cyanosis, clubbing, or pedal edema. NEUROLOGICAL: Gross neurological examination did not reveal any focal deficits. SKIN: No rashes. Assessment A flutter with RVR now rate controlled and transitioned off the IV cardizem History of atrial fibrillation anticoag with Eliquis on an outpatient basis Hypertension Hyperlipidemia DVT/PE Gastroesophageal reflux disease History of thyroid cancer History of multiple sclerosis Chronic and ongoing nicotine use Hypomagnesemia Hx of COPD and chronic hypoxic respiratory failure Current nicotine use 1 PPD smoker Hx CLL Multiple sclerosis GI prophylaxis DVT prophylaxis: eliquis Plan Transitioned off the IV cardizem to oral cardizem Continue cardiac telemetry Continue eliquis Cardiology has added low dose beta brett with close monitoring of heart rate due to history of bradycardia Continue oxygen support Discussed smoking cessation at this time patient is refusing a nicotine patch Cardiology following PT/OT consultation Magnesium supplemented and will repeat BMP/Magnesium tomorrow The impression and plan of care has been dictated by Richelle Douglass, Nurse Practitioner as directed. Dr. Greg MD I have performed a history and physical examination and medical decision making of this patient, discussed the same with the dictator, and agree with the dictators assessment and plan as written, documented as a scribe. Based on total visit time, I have performed more than 50% of this visit. Past Medical History Past Medical History: Atrial Fibrillation, Cancer, Chest Pain / Angina, COPD, Deep Vein Thrombosis (DVT), GERD/Reflux, Hyperlipidemia, Hypertension, Neurologic Disorder, Osteoarthritis (OA), Pulmonary Embolus (PE), Thyroid Disorder Additional Past Medical History / Comment(s): SKIN CANCER, CERVICAL CANCER AND THYROID CANCER.M.S. DVT IN BOTH LEGS. MS History of Any Multi-Drug Resistant Organisms: C-DIFF Date of last positivie culture/infection: 04/25/2002 MDRO Source:: cdiff Past Surgical History: Adenoidectomy, Appendectomy, Back Surgery, Breast Surgery, Heart Catheterization With Stent, Hysterectomy, Orthopedic Surgery, Tonsillectomy, Tubal Ligation Additional Past Surgical History / Comment(s): CYSTS REMOVED FROM BILATERAL BREAST, Sm NECK SURGERY, COLONOSCOPY, Past Anesthesia/Blood Transfusion Reactions: No Reported Reaction Date of Last Stent Placement:: 03/18/2010 Past Psychological History: Anxiety, Depression Smoking Status: Current every day smoker Past Alcohol Use History: None Reported Past Drug Use History: None Reported - Past Family History Mother Family Medical History: Cancer, Chest Pain / Angina, Congestive Heart Failure (CHF), COPD, Hyperlipidemia, Hypertension, Myocardial Infarction ([place]) Father Family Medical History: Congestive Heart Failure (CHF), COPD, Musculoskeletal Disorder Medications and Allergies Home Medications Medication Instructions Recorded Confirmed Type Isosorbide Mononitrate ER [Imdur] 60 mg PO DAILY 10/30/19 10/03/24 History DULoxetine HCL [Cymbalta] 60 mg PO BID 01/08/22 10/03/24 History Gabapentin 800 mg PO BID PRN 01/08/22 10/03/24 History Esomeprazole Magnesium [NexIUM] 40 mg PO BID 07/08/22 10/03/24 History Atorvastatin [Lipitor] 40 mg PO DAILY 09/09/24 10/03/24 History Furosemide [Lasix] 40 mg PO DAILY PRN 09/09/24 10/03/24 History Levothyroxine Sodium [Synthroid] 137 mcg PO DAILY 09/09/24 10/03/24 History Umeclidinium Brm/Vilanterol Tr 1 puff INHALATION RT-DAILY 09/09/24 10/03/24 History [Anoro Ellipta 62.5-25 Mcg INH] Budesonide-Formot 160-4.5 Mcg 2 puff INHALATION RT-BID #1 each 09/14/24 10/03/24 Rx [Symbicort 160-4.5 Mcg Inhaler] Diltiazem Cd [Cardizem CD] 180 mg PO DAILY 30 Days #30 cap 09/14/24 10/03/24 Rx Ipratropium-Albuterol Nebulize 3 ml INHALATION RT-QID #100 each 09/14/24 10/03/24 Rx [Duoneb 0.5 mg-3 mg/3 ml Soln] ALPRAZolam [Xanax] 0.25 mg PO BID PRN 3 Days #6 tab 09/18/24 10/03/24 Rx Apixaban [Eliquis] 5 mg PO BID #60 tab 09/18/24 10/03/24 Rx HYDROcodone/APAP 10-325MG [[place] 1 tab PO QID PRN 3 Days #10 tab 09/18/24 10/03/24 Rx 10-325] Allergies Allergy/AdvReac Type Severity Reaction Status Date / Time azithromycin [From Zithromax] Allergy Severe Rash/Hives Verified 10/03/24 19:07 bupropion [From Wellbutrin] Allergy Severe Rash/Hives Verified 10/03/24 19:07 cephalexin [From Keflex] Allergy Intermediate Rash/Hives Verified 10/03/24 19:07 lisinopril [From Prinivil] Allergy Intermediate Rash/Hives Verified 10/03/24 19:07 nitrofurantoin Allergy Intermediate Rash/Hives Verified 10/03/24 19:07 [From Macrobid] pentazocine [From Talwin] Allergy Intermediate Rash/Hives Verified 10/03/24 19:07 topiramate [From Topamax] Allergy Intermediate Rash/Hives Verified 10/03/24 19:07 hydromorphone [From Dilaudid] AdvReac Severe Hallucinati Verified 10/03/24 19:07 ons propranolol [From Inderal LA] AdvReac Severe MENTAL Verified 10/03/24 19:07 MOOD CHANGES codeine AdvReac Intermediate "BAD Verified 10/03/24 19:07 DREAMS" ibuprofen [From Motrin] AdvReac Intermediate Nausea & Verified 10/03/24 19:07 Vomiting & Diarrhea Physical Exam Vitals: Vital Signs Temp Pulse Resp BP Pulse Ox 10/04/24 09:00 85 16 140/70 98 10/04/24 08:31 84 10/04/24 08:20 84 10/04/24 08:18 84 10/04/24 08:10 95 10/04/24 08:08 84 10/04/24 07:43 86 16 146/84 98 10/04/24 06:00 85 16 137/82 96 10/04/24 02:00 86 16 126/68 97 10/03/24 22:00 84 18 125/68 97 10/03/24 21:00 83 16 119/70 98 10/03/24 19:31 85 18 124/79 98 10/03/24 18:05 85 25 H 127/74 98 10/03/24 17:36 85 10/03/24 16:59 86 10/03/24 16:44 105 H 149/96 98 10/03/24 16:26 151 H 24 150/101 100 10/03/24 16:13 98.1 F 177 H 20 94/74 99 Intake and Output 10/03/24 10/04/24 10/04/24 22:59 06:59 14:59 Other: Weight 70.307 kg Results CBC & Chem 7: 10/03/24 16:30 10/03/24 16:30 Labs: Abnormal Lab Results - Last 24 Hours (Table) 10/03/24 10/03/24 10/03/24 Range/Units 16:30 16:30 16:30 WBC 10.05 H (4.50-10.00) 10*3/uL Immature Gran # 0.05 H (0.00-0.04) 10*3/uL APTT 21.9 L (22.0-30.0) sec BUN 20 H (7-17) mg/dL Glucose 105 H (74-99) mg/dL Magnesium 1.3 L (1.6-2.3) mg/dL Total Protein 5.9 L (6.3-8.2) g/dL Assessment and Plan Time with Patient: Greater than 30
--- NOTE | 2024-10-04 18:18 | CA ---
Transthoracic Echo Report Name: Keena Beltran Age: 74 Gender: F : 1950 Exam Date: 10/04/2024 16:15 Exam Location: [facility] Ht (in): 66 Wt (lb): 155 Ordering Physician: Jerri Ledbetter Attending/Referring Phys: [id number], Khloe Methods Analyst Data Processing Andria Zuniga RDCS Procedure CPT: Indications: aflutter Cardiac Hx: Technical Quality: Fair Contrast 1: Total Dose (mL): Contrast 2: Total Dose (mL): MEASUREMENTS (Male / Female) Normal Values 2D ECHO LV Diastolic Diameter PLAX 4.4 cm 4.2 - 5.9 / 3.9 - 5.3 cm LV Systolic Diameter PLAX 3.4 cm IVS Diastolic Thickness 1.3 cm 0.6 - 1.0 / 0.6 - 0.9 cm LVPW Diastolic Thickness 1.2 cm 0.6 - 1.0 / 0.6 - 0.9 cm LV Relative Wall Thickness 0.6 RV Internal Dim ED PLAX 3.0 cm LA Systolic Diameter LX 3.9 cm 3.0 - 4.0 / 2.7 - 3.8 cm LV Diastolic Volume MOD BP 89.6 cm??? 67 - 155 / 56 - 104 cm??? LV Systolic Volume MOD BP 30.8 cm??? 22 - 58 / 19 - 49 cm??? LV Ejection Fraction MOD BP 65.6 % >= 55 % LV Cardiac Index MOD BP 2714.9 cm???/min???m??? LV Diastolic Volume MOD 4C 79.6 cm??? LV Systolic Volume MOD 4C 30.3 cm??? LV Ejection Fraction MOD 4C 61.9 % LV Cardiac Index MOD 4C 2274.8 cm???/min???m??? LV Diastolic Length 4C 8.1 cm LV Systolic Length 4C 5.6 cm LV Diastolic Volume MOD 2C 79.5 cm??? LV Systolic Volume MOD 2C 30.6 cm??? LV Ejection Fraction MOD 2C 61.6 % LV Cardiac Index MOD 2C 2259.0 cm???/min???m??? LV Diastolic Length 2C 6.3 cm LV Systolic Length 2C 5.3 cm LA Volume 60.1 cm??? 18 - 58 / 22 - 52 cm??? LA Volume Index 33.0 cm???/m??? 16 - 28 cm???/m??? M-MODE Aortic Root Diameter MM 2.9 cm AV Cusp Separation MM 1.9 cm DOPPLER AV Peak Velocity 145.5 cm/s AV Peak Gradient 8.5 mmHg MV Area PHT 5.7 cm??? Mitral E Point Velocity 116.1 cm/s Mitral A Point Velocity 58.3 cm/s Mitral E to A Ratio 2.0 MV Deceleration Time 132.3 ms TR Peak Velocity 257.9 cm/s TR Peak Gradient 26.6 mmHg Right Ventricular Systolic Press 30.2 mmHg FINDINGS Left Ventricle Left ventricular ejection fraction is estimated at 50-55 %. Left ventricular cavity size normal. No obvious regional wall motion abnormalities. Mildly increased left ventricular wall thickness. Right Ventricle Normal right ventricular size. Right ventricular systolic pressure within normal limits. Right Atrium Normal right atrial size. No right atrial thrombus or mass seen. Left Atrium Mildly increased left atrial diameter. Mildly increased left atrial volume. No left atrial thrombus or mass present. Mitral Valve Mitral valve thickened. Mild mitral annular calcification. No mitral stenosis. No evidence for mitral valve prolapse. mild mitral regurgitation. Aortic Valve Trileaflet aortic valve. Aortic valve sclerosis. No aortic stenosis. No aortic regurgitation. Tricuspid Valve Structurally normal tricuspid valve. Mild tricuspid regurgitation. Pulmonic Valve Structurally normal pulmonic valve. No pulmonic regurgitation. Pericardium No pericardial effusion. Aorta Normal size aortic root and proximal ascending aorta. CONCLUSIONS 1. Left ventricular systolic function borderline normal 2. Mild mitral and tricuspid regurgitation Previewed by: Dr. Nadiya Hathaway MD (Electronically Signed) Final Date: 04 October 2024 18:17
[2024-10-04] MEDS: HYDROcodone/APAP 10-325MG 1 EACH TAB PO PRN (23:28)
[2024-10-05 08:31] LABS: African American GFR (CKD) 84 (>60 ml/min/1.73 sqM); Anion Gap 3 mmol/L; Blood Urea Nitrogen 18 mg/dL (7-17); Calcium 9.2 mg/dL (8.4-10.2); Carbon Dioxide 27 mmol/L (22-30); Chloride 106 mmol/L (98-107); Glucose 125 mg/dL (74-99); Magnesium 1.8 mg/dL (1.6-2.3); Non-African American GFR(CKD) 73 (>60 ml/min/1.73 sqM); Sodium 136 mmol/L (137-145)
[2024-10-05 09:54] VITALS: RESP 18; TEMP 98.2
--- NOTE | 2024-10-05 10:52 | P.PN ---
Subjective HISTORY OF PRESENT ILLNESS: This is a 74-year-old female with a past medical history significant for atrial fibrillation, bradycardia, DVT/PE, hypertension, hyperlipidemia, and coronary artery disease with previous stenting. Patient follows in the office with Dr. Bassett but has not been seen in the office since July 2022. We have been asked to see the patient in consultation for atrial flutter. Patient examined at the bedside in the emergency room. Patient presented to the hospital with a chief complaint of palpitations. Patient was found to be in atrial flutter with RVR. She was started on IV Cardizem. She remained in atrial flutter with heart rate in the 80s at the time of examination. She denies any chest pain or pressure. She denies any shortness of breath. She remains on IV Cardizem this morning at 5 mg an hour. DIAGNOSTICS: - EKG reveals a flutter with RVR. - Chest xray right lower medial reticular opacities. - Laboratory data: WBC 10.05. Hemoglobin 12.8. Platelet count 190. Sodium 138. Potassium 3.6. BUN 20. Creatinine 0.80. Troponin negative x 3. - Current home cardiac medications include Eliquis 5 mg twice a day, Lipitor 40 mg daily, Cardizem CD 180 mg daily, Lasix 40 mg daily as needed, Imdur 60 mg daily. - Most recent echocardiogram obtained in June 2022 reveals EF 55 to 60% with no significant valvular dysfunction. - Cardiac catheterization history: June 2022 revealing mild to moderate CAD including 30 to 40% RCA stenosis, 40 to 50% mid LAD stenosis, patent stent in the proximal diagonal 1 branch 10/05/2024 Patient examined this morning at the bedside. Patient currently denies chest p ain or pressure. She denies shortness of breath. Telemetry reveals atrial fibrillation/flutter with controlled ventricular rate. Echocardiogram completed revealing ejection fraction 50 to 55%, mild MR, mild TR. PHYSICAL EXAM: VITAL SIGNS: Reviewed. GENERAL: Well-developed in no acute distress. HEENT: Head is normocephalic. Pupils are equal, round. Sclerae anicteric. Mucous membranes of the mouth are moist. Neck supple. No JVD or thyromegaly LUNGS: Respirations even and unlabored. Lungs essentially clear to auscultation bilaterally. HEART: Irregular rate and rhythm. S1 and S2 heard. Systolic murmur noted at left sternal border ABDOMEN: Soft. Nondistended. Nontender. EXTREMITIES: Normal range of motion. No clubbing or cyanosis. Peripheral pulses intact. No lower extremity edema NEUROLOGIC: Awake and alert. Oriented x 3. ASSESSMENT: Palpitations Typical atrial flutter with RVR, currently rate controlled Paroxysmal atrial fibrillation History of bradycardia Coronary artery disease with previous stenting (performed in [facility] with Dr. Car) History of DVT/PE, on Eliquis outpatient History of hypertension History of hyperlipidemia PLAN: Continue anticoagulation with Eliquis Continue oral Cardizem CD 180 mg daily Continue metoprolol tartrate 12.5 mg twice daily. Patient has a known sensitivity to rate controlling medications with bradycardia. Patient is stable for discharge home today from a cardiac standpoint Patient is to follow-up in the office with Dr. Bassett Nurse practitioner note has been reviewed by physician. Signing provider agrees with the documented findings, assessment, and plan of care documented by HEALTHCARE REPRESENTATIVE as a scribe. Objective - Vital Signs Vital signs: Vital Signs Temp 98.2 F 10/05/24 08:00 Pulse 76 10/05/24 08:00 Resp 18 10/05/24 08:00 BP 111/66 10/05/24 08:00 Pulse Ox 98 10/05/24 08:00 FiO2 Intake & Output 10/04/24 10/05/24 10/05/24 18:59 06:59 18:59 Intake Total 118 Balance 118 Weight 70.307 kg 71.7 kg Intake: Oral 118 Other: Voiding Method Toilet Toilet # Voids 1 - Labs CBC & Chem 7: 10/03/24 16:30 10/05/24 07:41 Labs: Abnormal Lab Results - Last 24 Hours (Table) 10/05/24 Range/Units 07:41 Sodium 136 L (137-145) mmol/L BUN 18 H (7-17) mg/dL Glucose 125 H (74-99) mg/dL
[2024-10-05 12:44] VITALS: BP 123/72; PULSE 81
--- NOTE | 2024-10-08 21:47 | P.DS ---
Providers Date of admission: 10/03/24 18:07 Expected date of discharge: 10/05/24 Attending physician: Darling Farias Consults: 10/03/24 17:58 Consult Physician Urgent Consulting Provider: [facility] Consult Reason/Comments: Atrial flutter with rapid ventricular response Do you want consulting provider notified?: Yes Primary care physician: Physician Nonstaff Hospital Course: Final Diagnosis A flutter with RVR now rate controlled and transitioned off the IV cardizem History of atrial fibrillation anticoag with Eliquis on an outpatient basis Hypertension Hyperlipidemia DVT/PE Gastroesophageal reflux disease History of thyroid cancer History of multiple sclerosis Chronic and ongoing nicotine use Hypomagnesemia Hx of COPD and chronic hypoxic respiratory failure Current nicotine use 1 PPD smoker Hx CLL Multiple sclerosis GI prophylaxis DVT prophylaxis: eliquis Discharge Disposition Patient is stable for for discharge home. Patient to continue all same home med ications with the addition of metoprolol 12.5 mg twice daily. Discussed smoking cessation. Patient to follow up with prop and effects designer in 1 week. Patient to follow up with PCP in 1 to 2 days. Total time taken in discharge planning greater than 35 minutes. Hospital Course This is a pleasant 74-year-old female with medical history significant for atrial fibrillation, DVT and PE, COPD, CLL, hypertension, hyperlipidemia, GERD, thyroid cancer, skin cancer, cervical cancer. Patient is a current every day smoker reports to smoking 1 pack per day. She comes into the hospital yesterday afternoon with the sensations of feeling her heart racing since Tuesday. Patient was admitted to the hospital from september 09 to september 18 for pneumonia was discharged to [facility]. Patient was discharged to home from [facility] on Tuesday states she was doing well at home for the first few days. She then began feeling the palpitations. She states that her heart rate got up to 170 bpm has been feeling short of breath with some chest discomfort. She is anticoagulated with Eliquis on an outpatient basis for her known history of atrial fibrillation. EKG here does reveal atrial flutter with a heart rate of 130s with no significant ST or T wave changes. White blood cell count of 10.05, BUN of 20 creatinine 0.80 magnesium 1.3. Troponin level is [id number]. Patient was started on IV Cardizem and heart rate is now controlled. She was also given 2 bags of IV magnesium and a 1 L fluid bolus. She is currently on oral Cardizem at 180 mg daily. Cardiology has added low dose beta brett with close monitoring of heart rate due to history of bradycardia. Echocardiogram reveals EF 50-55% with mild MR and TR. Review of Systems Constitutional: Denied any fatigue denied any fever. Cardio vascular: denied any chest pain, palpitations Gastrointestinal: denied any nausea, vomiting, diarrhea Pulmonary: Denied any shortness of breath cough Neurologic denied any new focal deficits All inpatient medications were reviewed and appropriate changes in these medications as dictated in the interval history and assessment and plan. PHYSICAL EXAMINATION: GENERAL: The patient is alert and oriented x3, not in any acute distress. Well developed, well nourished. HEENT: Pupils are round and equally reacting to light. EOMI. No scleral icterus. No conjunctival pallor. Normocephalic, atraumatic. No pharyngeal erythema. No thyromegaly. CARDIOVASCULAR: S1 and S2 present. No murmurs, rubs, or gallops. PULMONARY: Chest is clear to auscultation, no wheezing or crackles. ABDOMEN: Soft, nontender, nondistended, normoactive bowel sounds. No palpable organomegaly. MUSCULOSKELETAL: No joint swelling or deformity. EXTREMITIES: No cyanosis, clubbing, or pedal edema. NEUROLOGICAL: Gross neurological examination did not reveal any focal deficits. SKIN: No rashes. Please see medication reconciliation for a list of current medications. Thank you for allowing us to participate in the care of this patient. The impression and plan of care has been dictated by Richelle Douglass, Nurse Practitioner as directed. Dr. Greg MD I have performed a history and physical examination and medical decision making of this patient, discussed the same with the dictator, and agree with the dictators assessment and plan as written, documented as a scribe. Based on total visit time, I have performed more than 50% of this visit. Patient Condition at Discharge: Fair Plan - Discharge Summary Discharge Rx Participant: No New Discharge Prescriptions: New Metoprolol Tartrate [Lopressor] 12.5 mg PO BID #60 tab Continue Isosorbide Mononitrate ER [Imdur] 60 mg PO DAILY DULoxetine HCL [Cymbalta] 60 mg PO BID Esomeprazole Magnesium [NexIUM] 40 mg PO BID Furosemide [Lasix] 40 mg PO DAILY PRN PRN Reason: Edema Levothyroxine Sodium [Synthroid] 137 mcg PO DAILY Diltiazem Cd [Cardizem CD] 180 mg PO DAILY 30 Days #30 cap Budesonide-Formot 160-4.5 Mcg [Symbicort 160-4.5 Mcg Inhaler] 2 puff INHALATION RT-BID #1 each Gabapentin 800 mg PO BID PRN PRN Reason: Pain Atorvastatin [Lipitor] 40 mg PO DAILY Umeclidinium Brm/Vilanterol Tr [Anoro Ellipta 62.5-25 Mcg INH] 1 puff INHALATION RT-DAILY Ipratropium-Albuterol Nebulize [Duoneb 0.5 mg-3 mg/3 ml Soln] 3 ml INHALATION RT-QID #100 each HYDROcodone/APAP 10-325MG [[place]ale 10-325] 1 tab PO QID PRN 3 Days #10 tab PRN Reason: Pain ALPRAZolam [Xanax] 0.25 mg PO BID PRN 3 Days #6 tab PRN Reason: Anxiety Apixaban [Eliquis] 5 mg PO BID #60 tab Discharge Medication List Isosorbide Mononitrate ER [Imdur] 60 mg PO DAILY 10/30/19 [History] DULoxetine HCL [Cymbalta] 60 mg PO BID 01/08/22 [History] Gabapentin 800 mg PO BID PRN 01/08/22 [History] Esomeprazole Magnesium [NexIUM] 40 mg PO BID 07/08/22 [History] Atorvastatin [Lipitor] 40 mg PO DAILY 09/09/24 [History] Furosemide [Lasix] 40 mg PO DAILY PRN 09/09/24 [History] Levothyroxine Sodium [Synthroid] 137 mcg PO DAILY 09/09/24 [History] Umeclidinium Brm/Vilanterol Tr [Anoro Ellipta 62.5-25 Mcg INH] 1 puff INHALATION RT-DAILY 09/09/24 [History] Budesonide-Formot 160-4.5 Mcg [Symbicort 160-4.5 Mcg Inhaler] 2 puff INHALATION RT-BID #1 each 09/14/24 [Rx] Diltiazem Cd [Cardizem CD] 180 mg PO DAILY 30 Days #30 cap 09/14/24 [Rx] Ipratropium-Albuterol Nebulize [Duoneb 0.5 mg-3 mg/3 ml Soln] 3 ml INHALATION RT-QID #100 each 09/14/24 [Rx] ALPRAZolam [Xanax] 0.25 mg PO BID PRN 3 Days #6 tab 09/18/24 [Rx] Apixaban [Eliquis] 5 mg PO BID #60 tab 09/18/24 [Rx] HYDROcodone/APAP 10-325MG [Dale 10-325] 1 tab PO QID PRN 3 Days #10 tab 09/18/24 [Rx] Metoprolol Tartrate [Lopressor] 12.5 mg PO BID #60 tab 10/05/24 [Rx] Follow up Appointment(s)/Referral(s): Heidi Wilkinson DO [REFERRING] - 1 Week Rachel Marcelo PA [REFERRING] - 1-2 Days Davey Bassett DO [STAFF PHYSICIAN] - 1 Week Patient Instructions/Handouts: A-fib (Atrial Fibrillation) (DC) Activity/Diet/Wound Care/Special Instructions: Continue same home medications with the addition of metoprolol 12.5 mg twice daily Follow up with cardiology in the office in 1 week Discharge Disposition: HOME SELF-CARE
== END 2024-10-05 14:08 | disposition home or self-care (01) ==
LOC: EC 16:06 → 3SCARD 18:07 → INTOOBSV 18:07 → 3SCARD 20:19
PROVIDERS: ADMIT Hospitalist; ATTEND Hospitalist
DX: I48.3 Typical atrial flutter (principal); E83.42 Hypomagnesemia; I48.0 Paroxysmal atrial fibrillation; J96.11 Chronic respiratory failure with hypoxia; G35 Multiple sclerosis; K21.9 Gastro-esophageal reflux disease without esophagitis; E78.5 Hyperlipidemia, unspecified; I10 Essential (primary) hypertension; J44.9 Chronic obstructive pulmonary disease, unspecified; F32.A Depression, unspecified; F41.9 Anxiety disorder, unspecified; I25.10 Atherosclerotic heart disease of native coronary artery without angina pectoris; F17.200 Nicotine dependence, unspecified, uncomplicated; Z85.41 Personal history of malignant neoplasm of cervix uteri; Z85.6 Personal history of leukemia; Z85.828 Personal history of other malignant neoplasm of skin; Z85.850 Personal history of malignant neoplasm of thyroid; Z86.711 Personal history of pulmonary embolism; Z86.718 Personal history of other venous thrombosis and embolism; Z95.5 Presence of coronary angioplasty implant and graft; Z79.01 Long term (current) use of anticoagulants; Z79.51 Long term (current) use of inhaled steroids; Z79.890 Hormone replacement therapy; Z79.899 Other long term (current) drug therapy; Z88.1 Allergy status to other antibiotic agents; Z88.5 Allergy status to narcotic agent; Z88.6 Allergy status to analgesic agent
CPT/HCPCS: 96376; 96368; 96365; 96366 ×2; 99291; 36415; 94640 ×3; 93005; 93306; 97161; 97165; 80061; 80053; 80048; 83735 ×2; 84484; 85025; 85610; 85730; 71046; G0378 ×3; J3475

== ENCOUNTER 2024-10-09 15:43 | Observation (INO) | payer MEDICARE ==
--- NOTE | 2024-10-09 16:14 | ED ---
General Adult HPI - General Chief complaint: Arrhythmia/Palpitations Stated complaint: Abn heart rate Time Seen by Provider: 10/09/24 15:54 Source: patient Mode of arrival: ambulatory Limitations: no limitations - History of Present Illness Initial comments: Dictation was produced using [employer] dictation software. please excuse any grammatical, word or spelling errors. Chief Complaint: 74-year-old female with tachycardia History of Present Illness: Patient is 74-year-old female recently diagnosed and admitted to the hospital for atrial flutter. Patient states that today her heart rate increased to the 160s. States that it has been fairly high all day. Denies any chest pain. No shortness of breath. The ROS documented in this emergency department record has been reviewed and confirmed by me. Those systems with pertinent positive or negative responses have been documented in the HPI. All other systems are other negative and/or noncontributory. - Related Data Home Medications Medication Instructions Recorded Confirmed Isosorbide Mononitrate ER [Imdur] 60 mg PO DAILY 10/30/19 10/03/24 DULoxetine HCL [Cymbalta] 60 mg PO BID 01/08/22 10/03/24 Gabapentin 800 mg PO BID PRN 01/08/22 10/03/24 Esomeprazole Magnesium [NexIUM] 40 mg PO BID 07/08/22 10/03/24 Atorvastatin [Lipitor] 40 mg PO DAILY 09/09/24 10/03/24 Furosemide [Lasix] 40 mg PO DAILY PRN 09/09/24 10/03/24 Levothyroxine Sodium [Synthroid] 137 mcg PO DAILY 09/09/24 10/03/24 Umeclidinium Brm/Vilanterol Tr 1 puff INHALATION RT-DAILY 09/09/24 10/03/24 [Anoro Ellipta 62.5-25 Mcg INH] Previous Rx's Medication Instructions Recorded Budesonide-Formot 160-4.5 Mcg 2 puff INHALATION RT-BID #1 each 09/14/24 [Symbicort 160-4.5 Mcg Inhaler] Diltiazem Cd [Cardizem CD] 180 mg PO DAILY 30 Days #30 cap 09/14/24 Ipratropium-Albuterol Nebulize 3 ml INHALATION RT-QID #100 each 09/14/24 [Duoneb 0.5 mg-3 mg/3 ml Soln] ALPRAZolam [Xanax] 0.25 mg PO BID PRN 3 Days #6 tab 09/18/24 Apixaban [Eliquis] 5 mg PO BID #60 tab 09/18/24 HYDROcodone/APAP 10-325MG [[place] 1 tab PO QID PRN 3 Days #10 tab 09/18/24 10-325] Metoprolol Tartrate [Lopressor] 12.5 mg PO BID #60 tab 10/05/24 Allergies Allergy/AdvReac Type Severity Reaction Status Date / Time azithromycin [From Zithromax] Allergy Severe Rash/Hives Verified 10/09/24 15:51 bupropion [From Wellbutrin] Allergy Severe Rash/Hives Verified 10/09/24 15:51 cephalexin [From Keflex] Allergy Intermediate Rash/Hives Verified 10/09/24 15:51 lisinopril [From Prinivil] Allergy Intermediate Rash/Hives Verified 10/09/24 15:51 nitrofurantoin Allergy Intermediate Rash/Hives Verified 10/09/24 15:51 [From Macrobid] pentazocine [From Talwin] Allergy Intermediate Rash/Hives Verified 10/09/24 15:51 topiramate [From Topamax] Allergy Intermediate Rash/Hives Verified 10/09/24 1 5:51 hydromorphone [From Dilaudid] AdvReac Severe Hallucinati Verified 10/09/24 15:51 ons propranolol [From Inderal LA] AdvReac Severe MENTAL Verified 10/09/24 15:51 MOOD CHANGES codeine AdvReac Intermediate "BAD Verified 10/09/24 15:51 DREAMS" ibuprofen [From Motrin] AdvReac Intermediate Nausea & Verified 10/09/24 15:51 Vomiting & Diarrhea Review of Systems ROS Statement: Those systems with pertinent positive or pertinent negative responses have been documented in the HPI. ROS Other: All systems not noted in ROS Statement are negative. Past Medical History Past Medical History: Atrial Fibrillation, Atrial Flutter, Cancer, Chest Pain / Angina, COPD, Deep Vein Thrombosis (DVT), GERD/Reflux, Hyperlipidemia, Hypertension, Neurologic Disorder, Osteoarthritis (OA), Pulmonary Embolus (PE), Thyroid Disorder Additional Past Medical History / Comment(s): SKIN CANCER, CERVICAL CANCER AND THYROID CANCER.M.S. DVT IN BOTH LEGS. MS History of Any Multi-Drug Resistant Organisms: C-DIFF Date of last positivie culture/infection: 04/25/2002 MDRO Source:: cdiff Past Surgical History: Adenoidectomy, Appendectomy, Back Surgery, Breast Surgery, Heart Catheterization With Stent, Hysterectomy, Orthopedic Surgery, Tonsillectomy, Tubal Ligation Additional Past Surgical History / Comment(s): CYSTS REMOVED FROM BILATERAL BREAST, Sm NECK SURGERY, COLONOSCOPY, Past Anesthesia/Blood Transfusion Reactions: No Reported Reaction Date of Last Stent Placement:: 03/18/2010 Past Psychological History: Anxiety, Depression Smoking Status: Current every day smoker Past Alcohol Use History: None Reported Past Drug Use History: None Reported - Past Family History Mother Family Medical History: Cancer, Chest Pain / Angina, Congestive Heart Failure (CHF), COPD, Hyperlipidemia, Hypertension, Myocardial Infarction (NC) Father Family Medical History: Congestive Heart Failure (CHF), COPD, Musculoskeletal Disorder General Exam - General Exam Comments Initial Comments: PHYSICAL EXAM: General Impression: Alert and oriented x3, not in acute distress HEENT: Normocephalic atraumatic, extra-ocular movements intact, pupils equal and reactive to light bilaterally, mucous membranes moist. Cardiovascular: Heart regular rate and rhythm Chest: Able to complete full sentences, no retractions, no tachypnea Abdomen: abdomen soft, non-tender, non-distended, no organomegaly Musculoskeletal: Pulses present and equal in all extremities, no peripheral edema Motor: no focal deficits noted Neurological: CN II-XII grossly intact, no focal motor or sensory deficits noted Skin: Intact with no visualized rashes Psych: Normal affect and mood Limitations: no limitations Course Vital Signs 10/09/24 10/09/24 15:48 17:34 Temperature 98.3 F Pulse Rate 54 L 78 Respiratory 22 17 Rate Blood Pressure 85/58 89/62 O2 Sat by Pulse 94 L 92 L Oximetry EKG Findings - EKG Comments: EKG Findings:: My EKG interpretation: Ventricular rate 70, A-flutter, right bundle branch block, QRS 113, QTc 4 9. No QTC prolongation, no ST or T-wave changes noted. Overall, this EKG is unremarkable Medical Decision Making - Medical Decision Making Was pt. sent in by a medical professional or institution (, PA, FITNESS MANAGEMENT DIRECTOR, urgent care, hospital, or long term...) When possible be specific @ -No Did you speak to anyone other than the patient for history (EMS, parent, family, police, friend...)? What history was obtained from this source @ -No Did you review nursing and triage notes (agree or disagree)? Why? @ -I reviewed and agree with nursing and triage notes Were old charts reviewed (outside hosp., previous admission, EMS record, old EKG, old radiological studies, urgent care reports/EKG's, long term records)? Report findings @ -Discharge summary from 3 days ago reviewed showing patient admitted for a flutter Differential Diagnosis (chest pain, altered mental status, abdominal pain women, abdominal pain men, vaginal bleeding, musculoskeletal, weakness, fever, dyspnea, syncope, headache, dizziness, GI bleed, back pain, seizure, CVA, palpatations, mental health)? @ - Differential Palpitations: Ventricular arrhythmias, atrial arrhythmias, myocardial infarction, anemia, thyrotoxicosis, electrolyte imbalance, hypokalemia, pulmonary embolism, pulmonary disease, drugs, alcohol, anxiety, stress.... This is not meant to be an all-inclusive list. EKG interpreted by me (3pts min.). @ -See above X-rays interpreted by me (1pt min.). @ -Chest x-ray is nonacute CT interpreted by me (1pt min.). @ -None done U/S interpreted by me (1pt. min.). @ -None done What testing was considered but not performed or refused? (CT, X-rays, U/S, labs)? Why? @ -None What meds were considered but not given or refused? Why? @ -None Was smoking cessation discussed for >3mins.? @ -No Were there social determinants of health that impacted care today? How? (Homelessness, low income, unemployed, alcoholism, drug addiction, transportation, low edu. Level, literacy, decrease access to med. care, alf, rehab)? @ -No Was there de-escalation of care discussed even if they declined (Discuss DNR or withdrawal of care, Hospice)? DNR status @ -No What co-morbidities impacted this encounter? (DM, HTN, Smoking, COPD, CAD, Cancer, CVA, ARF, Chemo, Hep., AIDS, mental health diagnosis, sleep apnea, morbid obesity)? @ -A flutter Was patient admitted / discharged? Hospital course, mention meds given and route, prescriptions, significant lab abnormalities, going to OR and other pertinent info. @ -74-year-old female presents emergency department chief complaint of palpitations. Vital signs upon arrival shows hypertension of 85/58. She is otherwise bradycardic. Patient well-appearing at bedside. Physical examination is benign. Repeat blood pressure is still low. Labs shows hypomagnesemia. Given patient's hypertension she will be admitted with IV fluids. Case discussed with hospitalist for admission Did you discuss the management of the patient with other professionals (professionals i.e. , PA, FITNESS MANAGEMENT DIRECTOR, lab, RT, psych nurse, social sciences lecturer, hazardous waste remover, teacher, special technical operations officer, child support case officer)? Give summary @ -No Was critical care preformed (if so, how long)? @ -No Undiagnosed new problem with uncertain prognosis? @ -No Drug Therapy requiring intensive monitoring for toxicity (Heparin, Nitro, Insulin, Cardizem)? @ -No Were any procedures done? @ -No Diagnosis/symptom? Acute, or Chronic, or Acute on Chronic? Uncomplicated (without systemic symptoms) or Complicated (systemic symptoms)? @ -Hypotension Side effects of treatment? @ -No Exacerbation, Progression, or Severe Exacerbation? @ -No Poses a threat to life or bodily function? How? (Chest pain, USA, NC, pneumonia, PE, COPD, DKA, ARF, appy, cholecystitis, CVA, Diverticulitis, Homicidal, Suicidal, threat to staff... and all critical care pts) @ -yes - Lab Data Result diagrams: 10/09/24 16:03 10/09/24 16:03 Lab Results 10/09/24 10/09/24 10/09/24 Range/Units 16:03 16:03 16:03 WBC 6.43 (4.50-10.00) 10*3/uL RBC 3.50 L (4.10-5.20) 10*6/uL Hgb 10.8 L (12.0-15.0) g/dL Hct 32.8 L (37.2-46.3) % MCV 93.7 (80.0-97.0) fL MCH 30.9 (27.0-32.0) pg MCHC 32.9 (32.0-37.0) g/dL Plt Count 206 (140-440) 10*3/uL MPV 9.5 (9.5-12.2) fL Immature Gran % (Auto) 1.1 % Neutrophils % 66.4 % Lymphocytes % 22.6 % Monocytes % 7.6 % Eosinophils % 2.0 % Basophils % 0.3 % Immature Gran # 0.07 H (0.00-0.04) 10*3/uL Neutrophils # 4.27 (1.80-7.70) 10*3/uL Lymphocytes # 1.45 (0.90-5.00) 10*3/uL Monocytes # 0.49 (0.20-1.00) 10*3/uL Eosinophils # 0.13 (0.04-0.35) 10*3/uL Basophils # 0.02 (0.00-0.10) 10*3/uL PT 11.1 (10.0-12.5) sec INR 1.0 (<1.2) APTT 23.3 (22.0-30.0) sec Sodium 138 (137-145) mmol/L Potassium 3.9 (3.5-5.1) mmol/L Chloride 105 (98-107) mmol/L Carbon Dioxide 27 (22-30) mmol/L Anion Gap 6 mmol/L BUN 15 (7-17) mg/dL Creatinine 0.85 (0.52-1.04) mg/dL Est GFR (CKD-EPI)AfAm 79 (>60 ml/min/1.73 sqM) Est GFR (CKD-EPI)NonAf 68 (>60 ml/min/1.73 sqM) Glucose 109 H (74-99) mg/dL Calcium 9.3 (8.4-10.2) mg/dL Magnesium 1.5 L (1.6-2.3) mg/dL Total Bilirubin 0.4 (0.2-1.3) mg/dL AST 19 (14-36) U/L ALT 15 (4-34) U/L Alkaline Phosphatase 69 (38-126) U/L Troponin I (0.000-0.034) ng/mL Total Protein 5.1 L (6.3-8.2) g/dL Albumin 3.1 L (3.5-5.0) g/dL 10/09/24 Range/Units 16:03 WBC (4.50-10.00) 10*3/uL RBC (4.10-5.20) 10*6/uL Hgb (12.0-15.0) g/dL Hct (37.2-46.3) % MCV (80.0-97.0) fL MCH (27.0-32.0) pg MCHC (32.0-37.0) g/dL Plt Count (140-440) 10*3/uL MPV (9.5-12.2) fL Immature Gran % (Auto) % Neutrophils % % Lymphocytes % % Monocytes % % Eosinophils % % Basophils % % Immature Gran # (0.00-0.04) 10*3/uL Neutrophils # (1.80-7.70) 10*3/uL Lymphocytes # (0.90-5.00) 10*3/uL Monocytes # (0.20-1.00) 10*3/uL Eosinophils # (0.04-0.35) 10*3/uL Basophils # (0.00-0.10) 10*3/uL PT (10.0-12.5) sec INR (<1.2) APTT (22.0-30.0) sec Sodium (137-145) mmol/L Potassium (3.5-5.1) mmol/L Chloride (98-107) mmol/L Carbon Dioxide (22-30) mmol/L Anion Gap mmol/L BUN (7-17) mg/dL Creatinine (0.52-1.04) mg/dL Est GFR (CKD-EPI)AfAm (>60 ml/min/1.73 sqM) Est GFR (CKD-EPI)NonAf (>60 ml/min/1.73 sqM) Glucose (74-99) mg/dL Calcium (8.4-10.2) mg/dL Magnesium (1.6-2.3) mg/dL Total Bilirubin (0.2-1.3) mg/dL AST (14-36) U/L ALT (4-34) U/L Alkaline Phosphatase (38-126) U/L Troponin I <0.012 (0.000-0.034) ng/mL Total Protein (6.3-8.2) g/dL Albumin (3.5-5.0) g/dL Disposition Clinical Impression: Hypotension Disposition: ADMITTED IP TO THIS [facility] Condition: Fair Referrals: Nonstaff,Physician [Primary Care Provider] - 1-2 days Decision Time: 18:04
[2024-10-09 16:54] LABS: Basophils # (A) 0.02 10*3/uL (0.00-0.10); Basophils % (A) 0.3 %; Eosinophils # (A) 0.13 10*3/uL (0.04-0.35); HCT 32.8 % (37.2-46.3); HGB 10.8 g/dL (12.0-15.0); Lymphocytes # (A) 1.45 10*3/uL (0.90-5.00); Lymphocytes % (A) 22.6 %; MCH 30.9 pg (27.0-32.0); MCHC 32.9 g/dL (32.0-37.0); MCV 93.7 fL (80.0-97.0); Mean Platelet Volume 9.5 fL (9.5-12.2); Monocytes # (A) 0.49 10*3/uL (0.20-1.00); Monocytes % (A) 7.6 %; Neutrophils # (A) 4.27 10*3/uL (1.80-7.70); Neutrophils % (A) 66.4 %; Platelet Count 206 10*3/uL (140-440); RDW 14.1 % (11.5-14.5); WBC 6.43 10*3/uL (4.50-10.00)
[2024-10-09 17:00] LABS: Partial Thromboplastin Time 23.3 sec (22.0-30.0); Prothrombin Time 11.1 sec (10.0-12.5)
[2024-10-09 17:13] LABS: ALT 15 U/L (4-34); AST 19 U/L (14-36); African American GFR (CKD) 79 (>60 ml/min/1.73 sqM); Albumin 3.1 g/dL (3.5-5.0); Alkaline Phosphatase 69 U/L (38-126); Anion Gap 6 mmol/L; Blood Urea Nitrogen 15 mg/dL (7-17); Calcium 9.3 mg/dL (8.4-10.2); Carbon Dioxide 27 mmol/L (22-30); Chloride 105 mmol/L (98-107); Glucose 109 mg/dL (74-99); Magnesium 1.5 mg/dL (1.6-2.3); Non-African American GFR(CKD) 68 (>60 ml/min/1.73 sqM); Potassium 3.9 mmol/L (3.5-5.1); Sodium 138 mmol/L (137-145); Total Bilirubin 0.4 mg/dL (0.2-1.3); Total Protein 5.1 g/dL (6.3-8.2)
--- NOTE | 2024-10-09 17:22 | XR ---
EXAMINATION TYPE: XR chest 2V DATE OF EXAM: 10/09/2024 4:54 PM COMPARISON: 10/03/2024 CLINICAL INDICATION: Female, 74 years old with history of dysrhythmia, TECHNIQUE: XR chest 2V view(s) obtained. FINDINGS: The heart size is normal. The pulmonary vasculature is normal. Right medial lower lung field findings appear stable.. IMPRESSION: 1. Examination is stable from comparison. Follow-up recommended [facility], , 10/09/2024 5:20 PM
[2024-10-09] MEDS: SODIUM CHLORIDE 0.9% 1,000 ML IV STA (17:53)
[2024-10-09] MEDS ORDERED: NALOXONE 0.4 MG/ML 1 ML VIAL IV PRN (18:00)
[2024-10-09] MEDS: MAGNESIUM SULFATE-D5W PMX 1 GM in DEXTROSE/WATER 1 100ML.BAG IVPB SCH (18:48)
[2024-10-09] MEDS: SODIUM CHLORIDE 0.9% 1,000 ML IV SCH (18:49)
[2024-10-10] MEDS: APIXABAN 5 MG TAB PO SCH (00:18)
[2024-10-10 00:49] VITALS: RESP 16
[2024-10-10] MEDS: METOPROLOL TARTRATE 12.5 MG TAB PO SCH (08:56)
[2024-10-10] MEDS: ATORVASTATIN 40 MG TAB PO SCH (08:56)
[2024-10-10] MEDS: DULoxetine HCL 60 MG CAPSULE.DR PO SCH (08:56)
[2024-10-10] MEDS: GABAPENTIN 400 MG CAP PO PRN (08:57)
[2024-10-10] MEDS: DILTIAZEM CD 180 MG CAP.ER.24H PO SCH (08:57)
[2024-10-10] MEDS ORDERED: METOPROLOL TARTRATE 12.5 MG TAB PO SCH (09:00)
[2024-10-10] MEDS: LEVOTHYROXINE 137 MCG TAB PO SCH (09:04)
[2024-10-10 09:26] LABS: Basophils # (A) 0.02 10*3/uL (0.00-0.10); Basophils % (A) 0.4 %; Eosinophils # (A) 0.11 10*3/uL (0.04-0.35); Eosinophils % (A) 2.1 %; HCT 36.1 % (37.2-46.3); HGB 11.5 g/dL (12.0-15.0); Lymphocytes # (A) 1.01 10*3/uL (0.90-5.00); Lymphocytes % (A) 19.2 %; MCH 31.1 pg (27.0-32.0); MCHC 31.9 g/dL (32.0-37.0); MCV 97.6 fL (80.0-97.0); Mean Platelet Volume 9.7 fL (9.5-12.2); Monocytes # (A) 0.41 10*3/uL (0.20-1.00); Monocytes % (A) 7.8 %; Neutrophils # (A) 3.63 10*3/uL (1.80-7.70); Platelet Count 198 10*3/uL (140-440); RDW 14.3 % (11.5-14.5); WBC 5.26 10*3/uL (4.50-10.00)
--- NOTE | 2024-10-10 09:43 | P.CRDCN ---
History of Present Illness Consult date: 10/10/24 Consult reason: atrial flutter History of present illness: This is a 74-year-old female with past medical history of coronary artery disease status post PCI, unstable angina, history of DVT/PE on anticoagulation, hypertension, bradycardia, paroxysmal atrial fibrillation, COPD, tobacco use. Patient was last seen in the office and 2022. Patient had a hospitalization earlier in September at which time she was seen by cardiology for palpitations and atrial flutter with RVR and beta-brett was added to her Cardizem. Patient states that she came into the hospital because she could feel her heart was racing. She states that it was around 165 all day yesterday but when she arrived to the hospital it slowed down. She denies chest pain, no ligh theadedness or dizziness. Blood pressure 115/68, heart rate 78, pulse ox 93% on 3 L nasal cannula. Patient is status post 1 L of IV fluids and magnesium was replaced. She has been resumed on Eliquis. -EKG: Atrial flutter 78 bpm -Chest x-ray: No acute process. -Laboratory studies: WBC 5.2, hemoglobin 9.5. Troponin negative x 1. Electrolytes and renal function are normal. Initial magnesium 1.5 and repeat 2. -Home cardiac medications: Eliquis 5 mg twice daily, atorvastatin 40 mg daily, Cardizem CD 180 mg daily, Lasix 40 mg daily as needed, Imdur 60 mg daily, metoprolol tartrate 12.5 mg twice daily. -Echocardiogram performed 10/04/2024 revealed EF of 50 to 55%. Mild mitral and tricuspid regurgitation. Review Of Systems: At the time of my exam: CONSTITUTIONAL: Denies fever or chills. HEENT: Denies blurred vision, vision changes, or eye pain. Denies hemoptysis CARDIOVASCULAR: Denies chest pain. Denies orthopnea. Denies PND. Denies palpitations RESPIRATORY: Denies shortness of breath. GASTROINTESTINAL: Denies abdominal pain. Denies nausea or vomiting. HEMATOLOGIC: Denies bleeding disorders. GENITOURINARY: Denies any blood in urine. SKIN: Denies puritis. Denies rash. Physical examination: Gen: This is 74-year-old female in no acute distress VS: reviewed HEENT: Head is atraumatic, normocephalic. Pupils equal, round. Sclerae is anicteric. NECK: Supple. No JVD. LUNGS: Clear to auscultation. No wheezes or rhonchi. No intercostal retractions. HEART: Regular rate and rhythm. No murmur. ABDOMEN: Soft No tenderness. EXTREMITIES: No pedal edema. No calf tenderness. NEUROLOGICAL: Patient is awake, alert and oriented x3. Assessment: Typical atrial flutter with RVR, currently rate controlled History of paroxysmal atrial fibrillation History of CAD status post PCI History of DVT and PE on anticoagulation Hypertension COPD Tobacco use Plan: Resume patient's home cardiac medications My throat is just dry or no need to repeat echocardiogram Patient has a known sensitivity to rate controlling medications with bradycardia. Further recommendations to follow based upon clinical course Smoking cessation. Patient will be provided the [facility] quit line information at discharge If heart rate is stable by this afternoon and patient is asymptomatic, patient is cleared for discharge from cardiology perspective Patient will follow-up with Dr. Bassett in 1 week Thank you kindly for this consultation. Nurse practitioner note has been reviewed, I agree with documented findings and plan of care. Patient was seen and examined. Past Medical History Past Medical History: Atrial Fibrillation, Atrial Flutter, Cancer, Chest Pain / Angina, COPD, Deep Vein Thrombosis (DVT), GERD/Reflux, Hyperlipidemia, Hypertension, Neurologic Disorder, Osteoarthritis (OA), Pulmonary Embolus (PE), Thyroid Disorder Additional Past Medical History / Comment(s): SKIN CANCER, CERVICAL CANCER AND THYROID CANCER.M.S. DVT IN BOTH LEGS. MS History of Any Multi-Drug Resistant Organisms: C-DIFF Date of last positivie culture/infection: 04/25/2002 MDRO Source:: cdiff Past Surgical History: Adenoidectomy, Appendectomy, Back Surgery, Breast Surgery, Heart Catheterization With Stent, Hysterectomy, Orthopedic Surgery, Tonsillectomy, Tubal Ligation Additional Past Surgical History / Comment(s): CYSTS REMOVED FROM BILATERAL BREAST, Sm NECK SURGERY, COLONOSCOPY, Past Anesthesia/Blood Transfusion Reactions: No Reported Reaction Date of Last Stent Placement:: 03/18/2010 Past Psychological History: Anxiety, Depression Smoking Status: Current every day smoker Past Alcohol Use History: None Reported Additional Past Alcohol Use History / Comment(s): SMOKING 1/2 PPD SINCE AGE 13 Past Drug Use History: None Reported - Past Family History Mother Family Medical History: Cancer, Chest Pain / Angina, Congestive Heart Failure (CHF), COPD, Hyperlipidemia, Hypertension, Myocardial Infarction ([place]) Father Family Medical History: Congestive Heart Failure (CHF), COPD, Musculoskeletal Disorder Medications and Allergies Home Medications Medication Instructions Recorded Confirmed Type Isosorbide Mononitrate ER [Imdur] 60 mg PO DAILY 10/30/19 10/09/24 History DULoxetine HCL [Cymbalta] 60 mg PO BID 01/08/22 10/09/24 History Gabapentin 800 mg PO BID PRN 01/08/22 10/09/24 History Esomeprazole Magnesium [NexIUM] 40 mg PO BID 07/08/22 10/09/24 History Atorvastatin [Lipitor] 40 mg PO DAILY 09/09/24 10/09/24 History Furosemide [Lasix] 40 mg PO DAILY PRN 09/09/24 10/09/24 History Levothyroxine Sodium [Synthroid] 137 mcg PO DAILY 09/09/24 10/09/24 History Umeclidinium Brm/Vilanterol Tr 1 puff INHALATION RT-DAILY 09/09/24 10/09/24 History [Anoro Ellipta 62.5-25 Mcg INH] Budesonide-Formot 160-4.5 Mcg 2 puff INHALATION RT-BID #1 each 09/14/24 10/09/24 Rx [Symbicort 160-4.5 Mcg Inhaler] Diltiazem Cd [Cardizem CD] 180 mg PO DAILY 30 Days #30 cap 09/14/24 10/09/24 Rx Ipratropium-Albuterol Nebulize 3 ml INHALATION RT-QID #100 each 09/14/24 10/09/24 Rx [Duoneb 0.5 mg-3 mg/3 ml Soln] Apixaban [Eliquis] 5 mg PO BID #60 tab 09/18/24 10/09/24 Rx HYDROcodone/APAP 10-325MG [[place] 1 tab PO QID PRN 3 Days #10 tab 09/18/24 10/09/24 Rx 10-325] Metoprolol Tartrate [Lopressor] 12.5 mg PO BID #60 tab 10/05/24 10/09/24 Rx ALPRAZolam [Xanax] 0.25 mg PO HS PRN 10/09/24 10/09/24 History ALPRAZolam [Xanax] 0.5 mg PO DAILY PRN 10/09/24 10/09/24 History Allergies Allergy/AdvReac Type Severity Reaction Status Date / Time azithromycin [From Zithromax] Allergy Severe Rash/Hives Verified 10/09/24 19:39 bupropion [From Wellbutrin] Allergy Severe Rash/Hives Verified 10/09/24 19:39 cephalexin [From Keflex] Allergy Intermediate Rash/Hives Verified 10/09/24 19:39 lisinopril [From Prinivil] Allergy Intermediate Rash/Hives Verified 10/09/24 19:39 nitrofurantoin Allergy Intermediate Rash/Hives Verified 10/09/24 19:39 [From Macrobid] pentazocine [From Talwin] Allergy Intermediate Rash/Hives Verified 10/09/24 19: 39 topiramate [From Topamax] Allergy Intermediate Rash/Hives Verified 10/09/24 19:39 hydromorphone [From Dilaudid] AdvReac Severe Hallucinati Verified 10/09/24 19:39 ons propranolol [From Inderal LA] AdvReac Severe MENTAL Verified 10/09/24 19:39 MOOD CHANGES codeine AdvReac Intermediate "BAD Verified 10/09/24 19:39 DREAMS" ibuprofen [From Motrin] AdvReac Intermediate Nausea & Verified 10/09/24 19:39 Vomiting & Diarrhea Physical Exam Vitals: Vital Signs Temp Pulse Pulse Resp BP BP Pulse Ox 10/10/24 04:00 97.9 F 80 16 121/70 94 L 10/10/24 00:00 97.6 F 78 16 118/68 95 10/09/24 20:27 97.5 F L 75 18 110/65 90 L 10/09/24 20:00 98.3 F 77 18 111/75 96 10/09/24 18:00 75 17 92/65 89 L 10/09/24 17:34 78 17 89/62 92 L 10/09/24 15:48 98.3 F 54 L 22 85/58 94 L Intake and Output 10/09/24 10/10/24 10/10/24 22:59 06:59 14:59 Intake Total 1415 Balance 1415 Intake: Intake, IV Titration 875 Amount Magnesium Sulfate-D5w Pmx 200 1 gm In Dextrose/Water 1 100ml.bag @ 100 mls/hr IVPB Q1H MIKKI Rx#: [id number] Sodium Chloride 0.9% 1, 675 000 ml @ 999 mls/hr IV . Q1H1M STA Rx#:[id number] Oral 540 Other: Voiding Method Toilet Toilet # Voids 1 Weight 70.307 kg 75.1 kg Results 10/10/24 08:54 10/09/24 16:03 Cardiac Enzymes 10/09/24 10/09/24 Range/Units 16:03 16:03 AST 19 (14-36) U/L Troponin I <0.012 (0.000-0.034) ng/mL Coagulation 10/09/24 Range/Units 16:03 PT 11.1 (10.0-12.5) sec APTT 23.3 (22.0-30.0) sec CBC 10/09/24 Range/Units 16:03 WBC 6.43 (4.50-10.00) 10*3/uL RBC 3.50 L (4.10-5.20) 10*6/uL Hgb 10.8 L (12.0-15.0) g/dL Hct 32.8 L (37.2-46.3) % Plt Count 206 (140-440) 10*3/uL Comprehensive Metabolic Panel 10/09/24 Range/Units 16:03 Sodium 138 (137-145) mmol/L Potassium 3.9 (3.5-5.1) mmol/L Chloride 105 (98-107) mmol/L Carbon Dioxide 27 (22-30) mmol/L BUN 15 (7-17) mg/dL Creatinine 0.85 (0.52-1.04) mg/dL Glucose 109 H (74-99) mg/dL Calcium 9.3 (8.4-10.2) mg/dL AST 19 (14-36) U/L ALT 15 (4-34) U/L Alkaline Phosphatase 69 (38-126) U/L Total Protein 5.1 L (6.3-8.2) g/dL Albumin 3.1 L (3.5-5.0) g/dL Current Medications Generic Name Dose Route Start Last Admin Trade Name Freq PRN Reason Stop Dose Admin Apixaban 5 mg 10/09/24 23:45 10/10/24 00:18 Apixaban 5 Mg Tab PO 5 mg BID MIKKI Administration Protocol Sodium Chloride 1,000 mls @ 75 mls/hr 10/09/24 18:00 10/09/24 18:49 Saline 0.9% IV 75 mls/hr .[id number] MIKKI Administration Naloxone HCl 0.2 mg 10/09/24 18:00 Naloxone 0.4 Mg/Ml 1 Ml Vial IV Q2M PRN Opioid Reversal Intake and Output 10/09/24 10/10/24 10/10/24 22:59 06:59 14:59 Intake Total 1415 Balance 1415 Intake: Intake, IV Titration 875 Amount Magnesium Sulfate-D5w Pmx 200 1 gm In Dextrose/Water 1 100ml.bag @ 100 mls/hr IVPB Q1H MIKKI Rx#: [id number] Sodium Chloride 0.9% 1, 675 000 ml @ 999 mls/hr IV . Q1H1M STA Rx#:[id number] Oral 540 Other: Voiding Method Toilet Toilet # Voids 1 Weight 70.307 kg 75.1 kg 10/09/24 16:03 10/09/24 16:03
[2024-10-10] MEDS: FUROSEMIDE 40 MG TAB PO PRN (09:50)
[2024-10-10 12:07] VITALS: BP 133/80; PULSE 77; TEMP 98
[2024-10-10] MEDS: IPRATROPIUM-ALBUTEROL 3 ML NEB INHALATION SCH (14:03)
--- NOTE | 2024-10-10 14:08 | P.HPIM ---
History of Present Illness H&P Date: 10/10/24 Patient is a 74-year-old female with atrial fibrillation, atrial flutter, CAD, history of COPD (2L NC at home), GERD, hypertension, history of DVT and PE, hypothyroidism, anxiety, depression with nicotine dependence here for evaluation of palpitations. Patient reported that for a whole day she was experiencing palpitations and checked her BP cuff which said her HR was in the 160s which led her to seek care. She denied chest pain, shortness of breath. She was admitted on 10/03/2024 for atrial flutter with RVR and was initiated on IV Cardizem and sent home on Lopressor 12.5 due to low heart rate. On admission: Vitals: Temp 98.3 F, [place] 54, respiratory rate 22, BP 85/58, O2 saturation 94% on room air Labs: WBC 6.4, hemoglobin 10.8, platelet count 206,000, potassium 3.9, bicarb 27, BUN 15, creatinine 0.8, glucose 109, magnesium 1.5. Liver enzymes and alk phos were within normal limits. Troponin negative. Coagulation panel within normal limits.. Imaging: Chest x-ray showed no acute cardiopulmonary process. EKG showed atrial flutter with a rate of 78 bpm, normal axis, no ST-T changes, QTc 409 MS. ED documentation reviewed. Review of systems: Pertinent positives and negatives as discussed in HPI, a complete review of systems was performed and all other systems are negative. Social history: Tobacco: Daily active heavy smoking. 1ppd Alcohol: no history of alcohol intake Recreational drugs: no history of recreational or illicit drug use Physical examination: Vital signs reviewed General: non toxic, no distress, appears at stated age, room air Derm: no unusual rashes/lesions, warm Head: atraumatic, normocephalic, symmetric Eyes: EOMI, anicteric sclera, pupils equal round reactive to light ENT: Nose and ears atraumatic Neck: No cervical lymphadenopathy, trachea midline, supple Mouth: no lip lesion, mucus membranes moist Cardiovascular: S1S2 reg, no murmur Lungs: CTA bilateral, no rhonchi, no rales, no accessory muscle use Abdominal: soft, nondistended, nontender to palpation, no guarding Ext: muscle strength 5 out of 5 in all 4 extremities grossly, no gross muscle atrophy, no contractures, positive dorsalis pedis pulse bilateral, no edema Neuro: CN II-XI grossly intact, no gross focal neuro deficits Psych: Alert and oriented x 3, appropriate affect and mood Assessment/Plan: The patient is admitted with an anticipated less than 2 midnight stay for evaluation of Afib and hypotension Active: # Atrial flutter #Hypotension, improving EKG showed atrial flutter with a rate of 78 bpm, normal axis, no ST-T changes, QTc 409 MS Patient hypotensive on admission Last known echocardiogram on October 04, 2024 shows EF of 50 to 55% with mild mitral and tricuspid regurgitation Resume home Lopressor and Cardizem Continue Eliquis Continue cardiac monitoring Consult cardiology in the ED # Hypomagnesemia Magnesium 1.5 on admission Given 2 g magnesium sulfate IVPB in the ED Check mag today if replete # Normocytic anemia Hemoglobin 10.8 No symptoms of bruising or bleeding Repeat CBC to reevaluate Chronic Conditions: # Hypertension #Hyperlipidemia #History of DVT and PE #GERD #COPD with chronic hypoxic respiratory failure #Multiple sclerosis Continue home gabapentin, atorvastatin, levothyroxine 137 mcg, DuoNebs, Symbicort, Cymbalta, levothyroxine, diltiazem and Lopressor. DVT ppx: Eliquis 5 mg p.o. twice daily CODE STATUS: Full Discussed with: Patient Anticipated discharge place: Home Mary Balderas MD PGY-1 Internal Medicine Dictation was produced using [employer] dictation software. please excuse any grammatical, word or spelling errors. Past Medical History Past Medical History: Atrial Fibrillation, Atrial Flutter, Cancer, Chest Pain / Angina, COPD, Deep Vein Thrombosis (DVT), GERD/Reflux, Hyperlipidemia, Hypertension, Neurologic Disorder, Osteoarthritis (OA), Pulmonary Embolus (PE), Thyroid Disorder Additional Past Medical History / Comment(s): SKIN CANCER, CERVICAL CANCER AND THYROID CANCER.M.S. DVT IN BOTH LEGS. MS History of Any Multi-Drug Resistant Organisms: C-DIFF Date of last positivie culture/infection: 04/25/2002 MDRO Source:: cdiff Past Surgical History: Adenoidectomy, Appendectomy, Back Surgery, Breast Surgery, Heart Catheterization With Stent, Hysterectomy, Orthopedic Surgery, Tonsillectomy, Tubal Ligation Additional Past Surgical History / Comment(s): CYSTS REMOVED FROM BILATERAL BREAST, Sm NECK SURGERY, COLONOSCOPY, Past Anesthesia/Blood Transfusion Reactions: No Reported Reaction Date of Last Stent Placement:: 03/18/2010 Past Psychological History: Anxiety, Depression Smoking Status: Current every day smoker Past Alcohol Use History: None Reported Additional Past Alcohol Use History / Comment(s): SMOKING 1/2 PPD SINCE AGE 13 Past Drug Use History: None Reported - Past Family History Mother Family Medical History: Cancer, Chest Pain / Angina, Congestive Heart Failure (CHF), COPD, Hyperlipidemia, Hypertension, Myocardial Infarction ([place]) Father Family Medical History: Congestive Heart Failure (CHF), COPD, Musculoskeletal Disorder Medications and Allergies Home Medications Medication Instructions Recorded Confirmed Type Isosorbide Mononitrate ER [Imdur] 60 mg PO DAILY 10/30/19 10/09/24 History DULoxetine HCL [Cymbalta] 60 mg PO BID 01/08/22 10/09/24 History Gabapentin 800 mg PO BID PRN 01/08/22 10/09/24 History Esomeprazole Magnesium [NexIUM] 40 mg PO BID 07/08/22 10/09/24 History Atorvastatin [Lipitor] 40 mg PO DAILY 09/09/24 10/09/24 History Furosemide [Lasix] 40 mg PO DAILY PRN 09/09/24 10/09/24 History Levothyroxine Sodium [Synthroid] 137 mcg PO DAILY 09/09/24 10/09/24 History Umeclidinium Brm/Vilanterol Tr 1 puff INHALATION RT-DAILY 09/09/24 10/09/24 History [Anoro Ellipta 62.5-25 Mcg INH] Budesonide-Formot 160-4.5 Mcg 2 puff INHALATION RT-BID #1 each 09/14/24 10/09/24 Rx [Symbicort 160-4.5 Mcg Inhaler] Diltiazem Cd [Cardizem CD] 180 mg PO DAILY 30 Days #30 cap 09/14/24 10/09/24 Rx Ipratropium-Albuterol Nebulize 3 ml INHALATION RT-QID #100 each 09/14/24 10/09/24 Rx [Duoneb 0.5 mg-3 mg/3 ml Soln] Apixaban [Eliquis] 5 mg PO BID #60 tab 09/18/24 10/09/24 Rx HYDROcodone/APAP 10-325MG [[place] 1 tab PO QID PRN 3 Days #10 tab 09/18/24 Rx 10-325] Metoprolol Tartrate [Lopressor] 12.5 mg PO BID #60 tab 10/05/24 10/09/24 Rx ALPRAZolam [Xanax] 0.25 mg PO HS PRN 10/09/24 10/09/24 History ALPRAZolam [Xanax] 0.5 mg PO DAILY PRN 10/09/24 10/09/24 History Allergies Allergy/AdvReac Type Severity Reaction Status Date / Time azithromycin [From Zithromax] Allergy Severe Rash/Hives Verified 10/09/24 19:39 bupropion [From Wellbutrin] Allergy Severe Rash/Hives Verified 10/09/24 19:39 cephalexin [From Keflex] Allergy Intermediate Rash/Hives Verified 10/09/24 19:39 lisinopril [From Prinivil] Allergy Intermediate Rash/Hives Verified 10/09/24 19:39 nitrofurantoin Allergy Intermediate Rash/Hives Verified 10/09/24 19:39 [From Macrobid] pentazocine [From Talwin] Allergy Intermediate Rash/Hives Verified 10/09/24 19:39 topiramate [From Topamax] Allergy Intermediate Rash/Hives Verified 10/09/24 19:39 hydromorphone [From Dilaudid] AdvReac Severe Hallucinati Verified 10/09/24 19:39 ons propranolol [From Inderal LA] AdvReac Severe MENTAL Verified 10/09/24 19:39 MOOD CHANGES codeine AdvReac Intermediate "BAD Verified 10/09/24 19:39 DREAMS" ibuprofen [From Motrin] AdvReac Intermediate Nausea & Verified 10/09/24 19:39 Vomiting & Diarrhea Physical Exam Vitals: Vital Signs Temp Pulse Pulse Resp BP BP Pulse Ox 10/10/24 04:00 97.9 F 80 16 121/70 94 L 10/10/24 00:00 97.6 F 78 16 118/68 95 10/09/24 20:27 97.5 F L 75 18 110/65 90 L 10/09/24 20:00 98.3 F 77 18 111/75 96 10/09/24 18:00 75 17 92/65 89 L 10/09/24 17:34 78 17 89/62 92 L 06/17/25 15:48 98.3 F 54 L 22 85/58 94 L Intake and Output 10/09/24 10/10/24 10/10/24 22:59 06:59 14:59 Intake Total 1415 Balance 1415 Intake: Intake, IV Titration 875 Amount Magnesium Sulfate-D5w Pmx 200 1 gm In Dextrose/Water 1 100ml.bag @ 100 mls/hr IVPB Q1H MIKKI Rx#: [id number] Sodium Chloride 0.9% 1, 675 000 ml @ 999 mls/hr IV . Q1H1M STA Rx#:[id number] Oral 540 Other: Voiding Method Toilet Toilet # Voids 1 Weight 70.307 kg 75.1 kg Results CBC & Chem 7: 10/10/24 08:54 10/09/24 16:03 Labs: Abnormal Lab Results - Last 24 Hours (Table) 10/09/24 10/09/24 Range/Units 16:03 16:03 RBC 3.50 L (4.10-5.20) 10*6/uL Hgb 10.8 L (12.0-15.0) g/dL Hct 32.8 L (37.2-46.3) % Immature Gran # 0.07 H (0.00-0.04) 10*3/uL Glucose 109 H (74-99) mg/dL Magnesium 1.5 L (1.6-2.3) mg/dL Total Protein 5.1 L (6.3-8.2) g/dL Albumin 3.1 L (3.5-5.0) g/dL Thrombosis Risk Factor Assmnt - Choose All That Apply Any of the Below Risk Factors Present?: Yes Each Factor Represents 1 point: Abnormal pulmonary function (COPD), Serious lung disease incl. pneumonia (< 1month) Other Risk Factors: Yes Each Risk Factor Represents 2 Points: Age 61-74 years Each Risk Factor Represents 3 Points: History of DVT/PE Other congenital or acquired thrombophilia - If yes, enter type in comment: No Thrombosis Risk Factor Assessment Total Risk Factor Score: 7 Thrombosis Risk Factor Assessment Level: High Risk
--- NOTE | 2024-10-10 14:21 | P.DS ---
Providers Date of admission: 10/09/24 18:01 Attending physician: Darling Farias Consults: 10/09/24 23:50 Consult Physician Routine Consulting Provider: Davey Bassett Consult Reason/Comments: A. Flutter Do you want consulting provider notified?: Yes, Notify in am Primary care physician: Physician Nonstaff Hospital Course: Hospital Course: Patient is a 74-year-old female with atrial fibrillation, atrial flutter, CAD, history of COPD (2L NC at home), GERD, hypertension, history of DVT and PE, hypothyroidism, anxiety, depression with nicotine dependence here for evaluation of palpitations. Patient reported that for a whole day she was experiencing palpitations and checked her BP cuff which said her HR was in the 160s which led her to seek care. She denied chest pain, shortness of breath. She was admitted on 10/03/2024 for atrial flutter with RVR and was initiated on IV Cardizem and sent home on Lopressor 12.5 due to low heart rate. On admission: Vitals: Temp 98.3 F, OK 54, respiratory rate 22, BP 85/58, O2 saturation 94% on room air Labs: WBC 6.4, hemoglobin 10.8, platelet count 206,000, potassium 3.9, bicarb 27, BUN 15, creatinine 0.8, glucose 109, magnesium 1.5. Liver enzymes and alk phos were within normal limits. Troponin negative. Coagulation panel within normal limits.. Imaging: Chest x-ray showed no acute cardiopulmonary process. EKG showed atrial flutter with a rate of 78 bpm, normal axis, no ST-T changes, QTc 409 MS. Patient was admitted for the evaluation of atrial flutter and hypotension. Home medications were resumed including Lopressor Cardizem and Eliquis. IV fluids were initiated in the ED and cardiology was consulted. Patient developed hypomagnesemia on admission and magnesium sulfate 2 g was given for repletion. Patient had hemoglobin of 10.8 on admission but had no symptoms of bruising or bleeding throughout hospital stay. Patient was cleared by cardiology for discharge today and is to follow-up with business technology professor in 1 week. No new home medications were prescribed. She is also advised to follow-up with PCP outpatient. Final Diagnosis: #Atrial flutter #Hypotension, improving # Hypomagnesemia, resolved # Normocytic anemia, stable # Hypertension #Hyperlipidemia #History of DVT and PE #GERD #COPD with chronic hypoxic respiratory failure, on home oxygen #Multiple sclerosis Physical examination: Vital signs reviewed General: non toxic, no distress Derm: no unusual rashes/lesions, warm Head: atraumatic, normocephalic, symmetric Eyes: EOMI, anicteric sclera, pupils equal round reactive to light ENT: Nose and ears atraumatic Neck: No cervical lymphadenopathy, trachea midline, supple Mouth: no lip lesion, mucus membranes moist Cardiovascular: S1S2 reg, no murmur Lungs: CTA bilateral, no rhonchi, no rales, no accessory muscle use Abdominal: soft, nondistended, nontender to palpation, no guarding Ext: muscle strength 5 out of 5 in all 4 extremities grossly, no gross muscle atrophy, no contractures, positive dorsalis pedis pulse bilateral, no edema Neuro: CN II-XI grossly intact, no gross focal neuro deficits Psych: Alert, oriented, appropriate affect and mood Patient Condition at Discharge: Fair Plan - Discharge Summary Discharge Rx Participant: No New Discharge Prescriptions: Continue Isosorbide Mononitrate ER [Imdur] 60 mg PO DAILY DULoxetine HCL [Cymbalta] 60 mg PO BID Esomeprazole Magnesium [NexIUM] 40 mg PO BID Furosemide [Lasix] 40 mg PO DAILY PRN PRN Reason: Edema Levothyroxine Sodium [Synthroid] 137 mcg PO DAILY Diltiazem Cd [Cardizem CD] 180 mg PO DAILY 30 Days #30 cap Budesonide-Formot 160-4.5 Mcg [Symbicort 160-4.5 Mcg Inhaler] 2 puff INHALATION RT-BID #1 each ALPRAZolam [Xanax] 0.5 mg PO DAILY PRN PRN Reason: Anxiety Gabapentin 800 mg PO BID PRN PRN Reason: Pain Atorvastatin [Lipitor] 40 mg PO DAILY Umeclidinium Brm/Vilanterol Tr [Anoro Ellipta 62.5-25 Mcg INH] 1 puff INHALATION RT-DAILY Ipratropium-Albuterol Nebulize [Duoneb 0.5 mg-3 mg/3 ml Soln] 3 ml INHALATION RT-QID #100 each HYDROcodone/APAP 10-325MG [[place] 10-325] 1 tab PO QID PRN 3 Days #10 tab PRN Reason: Pain Apixaban [Eliquis] 5 mg PO BID #60 tab Metoprolol Tartrate [Lopressor] 12.5 mg PO BID #60 tab ALPRAZolam [Xanax] 0.25 mg PO HS PRN PRN Reason: sleep/anxiety Discharge Medication List Isosorbide Mononitrate ER [Imdur] 60 mg PO DAILY 10/30/19 [History] DULoxetine HCL [Cymbalta] 60 mg PO BID 01/08/22 [History] Gabapentin 800 mg PO BID PRN 01/08/22 [History] Esomeprazole Magnesium [NexIUM] 40 mg PO BID 07/08/22 [History] Atorvastatin [Lipitor] 40 mg PO DAILY 09/09/24 [History] Furosemide [Lasix] 40 mg PO DAILY PRN 09/09/24 [History] Levothyroxine Sodium [Synthroid] 137 mcg PO DAILY 09/09/24 [History] Umeclidinium Brm/Vilanterol Tr [Anoro Ellipta 62.5-25 Mcg INH] 1 puff INHALATION RT-DAILY 09/09/24 [History] Budesonide-Formot 160-4.5 Mcg [Symbicort 160-4.5 Mcg Inhaler] 2 puff INHALATION RT-BID #1 each 09/14/24 [Rx] Diltiazem Cd [Cardizem CD] 180 mg PO DAILY 30 Days #30 cap 09/14/24 [Rx] Ipratropium-Albuterol Nebulize [Duoneb 0.5 mg-3 mg/3 ml Soln] 3 ml INHALATION RT-QID #100 each 09/14/24 [Rx] Apixaban [Eliquis] 5 mg PO BID #60 tab 09/18/24 [Rx] HYDROcodone/APAP 10-325MG [[place] 10-325] 1 tab PO QID PRN 3 Days #10 tab [Rx] Metoprolol Tartrate [Lopressor] 12.5 mg PO BID #60 tab 10/05/24 [Rx] ALPRAZolam [Xanax] 0.25 mg PO HS PRN 10/09/24 [History] ALPRAZolam [Xanax] 0.5 mg PO DAILY PRN 10/09/24 [History] Follow up Appointment(s)/Referral(s): Davey Bassett DO [STAFF PHYSICIAN] - 10/17/24 10:45 am Nonstaff,Physician [Primary Care Provider] - 1-2 days Patient Instructions/Handouts: Atrial Flutter (DC) Discharge Disposition: HOME SELF-CARE
[2024-10-10] MEDS ORDERED: SYMBICORT 160-4.5 MCG INHALER INHALATION SCH (20:00)
[2024-10-11] MEDS ORDERED: ISOSORBIDE MONONITRATE ER 60 MG TAB.ER.24H PO SCH (09:00)
== END 2024-10-10 15:17 | disposition home or self-care (01) ==
LOC: EC 15:43 → 3SCARD 18:01
PROVIDERS: ADMIT Hospitalist; ATTEND Hospitalist
DX: I48.3 Typical atrial flutter (principal); I48.0 Paroxysmal atrial fibrillation; I95.9 Hypotension, unspecified; J44.9 Chronic obstructive pulmonary disease, unspecified; K21.9 Gastro-esophageal reflux disease without esophagitis; E78.5 Hyperlipidemia, unspecified; F32.A Depression, unspecified; F41.9 Anxiety disorder, unspecified; I10 Essential (primary) hypertension; I25.10 Atherosclerotic heart disease of native coronary artery without angina pectoris; E03.9 Hypothyroidism, unspecified; E83.42 Hypomagnesemia; D64.9 Anemia, unspecified; G35 Multiple sclerosis; J96.11 Chronic respiratory failure with hypoxia; F17.200 Nicotine dependence, unspecified, uncomplicated; Z85.41 Personal history of malignant neoplasm of cervix uteri; Z85.828 Personal history of other malignant neoplasm of skin; Z85.850 Personal history of malignant neoplasm of thyroid; Z86.711 Personal history of pulmonary embolism; Z86.718 Personal history of other venous thrombosis and embolism; Z95.5 Presence of coronary angioplasty implant and graft; Z99.81 Dependence on supplemental oxygen; Z79.899 Other long term (current) drug therapy; Z79.890 Hormone replacement therapy; Z79.51 Long term (current) use of inhaled steroids; Z79.01 Long term (current) use of anticoagulants; Z88.1 Allergy status to other antibiotic agents; Z88.5 Allergy status to narcotic agent; Z88.6 Allergy status to analgesic agent
CPT/HCPCS: 96366; 96361; 96365; 99285; 36415; 94760; 93005; 80053; 83735 ×2; 84484; 85025 ×2; 85610; 85730; 71046; G0378 ×2; J3475

== ENCOUNTER 2024-10-13 00:19 | Emergency (ER) | payer MEDICARE ==
[2024-10-13 00:28] VITALS: TEMP 97.7
--- NOTE | 2024-10-13 01:05 | ED ---
Fall HPI - General Chief Complaint: Fall Stated Complaint: Fall - Head Injury Time Seen by Provider: 10/13/24 00:35 Source: patient, RN notes reviewed Mode of arrival: wheelchair Limitations: no limitations - History of Present Illness Initial Comments: This is a 74-year-old female who presents to the emergency department for a fall. Patient has a history of MS and has frequent falls, at least once daily, due to balance issues. States that she was in her kitchen getting ready to make a sandwich when she fell backwards and hit her head. Denies any loss of consciousness. She is on Eliquis for blood clots. Currently has pain to her head and left hip. MD Complaint: fall - Related Data Home Medications Medication Instructions Recorded Confirmed Isosorbide Mononitrate ER [Imdur] 60 mg PO DAILY 10/30/19 10/09/24 DULoxetine HCL [Cymbalta] 60 mg PO BID 01/08/22 10/09/24 Gabapentin 800 mg PO BID PRN 01/08/22 10/09/24 Esomeprazole Magnesium [NexIUM] 40 mg PO BID 07/08/22 10/09/24 Atorvastatin [Lipitor] 40 mg PO DAILY 09/09/24 10/09/24 Furosemide [Lasix] 40 mg PO DAILY PRN 09/09/24 10/09/24 Levothyroxine Sodium [Synthroid] 137 mcg PO DAILY 09/09/24 10/09/24 Umeclidinium Brm/Vilanterol Tr 1 puff INHALATION RT-DAILY 09/09/24 10/09/24 [Anoro Ellipta 62.5-25 Mcg INH] ALPRAZolam [Xanax] 0.25 mg PO HS PRN 10/09/24 10/09/24 ALPRAZolam [Xanax] 0.5 mg PO DAILY PRN 10/09/24 10/09/24 Previous Rx's Medication Instructions Recorded Budesonide-Formot 160-4.5 Mcg 2 puff INHALATION RT-BID #1 each 09/14/24 [Symbicort 160-4.5 Mcg Inhaler] Diltiazem Cd [Cardizem CD] 180 mg PO DAILY 30 Days #30 cap 09/14/24 Ipratropium-Albuterol Nebulize 3 ml INHALATION RT-QID #100 each 09/14/24 [Duoneb 0.5 mg-3 mg/3 ml Soln] Apixaban [Eliquis] 5 mg PO BID #60 tab 09/18/24 HYDROcodone/APAP 10-325MG [[place] 1 tab PO QID PRN 3 Days #10 tab 09/18/24 10-325] Metoprolol Tartrate [Lopressor] 12.5 mg PO BID #60 tab 10/05/24 Ciprofloxacin HCl [Cipro] 500 mg PO Q12HR 7 Days #14 tab 10/13/24 Allergies Allergy/AdvReac Type Severity Reaction Status Date / Time azithromycin [From Zithromax] Allergy Severe Rash/Hives Verified 10/13/24 00:24 bupropion [From Wellbutrin] Allergy Severe Rash/Hives Verified 10/13/24 00:24 cephalexin [From Keflex] Allergy Intermediate Rash/Hives Verified 10/13/24 00:24 lisinopril [From Prinivil] Allergy Intermediate Rash/Hives Verified 10/13/24 00:24 nitrofurantoin Allergy Intermediate Rash/Hives Verified 10/13/24 00:24 [From Macrobid] pentazocine [From Talwin] Allergy Intermediate Rash/Hives Verified 10/13/24 00:24 topiramate [From Topamax] Allergy Intermediate Rash/Hives Verified 10/13/24 00:24 hydromorphone [From Dilaudid] AdvReac Severe Hallucinati Verified 10/13/24 00:24 ons propranolol [From Inderal [place]] AdvReac Severe MENTAL Verified 10/13/24 00:24 MOOD CHANGES codeine AdvReac Intermediate "BAD Verified 10/13/24 00:24 DREAMS" ibuprofen [From Motrin] AdvReac Intermediate Nausea & Verified 10/13/24 00:24 Vomiting & Diarrhea Review of Systems ROS Statement: Those systems with pertinent positive or pertinent negative responses have been documented in the HPI. ROS Other: All systems not noted in ROS Statement are negative. Past Medical History Past Medical History: Atrial Fibrillation, Atrial Flutter, Cancer, Chest Pain / Angina, COPD, Deep Vein Thrombosis (DVT), GERD/Reflux, Hyperlipidemia, Hypertension, Neurologic Disorder, Osteoarthritis (OA), Pulmonary Embolus (PE), Thyroid Disorder Additional Past Medical History / Comment(s): SKIN CANCER, CERVICAL CANCER AND THYROID CANCER.M.S. DVT IN BOTH LEGS. MS History of Any Multi-Drug Resistant Organisms: C-DIFF Date of last positivie culture/infection: 04/25/2002 MDRO Source:: cdiff Past Surgical History: Adenoidectomy, Appendectomy, Back Surgery, Breast Surgery, Heart Catheterization With Stent, Hysterectomy, Orthopedic Surgery, Tonsillectomy, Tubal Ligation Additional Past Surgical History / Comment(s): CYSTS REMOVED FROM BILATERAL BREAST, Sm NECK SURGERY, COLONOSCOPY, Past Anesthesia/Blood Transfusion Reactions: No Reported Reaction Date of Last Stent Placement:: 03/18/2010 Past Psychological History: Anxiety, Depression Smoking Status: Current every day smoker Past Alcohol Use History: None Reported Past Drug Use History: None Reported - Past Family History Mother Family Medical History: Cancer, Chest Pain / Angina, Congestive Heart Failure (CHF), COPD, Hyperlipidemia, Hypertension, Myocardial Infarction ([place]) Father Family Medical History: Congestive Heart Failure (CHF), COPD, Musculoskeletal Disorder General Exam Limitations: no limitations General appearance: alert, in no apparent distress Head exam: Present: atraumatic, normocephalic, normal inspection Eye exam: Present: normal appearance, PERRL, EOMI. Absent: scleral icterus, conjunctival injection, periorbital swelling Respiratory exam: Present: normal lung sounds bilaterally. Absent: respiratory distress, wheezes, rales, rhonchi, stridor Cardiovascular Exam: Present: regular rate, normal rhythm Extremities exam: Present: other (Mild tenderness to palpation over the left hip. Range of motion limited by pain. No shortening or rotation. 2+ DP and PT pulses) Neurological exam: Present: alert, oriented X3, CN II-XII intact Psychiatric exam: Present: normal affect, normal mood Skin exam: Present: warm, dry, intact, normal color. Absent: rash Course Vital Signs 10/13/24 10/13/24 00:25 01:14 Temperature 97.7 F Pulse Rate 76 75 Respiratory 18 16 Rate Blood Pressure 122/77 134/85 O2 Sat by Pulse 94 L 96 Oximetry Medical Decision Making - Medical Decision Making This is a 74-year-old female who presents to the emergency department for a fall. Was pt. sent in by a medical professional or institution? @ -No Did you speak to anyone other than the patient for history? @ -No Did you review nursing and triage notes? @ -Yes, and I agree, it is accurate with regards to the patient's symptoms. Were old charts reviewed? @ -No Differential Diagnosis? @ -Differential Musculoskeletal Muscular strain, contusion, ligament sprain, fracture, arthritis, septic arthritis, bursitis, cellulitis, muscle spasm, nerve compression, DVT, arterial occlusion, herpes zoster, electrolyte abnormality, tumor.... This is not meant to be in all inclusive list EKG interpreted by me (3pts min.)? @ -Not obtained X-rays interpreted by me (1pt min.)? @ -X-ray of the left hip and AP pelvis obtained. My interpretation identifies no acute fractures. Chest x-ray obtained, my interpretation identifies no localized consolidations or infiltrates. CT interpreted by me (1pt min.)? @ -Computed tomography scan of the brain and c-spine obtained. My interpretation identifies no evidence of an acute intracranial hemorrhage, skull fracture, or cervical spine fracture. CT scan of the pelvis obtained. My interpretation identifies no femoral neck fractures. U/S interpreted by me (1pt. min.)? @ -Not obtained What testing was considered but not performed? (CT, X-rays, U/S, labs)? Why? @ -None What meds were considered but not given? Why? @ -None Did you discuss the management of the patient with other professionals? @ -No Did you reconcile home meds? @ -No Was smoking cessation discussed for >3mins.? @ -No Was critical care preformed (if so, how long)? @ -No Were there social determinants of health that impacted care today? How? (Homelessness, low income, unemployed, alcoholism, drug addiction, transportation, low edu. Level, literacy, decrease access to med. care, custodial, rehab)? @ -No Was there de-escalation of care discussed even if they declined? (Discuss DNR or withdrawal of care, Hospice)? @ -No What co-morbidities impacted this encounter? (DM, HTN, Smoking, COPD, CAD, Cancer, CVA, Hep., AIDS, mental health diagnosis, sleep apnea, morbid obesity)? @ -MS Was patient admitted / discharged? @ -Discharged. Code Coag was activated when the patient arrived due to her sustaining a head injury on Eliis. The CT scan did not reveal any acute intracranial or cervical spine abnormalities. However, she was found to have bilateral C4 pedicle fractures involving the posterior hardware. This was presumed to be an incidental finding. This most likely occurred during one of her previous falls, but does not appear to be acute. Patient denies any substantial neck discomfort. X-ray of the pelvis was unremarkable. However, the patient continued to complain of severe pain in the left hip and we then obtained a CT scan of the pelvis. CT scan of the pelvis demonstrates a subacute nondisplaced transverse fracture through the S4 segment including the posterior elements. However, there were no acute abnormalities to the left hip where she was complaining of her discomfort. Lab work obtained as well revealing no acute process. Urinalysis was consistent with infection and urine was sent for culture. She does report urinary frequency and urgency over the last couple of days. I did both offer and recommend admission due to her repetitive falls leading to fractures and her also being on blood thinners. However, patient refused and states that she does not want to go back to rehab and she will fall regardless wherever she is. Ciprofloxacin was prescribed for further management of the UTI. She was also given information for follow-up with orthopedics regarding the sacral fracture as well as prior C-spine fractures around the surgical hardware. Patient discharged home with family in stable condition. Case discussed with ED attending Dr. Emanuel. Return precautions reviewed in depth, the patient is instructed to return to the emergency department with any new, worsening, or concerning symptoms. Patient verbalized understanding. Undiagnosed new problem with uncertain prognosis? @ -None Drug Therapy requiring intensive monitoring for toxicity (Heparin, Nitro, Insulin, Cardizem)? @ -None Were any procedures done? @ -None Diagnosis/symptom? @ -Fall, head injury, UTI, sacral fracture Acute, or Chronic, or Acute on Chronic? @ -Acute Uncomplicated (without systemic symptoms) or Complicated (systemic symptoms)? @ -Uncomplicated Side effects of treatment? @ -None Exacerbation, Progression, or Severe Exacerbation] @ -Not applicable Poses a threat to life or bodily function? @ -No - Lab Data Result diagrams: 10/13/24 02:15 10/13/24 02:15 Lab Results 10/13/24 10/13/24 10/13/24 Range/Units 02:15 02:15 02:15 WBC 7.84 (4.50-10.00) 10*3/uL RBC 3.88 L (4.10-5.20) 10*6/uL Hgb 11.9 L (12.0-15.0) g/dL Hct 36.6 L (37.2-46.3) % MCV 94.3 (80.0-97.0) fL MCH 30.7 (27.0-32.0) pg MCHC 32.5 (32.0-37.0) g/dL Plt Count 241 (140-440) 10*3/uL MPV 9.8 (9.5-12.2) fL Immature Gran % (Auto) 0.8 % Neutrophils % 67.6 % Lymphocytes % 23.9 % Monocytes % 6.0 % Eosinophils % 1.3 % Basophils % 0.4 % Immature Gran # 0.06 H (0.00-0.04) 10*3/uL Neutrophils # 5.31 (1.80-7.70) 10*3/uL Lymphocytes # 1.87 (0.90-5.00) 10*3/uL Monocytes # 0.47 (0.20-1.00) 10*3/uL Eosinophils # 0.10 (0.04-0.35) 10*3/uL Basophils # 0.03 (0.00-0.10) 10*3/uL PT 11.2 (10.0-12.5) sec INR 1.0 (<1.2) APTT 23.0 (22.0-30.0) sec Sodium 139 (137-145) mmol/L Potassium 4.6 (3.5-5.1) mmol/L Chloride 102 (98-107) mmol/L Carbon Dioxide 31 H (22-30) mmol/L Anion Gap 6 mmol/L BUN 14 (7-17) mg/dL Creatinine 0.72 (0.52-1.04) mg/dL Est GFR (CKD-EPI)AfAm >90 (>60 ml/min/1.73 sqM) Est GFR (CKD-EPI)NonAf 84 (>60 ml/min/1.73 sqM) Glucose 101 H (74-99) mg/dL Calcium 10.2 (8.4-10.2) mg/dL Phosphorus 4.0 (2.5-4.5) mg/dL Magnesium 1.8 (1.6-2.3) mg/dL Total Bilirubin 0.4 (0.2-1.3) mg/dL AST 21 (14-36) U/L ALT 14 (4-34) U/L Alkaline Phosphatase 68 (38-126) U/L Total Protein 5.5 L (6.3-8.2) g/dL Albumin 3.2 L (3.5-5.0) g/dL Urine Color Urine Appearance (Clear) Urine pH (5.0-8.0) Ur Specific Ethan (1.001-1.035) Urine Protein (Negative) Urine Glucose (UA) (Negative) Urine Ketones (Negative) Urine Blood (Negative) Urine Nitrite (Negative) Urine Bilirubin (Negative) Urine Urobilinogen (<2.0) mg/dL Ur Leukocyte Esterase (Negative) Urine RBC (0-5) /hpf Urine WBC (0-5) /hpf Ur Squamous Epith Cells (0-4) /hpf Urine Bacteria (None) /hpf Urine Mucus (None) /hpf // Range/Units 02:25 WBC (4.50-10.00) 10*3/uL RBC (4.10-5.20) 10*6/uL Hgb (12.0-15.0) g/dL Hct (37.2-46.3) % MCV (80.0-97.0) fL MCH (27.0-32.0) pg MCHC (32.0-37.0) g/dL Plt Count (140-440) 10*3/uL MPV (9.5-12.2) fL Immature Gran % (Auto) % Neutrophils % % Lymphocytes % % Monocytes % % Eosinophils % % Basophils % % Immature Gran # (0.00-0.04) 10*3/uL Neutrophils # (1.80-7.70) 10*3/uL Lymphocytes # (0.90-5.00) 10*3/uL Monocytes # (0.20-1.00) 10*3/uL Eosinophils # (0.04-0.35) 10*3/uL Basophils # (0.00-0.10) 10*3/uL PT (10.0-12.5) sec INR (<1.2) APTT (22.0-30.0) sec Sodium (137-145) mmol/L Potassium (3.5-5.1) mmol/L Chloride (98-107) mmol/L Carbon Dioxide (22-30) mmol/L Anion Gap mmol/L BUN (7-17) mg/dL Creatinine (0.52-1.04) mg/dL Est GFR (CKD-EPI)AfAm (>60 ml/min/1.73 sqM) Est GFR (CKD-EPI)NonAf (>60 ml/min/1.73 sqM) Glucose (74-99) mg/dL Calcium (8.4-10.2) mg/dL Phosphorus (2.5-4.5) mg/dL Magnesium (1.6-2.3) mg/dL Total Bilirubin (0.2-1.3) mg/dL AST (14-36) U/L ALT (4-34) U/L Alkaline Phosphatase (38-126) U/L Total Protein (6.3-8.2) g/dL Albumin (3.5-5.0) g/dL Urine Color Colorless Urine Appearance Cloudy H (Clear) Urine pH 6.0 (5.0-8.0) Ur Specific Ethan 1.007 (1.001-1.035) Urine Protein Negative (Negative) Urine Glucose (UA) Negative (Negative) Urine Ketones Negative (Negative) Urine Blood Negative (Negative) Urine Nitrite Negative (Negative) Urine Bilirubin Negative (Negative) Urine Urobilinogen <2.0 (<2.0) mg/dL Ur Leukocyte Esterase Moderate H (Negative) Urine RBC >182 H (0-5) /hpf Urine WBC 80 H (0-5) /hpf Ur Squamous Epith Cells 1 (0-4) /hpf Urine Bacteria Moderate H (None) /hpf Urine Mucus Rare H (None) /hpf - Radiology Data Radiology results: report reviewed, image reviewed Disposition Clinical Impression: UTI (urinary tract infection), Frequent falls, Sacral fracture, Head injury Disposition: HOME SELF-CARE Instructions (If sedation given, give patient instructions): Urinary Tract Infection in Women (ED), Fall Prevention for Older Adults (ED), Sacral Fracture (ED) Additional Instructions: Return to the emergency department with any new, worsening, or concerning symptoms. Take the antibiotic as prescribed for 7 days. Contact the orthopedic office listed below first thing Tuesday morning. Let them know that you were seen in the emergency department for a fall and found to have a sacral fracture. They will schedule you for a follow-up appointment. Follow up with your primary care provider in 1-2 days. Prescriptions: Ciprofloxacin HCl [Cipro] 500 mg PO Q12HR 7 Days #14 tab Is patient prescribed a controlled substance at d/c from ED?: No Referrals: Nonstaff,Physician [REFERRING] - 1-2 days Sharyn Ann DO [Doctor of Osteopathic Medicine] - 1-2 days Time of Disposition: 03:38
[2024-10-13] MEDS: MORPHINE SULFATE 4 MG/ML SYRINGE IM STA (01:11)
[2024-10-13 01:15] VITALS: RESP 16
--- NOTE | 2024-10-13 01:21 | CT ---
EXAM: CT Head Without Intravenous Contrast CLINICAL HISTORY: Fall TECHNIQUE: Axial computed tomography images of the head/brain without intravenous contrast. CTDI is 45.2 mGy and DLP is 1100 mGy-cm. This CT exam was performed using one or more of the following dose reduction techniques: automated exposure control, adjustment of the mA and/or kV according to patient size, and/or use of iterative reconstruction technique. COMPARISON: CT head without contrast dated 09/09/2024 FINDINGS: Brain: There are a few areas of decreased attenuation in the deep cerebral white matter consistent with mild small vessel ischemic/degenerative changes. The cerebral and cerebellar sulci are mildly prominent consistent with mild brain atrophy. No intracranial hemorrhage. No significant mass effect. No appreciable alteration in appearance of the parenchyma when compared to the previous examination. Stable lacunar changes in the anterior left basal ganglia adjacent to the caudate head. Ventricles: Unremarkable. No ventriculomegaly. Bones/joints: Unremarkable. No acute fracture. Soft tissues: No significant overlying acute traumatic soft tissue abnormality. No radiopaque foreign body. Vasculature: Atherosclerotic disease. Sinuses: Unremarkable as visualized. No acute sinusitis. Mastoid air cells: Unremarkable as visualized. No mastoid effusion. IMPRESSION: No acute intracranial process or significant alteration from the prior examination. Chronic underlying findings, not significantly altered from the prior examination. EXAM: CT Cervical Spine Without Intravenous Contrast CLINICAL HISTORY: Fall TECHNIQUE: Axial computed tomography images of the cervical spine without intravenous contrast. CTDI is 9.3 mGy and DLP is 279.5 mGy-cm. This CT exam was performed using one or more of the following dose reduction techniques: automated exposure control, adjustment of the mA and/or kV according to patient size, and/or use of iterative reconstruction technique. COMPARISON: No relevant prior studies available. FINDINGS: Vertebrae: Posterior laminectomy defects noted from C3 through T1 levels. 2 mm anterolisthesis involving C2 on C3. 1-2 mm anterolisthesis involving C3 on C4. Diffuse facet hypertrophic changes noted. No subluxation or dislocation. No acute vertebral body fracture. Discs/spinal canal/neural foramina: Anterior fusion with metallic plate and threaded screw fixation is noted from C4 through C7 levels. There is corpectomy with a presumed fibular strut graft involving C5 and C6 levels. There is bilateral posterior fusion with pedicle screws and paraspinal rods at C3-4 and C7-T1 levels. There are fractures involving the bilateral pedicles at the C4 level. The horizontal bar is noted at the C3-4 level. Soft tissues: Unremarkable. IMPRESSION: No acute osseous traumatic injury involving the cervical spine. Extensive postsurgical changes, as noted above. Bilateral C4 pedicle fractures involving the posterior hardware is a presumed incidental finding without surrounding acute osseous abnormality.
--- NOTE | 2024-10-13 01:24 | XR ---
EXAM: XR Left Hip With Pelvis When Performed, 2 or 3 Views CLINICAL HISTORY: Fall TECHNIQUE: Two or three views of the left hip with pelvis when performed. COMPARISON: Bilateral hips and pelvis dated 07/12/2022 FINDINGS: Bones/joints: Incidental chronic degenerative changes of the left hip. No acute fracture. No dislocation. Soft tissues: Unremarkable. IMPRESSION: Incidental chronic degenerative changes of the left hip. No acute osseous traumatic injury or abnormal alignment involving the left hip.
--- NOTE | 2024-10-13 01:33 | XR ---
EXAM: XR Chest, 1 View CLINICAL HISTORY: Fall TECHNIQUE: Frontal view of the chest. COMPARISON: Chest two views dated 10/09/2024 FINDINGS: Lungs: No definite pulmonary contusive injury or focal consolidation. Underlying chronic coarse senescent interstitial markings noted. Pleural space: No definite pleural effusion or pneumothorax, accounting for limitations with supine technique. Heart: Unremarkable. No cardiomegaly. Mediastinum: No evidence for mediastinal widening. No tracheal deviation. Bones/joints: No definite acute osseous traumatic injury. Postsurgical changes involving the cervical spine in the lumbar spine predominantly excluded from the [id number]. Tubes, lines and devices: Implanted loop recorder, similar in location. IMPRESSION: No radiographic evidence for significant acute traumatic injury involving the chest/thorax. Chronic underlying interstitial changes noted.
[2024-10-13 02:37] LABS: Basophils # (A) 0.03 10*3/uL (0.00-0.10); Basophils % (A) 0.4 %; Eosinophils % (A) 1.3 %; HCT 36.6 % (37.2-46.3); HGB 11.9 g/dL (12.0-15.0); Lymphocytes # (A) 1.87 10*3/uL (0.90-5.00); Lymphocytes % (A) 23.9 %; MCH 30.7 pg (27.0-32.0); MCHC 32.5 g/dL (32.0-37.0); MCV 94.3 fL (80.0-97.0); Mean Platelet Volume 9.8 fL (9.5-12.2); Monocytes # (A) 0.47 10*3/uL (0.20-1.00); Neutrophils # (A) 5.31 10*3/uL (1.80-7.70); Neutrophils % (A) 67.6 %; Platelet Count 241 10*3/uL (140-440); RBC 3.88 10*6/uL (4.10-5.20); RDW 14.4 % (11.5-14.5); WBC 7.84 10*3/uL (4.50-10.00)
--- NOTE | 2024-10-13 02:38 | CT ---
EXAM: CT Pelvis Without Intravenous Contrast CLINICAL HISTORY: Left hip pain, fall, normal xrays TECHNIQUE: Axial computed tomography images of the pelvis without intravenous contrast. CTDI is 9.8 mGy and DLP is 414 mGy-cm. This CT exam was performed using one or more of the following dose reduction techniques: automated exposure control, adjustment of the mA and/or kV according to patient size, and/or use of iterative reconstruction technique. COMPARISON: No relevant prior studies available. FINDINGS: Bones/joints: The pelvic bones are intact. There is a subacute nondisplaced transverse fracture through the S4 segment, including the posterior elements (series 204; images 65-71). There is some sclerosis suggesting early healing. The femoral heads are well aligned within the acetabula bilaterally. Symmetric degenerative changes noted. Incidental posterior fusion from at least L4 through S1 levels bilaterally. There is an incidental fracture through the left S1 pedicle screw. Laminectomy defects noted. Soft tissues: No significant overlying acute traumatic soft tissue abnormality. Vasculature: Atherosclerotic calcification involving the distal aorta and common iliac arteries. Bladder: Unremarkable. No stones. IMPRESSION: 1. No pelvic bone fractures. 2. There is a subacute nondisplaced transverse fracture through the S4 segment, including the posterior elements (series 204; images 65-71). There is some sclerosis suggesting early healing. 3. The bilateral hips and proximal femurs are intact.
[2024-10-13 02:48] LABS: Prothrombin Time 11.2 sec (10.0-12.5)
[2024-10-13 02:52] LABS: ALT 14 U/L (4-34); African American GFR (CKD) >90 (>60 ml/min/1.73 sqM); Albumin 3.2 g/dL (3.5-5.0); Anion Gap 6 mmol/L; Blood Urea Nitrogen 14 mg/dL (7-17); Calcium 10.2 mg/dL (8.4-10.2); Carbon Dioxide 31 mmol/L (22-30); Chloride 102 mmol/L (98-107); Glucose 101 mg/dL (74-99); Non-African American GFR(CKD) 84 (>60 ml/min/1.73 sqM); Sodium 139 mmol/L (137-145); Total Bilirubin 0.4 mg/dL (0.2-1.3); Total Protein 5.5 g/dL (6.3-8.2)
[2024-10-13 03:03] LABS: Magnesium 1.8 mg/dL (1.6-2.3); Potassium 4.6 mmol/L (3.5-5.1)
[2024-10-13 03:04] LABS: AST 21 U/L (14-36); Alkaline Phosphatase 68 U/L (38-126)
[2024-10-13 03:28] LABS: Appearance,Urine Cloudy (Clear); Bacteria,Urine Moderate /hpf; Bilirubin,Urine Negative (Negative); Blood,Urine Negative (Negative); Color,Urine Colorless; Glucose,Urine (UA) Negative (Negative); Ketones,Urine Negative (Negative); Leukocyte Esterase,Urine Moderate (Negative); Mucus,Urine Rare /hpf; Nitrite,Urine Negative (Negative); Protein,Urine Negative (Negative); RBC,Urine >182 /hpf (0-5); Specific Gravity,Urine 1.007 (1.001-1.035); Squamous Epithelial Cell,Urine 1 /hpf (0-4); Urobilinogen,Urine <2.0 mg/dL (<2.0); WBC,Urine 80 /hpf (0-5)
[2024-10-13] MEDS: traMADol 50 MG STARTER PACK 3 TAB BTL PO STA (04:07)
[2024-10-13] MEDS: CIPROFLOXACIN HCL 500 MG TAB PO STA (04:08)
[2024-10-13] MEDS: MORPHINE SULFATE 4 MG/ML SYRINGE IVP STA (04:10)
[2024-10-13 04:26] VITALS: BP 138/85; PULSE 74
== END 2024-10-13 04:25 | disposition home or self-care (01) ==
LOC: EC 00:19 → SUPCPDRO 00:19 → EC 04:25
DX: S32.17XA Type 4 fracture of sacrum, initial encounter for closed fracture (principal); S09.90XA Unspecified injury of head, initial encounter; N39.0 Urinary tract infection, site not specified; R29.6 Repeated falls; G35 Multiple sclerosis; F17.200 Nicotine dependence, unspecified, uncomplicated; Z79.01 Long term (current) use of anticoagulants; Z88.1 Allergy status to other antibiotic agents; Z88.8 Allergy status to other drugs, medicaments and biological substances; Z88.6 Allergy status to analgesic agent; Z88.5 Allergy status to narcotic agent; W19.XXXA Unspecified fall, initial encounter
CPT/HCPCS: 36415; 80053; 83735; 84100; 85025; 85610; 85730; 81001; 87086; 73502; 71045; 72192; 72125; 70450; 99284; 96374; 96372; J2270; 87077; 87186

== ENCOUNTER 2024-10-13 16:18 | Inpatient (IN) | payer MEDICARE ==
--- NOTE | 2024-10-13 16:43 | ED ---
Fall HPI - General Chief Complaint: Fall Stated Complaint: Fall Time Seen by Provider: 10/13/24 16:21 Source: patient, EMS, RN notes reviewed Mode of arrival: EMS Limitations: no limitations - History of Present Illness Initial Comments: This is a 74-year-old female who presents to the emergency department for a fall. Patient has a history of MS and is falling almost daily at this point. She was evaluated here yesterday for a fall as well and it was strongly advised she be admitted at that time due to her risk of additional falls on blood thinners. However, she adamantly refused. States that today she lost her balance again and fell backwards, hitting her head. Denies any loss of consciousness. She is on Eliquis for a history of blood clots. Currently complains of pain to her left hip, which is where she was having pain yesterday. MD Complaint: fall - Related Data Home Medications Medication Instructions Recorded Confirmed Isosorbide Mononitrate ER [Imdur] 60 mg PO DAILY 10/30/19 10/09/24 DULoxetine HCL [Cymbalta] 60 mg PO BID 01/08/22 10/09/24 Gabapentin 800 mg PO BID PRN 01/08/22 10/09/24 Esomeprazole Magnesium [NexIUM] 40 mg PO BID 07/08/22 10/09/24 Atorvastatin [Lipitor] 40 mg PO DAILY 09/09/24 10/09/24 Furosemide [Lasix] 40 mg PO DAILY PRN 09/09/24 10/09/24 Levothyroxine Sodium [Synthroid] 137 mcg PO DAILY 09/09/24 10/09/24 Umeclidinium Brm/Vilanterol Tr 1 puff INHALATION RT-DAILY 09/09/24 10/09/24 [Anoro Ellipta 62.5-25 Mcg INH] ALPRAZolam [Xanax] 0.25 mg PO HS PRN 10/09/24 10/09/24 ALPRAZolam [Xanax] 0.5 mg PO DAILY PRN 10/09/24 10/09/24 Previous Rx's Medication Instructions Recorded Budesonide-Formot 160-4.5 Mcg 2 puff INHALATION RT-BID #1 each 09/14/24 [Symbicort 160-4.5 Mcg Inhaler] Diltiazem Cd [Cardizem CD] 180 mg PO DAILY 30 Days #30 cap 09/14/24 Ipratropium-Albuterol Nebulize 3 ml INHALATION RT-QID #100 each 09/14/24 [Duoneb 0.5 mg-3 mg/3 ml Soln] Apixaban [Eliquis] 5 mg PO BID #60 tab 09/18/24 HYDROcodone/APAP 10-325MG [[place] 1 tab PO QID PRN 3 Days #10 tab 09/18/24 10-325] Metoprolol Tartrate [Lopressor] 12.5 mg PO BID #60 tab 10/05/24 Ciprofloxacin HCl [Cipro] 500 mg PO Q12HR 7 Days #14 tab 10/13/24 Allergies Allergy/AdvReac Type Severity Reaction Status Date / Time azithromycin [From Zithromax] Allergy Severe Rash/Hives Verified 10/13/24 00:24 bupropion [From Wellbutrin] Allergy Severe Rash/Hives Verified 10/13/24 00:24 cephalexin [From Keflex] Allergy Intermediate Rash/Hives Verified 10/13/24 00:24 lisinopril [From Prinivil] Allergy Intermediate Rash/Hives Verified 10/13/24 00:24 nitrofurantoin Allergy Intermediate Rash/Hives Verified 10/13/24 00:24 [From Macrobid] pentazocine [From Talwin] Allergy Intermediate Rash/Hives Verified 10/13/24 00:24 topiramate [From Topamax] Allergy Intermediate Rash/Hives Verified 10/13/24 00:24 hydromorphone [From Dilaudid] AdvReac Severe Hallucinati Verified 10/13/24 00:24 ons propranolol [From Inderal [place]] AdvReac Severe MENTAL Verified 10/13/24 00:24 MOOD CHANGES codeine AdvReac Intermediate "BAD Verified 10/13/24 00:24 DREAMS" ibuprofen [From Motrin] AdvReac Intermediate Nausea & Verified 10/13/24 00:24 Vomiting & Diarrhea Review of Systems ROS Statement: Those systems with pertinent positive or pertinent negative responses have been documented in the HPI. ROS Other: All systems not noted in ROS Statement are negative. Past Medical History Past Medical History: Atrial Fibrillation, Atrial Flutter, Cancer, Chest Pain / Angina, COPD, Deep Vein Thrombosis (DVT), GERD/Reflux, Hyperlipidemia, Hypertension, Neurologic Disorder, Osteoarthritis (OA), Pulmonary Embolus (PE), Thyroid Disorder Additional Past Medical History / Comment(s): SKIN CANCER, CERVICAL CANCER AND THYROID CANCER.M.S. DVT IN BOTH LEGS. MS History of Any Multi-Drug Resistant Organisms: C-DIFF Date of last positivie culture/infection: 04/25/2002 MDRO Source:: cdiff Past Surgical History: Adenoidectomy, Appendectomy, Back Surgery, Breast Surgery, Heart Catheterization With Stent, Hysterectomy, Orthopedic Surgery, Tonsillectomy, Tubal Ligation Additional Past Surgical History / Comment(s): CYSTS REMOVED FROM BILATERAL BREAST, Sm NECK SURGERY, COLONOSCOPY, Past Anesthesia/Blood Transfusion Reactions: No Reported Reaction Date of Last Stent Placement:: 03/18/2010 Past Psychological History: Anxiety, Depression Smoking Status: Current every day smoker Past Alcohol Use History: None Reported Past Drug Use History: None Reported - Past Family History Mother Family Medical History: Cancer, Chest Pain / Angina, Congestive Heart Failure (CHF), COPD, Hyperlipidemia, Hypertension, Myocardial Infarction (MO) Father Family Medical History: Congestive Heart Failure (CHF), COPD, Musculoskeletal Disorder General Exam Limitations: no limitations General appearance: alert, in no apparent distress Head exam: Present: atraumatic, normocephalic, normal inspection Eye exam: Present: normal appearance, PERRL, EOMI. Absent: scleral icterus, conjunctival injection, periorbital swelling Respiratory exam: Present: rhonchi, decreased breath sounds, prolonged expiratory. Absent: stridor Cardiovascular Exam: Present: regular rate, irregular rhythm GI/Abdominal exam: Present: soft. Absent: distended, tenderness Neurological exam: Present: alert, oriented X3, CN II-XII intact Psychiatric exam: Present: normal affect, normal mood Skin exam: Present: warm, dry, intact, normal color. Absent: rash Course Vital Signs 10/13/24 10/13/24 10/13/24 16:20 16:56 16:59 Temperature 99.9 F H 99.5 F Pulse Rate 117 H Respiratory 22 Rate Blood Pressure 108/57 97/78 112/70 O2 Sat by Pulse 89 L 96 Oximetry 10/13/24 10/13/24 10/13/24 18:10 18:20 19:11 Temperature 99.2 F Pulse Rate 133 H 131 H 135 H Respiratory 22 20 20 Rate Blood Pressure 93/75 89/72 110/91 O2 Sat by Pulse 96 97 96 Oximetry 10/13/24 10/13/24 10/13/24 19:21 21:41 22:02 Temperature 98.1 F Pulse Rate 121 H 85 84 Respiratory 20 17 Rate Blood Pressure 96/54 84/53 O2 Sat by Pulse 98 99 Oximetry 10/13/24 10/14/24 22:17 01:16 Temperature Pulse Rate 82 73 Respiratory 16 18 Rate Blood Pressure 97/52 103/62 O2 Sat by Pulse 94 L 99 Oximetry Medical Decision Making - Medical Decision Making This is a 74 year old female who presents to the emergency department for a fall. Was pt. sent in by a medical professional or institution? @ -No Did you speak to anyone other than the patient for history? @ -No Did you review nursing and triage notes? @ -Yes, and I agree, it is accurate with regards to the patient's symptoms. Were old charts reviewed? @ -Urinalysis from last night/early this morning which was consistent with infection. Differential Diagnosis? @ -Differential Diagnosis Head Injury: Contusion, hematoma, intracranial hemorrhage, skull fracture, whiplash, concussion, this is not meant to be an all-inclusive list. EKG interpreted by me (3pts min.)? @ -EKG interpreted by me demonstrating the following: A flutter with RVR. Ventricular rate 128 bpm, QRS duration 84 ms, QTc 343 ms. X-rays interpreted by me (1pt min.)? @ -Not obtained CT interpreted by me (1pt min.)? @ -Computed tomography scan of the brain and c-spine obtained. My interpretation identifies no evidence of an acute intracranial hemorrhage, skull fracture, or cervical spine fracture. CT scan of the pelvis obtained. My interpretation identifies no acute fractures. CT scan of the chest obtained. My interpretation identifies patchy groundglass opacities. U/S interpreted by me (1pt. min.)? @ -Not obtained What testing was considered but not performed? (CT, X-rays, U/S, labs)? Why? @ -None What meds were considered but not given? Why? @ -None Did you discuss the management of the patient with other professionals? @ -Yes, Dr. Johnson, who accepts the patient for admission. Did you reconcile home meds? @ -No Was smoking cessation discussed for >3mins.? @ -No Was critical care preformed (if so, how long)? @ -Yes, >35 minutes Were there social determinants of health that impacted care today? How? (H omelessness, low income, unemployed, alcoholism, drug addiction, transportation, low edu. Level, literacy, decrease access to med. care, [facility], rehab)? @ -No Was there de-escalation of care discussed even if they declined? (Discuss DNR or withdrawal of care, Hospice)? @ -No What co-morbidities impacted this encounter? (DM, HTN, Smoking, COPD, CAD, Cancer, CVA, Hep., AIDS, mental health diagnosis, sleep apnea, morbid obesity)? @ -MS, A-fib, history of DVT and PE Was patient admitted / discharged? @ -Admitted. When the patient first arrived, we were going to just obtain imaging for her mechanical fall with a CT scan of the brain/C-spine and pelvis. However, when she was hooked up to the vehicle monitor technician she was found to be in A- fib with RVR. We then proceeded with further evaluation including laboratory studies. Lab work demonstrates leukocytosis with a white blood cell count of 13.6. Lactic acid elevated at 2.3. SIRS criteria includes the tachycardia and leukocytosis. Because the patient was diagnosed with a UTI yesterday, this was thought to be a potential source of infection and we proceeded with the sepsis protocol including 2 L of LR and blood cultures. She was already given a 200 mL bolus of IV fluids from EMS for a total of 2.2 L of fluids. Given her allergy to cephalosporins, she was started on 750 mg of IVPB Levaquin for UTI coverage. CT scan of the brain and C-spine demonstrates no acute intracranial process, however she was found to have new indeterminate groundglass and solid nodular densities in the partially visualized right lung apex. They advised a CT chest with IV contrast for further evaluation. CT scan of the chest reveals patchy groundglass consolidative opacities throughout the bilateral lungs suggestive of multifocal pneumonia. She does wear oxygen at home for COPD. States that she typically just wears 2 to 2.5 L. Patient currently requiring 5 L in the emergency department. Due to her allergy to cephalosporins and azithromycin, patient can remain on the Levaquin for both the UTI and pneumonia. Pneumonia protocol ordered as well. Patient admitted to medicine for A-fib with RVR, sepsis, UTI, pneumonia, and frequent falls. Consult placed for cardiology, pulmonology, and infectious disease. PT/OT evaluation ordered as well. Case discussed with ED attending Dr. Carmichael. Undiagnosed new problem with uncertain prognosis? @ -None Drug Therapy requiring intensive monitoring for toxicity (Heparin, Nitro, Insulin, Cardizem)? @ -Cardizem Were any procedures done? @ -None Diagnosis/symptom? @ -A-fib with RVR, sepsis, UTI, frequent falls, multifocal pneumonia Acute, or Chronic, or Acute on Chronic? @ -Acute Uncomplicated (without systemic symptoms) or Complicated (systemic symptoms)? @ -Complicated Side effects of treatment? @ -None Exacerbation, Progression, or Severe Exacerbation] @ -Not applicable Poses a threat to life or bodily function? @ -Yes, can lead to septic shock and - Lab Data Result diagrams: 10/13/24 18:08 10/13/24 19:13 Lab Results 10/13/24 10/13/24 10/13/24 Range/Units 18:08 18:08 18:08 WBC 13.66 H (4.50-10.00) 10*3/uL RBC 4.30 (4.10-5.20) 10*6/uL Hgb 13.6 (12.0-15.0) g/dL Hct 41.3 (37.2-46.3) % MCV 96.0 (80.0-97.0) fL MCH 31.6 (27.0-32.0) pg MCHC 32.9 (32.0-37.0) g/dL Plt Count 197 (140-440) 10*3/uL MPV 11.7 (9.5-12.2) fL Immature Gran % (Auto) 0.5 % Neutrophils % 92.0 % Lymphocytes % 3.4 % Monocytes % 3.1 % Eosinophils % 0.3 % Basophils % 0.7 % Immature Gran # 0.07 H (0.00-0.04) 10*3/uL Neutrophils # 12.57 H (1.80-7.70) 10*3/uL Lymphocytes # 0.46 L (0.90-5.00) 10*3/uL Monocytes # 0.42 (0.20-1.00) 10*3/uL Eosinophils # 0.04 (0.04-0.35) 10*3/uL Basophils # 0.10 (0.00-0.10) 10*3/uL PT (10.0-12.5) sec INR (<1.2) APTT (22.0-30.0) sec Sodium (137-145) mmol/L Potassium (3.5-5.1) mmol/L Chloride (98-107) mmol/L Carbon Dioxide (22-30) mmol/L Anion Gap mmol/L BUN (7-17) mg/dL Creatinine (0.52-1.04) mg/dL Est GFR (CKD-EPI)AfAm (>60 ml/min/1.73 sqM) Est GFR (CKD-EPI)NonAf (>60 ml/min/1.73 sqM) Glucose (74-99) mg/dL Lactic Ac Sepsis Rflx Plasma Lactic Acid Rodger 2.3 H* (0.7-2.0) mmol/L Calcium (8.4-10.2) mg/dL Magnesium (1.6-2.3) mg/dL Total Bilirubin (0.2-1.3) mg/dL AST (14-36) U/L ALT (4-34) U/L Alkaline Phosphatase (38-126) U/L Troponin I 0.022 (0.000-0.034) ng/mL NT-Pro-B Natriuret Pep pg/mL Total Protein (6.3-8.2) g/dL Albumin (3.5-5.0) g/dL 10/13/24 10/13/24 10/13/24 Range/Units 19:00 19:13 19:13 WBC (4.50-10.00) 10*3/uL RBC (4.10-5.20) 10*6/uL Hgb (12.0-15.0) g/dL Hct (37.2-46.3) % MCV (80.0-97.0) fL MCH (27.0-32.0) pg MCHC (32.0-37.0) g/dL Plt Count (140-440) 10*3/uL MPV (9.5-12.2) fL Immature Gran % (Auto) % Neutrophils % % Lymphocytes % % Monocytes % % Eosinophils % % Basophils % % Immature Gran # (0.00-0.04) 10*3/uL Neutrophils # (1.80-7.70) 10*3/uL Lymphocytes # (0.90-5.00) 10*3/uL Monocytes # (0.20-1.00) 10*3/uL Eosinophils # (0.04-0.35) 10*3/uL Basophils # (0.00-0.10) 10*3/uL PT 12.1 (10.0-12.5) sec INR 1.1 (<1.2) APTT 23.1 (22.0-30.0) sec Sodium 137 (137-145) mmol/L Potassium 4.4 (3.5-5.1) mmol/L Chloride 101 (98-107) mmol/L Carbon Dioxide 30 (22-30) mmol/L Anion Gap 6 mmol/L BUN 15 (7-17) mg/dL Creatinine 0.80 (0.52-1.04) mg/dL Est GFR (CKD-EPI)AfAm 85 (>60 ml/min/1.73 sqM) Est GFR (CKD-EPI)NonAf 74 (>60 ml/min/1.73 sqM) Glucose 151 H (74-99) mg/dL Lactic Ac Sepsis Rflx Y Plasma Lactic Acid Rodger (0.7-2.0) mmol/L Calcium 9.3 (8.4-10.2) mg/dL Magnesium 1.5 L (1.6-2.3) mg/dL Total Bilirubin 0.3 (0.2-1.3) mg/dL AST 20 (14-36) U/L ALT 12 (4-34) U/L Alkaline Phosphatase 66 (38-126) U/L Troponin I (0.000-0.034) ng/mL NT-Pro-B Natriuret Pep 1920 pg/mL Total Protein 4.7 L (6.3-8.2) g/dL Albumin 2.7 L (3.5-5.0) g/dL - Radiology Data Radiology results: report reviewed, image reviewed Critical Care Time Critical Care Time: Yes Critical Care Time: >35 minutes Disposition Clinical Impression: Atrial fibrillation with RVR, UTI (urinary tract infection), Sepsis, Frequent falls, Multifocal pneumonia Disposition: ADMITTED IP TO THIS HOSP
[2024-10-13] MEDS: MORPHINE SULFATE 4 MG/ML SYRINGE IVP STA (17:02)
--- NOTE | 2024-10-13 17:26 | CT ---
EXAMINATION TYPE: CT brain cspine wo con DATE OF EXAM: 10/13/2024 4:47 PM COMPARISON: Previous CT study 09/09/2024. CLINICAL INDICATION: Female, 74 years old with history of Fall; Code Coag. Fall on thinners. TECHNIQUE: Brain: Multiple axial CT images of the brain were obtained without IV contrast. Cspine: Axial CT images from the skull base to the inferior aspect of T2 we obtained without intraven ous contrast. Coronal and sagittal reformatted images were also reviewed. . CT DLP: 1329.8 mGycm, Automated exposure control for dose reduction was used. FINDINGS: Brain: Extra-axial spaces: No abnormal extra-axial fluid collections. Ventricular system: Dilatation in proportion to cerebral atrophy. Cerebral parenchyma: No acute intraparenchymal hemorrhage or mass effect. The levin-white junction is well differentiated. Scattered hypoattenuating areas are seen within the white matter. Cerebellum: Unremarkable. Mass effect: No evidence of midline shift. Intracranial vasculature: unremarkable Soft tissues: Normal. Calvarium/osseous structures: No depressed skull fracture. Paranasal sinuses and mastoid air cells: Clear. Visualized orbits: Orbital contents are intact. Cervical spine: Fracture: None. Osseous structures: Multilevel degenerative disc disease changes with endplate spurring and disc oste ophyte complex's. Anterior fusion hardware visualized measuring C4-C7 with corpectomy device noted. P osterior fusion also noted spanning C3 and C4 as well as C7-T1. Osseous structures appear demineraliz ed. Vertebral alignment: Grade 1 anterolisthesis of C2 on C3, not significantly changed from recent study . Mild anterolisthesis of C3 on C4. Spinal canal/Neural Foramina: Fusion hardware as above. Multilevel facet arthropathy in combination w ith uncovertebral hypertrophy and posterior disc osteophyte complexes cause multilevel varying degree s of neuroforaminal and spinal canal stenosis at the remaining levels. Neck soft tissues: Prevertebral soft tissues are within normal limits. Other: The airway is patent. The lung apices demonstrate advanced emphysematous changes in addition t o new groundglass and solid nodular densities in the partially visualized right lung apex which are i ndeterminate. IMPRESSION: 1. No acute intracranial abnormality. 2. No acute fracture or traumatic dislocation of the cervical spine. Degenerative changes and fusion hardware as above. 3. Emphysema and new indeterminate groundglass and solid nodular densities in the partially visualiz ed right lung apex. Recommend outpatient CT chest with IV contrast for further evaluation. [facility], , 10/13/2024 5:24 PM
--- NOTE | 2024-10-13 17:40 | CT ---
EXAMINATION TYPE: CT pelvis wo con DATE OF EXAM: 10/13/2024 4:50 PM COMPARISON: Previous radiograph 10/13/2024. CLINICAL INDICATION: Female, 74 years old with history of Fall, left hip pain; Fall, left hip pain. TECHNIQUE: Axial CT pelvis wo con;Sagittal and coronal reformats were created on a separate workstat ion. Oral contrast used: without Oral Contrast (none if empty) CT DLP: 430.3 mGycm, Automated exposure control for dose reduction was used. FINDINGS: No acute fracture or dislocation. Mild to moderate left-sided degenerative arthritis. Osseous structu res are diffusely demineralized. Partially visualized lumbosacral spinal fusion hardware. Study limit ed due to patient positioning/streak artifact from overlying extremities and fusion hardware. Calcifi ed atherosclerotic disease of the abdominal aorta and bilateral common iliac arteries. Colonic divert iculosis without acute diverticulitis in the visualized portion of the pelvis and abdomen. Urinary bl adder unremarkable. Uterus is likely surgically absent. Pelvic bones appear grossly intact. No defini te pathologic pelvic or inguinal lymphadenopathy. IMPRESSION: 1. No acute fracture or dislocation. 2. Mild/moderate left hip degenerative osteoarthritis. 3. Additional findings as above. [facility], , 10/13/2024 5:38 PM
[2024-10-13] MEDS: LACTATED RINGERS 1,000 ML IV SCH ×2 (18:07)
[2024-10-13] MEDS: LEVOFLOXACIN 750MG-D5W PMX 750 MG in DEXTROSE/WATER 1 150ML.BAG IVPB STA (18:16)
[2024-10-13 18:19] LABS: Basophils % (A) 0.7 %; Eosinophils # (A) 0.04 10*3/uL (0.04-0.35); Eosinophils % (A) 0.3 %; HCT 41.3 % (37.2-46.3); HGB 13.6 g/dL (12.0-15.0); Lymphocytes # (A) 0.46 10*3/uL (0.90-5.00); Lymphocytes % (A) 3.4 %; MCH 31.6 pg (27.0-32.0); MCHC 32.9 g/dL (32.0-37.0); Mean Platelet Volume 11.7 fL (9.5-12.2); Monocytes # (A) 0.42 10*3/uL (0.20-1.00); Monocytes % (A) 3.1 %; Neutrophils # (A) 12.57 10*3/uL (1.80-7.70); Platelet Count 197 10*3/uL (140-440); WBC 13.66 10*3/uL (4.50-10.00)
[2024-10-13] MEDS: ACETAMINOPHEN TAB 500 MG TAB PO STA (18:25)
[2024-10-13] MEDS: ACETAMINOPHEN IV (For NPO) 1,000 MG in EMPTY BAG 1 BAG IVPB STA (18:58)
[2024-10-13] MEDS: DILTIAZEM 125 MG in DEXTROSE 5% IN WATER 100 ML IV SCH (19:00)
[2024-10-13] MEDS: DILTIAZEM 5 MG/ML 5 ML VIAL IVP STA (19:07)
[2024-10-13] MEDS ORDERED: RX INFO: IV CONTRAST WAS GIVEN 1 EACH MISC MISCELLANE PRN (19:09)
[2024-10-13] MEDS: LACTATED RINGERS 500 ML IV ONE (19:15)
[2024-10-13 20:06] LABS: ALT 12 U/L (4-34); AST 20 U/L (14-36); African American GFR (CKD) 85 (>60 ml/min/1.73 sqM); Albumin 2.7 g/dL (3.5-5.0); Alkaline Phosphatase 66 U/L (38-126); Anion Gap 6 mmol/L; Blood Urea Nitrogen 15 mg/dL (7-17); Calcium 9.3 mg/dL (8.4-10.2); Carbon Dioxide 30 mmol/L (22-30); Chloride 101 mmol/L (98-107); Glucose 151 mg/dL (74-99); Magnesium 1.5 mg/dL (1.6-2.3); Non-African American GFR(CKD) 74 (>60 ml/min/1.73 sqM); Potassium 4.4 mmol/L (3.5-5.1); Sodium 137 mmol/L (137-145); Total Bilirubin 0.3 mg/dL (0.2-1.3); Total Protein 4.7 g/dL (6.3-8.2)
[2024-10-13 20:14] LABS: NT-Pro-B-Type Natriuretic Pept 1920 pg/mL
[2024-10-13] MEDS ORDERED: NALOXONE 0.4 MG/ML 1 ML VIAL IV PRN (20:14)
[2024-10-13] MEDS ORDERED: ONDANSETRON 4 MG/2 ML VIAL IVP PRN (20:14)
[2024-10-13] MEDS ORDERED: MORPHINE SULFATE 4 MG/ML SYRINGE IV PRN (20:14)
[2024-10-13 20:40] LABS: INR 1.1 (<1.2); Partial Thromboplastin Time 23.1 sec (22.0-30.0); Prothrombin Time 12.1 sec (10.0-12.5)
[2024-10-13] MEDS: MAGNESIUM SULFATE-D5W PMX 1 GM in DEXTROSE/WATER 1 100ML.BAG IVPB SCH (21:02)
[2024-10-13] MEDS ORDERED: PNEUMONIA PROTOCOL UTILIZED 1 EACH MISC PO PRN (21:26)
--- NOTE | 2024-10-13 21:26 | CT ---
EXAMINATION TYPE: CT chest w con DATE OF EXAM: 10/13/2024 8:45 PM COMPARISON: Previous CT chest angiogram study dated 09/10/2024. CLINICAL INDICATION: Female, 74 years old with history of Abnormal findings on CT brain/c-spine; PHH, Abnormal findings on CT brain/c-spine. TECHNIQUE: Multiple axial images were obtained through the chest. Sagittal and coronal reformats were created for review. MIP was performed on a separate workstation. Contrast used:100 ml mL of Isovue 300 with IV Contrast (None if empty) CT DLP: 510.8 mGycm, Automated exposure control for dose reduction was used. FINDINGS: LUNGS/ PLEURA: The lung parenchyma appears unremarkable. AIRWAY: Patent and unremarkable. HEART: Size within normal limits.Coronary artery calcifications. MEDIASTINUM: No gross evidence of adenopathy. Right hilar mildly prominent lymph nodes, possibly reac tive in etiology. VASCULATURE: No aortic aneurysm. MUSCULOSKELETAL: No acute osseous abnormalities. Posterior fusion hardware in the lumbar spine and ce rvical spine. Additional anterior fusion hardware in the cervical spine as well. SOFT TISSUES/LYMPH NODES: Unremarkable. LOWER NECK: No significant findings. UPPER ABDOMEN: No significant findings. IMPRESSION: Patchy groundglass and consolidative opacities throughout the bilateral lungs suggestive of multifoca l pneumonia. [facility], , 10/13/2024 9:23 PM
[2024-10-13] MEDS: IPRATROPIUM-ALBUTEROL 3 ML NEB INHALATION PRN (21:39)
[2024-10-14 02:11] LABS: Influenza A Not Detected (Not Detectd); Influenza B Not Detected (Not Detectd); RSV Not Detected (Not Detectd)
[2024-10-14 05:01] LABS: Appearance,Urine Clear (Clear); Bacteria,Urine Rare /hpf; Bilirubin,Urine Negative (Negative); Blood,Urine Negative (Negative); Color,Urine Light Yellow; Glucose,Urine (UA) Negative (Negative); Ketones,Urine Negative (Negative); Leukocyte Esterase,Urine Moderate (Negative); Mucus,Urine Rare /hpf; Nitrite,Urine Positive (Negative); PH, Urine 5.5 (5.0-8.0); Protein,Urine Negative (Negative); RBC,Urine 1 /hpf (0-5); Specific Gravity,Urine 1.027 (1.001-1.035); Squamous Epithelial Cell,Urine 1 /hpf (0-4); Urobilinogen,Urine <2.0 mg/dL (<2.0); WBC,Urine 19 /hpf (0-5)
--- NOTE | 2024-10-14 06:35 | XR ---
EXAMINATION TYPE: XR chest 1V portable DATE OF EXAM: 10/14/2024 COMPARISON: [id number] CLINICAL INDICATION: Female, 74 years old with history of pneumonia; TECHNIQUE: Single frontal view of the chest is obtained. FINDINGS: There is stable diffuse interstitial density right greater than left but in addition there is vague i ncreasing airspace consolidation in the right mid and lower lung zone consistent with interval worsen ing of pneumonia or pulmonary edema. The heart size is normal. There is no pleural effusion or pneumothorax. The osseous structures are in tact. IMPRESSION: Diffuse bilateral cardiopulmonary process, right greater than left, with mild interval worsening on t he right as described above. [facility], , 10/14/2024 6:33 AM
[2024-10-14] MEDS: IPRATROPIUM-ALBUTEROL 3 ML NEB INHALATION SCH (08:01)
[2024-10-14] MEDS: PANTOPRAZOLE 40 MG/10 ML VIAL IV SCH (10:09)
[2024-10-14] MEDS: LEVOFLOXACIN 750 MG TAB PO SCH (10:10)
--- NOTE | 2024-10-14 12:07 | P.CNPUL ---
History of Present Illness Consult date: 10/14/24 Requesting physician: Honorio E [place] Reason for consult: dyspnea, abnormal CXR/CT Chief complaint: Follows with injury History of present illness: This is a 74-year-old female patient with a known history of multiple sclerosis maintained on ofatumumab in the outpatient setting, PE/DVT anticoagulated with Eliquis, thyroid cancer with previous thyroidectomy, hypertension, hyperlipidemia, chronic obstructive pulmonary disease, chronic tobacco dependence, on home oxygen at 2 L, atrial fibrillation, recent pneumonia. She has been here several times this month after sustaining weakness and falls. Refused admission on 10/12/2024. Presented back to the emergency room 10/13/2024 with another fall and hitting her head. CT scan of the brain revealed no acute intracranial abnormalities. CT scan of the C-spine revealed no acute fractures. CT scan of the pelvis revealed no acute fractures or dislocation. CT scan of the chest revealed patchy groundglass and consolidative opacities throughout the bilateral lungs suspicious for multifocal pneumonia. White count 13.6. Hemoglobin 13.6. Platelets 197. Sodium 137. Potassium 4.4. Bicarb 30. BUN 15. Creatinine 0.80. Glucose 151. Urinalysis with positive nitrates moderate leukocyte Estrase. Viral screen negative for influenza A/B, RSV, COVID. She is seen today in the emergency department. Currently sitting up in the stretcher. Awake and alert in no acute distress. Maintaining O2 saturations in the 90s on 5 L/min per nasal cannula. She is in atrial fibrillation with a rapid ventricular response. Mean arterial blood pressure 72. She was initially on a Cardizem drip. Review of Systems REVIEW OF SYSTEMS: CONSTITUTIONAL: Positive for generalized weakness, falls. Denies any recent significant weight loss or weight gain. EYES: Denies change in vision. EARS, NOSE, MOUTH, THROAT: Denies headaches, denies sore throat. CARDIOVASCULAR: Denies chest pain, palpitations or syncopal episodes. RESPIRATORY: Positive for shortness of breath, cough, congestion no hemoptysis. GASTROINTESTINAL: Denies change in appetite, denies abdominal pain GENITOURINARY: Denies hematuria, denies infections. MUSKULOSKELETAL: Positive for left hip pain. INTEGUMENTARY: Denies rash, denies eczema. NEUROLOGICAL: Denies recent memory loss, no recent seizure activity. PSYCHIATRIC: Denies anxiety, denies depression. HEMATOLOGIC/LYMPHATIC: Denies anemia, denies enlarged lymph nodes. Past Medical History Past Medical History: Atrial Fibrillation, Atrial Flutter, Cancer, Chest Pain / Angina, COPD, Deep Vein Thrombosis (DVT), GERD/Reflux, Hyperlipidemia, Hypertension, Neurologic Disorder, Osteoarthritis (OA), Pulmonary Embolus (PE), Thyroid Disorder Additional Past Medical History / Comment(s): SKIN CANCER, CERVICAL CANCER AND THYROID CANCER.M.S. DVT IN BOTH LEGS. MS History of Any Multi-Drug Resistant Organisms: C-DIFF Date of last positivie culture/infection: 04/25/2002 MDRO Source:: cdiff Past Surgical History: Adenoidectomy, Appendectomy, Back Surgery, Breast Surgery, Heart Catheterization With Stent, Hysterectomy, Orthopedic Surgery, Tonsillectomy, Tubal Ligation Additional Past Surgical History / Comment(s): CYSTS REMOVED FROM BILATERAL BREAST, Sm NECK SURGERY, COLONOSCOPY, Past Anesthesia/Blood Transfusion Reactions: No Reported Reaction Date of Last Stent Placement:: 03/18/2010 Past Psychological History: Anxiety, Depression Smoking Status: Current every day smoker Past Alcohol Use History: None Reported Past Drug Use History: None Reported - Past Family History Mother Family Medical History: Cancer, Chest Pain / Angina, Congestive Heart Failure (CHF), COPD, Hyperlipidemia, Hypertension, Myocardial Infarction ([place]) Father Family Medical History: Congestive Heart Failure (CHF), COPD, Musculoskeletal Disorder Medications and Allergies Home Medications Medication Instructions Recorded Confirmed Type Isosorbide Mononitrate ER [Imdur] 60 mg PO DAILY 10/30/19 10/14/24 History DULoxetine HCL [Cymbalta] 60 mg PO BID 01/08/22 10/14/24 History Gabapentin 800 mg PO BID PRN 01/08/22 10/14/24 History Esomeprazole Magnesium [NexIUM] 40 mg PO BID 07/08/22 10/14/24 History Atorvastatin [Lipitor] 40 mg PO DAILY 09/09/24 10/14/24 History Furosemide [Lasix] 40 mg PO DAILY PRN 09/09/24 10/14/24 History Levothyroxine Sodium [Synthroid] 137 mcg PO DAILY 09/09/24 10/14/24 History Umeclidinium Brm/Vilanterol Tr 1 puff INHALATION RT-DAILY 09/09/24 10/14/24 History [Anoro Ellipta 62.5-25 Mcg INH] Budesonide-Formot 160-4.5 Mcg 2 puff INHALATION RT-BID #1 each 09/14/24 10/14/24 Rx [Symbicort 160-4.5 Mcg Inhaler] Diltiazem Cd [Cardizem CD] 180 mg PO DAILY 30 Days #30 cap 09/14/24 10/14/24 Rx Ipratropium-Albuterol Nebulize 3 ml INHALATION RT-QID #100 each 09/14/24 10/14/24 Rx [Duoneb 0.5 mg-3 mg/3 ml Soln] Apixaban [Eliquis] 5 mg PO BID #60 tab 09/18/24 10/14/24 Rx Metoprolol Tartrate [Lopressor] 12.5 mg PO BID #60 tab 10/05/24 10/14/24 Rx ALPRAZolam [Xanax] 0.25 mg PO HS PRN 10/09/24 10/14/24 History ALPRAZolam [Xanax] 0.5 mg PO DAILY PRN 10/09/24 10/14/24 History Ciprofloxacin HCl [Cipro] 500 mg PO DIRECTED 10/14/24 10/14/24 History HYDROcodone/APAP 10-325MG [[place] 1 tab PO TID PRN 10/14/24 10/14/24 History 10-325] Allergies Allergy/AdvReac Type Severity Reaction Status Date / Time azithromycin [From Zithromax] Allergy Severe Rash/Hives Verified 10/14/24 09:13 bupropion [From Wellbutrin] Allergy Severe Rash/Hives Verified 10/14/24 09:13 cephalexin [From Keflex] Allergy Intermediate Rash/Hives Verified 10/14/24 09:13 lisinopril [From Prinivil] Allergy Intermediate Rash/Hives Verified 10/14/24 09:13 nitrofurantoin Allergy Intermediate Rash/Hives Verified 10/14/24 09:13 [From Macrobid] pentazocine [From Talwin] Allergy Intermediate Rash/Hives Verified 10/14/24 09:13 topiramate [From Topamax] Allergy Intermediate Rash/Hives Verified 10/14/24 09:13 hydromorphone [From Dilaudid] AdvReac Severe Hallucinati Verified 10/14/24 09:13 ons propranolol [From Inderal [place]] AdvReac Severe MENTAL Verified 10/14/24 09:13 MOOD CHANGES codeine AdvReac Intermediate "BAD Verified 10/14/24 09:13 DREAMS" ibuprofen [From Motrin] AdvReac Intermediate Nausea & Verified 10/14/24 09:13 Vomiting & Diarrhea Physical Exam Vitals: Vital Signs Temp Pulse Resp BP Pulse Ox 10/14/24 11:46 138 H 10/14/24 11:37 126 H 10/14/24 10:00 151 H 18 93/62 99 10/14/24 09:00 108 H 18 95/76 99 10/14/24 08:14 124 H 10/14/24 08:04 122 H 10/14/24 08:00 112 H 18 107/72 99 10/14/24 07:52 121 H 18 122/70 99 10/14/24 05:01 78 10/14/24 04:48 74 10/14/24 04:34 78 16 100/63 100 10/14/24 01:16 73 18 103/62 99 10/13/24 22:17 82 16 97/52 94 L 10/13/24 22:02 98.1 F 84 17 84/53 99 10/13/24 21:41 85 10/13/24 19:21 121 H 20 96/54 98 10/13/24 19:11 135 H 20 110/91 96 10/13/24 18:20 99.2 F 131 H 20 89/72 97 10/13/24 18:10 133 H 22 93/75 96 10/13/24 16:59 112/70 96 10/13/24 16:56 99.5 F 117 H 22 97/78 89 L 10/13/24 16:20 99.9 F H 108/57 Intake and Output 10/13/24 10/14/24 10/14/24 22:59 06:59 14:59 Intake Total 38.333 Balance 38.333 Intake: Intake, IV Titration 38.333 Amount Diltiazem 125 mg In 38.333 Dextrose 5% in Water 100 ml @ 5 MG/HR 5 mls/hr IV .Q24H [facility] Rx#:[id number] Other: Weight 68.039 kg GENERAL EXAM: Alert, pleasant, weak 74-year-old female, on 5 L nasal cannula, fairly comfortable in no apparent distress. HEAD: Normocephalic. EYES: Normal reaction of pupils, equal size. NOSE: Clear with pink turbinates. THROAT: No erythema or exudates. NECK: No masses, no JVD. CHEST: No chest wall deformity. LUNGS: Equal air entry with bilateral scattered rhonchi. CVS: S1 and S2 normal with no audible murmur, irregular rhythm. ABDOMEN: No hepatosplenomegaly, normal bowel sounds, no guarding or rigidity. SPINE: No scoliosis or deformity SKIN: No rashes CENTRAL NERVOUS SYSTEM: No focal deficits, tone is normal in all 4 extremities. EXTREMITIES: There is no peripheral edema. No clubbing, no cyanosis. Peripheral pulses are intact. Results - Laboratory Findings CBC and BMP: 10/13/24 18:08 10/13/24 19:13 PT/INR, D-dimer PT 12.1 sec (10.0-12.5) 10/13/24 19:13 INR 1.1 (<1.2) 10/13/24 19:13 Abnormal lab findings: Abnormal Labs 10/13/24 10/13/24 10/13/24 18:08 18:08 19:13 WBC 13.66 H Immature Gran # 0.07 H Neutrophils # 12.57 H Lymphocytes # 0.46 L Glucose 151 H Plasma Lactic Acid Rodger 2.3 H* Magnesium 1.5 L Total Protein 4.7 L Albumin 2.7 L Urine Nitrite Ur Leukocyte Esterase Urine WBC Urine Bacteria Urine Mucus 10/13/24 10/14/24 21:11 04:22 WBC Immature Gran # Neutrophils # Lymphocytes # Glucose Plasma Lactic Acid Rodger 2.1 H* Magnesium Total Protein Albumin Urine Nitrite Positive H Ur Leukocyte Esterase Moderate H Urine WBC 19 H Urine Bacteria Rare H Urine Mucus Rare H - Diagnostic Findings Chest x-ray: image reviewed CT scan - chest: image reviewed Assessment and Plan Assessment: Multiple sclerosis with increasing weakness and falls. CT scan of the head and cervical spine revealed no acute intracranial abnormalities. No acute fractures Acute on chronic hypoxemic respiratory failure secondary to multifocal pneumonia Recent discharge following an episode of right lung pneumonia Atrial fibrillation with rapid ventricular response History of PE/DVT maintained on Eliquis History of benign essential hypertension Chronic obstructive pulmonary disease, maintained on home oxygen at 2 L/min Chronic tobacco dependence Plan: The patient was seen and evaluated All imaging, labs and medications reviewed EKG reviewed Currently on 5 L nasal cannula Titrate down the FiO2 as tolerated Continue Levaquin Add DuoNeb inhalations Add Symbicort Anticoagulated with Eliquis Cardiology consulted PT/OT consult We will continue to follow and make further recommendations based on her clinical status I have personally seen and examined the patient, performed the documentation and the assessment and plan as written. Number of minutes spent on the visit: 20 Dictation was produced using [employer] dictation software. Please excuse any gr ammatical, word or spelling errors. Time with Patient: Greater than 30
--- NOTE | 2024-10-14 12:40 | P.CRDCN ---
History of Present Illness Consult date: 10/14/24 History of present illness: HISTORY OF PRESENTING ILLNESS: Known to Dr. Bassett. Presented to the hospital because of increased worsening generalized weakness on admission she was noted to have atrial a flutter with RVR. She does have history of paroxysmal atrial fibrillation. Since September 2024 she has had third hospital admission now. This time she also has evidence of severe sepsis with elevated lactate and positive urine analysis positive for nitrates. She is a poor historian. WBC 13, Hb 13, BUN 15, creatinine 0.8, lactate 2.1, magnesium 1.5, NT-proBNP 192 0. EKG shows atrial flutter with RVR Chest x-ray shows mild consolidation/show possible multifocal pneumonia Chest CT shows patchy groundglass consolidation suggestive of multifocal pneumonia Pelvic CT does not show any acute fractures. REVIEW OF SYSTEMS: 14 point review of system is negative except what is mentioned above in HPI. PHYSICAL EXAMINATION: Neck: Brisk carotid upstroke, no jugular venous distention. Lungs: Clear to auscultation. Heart: Irregularly irregular pulse, S1-S2, , no murmur or rub. Abdomen: Soft nontender, positive bowel sounds. Extremities: No edema, intact distal pulses. Neuro: Slightly obtunded and mildly confused, no focal deficits. Detailed neuro exam was not performed. ASSESSMENT: # Severe sepsis with complicated UTI and multifocal pneumonia # Atrial flutter with RVR # History of paroxysmal atrial fibrillation # History of DVT and PE PE # History of nonobstructive CAD # Hypertension, currently hypotensive # COPD, Tobacco user PLAN: Third hospital admissions because of generalized weakness and typical atrial flutter. Start IV amiodarone drip. Stop Cardizem drip. Start Cardizem p.o. 30 mg 4 times daily Continue Eliquis 5 twice daily No need to repeat echo Consider atrial flutter ablation on outpatient basis Infectious workup. Recommend to discontinue Levaquin and start different antibiotic as it interacts with amiodarone Evelio Flores MD, FACC, RPVI Thank you for allowing [facility] to participate in this patient's care. Feel free to reach out in case of any followup questions. Past Medical History Past Medical History: Atrial Fibrillation, Atrial Flutter, Cancer, Chest Pain / Angina, COPD, Deep Vein Thrombosis (DVT), GERD/Reflux, Hyperlipidemia, Hypertension, Neurologic Disorder, Osteoarthritis (OA), Pulmonary Embolus (PE), Thyroid Disorder Additional Past Medical History / Comment(s): SKIN CANCER, CERVICAL CANCER AND THYROID CANCER.M.S. DVT IN BOTH LEGS. MS History of Any Multi-Drug Resistant Organisms: C-DIFF Date of last positivie culture/infection: 04/25/2002 MDRO Source:: cdiff Past Surgical History: Adenoidectomy, Appendectomy, Back Surgery, Breast Surgery, Heart Catheterization With Stent, Hysterectomy, Orthopedic Surgery, Tonsillectomy, Tubal Ligation Additional Past Surgical History / Comment(s): CYSTS REMOVED FROM BILATERAL BREAST, Sm NECK SURGERY, COLONOSCOPY, Past Anesthesia/Blood Transfusion Reactions: No Reported Reaction Date of Last Stent Placement:: 03/18/2010 Past Psychological History: Anxiety, Depression Smoking Status: Current every day smoker Past Alcohol Use History: None Reported Past Drug Use History: None Reported - Past Family History Mother Family Medical History: Cancer, Chest Pain / Angina, Congestive Heart Failure (CHF), COPD, Hyperlipidemia, Hypertension, Myocardial Infarction ([place]) Father Family Medical History: Congestive Heart Failure (CHF), COPD, Musculoskeletal Disorder Medications and Allergies Home Medications Medication Instructions Recorded Confirmed Type Isosorbide Mononitrate ER [Imdur] 60 mg PO DAILY 10/30/19 10/14/24 History DULoxetine HCL [Cymbalta] 60 mg PO BID 01/08/22 10/14/24 History Gabapentin 800 mg PO BID PRN 01/08/22 10/14/24 History Esomeprazole Magnesium [NexIUM] 40 mg PO BID 07/08/22 10/14/24 History Atorvastatin [Lipitor] 40 mg PO DAILY 09/09/24 10/14/24 History Furosemide [Lasix] 40 mg PO DAILY PRN 09/09/24 10/14/24 History Levothyroxine Sodium [Synthroid] 137 mcg PO DAILY 09/09/24 10/14/24 History Umeclidinium Brm/Vilanterol Tr 1 puff INHALATION RT-DAILY 09/09/24 10/14/24 History [Anoro Ellipta 62.5-25 Mcg INH] Budesonide-Formot 160-4.5 Mcg 2 puff INHALATION RT-BID #1 each 09/14/24 10/14/24 Rx [Symbicort 160-4.5 Mcg Inhaler] Diltiazem Cd [Cardizem CD] 180 mg PO DAILY 30 Days #30 cap 09/14/24 10/14/24 Rx Ipratropium-Albuterol Nebulize 3 ml INHALATION RT-QID #100 each 09/14/24 10/14/24 Rx [Duoneb 0.5 mg-3 mg/3 ml Soln] Apixaban [Eliquis] 5 mg PO BID #60 tab 09/18/24 10/14/24 Rx Metoprolol Tartrate [Lopressor] 12.5 mg PO BID #60 tab 10/05/24 10/14/24 Rx ALPRAZolam [Xanax] 0.25 mg PO HS PRN 10/09/24 10/14/24 History ALPRAZolam [Xanax] 0.5 mg PO DAILY PRN 10/09/24 10/14/24 History Ciprofloxacin HCl [Cipro] 500 mg PO DIRECTED 10/14/24 10/14/24 History HYDROcodone/APAP 10-325MG [[place] 1 tab PO TID PRN 10/14/24 10/14/24 History 10-325] Allergies Allergy/AdvReac Type Severity Reaction Status Date / Time azithromycin [From Zithromax] Allergy Severe Rash/Hives Verified 10/14/24 09:13 bupropion [From Wellbutrin] Allergy Severe Rash/Hives Verified 10/14/24 09:13 cephalexin [From Keflex] Allergy Intermediate Rash/Hives Verified 10/14/24 09:13 lisinopril [From Prinivil] Allergy Intermediate Rash/Hives Verified 10/14/24 09:13 nitrofurantoin Allergy Intermediate Rash/Hives Verified 10/14/24 09:13 [From Macrobid] pentazocine [From Talwin] Allergy Intermediate Rash/Hives Verified 10/14/24 09:13 topiramate [From Topamax] Allergy Intermediate Rash/Hives Verified 10/14/24 09:13 hydromorphone [From Dilaudid] AdvReac Severe Hallucinati Verified 10/14/24 09:13 ons propranolol [From Inderal LA] AdvReac Severe MENTAL Verified 10/14/24 09:13 MOOD CHANGES codeine AdvReac Intermediate "BAD Verified 10/14/24 09:13 DREAMS" ibuprofen [From Motrin] AdvReac Intermediate Nausea & Verified 10/14/24 09:13 Vomiting & Diarrhea Physical Exam Vitals: Vital Signs Temp Pulse Resp BP Pulse Ox 10/14/24 11:46 138 H 10/14/24 11:37 126 H 10/14/24 10:00 151 H 18 93/62 99 10/14/24 09:00 108 H 18 95/76 99 10/14/24 08:14 124 H 10/14/24 08:04 122 H 10/14/24 08:00 112 H 18 107/72 99 10/14/24 07:52 121 H 18 122/70 99 10/14/24 05:01 78 10/14/24 04:48 74 10/14/24 04:34 78 16 100/63 100 10/14/24 01:16 73 18 103/62 99 10/13/24 22:17 82 16 97/52 94 L 10/13/24 22:02 98.1 F 84 17 84/53 99 10/13/24 21:41 85 10/13/24 19:21 121 H 20 96/54 98 10/13/24 19:11 135 H 20 110/91 96 10/13/24 18:20 99.2 F 131 H 20 89/72 97 10/13/24 18:10 133 H 22 93/75 96 10/13/24 16:59 112/70 96 10/13/24 16:56 99.5 F 117 H 22 97/78 89 L 10/13/24 16:20 99.9 F H 108/57 Intake and Output 10/13/24 10/14/24 10/14/24 22:59 06:59 14:59 Intake Total 38.333 Balance 38.333 Intake: Intake, IV Titration 38.333 Amount Diltiazem 125 mg In 38.333 Dextrose 5% in Water 100 ml @ 5 MG/HR 5 mls/hr IV .Q24H [facility] Rx#:[id number] Other: Weight 68.039 kg Results 10/13/24 18:08 10/13/24 19:13 Cardiac Enzymes 10/13/24 10/13/24 Range/Units 18:08 19:13 AST 20 (14-36) U/L Troponin I 0.022 (0.000-0.034) ng/mL Coagulation 10/13/24 Range/Units 19:13 PT 12.1 (10.0-12.5) sec APTT 23.1 (22.0-30.0) sec CBC 10/13/24 Range/Units 18:08 WBC 13.66 H (4.50-10.00) 10*3/uL RBC 4.30 (4.10-5.20) 10*6/uL Hgb 13.6 (12.0-15.0) g/dL Hct 41.3 (37.2-46.3) % Plt Count 197 (140-440) 10*3/uL Comprehensive Metabolic Panel 10/13/24 Range/Units 19:13 Sodium 137 (137-145) mmol/L Potassium 4.4 (3.5-5.1) mmol/L Chloride 101 (98-107) mmol/L Carbon Dioxide 30 (22-30) mmol/L BUN 15 (7-17) mg/dL Creatinine 0.80 (0.52-1.04) mg/dL Glucose 151 H (74-99) mg/dL Calcium 9.3 (8.4-10.2) mg/dL AST 20 (14-36) U/L ALT 12 (4-34) U/L Alkaline Phosphatase 66 (38-126) U/L Total Protein 4.7 L (6.3-8.2) g/dL Albumin 2.7 L (3.5-5.0) g/dL Current Medications Generic Name Dose Route Start Last Admin Trade Name Freq PRN Reason Stop Dose Admin Acetaminophen 650 mg 10/13/24 20:14 Acetaminophen Tab 325 Mg Tab PO Q6HR PRN Mild Pain or Fever > 100.5 Hydrocodone Bitart/Acetaminophen 1 each 10/13/24 20:14 Hydrocodone/Apap 5-325mg 1 Each Tab PO Q4HR PRN Moderate Pain (Scale 4 to 6) Albuterol/Ipratropium 3 ml 10/13/24 20:56 10/14/24 04:47 Ipratropium-Albuterol 3 Ml Neb INHALATION 3 ml RT-Q2H PRN Administration Shortness Of Breath Or Wheezing Albuterol/Ipratropium 3 ml 10/14/24 08:00 10/14/24 11:36 Ipratropium-Albuterol 3 Ml Neb INHALATION 3 ml RT-QID MIKKI Administration Apixaban 5 mg 10/14/24 12:45 Apixaban 5 Mg Tab PO BID [facility] Protocol Budesonide/Formoterol Fumarate 2 puff 10/14/24 20:00 Symbicort 160-4.5 Mcg Inhaler INHALATION RT-BID [facility] Diltiazem HCl 30 mg 10/14/24 13:00 Diltiazem Oral 30 Mg Tab PO QID MIKKI Lactated Ringer's 1,000 mls @ 130 mls/hr 10/13/24 17:45 10/14/24 10:09 Lactated Ringers IV 130 mls/hr .Q7H42M MIKKI Administration Amiodarone HCl 360 mg/ 200 mls @ 33.333 mls/hr 10/14/24 12:33 Dextrose/Water IV 10/14/24 18:32 .Q6H [facility] Protocol 1 MG/MIN Amiodarone HCl 450 mg/ 250 mls @ 16.667 mls/hr 10/14/24 18:45 Dextrose/Water IV 10/15/24 12:44 .Q15H MIKKI Protocol 0.5 MG/MIN Levofloxacin 750 mg 10/14/24 09:00 10/14/24 10:10 Levofloxacin 750 Mg Tab PO 10/17/24 09:01 750 mg DAILY MIKKI Administration Protocol Miscellaneous Information 1 each 10/13/24 19:09 Rx Info: Iv Contrast Was Given 1 Each Misc MISCELLANE 10/15/24 19:09 DAILY PRN Per Protocol Miscellaneous Information 1 each 10/13/24 21:26 Pneumonia Protocol Utilized 1 Each Misc PO ONCE PRN Per Protocol Morphine Sulfate 4 mg 10/13/24 20:14 Morphine Sulfate 4 Mg/Ml Syringe IV Q4HR PRN Severe Pain (Scale 7 to 10) Naloxone HCl 0.2 mg 10/13/24 20:14 Naloxone 0.4 Mg/Ml 1 Ml Vial IV Q2M PRN Opioid Reversal Ondansetron HCl 4 mg 10/13/24 20:14 Ondansetron 4 Mg/2 Ml Vial IVP Q8HR PRN Nausea And Vomiting Pantoprazole Sodium 40 mg 10/14/24 09:00 10/14/24 10:09 Pantoprazole 40 Mg/10 Ml Vial IV 40 mg DAILY MIKKI Administration Intake and Output 10/13/24 10/14/24 10/14/24 22:59 06:59 14:59 Intake Total 38.333 Balance 38.333 Intake: Intake, IV Titration 38.333 Amount Diltiazem 125 mg In 38.333 Dextrose 5% in Water 100 ml @ 5 MG/HR 5 mls/hr IV .Q24H [facility] Rx#:[id number] Other: Weight 68.039 kg 10/13/24 18:08 10/13/24 19:13
[2024-10-14] MEDS ORDERED: METOPROLOL TARTRATE 25 MG TAB PO SCH (12:45)
[2024-10-14] MEDS: AMIODARONE 360 MG in DEXTROSE 5% IN WATER 200 ML IV ONE (13:01)
[2024-10-14] MEDS: DILTIAZEM ORAL 30 MG TAB PO SCH (13:40)
[2024-10-14] MEDS: APIXABAN 5 MG TAB PO SCH (13:40)
[2024-10-14] MEDS: HYDROcodone/APAP 5-325MG 1 EACH TAB PO PRN (13:42)
[2024-10-14] MEDS: MAGNESIUM SULFATE-D5W PMX 1 GM in DEXTROSE/WATER 1 100ML.BAG IVPB SCH (13:46)
[2024-10-14] MEDS ORDERED: ALPRAZolam 0.5 MG TAB PO PRN ×2 (17:39)
[2024-10-14] MEDS ORDERED: GABAPENTIN 400 MG CAP PO PRN (17:39)
--- NOTE | 2024-10-14 17:42 | P.HPIM ---
History of Present Illness H&P Date: 10/13/24 Chief Complaint: Fall 74-year-old female who presents to the emergency department for a fall. Patient has a history of MS and is falling almost daily at this point. She was evaluated here yesterday for a fall as well and it was strongly advised she be admitted at that time due to her risk of additional falls on blood thinners. However, she adamantly refused. States that today she lost her balance again and fell backwards, hitting her head. Denies any loss of consciousness. She is on Eliquis for a history of blood clots. Currently complains of pain to her left hip, which is where she was having pain yesterday. CT scan of the brain revealed no acute intracranial abnormalities. CT scan of the C-spine revealed no acute fractures. CT scan of the pelvis revealed no acute fractures or dislocation. CT scan of the chest revealed patchy groundglass and consolidative opacities throughout the bilateral lungs suspicious for multifocal pneumonia. White count 13.6. Hemoglobin 13.6. Platelets 197. Sodium 137. Potassium 4.4. Bicarb 30. BUN 15. Creatinine 0.80. Glucose 151. Urinalysis with positive nitrates moderate leukocyte Estrase. Viral screen negative for influenza A/B, RSV, COVID. Review of Systems REVIEW OF SYSTEMS: CONSTITUTIONAL: No fever, no malaise, no fatigue. HEENT: No recent visual problems or hearing problems. Denied any sore throat. CARDIOVASCULAR: No chest pain, orthopnea, PND, no palpitations, no syncope. PULMONARY: No shortness of breath, no cough, no hemoptysis. GASTROINTESTINAL: No diarrhea, no nausea, no vomiting, no abdominal pain. NEUROLOGICAL: No headaches, no weakness, no numbness. HEMATOLOGICAL: Denies any bleeding or petechiae. GENITOURINARY: Denies any burning micturition, frequency, or urgency. MUSCULOSKELETAL/RHEUMATOLOGICAL: Denies any joint pain, swelling, or any muscle pain. ENDOCRINE: Denies any polyuria or polydipsia. The rest of the 14-point review of systems is negative. Past Medical History Past Medical History: Atrial Fibrillation, Atrial Flutter, Cancer, Chest Pain / Angina, COPD, Deep Vein Thrombosis (DVT), GERD/Reflux, Hyperlipidemia, Hypertension, Neurologic Disorder, Osteoarthritis (OA), Pulmonary Embolus (PE), Thyroid Disorder Additional Past Medical History / Comment(s): SKIN CANCER, CERVICAL CANCER AND THYROID CANCER.M.S. DVT IN BOTH LEGS. MS History of Any Multi-Drug Resistant Organisms: C-DIFF Date of last positivie culture/infection: 04/25/2002 MDRO Source:: cdiff Past Surgical History: Adenoidectomy, Appendectomy, Back Surgery, Breast Surgery, Heart Catheterization With Stent, Hysterectomy, Orthopedic Surgery, Tonsillectomy, Tubal Ligation Additional Past Surgical History / Comment(s): CYSTS REMOVED FROM BILATERAL BREAST, Sm NECK SURGERY, COLONOSCOPY, Past Anesthesia/Blood Transfusion Reactions: No Reported Reaction Date of Last Stent Placement:: 03/18/2010 Past Psychological History: Anxiety, Depression Smoking Status: Current every day smoker Past Alcohol Use History: None Reported Past Drug Use History: None Reported - Past Family History Mother Family Medical History: Cancer, Chest Pain / Angina, Congestive Heart Failure (CHF), COPD, Hyperlipidemia, Hypertension, Myocardial Infarction ([place]) Father Family Medical History: Congestive Heart Failure (CHF), COPD, Musculoskeletal Disorder Medications and Allergies Home Medications Medication Instructions Recorded Confirmed Type Isosorbide Mononitrate ER [Imdur] 60 mg PO DAILY 10/30/19 10/14/24 History DULoxetine HCL [Cymbalta] 60 mg PO BID 01/08/22 10/14/24 History Gabapentin 800 mg PO BID PRN 01/08/22 10/14/24 History Esomeprazole Magnesium [NexIUM] 40 mg PO BID 07/08/22 10/14/24 History Atorvastatin [Lipitor] 40 mg PO DAILY 09/09/24 10/14/24 History Furosemide [Lasix] 40 mg PO DAILY PRN 09/09/24 10/14/24 History Levothyroxine Sodium [Synthroid] 137 mcg PO DAILY 09/09/24 10/14/24 History Umeclidinium Brm/Vilanterol Tr 1 puff INHALATION RT-DAILY 09/09/24 10/14/24 History [Anoro Ellipta 62.5-25 Mcg INH] Budesonide-Formot 160-4.5 Mcg 2 puff INHALATION RT-BID #1 each 09/14/24 10/14/24 Rx [Symbicort 160-4.5 Mcg Inhaler] Diltiazem Cd [Cardizem CD] 180 mg PO DAILY 30 Days #30 cap 09/14/24 10/14/24 Rx Ipratropium-Albuterol Nebulize 3 ml INHALATION RT-QID #100 each 09/14/24 10/14/24 Rx [Duoneb 0.5 mg-3 mg/3 ml Soln] Apixaban [Eliquis] 5 mg PO BID #60 tab 09/18/24 10/14/24 Rx Metoprolol Tartrate [Lopressor] 12.5 mg PO BID #60 tab 10/05/24 10/14/24 Rx ALPRAZolam [Xanax] 0.25 mg PO HS PRN 10/09/24 10/14/24 History ALPRAZolam [Xanax] 0.5 mg PO DAILY PRN 10/09/24 10/14/24 History Ciprofloxacin HCl [Cipro] 500 mg PO DIRECTED 10/14/24 10/14/24 History HYDROcodone/APAP 10-325MG [[place] 1 tab PO TID PRN 10/14/24 10/14/24 History 10-325] Allergies Allergy/AdvReac Type Severity Reaction Status Date / Time azithromycin [From Zithromax] Allergy Severe Rash/Hives Verified 10/14/24 09:13 bupropion [From Wellbutrin] Allergy Severe Rash/Hives Verified 10/14/24 09:13 cephalexin [From Keflex] Allergy Intermediate Rash/Hives Verified 10/14/24 09:13 lisinopril [From Prinivil] Allergy Intermediate Rash/Hives Verified 10/14/24 09:13 nitrofurantoin Allergy Intermediate Rash/Hives Verified 10/14/24 09:13 [From Macrobid] pentazocine [From Talwin] Allergy Intermediate Rash/Hives Verified 10/14/24 09:13 topiramate [From Topamax] Allergy Intermediate Rash/Hives Verified 10/14/24 0 9:13 hydromorphone [From Dilaudid] AdvReac Severe Hallucinati Verified 10/14/24 09:13 ons propranolol [From Inderal LA] AdvReac Severe MENTAL Verified 10/14/24 09:13 MOOD CHANGES codeine AdvReac Intermediate "BAD Verified 10/14/24 09:13 DREAMS" ibuprofen [From Motrin] AdvReac Intermediate Nausea & Verified 10/14/24 09:13 Vomiting & Diarrhea Physical Exam Vitals: Vital Signs Temp Pulse Resp BP Pulse Ox 10/13/24 19:21 121 H 20 96/54 98 10/13/24 19:11 135 H 20 110/91 96 10/13/24 18:20 99.2 F 131 H 20 89/72 97 10/13/24 18:10 133 H 22 93/75 96 10/13/24 16:59 112/70 96 10/13/24 16:56 99.5 F 117 H 22 97/78 89 L 10/13/24 16:20 99.9 F H 108/57 Intake and Output 10/13/24 10/13/24 10/13/24 06:59 14:59 22:59 Other: Weight 68.039 kg General appearance: alert, in no apparent distress Head exam: Present: atraumatic, normocephalic, normal inspection Eye exam: Present: normal appearance, PERRL, EOMI. Absent: scleral icterus, con junctival injection, periorbital swelling Respiratory exam: Present: rhonchi, decreased breath sounds, prolonged expiratory. Absent: stridor Cardiovascular Exam: Present: regular rate, irregular rhythm GI/Abdominal exam: Present: soft. Absent: distended, tenderness Neurological exam: Present: alert, oriented X3, CN II-XII intact Psychiatric exam: Present: normal affect, normal mood Skin exam: Present: warm, dry, intact, normal color. Absent: rash Results CBC & Chem 7: 10/13/24 18:08 10/13/24 19:13 Labs: Abnormal Lab Results - Last 24 Hours (Table) 10/13/24 10/13/24 10/13/24 Range/Units 18:08 18:08 19:13 WBC 13.66 H (4.50-10.00) 10*3/uL Immature Gran # 0.07 H (0.00-0.04) 10*3/uL Neutrophils # 12.57 H (1.80-7.70) 10*3/uL Lymphocytes # 0.46 L (0.90-5.00) 10*3/uL Glucose 151 H (74-99) mg/dL Plasma Lactic Acid Rodger 2.3 H* (0.7-2.0) mmol/L Magnesium 1.5 L (1.6-2.3) mg/dL Total Protein 4.7 L (6.3-8.2) g/dL Albumin 2.7 L (3.5-5.0) g/dL Assessment and Plan Assessment: 1. Acute on chronic hypoxic respiratory failure; likely related to multifocal pneumonia - Continue with supplemental oxygen with plans to titrate or wean as able 2. Multifocal pneumonia - Patient was recently discharged after treatment of right lung pneumonia - Patient has been placed on IV Levaquin; bronchodilator nebulizer treatments 4 times daily and as needed - We will monitor CBC, CRP and procalcitonin - Consult pulmonary service 3. Complicated UTI/sepsis; as indicated above patient is placed on IV Levaquin; blood cultures and urine cultures obtained - Further recommendations pending clinical course 4. Increasing weakness/falls; patient has history of MS - CT of the head and cervical spine was completed in ED which did not reveal any acute abnormalities 5. Atrial fibrillation/flutter with RVR; patient has been placed on IV Cardizem infusion; remains anticoagulated with Eliquis 5 mg twice daily - Cardiology is consulted 5. Hypertension; metoprolol 12.5 mg twice daily; Cardizem 180 mg daily 6. COPD; not in exacerbation; we will continue with home inhaler therapy; pulmonary to evaluate and make further recommendations 7. History of DVT/PE; patient remains on Eliquis 5 mg twice daily 8. Hyperlipidemia; Lipitor 40 mg daily 9. Hypothyroidism; levothyroxine 137 mcg daily DVT prophylaxis; SCDs/Eliquis CODE STATUS; full code
--- NOTE | 2024-10-14 17:43 | P.PN ---
Subjective Progress Note Date: 10/14/24 74-year-old female who presents to the emergency department for a fall. Patient has a history of MS and is falling almost daily at this point. She was evaluated here yesterday for a fall as well and it was strongly advised she be admitted at that time due to her risk of additional falls on blood thinners. However, she adamantly refused. States that today she lost her balance again and fell backwards, hitting her head. Denies any loss of consciousness. She is on Eliquis for a history of blood clots. Currently complains of pain to her left hip, which is where she was having pain yesterday. CT scan of the brain revealed no acute intracranial abnormalities. CT scan of the C-spine revealed no acute fractures. CT scan of the pelvis revealed no acute fractures or dislocation. CT scan of the chest revealed patchy groundglass and consolidative opacities throughout the bilateral lungs suspicio us for multifocal pneumonia. White count 13.6. Hemoglobin 13.6. Platelets 197. Sodium 137. Potassium 4.4. Bicarb 30. BUN 15. Creatinine 0.80. Glucose 151. Urinalysis with positive nitrates moderate leukocyte Estrase. Viral screen negative for influenza A/B, RSV, COVID Objective - Vital Signs Vital signs: Vital Signs Temp 98.1 F 10/13/24 22:02 Pulse 151 H 10/14/24 10:00 Resp 18 10/14/24 10:00 BP 93/62 10/14/24 10:00 Pulse Ox 99 10/14/24 10:00 FiO2 Intake & Output 10/13/24 10/14/24 10/14/24 18:59 06:59 18:59 Intake Total 38.333 Balance 38.333 Weight 68.039 kg Intake: Intake, IV Titration 38.333 Amount Diltiazem 125 mg In 38.333 Dextrose 5% in Water 100 ml @ 5 MG/HR 5 mls/hr IV .Q24H [facility] Rx#:[id number] - Exam General appearance: alert, in no apparent distress Head exam: Present: atraumatic, normocephalic, normal inspection Eye exam: Present: normal appearance, PERRL, EOMI. Absent: scleral icterus, con junctival injection, periorbital swelling Respiratory exam: Present: rhonchi, decreased breath sounds, prolonged expiratory. Absent: stridor Cardiovascular Exam: Present: regular rate, irregular rhythm GI/Abdominal exam: Present: soft. Absent: distended, tenderness Neurological exam: Present: alert, oriented X3, CN II-XII intact Psychiatric exam: Present: normal affect, normal mood Skin exam: Present: warm, dry, intact, normal color. Absent: rash - Labs CBC & Chem 7: 10/13/24 18:08 10/13/24 19:13 Labs: Abnormal Lab Results - Last 24 Hours (Table) 10/13/24 10/13/24 10/13/24 Range/Units 18:08 18:08 19:13 WBC 13.66 H (4.50-10.00) 10*3/uL Immature Gran # 0.07 H (0.00-0.04) 10*3/uL Neutrophils # 12.57 H (1.80-7.70) 10*3/uL Lymphocytes # 0.46 L (0.90-5.00) 10*3/uL Glucose 151 H (74-99) mg/dL Plasma Lactic Acid Rodger 2.3 H* (0.7-2.0) mmol/L Magnesium 1.5 L (1.6-2.3) mg/dL Total Protein 4.7 L (6.3-8.2) g/dL Albumin 2.7 L (3.5-5.0) g/dL Urine Nitrite (Negative) Ur Leukocyte Esterase (Negative) Urine WBC (0-5) /hpf Urine Bacteria (None) /hpf Urine Mucus (None) /hpf 10/13/24 10/14/24 Range/Units 21:11 04:22 WBC (4.50-10.00) 10*3/uL Immature Gran # (0.00-0.04) 10*3/uL Neutrophils # (1.80-7.70) 10*3/uL Lymphocytes # (0.90-5.00) 10*3/uL Glucose (74-99) mg/dL Plasma Lactic Acid Rodger 2.1 H* (0.7-2.0) mmol/L Magnesium (1.6-2.3) mg/dL Total Protein (6.3-8.2) g/dL Albumin (3.5-5.0) g/dL Urine Nitrite Positive H (Negative) Ur Leukocyte Esterase Moderate H (Negative) Urine WBC 19 H (0-5) /hpf Urine Bacteria Rare H (None) /hpf Urine Mucus Rare H (None) /hpf Assessment and Plan Assessment: 1. Acute on chronic hypoxic respiratory failure; likely related to multifocal pneumonia - Continue with supplemental oxygen with plans to titrate or wean as able 2. Multifocal pneumonia - Patient was recently discharged after treatment of right lung pneumonia - Patient has been placed on IV Levaquin; bronchodilator nebulizer treatments 4 times daily and as needed - We will monitor CBC, CRP and procalcitonin - Consult pulmonary service 3. Complicated UTI/sepsis; as indicated above patient is placed on IV Levaquin; blood cultures and urine cultures obtained - Further recommendations pending clinical course 4. Increasing weakness/falls; patient has history of MS - CT of the head and cervical spine was completed in ED which did not reveal any acute abnormalities 5. Atrial fibrillation/flutter with RVR; patient has been placed on IV Cardizem infusion; remains anticoagulated with Eliquis 5 mg twice daily - Cardiology is consulted 5. Hypertension; metoprolol 12.5 mg twice daily; Cardizem 180 mg daily 6. COPD; not in exacerbation; we will continue with home inhaler therapy; pulmonary to evaluate and make further recommendations 7. History of DVT/PE; patient remains on Eliquis 5 mg twice daily 8. Hyperlipidemia; Lipitor 40 mg daily 9. Hypothyroidism; levothyroxine 137 mcg daily DVT prophylaxis; SCDs/Eliquis CODE STATUS; full code
[2024-10-14] MEDS: AMIODARONE 450 MG in DEXTROSE 5% IN WATER 250 ML IV SCH (18:53)
[2024-10-14] MEDS: SYMBICORT 160-4.5 MCG INHALER INHALATION SCH (20:14)
[2024-10-14] MEDS: HYDROcodone/APAP 10-325MG 1 EACH TAB PO PRN (20:37)
[2024-10-14] MEDS: DULoxetine HCL 60 MG CAPSULE.DR PO SCH (20:38)
[2024-10-14] MEDS ORDERED: NON FORMULARY DRUG (Esomeprazole Magnesium [Nexium] 40 MG Capsule.Dr) PO SCH (21:00)
[2024-10-14] MEDS: METOPROLOL TARTRATE 12.5 MG TAB PO SCH (22:23)
--- NOTE | 2024-10-14 22:48 | P.CONS ---
History of Present Illness - Reason for Consult Consult date: 10/14/24 Sepsis, UTI, pneumonia Requesting physician: Alma Espinal - Chief Complaint Weakness and fall x 1 day - History of Present Illness Patient is a 74-year-old female with a past medical history significant for Atrial Fibrillation, Atrial Flutter, Cancer, Chest Pain / Angina, COPD, Deep Vein Thrombosis (DVT), GERD/Reflux, Hyperlipidemia, Hypertension, Neurologic Disorder, Osteoarthritis (OA), Pulmonary Embolus (PE), Thyroid Disorder was brought into the hospital after the patient did have a fall patient mention she lost her balance and fell backwards hitting her head denies any loss of consciousness complaining of pain to the left hip area patient denies having any fever or any chills however on presentation to the hospital she did have a low-grade fever of 99.9 F patient did have some headache but denies any URI symptoms patient denies any chest pain did have some shortness of breath occasional cough and some sputum production no hemoptysis no pleuritic chest pain nausea vomiting no abdominal pain or any diarrhea no significant urinary symptoms patient noticed to be tachycardic mildly hypertensive but not requiring any pressor support mildly hypoxic currently on 2 L nasal cannula oxygen patient did have a white count of 13.66 with a left shift lactic acid was elevated electrolytes BUN/creatinine normal liver enzymes are normal urine has been positive influenza RSV COVID testing negative patient did have a chest CT patient [facility] and consulted opacity throughout bilateral lung suggestive of multifocal pneumonia patient has been admitted to the hospital she was started on Levaquin because of her multiple allergies including to the Zithromax and cephalexin infectious disease was consulted concerning for sepsis UTI and pneumonia Review of Systems Positive point and negatives has been mentioned in the HPI, complete review of systems was performed and all other systems are negative Past Medical History Past Medical History: Atrial Fibrillation, Atrial Flutter, Cancer, Chest Pain / Angina, COPD, Deep Vein Thrombosis (DVT), GERD/Reflux, Hyperlipidemia, Hypertension, Neurologic Disorder, Osteoarthritis (OA), Pulmonary Embolus (PE), Thyroid Disorder Additional Past Medical History / Comment(s): SKIN CANCER, CERVICAL CANCER AND THYROID CANCER.M.S. DVT IN BOTH LEGS. MS History of Any Multi-Drug Resistant Organisms: C-DIFF Year Discovered:: 04/25/2002 MDRO Source:: cdiff Past Surgical History: Adenoidectomy, Appendectomy, Back Surgery, Breast Surgery, Heart Catheterization With Stent, Hysterectomy, Orthopedic Surgery, Tonsillectomy, Tubal Ligation Additional Past Surgical History / Comment(s): CYSTS REMOVED FROM BILATERAL BREAST, Sm NECK SURGERY, COLONOSCOPY, Past Anesthesia/Blood Transfusion Reactions: No Reported Reaction Date of Last Stent Placement:: 03/18/2010 Past Psychological History: Anxiety, Depression Smoking Status: Current every day smoker Past Alcohol Use History: None Reported Past Drug Use History: None Reported - Past Family History Mother Family Medical History: Cancer, Chest Pain / Angina, Congestive Heart Failure (CHF), COPD, Hyperlipidemia, Hypertension, Myocardial Infarction ([place]) Father Family Medical History: Congestive Heart Failure (CHF), COPD, Musculoskeletal Disorder Medications and Allergies Home Medications Medication Instructions Recorded Confirmed Type Isosorbide Mononitrate ER [Imdur] 60 mg PO DAILY 10/30/19 10/14/24 History DULoxetine HCL [Cymbalta] 60 mg PO BID 01/08/22 10/14/24 History Gabapentin 800 mg PO BID PRN 01/08/22 10/14/24 History Esomeprazole Magnesium [NexIUM] 40 mg PO BID 07/08/22 10/14/24 History Atorvastatin [Lipitor] 40 mg PO DAILY 09/09/24 10/14/24 History Furosemide [Lasix] 40 mg PO DAILY PRN 09/09/24 10/14/24 History Levothyroxine Sodium [Synthroid] 137 mcg PO DAILY 09/09/24 10/14/24 History Umeclidinium Brm/Vilanterol Tr 1 puff INHALATION RT-DAILY 09/09/24 10/14/24 History [Anoro Ellipta 62.5-25 Mcg INH] Budesonide-Formot 160-4.5 Mcg 2 puff INHALATION RT-BID #1 each 09/14/24 10/14/24 Rx [Symbicort 160-4.5 Mcg Inhaler] Diltiazem Cd [Cardizem CD] 180 mg PO DAILY 30 Days #30 cap 09/14/24 10/14/24 Rx Ipratropium-Albuterol Nebulize 3 ml INHALATION RT-QID #100 each 09/14/24 10/14/24 Rx [Duoneb 0.5 mg-3 mg/3 ml Soln] Apixaban [Eliquis] 5 mg PO BID #60 tab 09/18/24 10/14/24 Rx Metoprolol Tartrate [Lopressor] 12.5 mg PO BID #60 tab 10/05/24 10/14/24 Rx ALPRAZolam [Xanax] 0.25 mg PO HS PRN 10/09/24 10/14/24 History ALPRAZolam [Xanax] 0.5 mg PO DAILY PRN 10/09/24 10/14/24 History Ciprofloxacin HCl [Cipro] 500 mg PO DIRECTED 10/14/24 10/14/24 History HYDROcodone/APAP 10-325MG [[place] 1 tab PO TID PRN 10/14/24 10/14/24 History 10-325] Allergies Allergy/AdvReac Type Severity Reaction Status Date / Time azithromycin [From Zithromax] Allergy Severe Rash/Hives Verified 10/14/24 09:13 bupropion [From Wellbutrin] Allergy Severe Rash/Hives Verified 10/14/24 09:13 cephalexin [From Keflex] Allergy Intermediate Rash/Hives Verified 10/14/24 09:13 lisinopril [From Prinivil] Allergy Intermediate Rash/Hives Verified 10/14/24 09:13 nitrofurantoin Allergy Intermediate Rash/Hives Verified 10/14/24 09:13 [From Macrobid] pentazocine [From Talwin] Allergy Intermediate Rash/Hives Verified 10/14/24 09:13 topiramate [From Topamax] Allergy Intermediate Rash/Hives Verified 10/14/24 09:13 hydromorphone [From Dilaudid] AdvReac Severe Hallucinati Verified 10/14/24 09:13 ons propranolol [From Inderal LA] AdvReac Severe MENTAL Verified 10/14/24 09:13 MOOD CHANGES codeine AdvReac Intermediate "BAD Verified 10/14/24 09:13 DREAMS" ibuprofen [From Motrin] AdvReac Intermediate Nausea & Verified 10/14/24 09:13 Vomiting & Diarrhea Physical Exam Vitals: Vital Signs Temp Pulse Resp BP Pulse Ox 10/14/24 11:46 138 H 10/14/24 11:37 126 H 10/14/24 10:00 151 H 18 93/62 99 10/14/24 09:00 108 H 18 95/76 99 10/14/24 08:14 124 H 06/22/25 08:04 122 H 10/14/24 08:00 112 H 18 107/72 99 10/14/24 07:52 121 H 18 122/70 99 10/14/24 05:01 78 10/14/24 04:48 74 10/14/24 04:34 78 16 100/63 100 10/14/24 01:16 73 18 103/62 99 10/13/24 22:17 82 16 97/52 94 L 10/13/24 22:02 98.1 F 84 17 84/53 99 10/13/24 21:41 85 10/13/24 19:21 121 H 20 96/54 98 10/13/24 19:11 135 H 20 110/91 96 10/13/24 18:20 99.2 F 131 H 20 89/72 97 10/13/24 18:10 133 H 22 93/75 96 10/13/24 16:59 112/70 96 10/13/24 16:56 99.5 F 117 H 22 97/78 89 L 10/13/24 16:20 99.9 F H 108/57 Intake and Output 10/13/24 10/14/24 10/14/24 22:59 06:59 14:59 Intake Total 38.333 Balance 38.333 Intake: Intake, IV Titration 38.333 Amount Diltiazem 125 mg In 38.333 Dextrose 5% in Water 100 ml @ 5 MG/HR 5 mls/hr IV .Q24H [facility] Rx#:[id number] Other: Weight 68.039 kg GENERAL DESCRIPTION: Elderly female lying in bed, no distress. No tachypnea or accessory muscle of respiration use. HEENT: Shows Pallor , no scleral icterus. Oral mucous membrane is dry. NECK: Trachea central, no thyromegaly. LUNGS: Unlabored breathing. Coarse breath sounds bilaterally HEART: S1, S2, regular rate and rhythm. No loud murmur ABDOMEN: Soft, no tenderness , EXTREMITIES: No edema of feet. SKIN: No rash, no masses palpable. NEUROLOGICAL: The patient is awake, alert, oriented x3, mood and affect normal. Results CBC & Chem 7: 10/13/24 18:08 10/13/24 19:13 Labs: Abnormal Lab Results - Last 24 Hours (Table) 10/13/24 10/13/24 10/13/24 Range/Units 18:08 18:08 19:13 WBC 13.66 H (4.50-10.00) 10*3/uL Immature Gran # 0.07 H (0.00-0.04) 10*3/uL Neutrophils # 12.57 H (1.80-7.70) 10*3/uL Lymphocytes # 0.46 L (0.90-5.00) 10*3/uL Glucose 151 H (74-99) mg/dL Plasma Lactic Acid Rodger 2.3 H* (0.7-2.0) mmol/L Magnesium 1.5 L (1.6-2.3) mg/dL Total Protein 4.7 L (6.3-8.2) g/dL Albumin 2.7 L (3.5-5.0) g/dL Urine Nitrite (Negative) Ur Leukocyte Esterase (Negative) Urine WBC (0-5) /hpf Urine Bacteria (None) /hpf Urine Mucus (None) /hpf 10/13/24 10/14/24 Range/Units 21:11 04:22 WBC (4.50-10.00) 10*3/uL Immature Gran # (0.00-0.04) 10*3/uL Neutrophils # (1.80-7.70) 10*3/uL Lymphocytes # (0.90-5.00) 10*3/uL Glucose (74-99) mg/dL Plasma Lactic Acid Rodger 2.1 H* (0.7-2.0) mmol/L Magnesium (1.6-2.3) mg/dL Total Protein (6.3-8.2) g/dL Albumin (3.5-5.0) g/dL Urine Nitrite Positive H (Negative) Ur Leukocyte Esterase Moderate H (Negative) Urine WBC 19 H (0-5) /hpf Urine Bacteria Rare H (None) /hpf Urine Mucus Rare H (None) /hpf Assessment and Plan (1) Allergy to multiple antibiotics Current Visit: Yes Status: Acute Code(s): Z88.1 - ALLERGY STATUS TO OTHER ANTIBIOTIC AGENTS SNOMED Code(s): 883673663 (2) Multifocal pneumonia Current Visit: Yes Status: Acute Code(s): J18.9 - PNEUMONIA, UNSPECIFIED ORGANISM SNOMED Code(s): 170743511 (3) Sepsis Current Visit: Yes Status: Acute Code(s): A41.9 - SEPSIS, UNSPECIFIED ORGANISM SNOMED Code(s): 11228463 Plan: 1patient presented hospital with weakness and fall in this patient who did have a low-grade fever of 99.9 degrees 1 night patient did have a tachycardia hypotension tachycardia elevated lactic acid meeting criteria for SIRS/sepsis source is likely pneumonia likely community-acquired patient did have mildly positive UA however no urinary symptoms that would make symptomatic UTI less likely 2-patient with multiple antibiotic ALLERGIES that would limit the number of antibiotic safe to use 3-try to obtain a sputum for Gram stain and culture 4-patient to be treated with Levaquin while waiting for the workup to be comple agus We will follow on clinical condition and cultures to further adjust medication if needed Thank you for this consultation we will follow the patient along with you Dictation was produced using [employer] dictation software. please excuse any grammatical, word or spelling errors. Time with Patient: Greater than 30
[2024-10-15] MEDS ORDERED: NON FORMULARY DRUG (Umeclidinium Brm/Vilanterol Tr [Anoro Ellipta 62.5-25 Mcg Inh] 1 EACH INHALATION SCH (08:00)
--- NOTE | 2024-10-15 08:55 | P.PN ---
Subjective 74-year-old female who presents to the emergency department for a fall. Patient has a history of MS and is falling almost daily at this point. She was evaluated here yesterday for a fall as well and it was strongly advised she be admitted at that time due to her risk of additional falls on blood thinners. However, she adamantly refused. States that today she lost her balance again and fell backwards, hitting her head. Denies any loss of consciousness. She is on Eliquis for a history of blood clots. Currently complains of pain to her le ft hip, which is where she was having pain yesterday. CT scan of the brain revealed no acute intracranial abnormalities. CT scan of the C-spine revealed no acute fractures. CT scan of the pelvis revealed no acute fractures or dislocation. CT scan of the chest revealed patchy groundglass and consolidative opacities throughout the bilateral lungs suspicious for multifocal pneumonia. White count 13.6. Hemoglobin 13.6. Platelets 197. Sodium 137. Potassium 4.4. Bicarb 30. BUN 15. Creatinine 0.80. Glucose 151. Urinalysis with positive nitrates moderate leukocyte Estrase. Viral screen negative for influenza A/B, RSV, COVID 10/15 This is a pleasant 74 years old female who presents with shortness of breath. She was recently discharged from this facility for right pneumonia. Repeat CT of the chest showing separate multifocal or diffuse groundglass opacities in both lung saez with right more than left and mildly worsened Currently patient covered with Levaquin 750 mg and Ringer lactate at 130 mL/h. Also required amiodarone drip and Eliquis for heart rate which is controlled now No chest pain. No other new cardiac complaints She is lying in bed looks lethargic and weak She is have low-grade fever 99.9, tachycardic with 118 blood pressure 100/75 WBC 13.6. Procalcitonin is elevated 14.3. CT of the head and neck was showing no acute process. Active Medications Generic Name Dose Route Start Last Admin Trade Name Freq PRN Reason Stop Dose Admin Acetaminophen 650 mg 10/13/24 20:14 Acetaminophen Tab 325 Mg Tab PO Q6HR PRN Mild Pain or Fever > 100.5 Hydrocodone Bitart/Acetaminophen 1 each 10/13/24 20:14 10/14/24 13:42 Hydrocodone/Apap 5-325mg 1 Each Tab PO 1 each Q4HR PRN Administration Moderate Pain (Scale 4 to 6) Hydrocodone Bitart/Acetaminophen 1 each 10/14/24 17:39 10/14/24 20:37 Hydrocodone/Apap 10-325mg 1 Each Tab PO 1 each TID PRN Administration Pain Albuterol/Ipratropium 3 ml 10/13/24 20:56 10/14/24 23:10 Ipratropium-Albuterol 3 Ml Neb INHALATION 3 ml RT-Q2H PRN Administration Shortness Of Breath Or Wheezing Albuterol/Ipratropium 3 ml 10/14/24 08:00 10/14/24 20:14 Ipratropium-Albuterol 3 Ml Neb INHALATION 3 ml RT-QID MIKKI Administration Alprazolam 0.25 mg 10/14/24 17:39 Alprazolam 0.5 Mg Tab PO HS PRN sleep/anxiety Alprazolam 0.5 mg 10/14/24 17:39 Alprazolam 0.5 Mg Tab PO DAILY PRN Anxiety Apixaban 5 mg 10/14/24 12:45 10/14/24 20:37 Apixaban 5 Mg Tab PO 5 mg BID MIKKI Administration Protocol Atorvastatin Calcium 40 mg 10/15/24 09:00 Atorvastatin 40 Mg Tab PO DAILY MIKKI Budesonide/Formoterol Fumarate 2 puff 10/14/24 20:00 10/14/24 20:14 Symbicort 160-4.5 Mcg Inhaler INHALATION 2 puff RT-BID MIKKI Administration Diltiazem HCl 180 mg 10/15/24 09:00 Diltiazem Cd 180 Mg Cap.Er.24h PO DAILY [facility] Duloxetine HCl 60 mg 10/14/24 21:00 10/14/24 20:38 Duloxetine Hcl 60 Mg Capsule.Dr PO 60 mg BID MIKKI Administration Gabapentin 800 mg 10/14/24 17:39 Gabapentin 400 Mg Cap PO BID PRN Pain Lactated Ringer's 1,000 mls @ 130 mls/hr 10/13/24 17:45 10/15/24 01:59 Lactated Ringers IV 130 mls/hr .Q7H42M MIKKI Administration Isosorbide Mononitrate 60 mg 10/15/24 09:00 Isosorbide Mononitrate Er 60 Mg Tab.Er.24h PO DAILY MIKKI Levofloxacin 750 mg 10/14/24 09:00 10/14/24 10:10 Levofloxacin 750 Mg Tab PO 10/17/24 09:01 750 mg DAILY MIKKI Administration Protocol Levothyroxine Sodium 137 mcg 10/15/24 06:30 Levothyroxine 137 Mcg Tab PO DAILY@0630 MIKKI Metoprolol Tartrate 12.5 mg 10/14/24 21:00 10/14/24 22:23 Metoprolol Tartrate 12.5 Mg Tab PO 12.5 mg BID MIKKI Administration Miscellaneous Information 1 each 10/13/24 19:09 Rx Info: Iv Contrast Was Given 1 Each Misc MISCELLANE 10/15/24 19:09 DAILY PRN Per Protocol Miscellaneous Information 1 each 10/13/24 21:26 Pneumonia Protocol Utilized 1 Each Misc PO ONCE PRN Per Protocol Morphine Sulfate 4 mg 10/13/24 20:14 Morphine Sulfate 4 Mg/Ml Syringe IV Q4HR PRN Severe Pain (Scale 7 to 10) Naloxone HCl 0.2 mg 10/13/24 20:14 Naloxone 0.4 Mg/Ml 1 Ml Vial IV Q2M PRN Opioid Reversal Ondansetron HCl 4 mg 10/13/24 20:14 Ondansetron 4 Mg/2 Ml Vial IVP Q8HR PRN Nausea And Vomiting Pantoprazole Sodium 40 mg 10/14/24 09:00 10/14/24 10:09 Pantoprazole 40 Mg/10 Ml Vial IV 40 mg DAILY MIKKI Administration Objective - Vital Signs Vital signs: Vital Signs Temp 98.4 F 10/14/24 19:36 Pulse 98 10/15/24 06:30 Resp 18 10/15/24 06:30 BP 139/91 10/15/24 06:30 Pulse Ox 93 L 10/15/24 06:30 FiO2 Intake & Output 10/14/24 10/15/24 10/15/24 18:59 06:59 18:59 Output Total 810 Balance -810 Output: Urine 810 - Exam -GENERAL: The patient is alert and oriented x3, not in any acute distress. Well developed, well nourished. Generally weak HEENT: Pupils are round and equally reacting to light. EOMI. No scleral icterus. No conjunctival pallor. Normocephalic, atraumatic. No pharyngeal erythema. No thyromegaly. CARDIOVASCULAR: S1 and S2 present. No murmurs, rubs, or gallops. -PULMONARY: Chest is clear to auscultation, no wheezing , bilateral crackles. ABDOMEN: Soft, nontender, nondistended, normoactive bowel sounds. No palpable organomegaly. MUSCULOSKELETAL: No joint swelling or deformity. EXTREMITIES: No cyanosis, clubbing, or pedal edema. NEUROLOGICAL: Gross neurological examination did not reveal any focal deficits. SKIN: No rashes. no petechiae. - Labs CBC & Chem 7: 10/13/24 18:08 10/13/24 19:13 Labs: Abnormal Lab Results - Last 24 Hours (Table) 10/14/24 Range/Units 08:55 Procalcitonin 14.30 H (0.02-0.50) ng/mL Microbiology - Last 24 Hours (Table) 10/13/24 18:08 Blood Culture - Preliminary Blood Assessment and Plan Assessment: 1. Acute on chronic hypoxic respiratory failure; likely related to multifocal p neumonia - Continue with supplemental oxygen with plans to titrate or wean as able 2. Multifocal pneumonia - Patient was recently discharged after treatment of right lung pneumonia - Patient has been placed on IV Levaquin; bronchodilator nebulizer treatments 4 times daily and as needed - We will monitor CBC, CRP and procalcitonin - Consult pulmonary service 3. Complicated UTI/sepsis; as indicated above patient is placed on IV Levaquin; blood cultures and urine cultures obtained - Further recommendations pending clinical course 4. Increasing weakness/falls; patient has history of MS - CT of the head and cervical spine was completed in ED which did not reveal any acute abnormalities 5. Atrial fibrillation/flutter with RVR; patient has been placed on IV Cardizem infusion; remains anticoagulated with Eliquis 5 mg twice daily - Cardiology is consulted 5. Hypertension; metoprolol 12.5 mg twice daily; Cardizem 180 mg daily 6. COPD; not in exacerbation; we will continue with home inhaler therapy; pulmonary to evaluate and make further recommendations 7. History of DVT/PE; patient remains on Eliquis 5 mg twice daily 8. Hyperlipidemia; Lipitor 40 mg daily 9. Hypothyroidism; levothyroxine 137 mcg daily DVT prophylaxis; SCDs/Eliquis CODE STATUS; full code
[2024-10-15] MEDS: ATORVASTATIN 40 MG TAB PO SCH (10:13)
[2024-10-15] MEDS: ISOSORBIDE MONONITRATE ER 60 MG TAB.ER.24H PO SCH (10:13)
[2024-10-15] MEDS: DILTIAZEM CD 180 MG CAP.ER.24H PO SCH (10:13)
[2024-10-15] MEDS: LEVOTHYROXINE 137 MCG TAB PO SCH (10:15)
--- NOTE | 2024-10-15 11:28 | P.PN ---
Subjective HISTORY OF PRESENT ILLNESS: Known to Dr. Bassett. Presented to the hospital because of increased worsening generalized weakness on admission she was noted to have atrial a flutter with RVR. She does have history of paroxysmal atrial fibrillation. Since September 2024 she has had third hospital admission now. This time she also has evidence of severe sepsis with elevated lactate and positive urine analysis positive for nitrates. She is a poor historian. WBC 13, Hb 13, BUN 15, creatinine 0.8, lactate 2.1, magnesium 1.5, NT-proBNP 1920. EKG shows atrial flutter with RVR Chest x-ray shows mild consolidation/show possible multifocal pneumonia Chest CT shows patchy groundglass consolidation suggestive of multifocal pneumonia Pelvic CT does not show any acute fractures. 10/15/2024 Patient examined this morning in the emergency room. Patient currently denies chest pain or pressure. She denies shortness of breath. She remains in atrial flutter at the time of examination with heart rate around 110. PHYSICAL EXAM: VITAL SIGNS: Reviewed. GENERAL: Well-developed in no acute distress. NECK: Supple. No JVD or thyromegaly LUNGS: Respirations even and unlabored. Lungs essentially clear to auscultation bilaterally. HEART: Irregular rate and rhythm. S1 and S2 heard. EXTREMITIES: Normal range of motion. No clubbing or cyanosis. Peripheral pulses intact. No lower extremity edema ASSESSMENT: Multifocal pneumonia Urinary tract infection Sepsis Typical atrial flutter with RVR History of paroxysmal atrial fibrillation Nonobstructive CAD History of hypertension History of hyperlipidemia Hypothyroidism History of COPD Former nicotine dependence PLAN: Discontinue IV amiodarone Discontinue short acting Cardizem Begin Cardizem CD 180 mg daily Continue metoprolol 12.5 mg twice a day Continue telemetry monitoring Further recommendations pending patient course Patient to follow-up postdischarge with Dr. Bassett Nurse practitioner note has been reviewed by physician. Signing provider agrees with the documented findings, assessment, and plan of care documented by [employer] as a scribe. Objective - Vital Signs Vital signs: Vital Signs Temp 98.4 F 10/14/24 19:36 Pulse 113 H 10/15/24 10:00 Resp 18 10/15/24 10:00 BP 104/93 10/15/24 10:00 Pulse Ox 94 L 10/15/24 10:00 FiO2 Intake & Output 10/14/24 10/15/2425 18:59 06:59 18:59 Output Total 810 Balance -810 Output: Urine 810 - Labs CBC & Chem 7: 10/13/24 18:08 10/13/24 19:13 Labs: Abnormal Lab Results - Last 24 Hours (Table) 10/14/24 Range/Units 08:55 Procalcitonin 14.30 H (0.02-0.50) ng/mL Microbiology - Last 24 Hours (Table) 10/13/24 18:08 Blood Culture - Preliminary Blood
--- NOTE | 2024-10-15 19:19 | P.PN ---
Subjective Progress Note Date: 10/15/24 This is a 74-year-old female patient with a known history of multiple sclerosis maintained on ofatumumab in the outpatient setting, PE/DVT anticoagulated with Eliquis, thyroid cancer with previous thyroidectomy, hypertension, hyperlipidemia, chronic obstructive pulmonary disease, chronic tobacco dependen ce, on home oxygen at 2 L, atrial fibrillation, recent pneumonia. She has been here several times this month after sustaining weakness and falls. Refused admission on 10/12/2024. Presented back to the emergency room 10/13/2024 with another fall and hitting her head. CT scan of the brain revealed no acute intracranial abnormalities. CT scan of the C-spine revealed no acute fractures. CT scan of the pelvis revealed no acute fractures or dislocation. CT scan of the chest revealed patchy groundglass and consolidative opacities throughout the bilateral lungs suspicious for multifocal pneumonia. White count 13.6. Hemoglobin 13.6. Platelets 197. Sodium 137. Potassium 4.4. Bicarb 30. BUN 15. Creatinine 0.80. Glucose 151. Urinalysis with positive nitrates moderate leukocyte Estrase. Viral screen negative for influenza A/B, RSV, COVID. She is seen today in the emergency department. Currently sitting up in the stretcher. Awake and alert in no acute distress. Maintaining O2 saturations in the 90s on 5 L/min per nasal cannula. She is in atrial fibrillation with a rapid ventri cular response. Mean arterial blood pressure 72. She was initially on a Cardizem drip. On today's evaluation of 10/15/2024, the patient is being seen in follow-up. Patient was seen in consultation yesterday regarding the possibility of a pneumonia. The patient is known to have multiple sclerosis, along with previous history of DVT and pulmonary embolism maintained on anticoagulation with Eliquis and the patient also has thyroid cancer with previous thyroidectomy, hypertension hyperlipidemia and COPD and she has home O2 at 2 L/min nasal cannula. She also has atrial fibrillation. The patient presented to us with generalized weakness, falls, and suspected pneumonia. I reviewed the blood work. The patient's procalcitonin level is elevated at 14.3 suspecting and supporting the possibility of a bacterial sepsis. The viral screen was negative. Legionella urine antigen was negative. UA was abnormal with 19 WBCs and the patient's white cell count was at 13.6 with a hemoglobin of 13.6 and a platelet count of 197. Lactic acid level dropped from 2.3 down to 1.7. Urine culture is positive for Klebsiella pneumoniae from 10/13/2024. I also reviewed the chest x-ray. The chest x-ray shows increased interstitial density involving the lungs right more than left and the patient is currently on oxygen at 4 L with a pulse ox of 93%.CAT scan of the chest was also reviewed from 10/13/2024 and it shows patchy groundglass and consolidative opacities bilaterally suggestive of possibility of multifocal pneumonia. Objective - Vital Signs Vital signs: Vital Signs Temp 98.4 F 10/14/24 19:36 Pulse 92 10/15/24 13:47 Resp 18 10/15/24 13:47 BP 125/49 10/15/24 13:00 Pulse Ox 99 10/15/24 13:00 FiO2 Intake & Output 10/14/24 10/15/24 10/15/24 18:59 06:59 18:59 Output Total 810 Balance -810 Output: Urine 810 - Exam GENERAL EXAM: Alert, pleasant, weak 74-year-old female, on 4 L nasal cannula, fairly comfortable in no apparent distress. HEAD: Normocephalic. EYES: Normal reaction of pupils, equal size. NOSE: Clear with pink turbinates. THROAT: No erythema or exudates. NECK: No masses, no JVD. CHEST: No chest wall deformity. LUNGS: Equal air entry with bilateral scattered rhonchi. CVS: S1 and S2 normal with no audible murmur, irregular rhythm. ABDOMEN: No hepatosplenomegaly, normal bowel sounds, no guarding or rigidity. SPINE: No scoliosis or deformity SKIN: No rashes CENTRAL NERVOUS SYSTEM: No focal deficits, tone is normal in all 4 extremities. EXTREMITIES: There is no peripheral edema. No clubbing, no cyanosis. Periph eral pulses are intact. - Labs CBC & Chem 7: 10/13/24 18:08 10/13/24 19:13 Labs: Microbiology - Last 24 Hours (Table) 10/14/24 04:22 Urine Culture - Final Urine,Voided 10/13/24 18:08 Blood Culture - Preliminary Blood Assessment and Plan Plan: Acute on chronic hypoxic respiratory failure, currently on 4 L of oxygen by nasal cannula. Oxygenation slightly improved. Rule out sepsis and using this underlying hypoxemia. Pneumonia cannot be completely excluded. The patient has gram-negative urine tract infection. Respiratory status is stable for now. Patchy bilateral pulmonary infiltrates, possible pneumonia, currently on Levaquin. Urine tract infection with Klebsiella pneumoniae, currently on Levaquin Multiple sclerosis with increasing weakness and falls. CT scan of the head and cervical spine revealed no acute intracranial abnormalities. No acute fractures Recent discharge following an episode of right lung pneumonia Atrial fibrillation with rapid ventricular response, , currently stable and the patient seems to be less tachycardic at this point and the patient is hemodynamically stable. F History of PE/DVT maintained on Eliquis History of benign essential hypertension Chronic obstructive pulmonary disease, maintained on home oxygen at 2 L/min Chronic tobacco dependence Plan: Titrate FiO2 to maintain saturation above 90%, currently on 4 L Titrate down the FiO2 as tolerated Continue Levaquin Continue DuoNeb inhalations Continue Symbicort Anticoagulated with Eliquis Cardiology consulted PT/OT consult We will continue to follow and make further recommendations based on her clinical status Time with Patient: Greater than 30
--- NOTE | 2024-10-16 10:18 | P.PN ---
Subjective 74-year-old female who presents to the emergency department for a fall. Patient has a history of MS and is falling almost daily at this point. She was evaluated here yesterday for a fall as well and it was strongly advised she be admitted at that time due to her risk of additional falls on blood thinners. However, she adamantly refused. States that today she lost her balance again and fell backwards, hitting her head. Denies any loss of consciousness. She is on Eliquis for a history of blood clots. Currently complains of pain to her le ft hip, which is where she was having pain yesterday. CT scan of the brain revealed no acute intracranial abnormalities. CT scan of the C-spine revealed no acute fractures. CT scan of the pelvis revealed no acute fractures or dislocation. CT scan of the chest revealed patchy groundglass and consolidative opacities throughout the bilateral lungs suspicious for multifocal pneumonia. White count 13.6. Hemoglobin 13.6. Platelets 197. Sodium 137. Potassium 4.4. Bicarb 30. BUN 15. Creatinine 0.80. Glucose 151. Urinalysis with positive nitrates moderate leukocyte Estrase. Viral screen negative for influenza A/B, RSV, COVID 10/15 This is a pleasant 74 years old female who presents with shortness of breath. She was recently discharged from this facility for right pneumonia. Repeat CT of the chest showing separate multifocal or diffuse groundglass opacities in both lung saez with right more than left and mildly worsened Currently patient covered with Levaquin 750 mg and Ringer lactate at 130 mL/h. Also required amiodarone drip and Eliquis for heart rate which is controlled now No chest pain. No other new cardiac complaints She is lying in bed looks lethargic and weak She is have low-grade fever 99.9, tachycardic with 118 blood pressure 100/75 WBC 13.6. Procalcitonin is elevated 14.3. CT of the head and neck was showing no acute process. 10/16 Patient proving slowly and gradually She still have some wheezing and shortness of breath still requiring oxygen about 4 L/min She is going to participate with physical therapy today. Other than that she denies chest pain. No abdominal pain or symptoms. No coughing Patient currently covered with Levaquin 750 mg, Ringer lactate at 130: Eliquis. Amiodarone drip was discontinued Patient currently on Cardizem 180 mg p.o. daily and metoprolol dose increased to 25 mg twice daily Active Medications Generic Name Dose Route Start Last Admin Trade Name Freq PRN Reason Stop Dose Admin Acetaminophen 650 mg 10/13/24 20:14 Acetaminophen Tab 325 Mg Tab PO Q6HR PRN Mild Pain or Fever > 100.5 Hydrocodone Bitart/Acetaminophen 1 each 10/13/24 20:14 10/14/24 13:42 Hydrocodone/Apap 5-325mg 1 Each Tab PO 1 each Q4HR PRN Administration Moderate Pain (Scale 4 to 6) Hydrocodone Bitart/Acetaminophen 1 each 10/14/24 17:39 10/15/24 10:24 Hydrocodone/Apap 10-325mg 1 Each Tab PO 1 each TID PRN Administration Pain Albuterol/Ipratropium 3 ml 10/13/24 20:56 10/14/24 23:10 Ipratropium-Albuterol 3 Ml Neb INHALATION 3 ml RT-Q2H PRN Administration Shortness Of Breath Or Wheezing Albuterol/Ipratropium 3 ml 10/14/24 08:00 10/15/24 21:30 Ipratropium-Albuterol 3 Ml Neb INHALATION 3 ml RT-QID MIKKI Administration Alprazolam 0.25 mg 10/14/24 17:39 Alprazolam 0.5 Mg Tab PO HS PRN sleep/anxiety Alprazolam 0.5 mg 10/14/24 17:39 Alprazolam 0.5 Mg Tab PO DAILY PRN Anxiety Apixaban 5 mg 10/14/24 12:45 10/16/24 08:48 Apixaban 5 Mg Tab PO 5 mg BID MIKKI Administration Protocol Atorvastatin Calcium 40 mg 10/15/24 09:00 10/16/24 08:48 Atorvastatin 40 Mg Tab PO 40 mg DAILY MIKKI Administration Budesonide/Formoterol Fumarate 2 puff 10/14/24 20:00 10/15/24 21:30 Symbicort 160-4.5 Mcg Inhaler INHALATION 2 puff RT-BID MIKKI Administration Diltiazem HCl 180 mg 10/15/24 09:00 10/16/24 08:48 Diltiazem Cd 180 Mg Cap.Er.24h PO 180 mg DAILY MIKKI Administration Duloxetine HCl 60 mg 10/14/24 21:00 10/16/24 08:47 Duloxetine Hcl 60 Mg Capsule.Dr PO 60 mg BID MIKKI Administration Gabapentin 800 mg 10/14/24 17:39 Gabapentin 400 Mg Cap PO BID PRN Pain Guaifenesin/Dextromethorphan 10 ml 10/15/24 13:41 Guaifenesin-Dm 100-10mg/5ml 10 Ml Cup PO Q6HR PRN Cough Lactated Ringer's 1,000 mls @ 130 mls/hr 10/13/24 17:45 10/16/24 06:56 Lactated Ringers IV 130 mls/hr .Q7H42M MIKKI Administration Isosorbide Mononitrate 60 mg 10/15/24 09:00 10/16/24 08:48 Isosorbide Mononitrate Er 60 Mg Tab.Er.24h PO 60 mg DAILY MIKKI Administration Levofloxacin 750 mg 10/14/24 09:00 10/16/24 08:47 Levofloxacin 750 Mg Tab PO 10/17/24 09:01 750 mg DAILY MIKKI Administration Protocol Levothyroxine Sodium 137 mcg 10/15/24 06:30 10/16/24 06:05 Levothyroxine 137 Mcg Tab PO 137 mcg DAILY@0630 MIKKI Administration Metoprolol Tartrate 25 mg 10/16/24 21:00 Metoprolol Tartrate 25 Mg Tab PO BID MIKKI Miscellaneous Information 1 each 10/13/24 21:26 Pneumonia Protocol Utilized 1 Each Misc PO ONCE PRN Per Protocol Morphine Sulfate 4 mg 10/13/24 20:14 Morphine Sulfate 4 Mg/Ml Syringe IV Q4HR PRN Severe Pain (Scale 7 to 10) Naloxone HCl 0.2 mg 10/13/24 20:14 Naloxone 0.4 Mg/Ml 1 Ml Vial IV Q2M PRN Opioid Reversal Ondansetron HCl 4 mg 10/13/24 20:14 Ondansetron 4 Mg/2 Ml Vial IVP Q8HR PRN Nausea And Vomiting Pantoprazole Sodium 40 mg 10/14/24 09:00 10/16/24 08:48 Pantoprazole 40 Mg/10 Ml Vial IV 40 mg DAILY MIKKI Administration Objective - Vital Signs Vital signs: Vital Signs Temp 98.1 F 10/16/24 04:00 Pulse 74 10/16/24 04:00 Resp 16 10/16/24 04:00 BP 128/69 10/16/24 04:00 Pulse Ox 96 10/16/24 04:00 FiO2 Intake & Output 10/15/24 10/16/24 10/16/24 18:59 06:59 18:59 Intake Total 240 260 Balance 240 260 Weight 68.039 kg 70.494 kg Intake: IV 260 Lactated Ringers 1,000 ml 260 @ 130 mls/hr IV .Q7H42M MIKKI Rx#:[id number] Oral 240 Other: # Voids 7 2 - Exam -GENERAL: The patient is alert and oriented x3, not in any acute distress. Well developed, well nourished. Generally weak HEENT: Pupils are round and equally reacting to light. EOMI. No scleral icterus. No conjunctival pallor. Normocephalic, atraumatic. No pharyngeal erythema. No thyromegaly. CARDIOVASCULAR: S1 and S2 present. No murmurs, rubs, or gallops. -PULMONARY: Chest is clear to auscultation, no wheezing , bilateral crackles. ABDOMEN: Soft, nontender, nondistended, normoactive bowel sounds. No palpable organomegaly. MUSCULOSKELETAL: No joint swelling or deformity. EXTREMITIES: No cyanosis, clubbing, or pedal edema. NEUROLOGICAL: Gross neurological examination did not reveal any focal deficits. SKIN: No rashes. no petechiae. - Labs CBC & Chem 7: 10/13/24 18:08 10/13/24 19:13 Labs: Microbiology - Last 24 Hours (Table) 10/13/24 18:08 Blood Culture - Preliminary Blood 10/14/24 04:22 Urine Culture - Final Urine,Voided Assessment and Plan Assessment: 1. Acute on chronic hypoxic respiratory failure; likely related to multifocal pneumonia - Continue with supplemental oxygen with plans to titrate or wean as able 2. Multifocal pneumonia - Patient was recently discharged after treatment of right lung pneumonia - Patient has been placed on IV Levaquin; bronchodilator nebulizer treatments 4 times daily and as needed - We will monitor CBC, CRP and procalcitonin - Consult pulmonary service 3. Complicated UTI/sepsis; as indicated above patient is placed on IV Levaquin; blood cultures and urine cultures obtained - Further recommendations pending clinical course 4. Increasing weakness/falls; patient has history of MS - CT of the head and cervical spine was completed in ED which did not reveal any acute abnormalities 5. Atrial fibrillation/flutter with RVR; patient has been placed on IV Cardizem infusion; remains anticoagulated with Eliquis 5 mg twice daily - Cardiology is consulted -Currently off Cardizem/amiodarone drip - Patient currently on Cardizem 180 mg p.o. daily and metoprolol dose increased to 25 mg twice daily 5. Hypertension; metoprolol 12.5 mg twice daily; Cardizem 180 mg daily 6. COPD; not in exacerbation; we will continue with home inhaler therapy; pulmonary to evaluate and make further recommendations 7. History of DVT/PE; patient remains on Eliquis 5 mg twice daily 8. Hyperlipidemia; Lipitor 40 mg daily 9. Hypothyroidism; levothyroxine 137 mcg daily DVT prophylaxis; SCDs/Eliquis CODE STATUS; full code
[2024-10-16] MEDS: METOPROLOL TARTRATE 12.5 MG TAB PO STA (11:48)
--- NOTE | 2024-10-16 13:10 | P.PN ---
Subjective HISTORY OF PRESENT ILLNESS: Known to Dr. Bassett. Presented to the hospital because of increased worsening generalized weakness on admission she was noted to have atrial a flutter with RVR. She does have history of paroxysmal atrial fibrillation. Since September 2024 she has had third hospital admission now. This time she also has evidence of severe sepsis with elevated lactate and positive urine analysis positive for nitrates. She is a poor historian. WBC 13, Hb 13, BUN 15, creatinine 0.8, lactate 2.1, magnesium 1.5, NT-proBNP 1920. EKG shows atrial flutter with RVR Chest x-ray shows mild consolidation/show possible multifocal pneumonia Chest CT shows patchy groundglass consolidation suggestive of multifocal pneumonia Pelvic CT does not show any acute fractures. 10/15/2024 Patient examined this morning in the emergency room. Patient currently denies chest pain or pressure. She denies shortness of breath. She remains in atrial flutter at the time of examination with heart rate around 110. 10/16/2024 Patient examined this morning at the bedside. Patient currently denies chest pain or shortness of breath. She remains in atrial flutter with a heart rate around 100. Vital signs are stable. PHYSICAL EXAM: VITAL SIGNS: Reviewed. GENERAL: Well-developed in no acute distress. NECK: Supple. No JVD or thyromegaly LUNGS: Respirations even and unlabored. Lungs essentially clear to auscultation bilaterally. HEART: Irregular rate and rhythm. S1 and S2 heard. EXTREMITIES: Normal range of motion. No clubbing or cyanosis. Peripheral pulses intact. No lower extremity edema ASSESSMENT: Multifocal pneumonia Urinary tract infection Sepsis Typical atrial flutter with RVR History of paroxysmal atrial fibrillation Nonobstructive CAD History of hypertension History of hyperlipidemia Hypothyroidism History of COPD Former nicotine dependence PLAN: Continue Cardizem CD 180 mg daily Increase metoprolol tartrate to 25 mg twice daily Continue anticoagulation with Eliquis Continue telemetry monitoring Patient is stable from a cardiac perspective Further recommendations pending patient course Patient to follow-up postdischarge with Dr. Bassett Nurse practitioner note has been reviewed by physician. Signing provider agrees with the documented findings, assessment, and plan of care documented by [employer] as a scribe. Objective - Vital Signs Vital signs: Vital Signs Temp 97.9 F 10/16/24 10:53 Pulse 82 10/16/24 11:12 Resp 16 10/16/24 10:53 BP 126/78 10/16/24 10:53 Pulse Ox 96 10/16/24 10:53 FiO2 Intake & Output 10/15/24 10/16/24 10/16/24 18:59 06:59 18:59 Intake Total 240 260 10 Balance 240 260 10 Weight 68.039 kg 70.494 kg Intake: IV 260 10 Invasive Line 2 10 Lactated Ringers 1,000 ml 260 @ 130 mls/hr IV .Q7H42M [facility] Rx#:[id number] Oral 240 Other: # Voids 7 2 - Labs CBC & Chem 7: 10/13/24 18:08 10/13/24 19:13 Labs: Microbiology - Last 24 Hours (Table) 10/13/24 18:08 Blood Culture - Preliminary Blood 10/14/24 04:22 Urine Culture - Final Urine,Voided
--- NOTE | 2024-10-16 16:45 | P.PN ---
Subjective Progress Note Date: 10/15/24 Principal diagnosis: Reason for follow-up is fever/pneumonia multiple antibiotic allergies Patient is a 74-year-old female with a past medical history significant for Atrial Fibrillation, Atrial Flutter, Cancer, Chest Pain / Angina, COPD, Deep Vein Thrombosis (DVT), GERD/Reflux, Hyperlipidemia, Hypertension, Neurologic Disorder, Osteoarthritis (OA), Pulmonary Embolus (PE), Thyroid Disorder was brought into the hospital after the patient did have a fall patient also have a low-grade fever chest x-ray suggestive of multifocal pneumonia on today's evaluation that is 10/15/2024, patient has been afebrile, patient is breathing comfortably and is currently on 3 L nasal oxygen, patient denies having any chest pain and cough has decreased in intensity, patient denies nausea vomiting or diarrhea and no abdominal pain No new lab has been obtained today blood urine negative Objective - Vital Signs Vital signs: Vital Signs Temp 98.4 F 10/14/24 19:36 Pulse 117 H 10/15/24 11:00 Resp 19 10/15/24 11:00 BP 117/80 10/15/24 11:00 Pulse Ox 94 L 10/15/24 11:00 FiO2 Intake & Output 10/14/24 10/15/24 10/15/24 18:59 06:59 18:59 Output Total 810 Balance -810 Output: Urine 810 - Exam GENERAL DESCRIPTION: An elderly female lying in bed in no distress RESPIRATORY SYSTEM: Unlabored breathing , decreased breath sounds at bases HEART: S1 S2 regular rate and rhythm , ABDOMEN: Soft , no tenderness EXTREMITIES: No edema feet - Labs CBC & Chem 7: 10/13/24 18:08 10/13/24 19:13 Labs: Microbiology - Last 24 Hours (Table) 10/14/24 04:22 Urine Culture - Final Urine,Voided 10/13/24 18:08 Blood Culture - Preliminary Blood Assessment and Plan (1) Allergy to multiple antibiotics Current Visit: Yes Status: Acute Code(s): Z88.1 - ALLERGY STATUS TO OTHER ANTIBIOTIC AGENTS SNOMED Code(s): 641630453 (2) Multifocal pneumonia Current Visit: Yes Status: Acute Code(s): J18.9 - PNEUMONIA, UNSPECIFIED ORGANISM SNOMED Code(s): 526896868 (3) Sepsis Current Visit: Yes Status: Acute Code(s): A41.9 - SEPSIS, UNSPECIFIED ORGANISM SNOMED Code(s): 50400888 Plan: 1patient presented hospital with weakness and fall in this patient who did have a low-grade fever of 99.9 degrees 1 night patient did have a tachycardia hypotension tachycardia elevated lactic acid meeting criteria for SIRS/sepsis source is likely pneumonia likely community-acquired patient did have mildly positive UA however no urinary symptoms that would make symptomatic UTI less likely 2-patient with multiple antibiotic ALLERGIES that would limit the number of antibiotic safe to use 3-try to obtain a sputum for Gram stain and culture 4-patient seem to have resolution of the fever to continue with Levaquin while waiting for the workup to be completed Dictation was produced using [employer] dictation software. please excuse any grammatical, word or spelling errors. Time with Patient: Less than 30
--- NOTE | 2024-10-16 16:46 | P.PN ---
Subjective Progress Note Date: 10/16/24 Principal diagnosis: Reason for follow-up is fever/pneumonia multiple antibiotic allergies Patient is a 74-year-old female with a past medical history significant for Atrial Fibrillation, Atrial Flutter, Cancer, Chest Pain / Angina, COPD, Deep Vein Thrombosis (DVT), GERD/Reflux, Hyperlipidemia, Hypertension, Neurologic Disorder, Osteoarthritis (OA), Pulmonary Embolus (PE), Thyroid Disorder was brought into the hospital after the patient did have a fall patient also have a low-grade fever chest x-ray suggestive of multifocal pneumonia on today's evaluation that is 10/16/2024, Patient is afebrile this morning patient denies having any chest pain shortness of breath or any worsening cough, the patient is currently on 3 L nasal oxygen, patient denies any abdominal pain no diarrhea no nausea no vomiting. No new lab has been obtained today blood and urine culture have been negative Objective - Vital Signs Vital signs: Vital Signs Temp 97.9 F 10/16/24 10:53 Pulse 82 10/16/24 11:12 Resp 16 10/16/24 10:53 BP 126/78 10/16/24 10:53 Pulse Ox 96 10/16/24 10:53 FiO2 Intake & Output 10/15/24 10/16/24 10/16/24 18:59 06:59 18:59 Intake Total 240 260 260 Balance 240 260 260 Weight 68.039 kg 70.494 kg Intake: IV 260 20 Invasive Line 2 20 Lactated Ringers 1,000 ml 260 @ 130 mls/hr IV .Q7H42M [facility] Rx#:[id number] Oral 240 240 Other: # Voids 7 1 - Exam GENERAL DESCRIPTION: An elderly female lying in bed in no distress RESPIRATORY SYSTEM: Unlabored breathing , decreased breath sounds at bases HEART: S1 S2 regular rate and rhythm , ABDOMEN: Soft , no tenderness EXTREMITIES: No edema feet - Labs CBC & Chem 7: 10/13/24 18:08 10/13/24 19:13 Labs: Microbiology - Last 24 Hours (Table) 10/13/24 18:08 Blood Culture - Preliminary Blood Assessment and Plan (1) Allergy to multiple antibiotics Current Visit: Yes Status: Acute Code(s): Z88.1 - ALLERGY STATUS TO OTHER ANTIBIOTIC AGENTS SNOMED Code(s): 138694940 (2) Multifocal pneumonia Current Visit: Yes Status: Acute Code(s): J18.9 - PNEUMONIA, UNSPECIFIED ORGANISM SNOMED Code(s): 654265523 (3) Sepsis Current Visit: Yes Status: Acute Code(s): A41.9 - SEPSIS, UNSPECIFIED ORG ANISM SNOMED Code(s): 74879461 Plan: 1patient presented hospital with weakness and fall in this patient who did have a low-grade fever of 99.9 degrees 1 night patient did have a tachycardia hypotension tachycardia elevated lactic acid meeting criteria for SIRS/sepsis source is likely pneumonia likely community-acquired patient did have mildly positive UA however no urinary symptoms that would make symptomatic UTI less likely 2-patient with multiple antibiotic ALLERGIES that would limit the number of antibiotic safe to use 3-blood urine has been negative sputum not collected 4-patient slowly clinical improving to continue with Levaquin that can be transition to oral for short course of discharge Dictation was produced using [employer] dictation software. please excuse any grammatical, word or spelling errors. Time with Patient: Less than 30
[2024-10-16] MEDS: ACETAMINOPHEN TAB 325 MG TAB PO PRN (21:07)
[2024-10-16] MEDS: METOPROLOL TARTRATE 25 MG TAB PO SCH (21:07)
--- NOTE | 2024-10-16 22:54 | P.PN ---
Subjective Progress Note Date: 10/16/24 This is a 74-year-old female patient with a known history of multiple sclerosis maintained on ofatumumab in the outpatient setting, PE/DVT anticoagulated with Eliquis, thyroid cancer with previous thyroidectomy, hypertension, hyperlipidemia, chronic obstructive pulmonary disease, chronic tobacco dependen ce, on home oxygen at 2 L, atrial fibrillation, recent pneumonia. She has been here several times this month after sustaining weakness and falls. Refused admission on 10/12/2024. Presented back to the emergency room 10/13/2024 with another fall and hitting her head. CT scan of the brain revealed no acute intracranial abnormalities. CT scan of the C-spine revealed no acute fractures. CT scan of the pelvis revealed no acute fractures or dislocation. CT scan of the chest revealed patchy groundglass and consolidative opacities throughout the bilateral lungs suspicious for multifocal pneumonia. White count 13.6. Hemoglobin 13.6. Platelets 197. Sodium 137. Potassium 4.4. Bicarb 30. BUN 15. Creatinine 0.80. Glucose 151. Urinalysis with positive nitrates moderate leukocyte Estrase. Viral screen negative for influenza A/B, RSV, COVID. She is seen today in the emergency department. Currently sitting up in the stretcher. Awake and alert in no acute distress. Maintaining O2 saturations in the 90s on 5 L/min per nasal cannula. She is in atrial fibrillation with a rapid ventri cular response. Mean arterial blood pressure 72. She was initially on a Cardizem drip. On today's evaluation of 10/15/2024, the patient is being seen in follow-up. Patient was seen in consultation yesterday regarding the possibility of a pneumonia. The patient is known to have multiple sclerosis, along with previous history of DVT and pulmonary embolism maintained on anticoagulation with Eliquis and the patient also has thyroid cancer with previous thyroidectomy, hypertension hyperlipidemia and COPD and she has home O2 at 2 L/min nasal cannula. She also has atrial fibrillation. The patient presented to us with generalized weakness, falls, and suspected pneumonia. I reviewed the blood work. The patient's procalcitonin level is elevated at 14.3 suspecting and supporting the possibility of a bacterial sepsis. The viral screen was negative. Legionella urine antigen was negative. UA was abnormal with 19 WBCs and the patient's white cell count was at 13.6 with a hemoglobin of 13.6 and a platelet count of 197. Lactic acid level dropped from 2.3 down to 1.7. Urine culture is positive for Klebsiella pneumoniae from 10/13/2024. I also reviewed the chest x-ray. The chest x-ray shows increased interstitial density involving the lungs right more than left and the patient is currently on oxygen at 4 L with a pulse ox of 93%.CAT scan of the chest was also reviewed from 10/13/2024 and it shows patchy groundglass and consolidative opacities bilaterally suggestive of possibility of multifocal pneumonia. On 10/16/2024, the patient is stable on 3 L of oxygen by nasal cannula. She reports improvement and she seems to be less lethargic and weak on today's evaluation. Hemodynamically stable. Still on Levaquin and lactated Ringer at rate of 100 cc an hour. Amiodarone drip has been discontinued and the patient is currently on a combination of metoprolol 25 mg p.o. twice daily and Cardizem 180 mg p.o. daily for rate control and the patient is also on anticoagulation with Eliquis. Cultures are negative thus far. Procalcitonin level has been elevated at 14.3 and this needs to be further monitored. Oxygenation is stable at 2 L/min nasal cannula. Afebrile. Hemodynamically stable. Objective - Vital Signs Vital signs: Vital Signs Temp 97.9 F 10/16/24 10:53 Pulse 82 10/16/24 11:12 Resp 16 10/16/24 10:53 BP 126/78 10/16/24 10:53 Pulse Ox 96 10/16/24 10:53 FiO2 Intake & Output 10/15/24 10/16/24 10/16/24 18:59 06:59 18:59 Intake Total 240 260 10 Balance 240 260 10 Weight 68.039 kg 70.494 kg Intake: IV 260 10 Invasive Line 2 10 Lactated Ringers 1,000 ml 260 @ 130 mls/hr IV .Q7H42M [facility] Rx#:[id number] Oral 240 Other: # Voids 7 2 - Exam GENERAL EXAM: Alert, pleasant, weak 74-year-old female, on 3 L nasal cannula, fairly comfortable in no apparent distress. HEAD: Normocephalic. EYES: Normal reaction of pupils, equal size. NOSE: Clear with pink turbinates. THROAT: No erythema or exudates. NECK: No masses, no JVD. CHEST: No chest wall deformity. LUNGS: Equal air entry with bilateral scattered rhonchi. CVS: S1 and S2 normal with no audible murmur, irregular rhythm. ABDOMEN: No hepatosplenomegaly, normal bowel sounds, no guarding or rigidity. SPINE: No scoliosis or deformity SKIN: No rashes CENTRAL NERVOUS SYSTEM: No focal deficits, tone is normal in all 4 extremities. EXTREMITIES: There is no peripheral edema. No clubbing, no cyanosis. Peripheral pulses are intact. - Labs CBC & Chem 7: 10/13/24 18:08 10/13/24 19:13 Labs: Microbiology - Last 24 Hours (Table) 10/13/24 18:08 Blood Culture - Preliminary Blood 10/14/24 04:22 Urine Culture - Final Urine,Voided Assessment and Plan Plan: Acute on chronic hypoxic respiratory failure, currently on 3 L of oxygen by nasal cannula. Oxygenation slightly improved. Rule out sepsis and using this underlying hypoxemia. Pneumonia cannot be completely excluded. Patchy bilateral pulmonary infiltrates, possible pneumonia, currently on Levaquin. Urine tract infection with Klebsiella pneumoniae, currently on Levaquin Multiple sclerosis with increasing weakness and falls. CT scan of the head and cervical spine revealed no acute intracranial abnormalities. No acute fractures Recent discharge following an episode of right lung pneumonia Atrial fibrillation with rapid ventricular response, , currently stable and the patient seems to be less tachycardic at this point and the patient is hemodynamically stable. F History of PE/DVT maintained on Eliquis History of benign essential hypertension Chronic obstructive pulmonary disease, maintained on home oxygen at 2 L/min Chronic tobacco dependence Plan: Titrate FiO2 to maintain saturation above 90%, currently on 3 L Titrate down the FiO2 as tolerated Continue Levaquin Continue DuoNeb inhalations Continue Symbicort Anticoagulated with Eliquis Continue metoprolol and Cardizem PT/OT consult We will continue to follow and make further recommendations based on her clinical status
[2024-10-17] MEDS: guaiFENesin-DM 100-10MG/5ML 10 ML CUP PO PRN (04:01)
[2024-10-17 07:06] LABS: Basophils # (A) 0.03 10*3/uL (0.00-0.10); Basophils % (A) 0.4 %; Eosinophils # (A) 0.07 10*3/uL (0.04-0.35); Eosinophils % (A) 0.9 %; HCT 31.8 % (37.2-46.3); Lymphocytes # (A) 0.92 10*3/uL (0.90-5.00); Lymphocytes % (A) 12.3 %; MCH 30.4 pg (27.0-32.0); MCHC 32.1 g/dL (32.0-37.0); MCV 94.9 fL (80.0-97.0); Monocytes # (A) 0.46 10*3/uL (0.20-1.00); Monocytes % (A) 6.2 %; Neutrophils # (A) 5.93 10*3/uL (1.80-7.70); Neutrophils % (A) 79.4 %; Platelet Count 226 10*3/uL (140-440); RBC 3.35 10*6/uL (4.10-5.20); WBC 7.47 10*3/uL (4.50-10.00)
[2024-10-17 07:08] LABS: HGB 10.2 g/dL (12.0-15.0)
[2024-10-17 07:23] LABS: African American GFR (CKD) 84 (>60 ml/min/1.73 sqM); Anion Gap 2 mmol/L; Blood Urea Nitrogen 9 mg/dL (7-17); Calcium 9.6 mg/dL (8.4-10.2); Carbon Dioxide 33 mmol/L (22-30); Chloride 105 mmol/L (98-107); Glucose 98 mg/dL (74-99); Non-African American GFR(CKD) 73 (>60 ml/min/1.73 sqM); Potassium 4.1 mmol/L (3.5-5.1); Sodium 140 mmol/L (137-145)
[2024-10-17 19:51] VITALS: RESP 16
--- NOTE | 2024-10-17 21:09 | P.PN ---
Subjective Progress Note Date: 10/17/24 This is a 74-year-old female patient with a known history of multiple sclerosis maintained on ofatumumab in the outpatient setting, PE/DVT anticoagulated with Eliquis, thyroid cancer with previous thyroidectomy, hypertension, hyperlipidemia, chronic obstructive pulmonary disease, chronic tobacco dependen ce, on home oxygen at 2 L, atrial fibrillation, recent pneumonia. She has been here several times this month after sustaining weakness and falls. Refused admission on 10/12/2024. Presented back to the emergency room 10/13/2024 with another fall and hitting her head. CT scan of the brain revealed no acute intracranial abnormalities. CT scan of the C-spine revealed no acute fractures. CT scan of the pelvis revealed no acute fractures or dislocation. CT scan of the chest revealed patchy groundglass and consolidative opacities throughout the bilateral lungs suspicious for multifocal pneumonia. White count 13.6. Hemoglobin 13.6. Platelets 197. Sodium 137. Potassium 4.4. Bicarb 30. BUN 15. Creatinine 0.80. Glucose 151. Urinalysis with positive nitrates moderate leukocyte Estrase. Viral screen negative for influenza A/B, RSV, COVID. She is seen today in the emergency department. Currently sitting up in the stretcher. Awake and alert in no acute distress. Maintaining O2 saturations in the 90s on 5 L/min per nasal cannula. She is in atrial fibrillation with a rapid ventri cular response. Mean arterial blood pressure 72. She was initially on a Cardizem drip. On today's evaluation of 10/15/2024, the patient is being seen in follow-up. Patient was seen in consultation yesterday regarding the possibility of a pneumonia. The patient is known to have multiple sclerosis, along with previous history of DVT and pulmonary embolism maintained on anticoagulation with Eliquis and the patient also has thyroid cancer with previous thyroidectomy, hypertension hyperlipidemia and COPD and she has home O2 at 2 L/min nasal cannula. She also has atrial fibrillation. The patient presented to us with generalized weakness, falls, and suspected pneumonia. I reviewed the blood work. The patient's procalcitonin level is elevated at 14.3 suspecting and supporting the possibility of a bacterial sepsis. The viral screen was negative. Legionella urine antigen was negative. UA was abnormal with 19 WBCs and the patient's white cell count was at 13.6 with a hemoglobin of 13.6 and a platelet count of 197. Lactic acid level dropped from 2.3 down to 1.7. Urine culture is positive for Klebsiella pneumoniae from 10/13/2024. I also reviewed the chest x-ray. The chest x-ray shows increased interstitial density involving the lungs right more than left and the patient is currently on oxygen at 4 L with a pulse ox of 93%.CAT scan of the chest was also reviewed from 10/13/2024 and it shows patchy groundglass and consolidative opacities bilaterally suggestive of possibility of multifocal pneumonia. On 10/16/2024, the patient is stable on 3 L of oxygen by nasal cannula. She reports improvement and she seems to be less lethargic and weak on today's evaluation. Hemodynamically stable. Still on Levaquin and lactated Ringer at rate of 100 cc an hour. Amiodarone drip has been discontinued and the patient is currently on a combination of metoprolol 25 mg p.o. twice daily and Cardizem 180 mg p.o. daily for rate control and the patient is also on anticoagulation with Eliquis. Cultures are negative thus far. Procalcitonin level has been elevated at 14.3 and this needs to be further monitored. Oxygenation is stable at 2 L/min nasal cannula. Afebrile. Hemodynamically stable. 10/17/2024, the patient is being seen for a follow-up. The patient is doing well and sitting up in a chair. The patient has a underlying urine tract infection with Klebsiella pneumonia and the blood cultures were essentially negative. The patient remains on lactated Ringer at rate of 130 cc an hour. The patient is currently off antibiotics. ID is on the case. Clinically, the patient is afebrile. Hemodynamically stable. No nausea vomiting or diarrhea. The white cell count is 7.4 with a hemoglobin of 10.2 and a platelet count of 226. BUN is down with a creatinine 0.8. Viral screen is negative. Legionella urine antigen is also negative. Objective - Vital Signs Vital signs: Vital Signs Temp 97.8 F 10/17/24 11:45 Pulse 77 10/17/24 11:45 Resp 16 10/17/24 11:45 BP 144/88 10/17/24 11:45 Pulse Ox 97 10/17/24 11:45 FiO2 Intake & Output 10/16/24 10/17/24 10/17/24 18:59 06:59 18:59 Intake Total 360 240 Balance 360 240 Weight 76 kg Intake: IV 20 Invasive Line 2 20 Oral 340 240 Other: # Voids 1 1 - Exam GENERAL EXAM: Alert, pleasant, weak 74-year-old female, on 3 L nasal cannula, fairly comfortable in no apparent distress. HEAD: Normocephalic. EYES: Normal reaction of pupils, equal size. NOSE: Clear with pink turbinates. THROAT: No erythema or exudates. NECK: No masses, no JVD. CHEST: No chest wall deformity. LUNGS: Equal air entry with bilateral scattered rhonchi. CVS: S1 and S2 normal with no audible murmur, irregular rhythm. ABDOMEN: No hepatosplenomegaly, normal bowel sounds, no guarding or rigidity. SPINE: No scoliosis or deformity SKIN: No rashes CENTRAL NERVOUS SYSTEM: No focal deficits, tone is normal in all 4 extremities. EXTREMITIES: There is no peripheral edema. No clubbing, no cyanosis. Peripheral pulses are intact. - Labs CBC & Chem 7: 10/17/24 06:03 10/17/24 06:03 Labs: Abnormal Lab Results - Last 24 Hours (Table) 10/17/24 10/17/24 Range/Units 06:03 06:03 RBC 3.35 L (4.10-5.20) 10*6/uL Hgb 10.2 L D (12.0-15.0) g/dL Hct 31.8 L (37.2-46.3) % Immature Gran # 0.06 H (0.00-0.04) 10*3/uL Carbon Dioxide 33 H (22-30) mmol/L Microbiology - Last 24 Hours (Table) 10/13/24 18:08 Blood Culture - Preliminary Blood Assessment and Plan Plan: Acute on chronic hypoxic respiratory failure, currently on 3 L of oxygen by nasal cannula. Oxygenation slightly improved. Rule out sepsis and using this underlying hypoxemia. Pneumonia cannot be completely excluded. Patchy bilateral pulmonary infiltrates, possible pneumonia, currently on Levaquin. Urine tract infection with Klebsiella pneumoniae, currently on Levaquin Multiple sclerosis with increasing weakness and falls. CT scan of the head and cervical spine revealed no acute intracranial abnormalities. No acute fractures Recent discharge following an episode of right lung pneumonia Atrial fibrillation with rapid ventricular response, , currently stable and the patient seems to be less tachycardic at this point and the patient is hemodynamically stable. F History of PE/DVT maintained on Eliquis History of benign essential hypertension Chronic obstructive pulmonary disease, maintained on home oxygen at 2 L/min Chronic tobacco dependence Plan: Titrate FiO2 to maintain saturation above 90%, currently on 3 L Titrate down the FiO2 as tolerated Continue Levaquin Continue DuoNeb inhalations Continue Symbicort Anticoagulated with Eliquis Continue metoprolol and Cardizem Obtain a follow-up procalcitonin level which was quite elevated at time of admission ID is on the case PT/OT consult We will continue to follow and make further recommendations based on her clinical status
--- NOTE | 2024-10-18 00:51 | P.PN ---
Subjective 74-year-old female who presents to the emergency department for a fall. Patient has a history of MS and is falling almost daily at this point. She was evaluated here yesterday for a fall as well and it was strongly advised she be admitted at that time due to her risk of additional falls on blood thinners. However, she adamantly refused. States that today she lost her balance again and fell backwards, hitting her head. Denies any loss of consciousness. She is on Eliquis for a history of blood clots. Currently complains of pain to her le ft hip, which is where she was having pain yesterday. CT scan of the brain revealed no acute intracranial abnormalities. CT scan of the C-spine revealed no acute fractures. CT scan of the pelvis revealed no acute fractures or dislocation. CT scan of the chest revealed patchy groundglass and consolidative opacities throughout the bilateral lungs suspicious for multifocal pneumonia. White count 13.6. Hemoglobin 13.6. Platelets 197. Sodium 137. Potassium 4.4. Bicarb 30. BUN 15. Creatinine 0.80. Glucose 151. Urinalysis with positive nitrates moderate leukocyte Estrase. Viral screen negative for influenza A/B, RSV, COVID 10/15 This is a pleasant 74 years old female who presents with shortness of breath. She was recently discharged from this facility for right pneumonia. Repeat CT of the chest showing separate multifocal or diffuse groundglass opacities in both lung saez with right more than left and mildly worsened Currently patient covered with Levaquin 750 mg and Ringer lactate at 130 mL/h. Also required amiodarone drip and Eliquis for heart rate which is controlled now No chest pain. No other new cardiac complaints She is lying in bed looks lethargic and weak She is have low-grade fever 99.9, tachycardic with 118 blood pressure 100/75 WBC 13.6. Procalcitonin is elevated 14.3. CT of the head and neck was showing no acute process. 10/16 Patient proving slowly and gradually She still have some wheezing and shortness of breath still requiring oxygen about 4 L/min She is going to participate with physical therapy today. Other than that she denies chest pain. No abdominal pain or symptoms. No coughing Patient currently covered with Levaquin 750 mg, Ringer lactate at 130: Eliquis. Amiodarone drip was discontinued 10/17 Patient breathing improving slowly and gradually No urinary symptoms no fever She has little cough but sputum was not collected She uses a walker at home. Today she finished her 5 days of Levaquin 750 mg, we will discuss with ID team a bout the need for further antibiotic dosing upon discharge She is afebrile blood pressure stable. Sodium 131, creatinine 1.0. Glucose was low early childhood but improved through the day Objective - Vital Signs Vital signs: Vital Signs Temp 97.8 F 10/17/24 11:45 Pulse 77 10/17/24 11:45 Resp 16 10/17/24 11:45 BP 144/88 10/17/24 11:45 Pulse Ox 97 10/17/24 11:45 FiO2 Intake & Output 10/16/24 10/17/24 10/17/24 18:59 06:59 18:59 Intake Total 360 480 Balance 360 480 Weight 76 kg Intake: IV 20 Invasive Line 2 20 Oral 340 480 Other: Voiding Method Diaper # Voids 1 1 - Exam -GENERAL: The patient is alert and oriented x3, not in any acute distress. Well developed, well nourished. Generally weak HEENT: Pupils are round and equally reacting to light. EOMI. No scleral icterus. No conjunctival pallor. Normocephalic, atraumatic. No pharyngeal erythema. No thyromegaly. CARDIOVASCULAR: S1 and S2 present. No murmurs, rubs, or gallops. -PULMONARY: Chest is clear to auscultation, no wheezing , bilateral crackles. ABDOMEN: Soft, nontender, nondistended, normoactive bowel sounds. No palpable organomegaly. MUSCULOSKELETAL: No joint swelling or deformity. EXTREMITIES: No cyanosis, clubbing, or pedal edema. NEUROLOGICAL: Gross neurological examination did not reveal any focal deficits. SKIN: No rashes. no petechiae. - Labs CBC & Chem 7: 10/17/24 06:03 10/17/24 06:03 Labs: Abnormal Lab Results - Last 24 Hours (Table) 10/17/24 10/17/24 Range/Units 06:03 06:03 RBC 3.35 L (4.10-5.20) 10*6/uL Hgb 10.2 L D (12.0-15.0) g/dL Hct 31.8 L (37.2-46.3) % Immature Gran # 0.06 H (0.00-0.04) 10*3/uL Carbon Dioxide 33 H (22-30) mmol/L Microbiology - Last 24 Hours (Table) 10/13/24 18:08 Blood Culture - Preliminary Blood Assessment and Plan Assessment: 1. Acute on chronic hypoxic respiratory failure; likely related to multifocal pneumonia - Continue with supplemental oxygen with plans to titrate or wean as able 2. Multifocal pneumonia - Patient was recently discharged after treatment of right lung pneumonia - Patient has been placed on IV Levaquin; bronchodilator nebulizer treatments 4 times daily and as needed - We will monitor CBC, CRP and procalcitonin - Consult pulmonary service 3. Complicated UTI/sepsis; as indicated above patient is placed on IV Levaquin; blood cultures and urine cultures obtained - Further recommendations pending clinical course 4. Increasing weakness/falls; patient has history of MS - CT of the head and cervical spine was completed in ED which did not reveal any acute abnormalities 5. Atrial fibrillation/flutter with RVR; patient has been placed on IV Cardizem infusion; remains anticoagulated with Eliquis 5 mg twice daily - Cardiology is consulted -Currently off Cardizem/amiodarone drip - Patient currently on Cardizem 180 mg p.o. daily and metoprolol dose increased to 25 mg twice daily 5. Hypertension; metoprolol 12.5 mg twice daily; Cardizem 180 mg daily 6. COPD; not in exacerbation; we will continue with home inhaler therapy; pulmonary to evaluate and make further recommendations 7. History of DVT/PE; patient remains on Eliquis 5 mg twice daily 8. Hyperlipidemia; Lipitor 40 mg daily 9. Hypothyroidism; levothyroxine 137 mcg daily DVT prophylaxis; SCDs/Eliquis CODE STATUS; full code
[2024-10-18] MEDS: LEVOFLOXACIN 750MG-D5W PMX 750 MG in DEXTROSE/WATER 1 150ML.BAG IVPB SCH (12:14)
[2024-10-18 12:24] VITALS: BP 135/82; PULSE 76; TEMP 98.1
[2024-10-18 14:21] VITALS: BMI 26.2
--- NOTE | 2024-10-18 16:37 | P.PN ---
Subjective Progress Note Date: 10/17/24 Principal diagnosis: Reason for follow-up is fever/pneumonia multiple antibiotic allergies Patient is a 74-year-old female with a past medical history significant for Atrial Fibrillation, Atrial Flutter, Cancer, Chest Pain / Angina, COPD, Deep Vein Thrombosis (DVT), GERD/Reflux, Hyperlipidemia, Hypertension, Neurologic Disorder, Osteoarthritis (OA), Pulmonary Embolus (PE), Thyroid Disorder was brought into the hospital after the patient did have a fall patient also have a low-grade fever chest x-ray suggestive of multifocal pneumonia on today's evaluation that is 10/17/2024,the patient denies any fever or any chills, patient is breathing comfortably on 2 L nasal oxygen, the patient denies chest pain shortness of breath and cough has decreased in intensity, patient denies abdominal pain, no nausea vomiting or diarrhea. Patient white count 7.47, creatinine 0.81 Objective - Vital Signs Vital signs: Vital Signs Temp 97.8 F 10/17/24 11:45 Pulse 77 10/17/24 11:45 Resp 16 10/17/24 11:45 BP 144/88 10/17/24 11:45 Pulse Ox 97 10/17/24 11:45 FiO2 Intake & Output 10/16/24 10/17/24 10/17/24 18:59 06:59 18:59 Intake Total 360 240 Balance 360 240 Weight 76 kg Intake: IV 20 Invasive Line 2 20 Oral 340 240 Other: # Voids 1 1 - Exam GENERAL DESCRIPTION: An elderly female lying in bed in no distress RESPIRATORY SYSTEM: Unlabored breathing , decreased breath sounds at bases HEART: S1 S2 regular rate and rhythm , ABDOMEN: Soft , no tenderness EXTREMITIES: No edema feet - Labs CBC & Chem 7: 10/17/24 06:03 10/17/24 06:03 Labs: Abnormal Lab Results - Last 24 Hours (Table) 10/17/24 10/17/24 Range/Units 06:03 06:03 RBC 3.35 L (4.10-5.20) 10*6/uL Hgb 10.2 L D (12.0-15.0) g/dL Hct 31.8 L (37.2-46.3) % Immature Gran # 0.06 H (0.00-0.04) 10*3/uL Carbon Dioxide 33 H (22-30) mmol/L Microbiology - Last 24 Hours (Table) 10/13/24 18:08 Blood Culture - Preliminary Blood Assessment and Plan (1) Allergy to multiple antibiotics Current Visit: Yes Status: Acute Code(s): Z88.1 - ALLERGY STATUS TO OTHER ANTIBIOTIC AGENTS SNOMED Code(s): 957397289 (2) Multifocal pneumonia Current Visit: Yes Status: Acute Code(s): J18.9 - PNEUMONIA, UNSPECIFIED ORGANISM SNOMED Code(s): 435061472 (3) Sepsis Current Visit: Yes Status: Acute Code(s): A41.9 - SEPSIS, UNSPECIFIED ORGANISM SNOMED Code(s): 30945125 Plan: 1patient presented hospital with weakness and fall in this patient who did have a low-grade fever of 99.9 degrees 1 night patient did have a tachycardia hypotension tachycardia elevated lactic acid meeting criteria for SIRS/sepsis source is likely pneumonia likely community-acquired patient did have mildly positive UA however no urinary symptoms that would make symptomatic UTI less likely 2-patient with multiple antibiotic ALLERGIES that would limit the number of antibiotic safe to use 3-blood urine has been negative sputum not collected 4-patient has shown some clinical improvement to continue with Levaquin to finish 7-day course of therapy Dictation was produced using [employer] dictation software. please excuse any grammatical, word or spelling errors. Time with Patient: Less than 30
--- NOTE | 2024-10-18 16:37 | P.PN ---
Subjective Progress Note Date: 10/18/24 Principal diagnosis: Reason for follow-up is fever/pneumonia multiple antibiotic allergies Patient is a 74-year-old female with a past medical history significant for Atrial Fibrillation, Atrial Flutter, Cancer, Chest Pain / Angina, COPD, Deep Vein Thrombosis (DVT), GERD/Reflux, Hyperlipidemia, Hypertension, Neurologic Disorder, Osteoarthritis (OA), Pulmonary Embolus (PE), Thyroid Disorder was brought into the hospital after the patient did have a fall patient also have a low-grade fever chest x-ray suggestive of multifocal pneumonia on today's evaluation that is 10/18/2024,the patient remains to be afebrile, patient is on 2 L nasal cannula supplemental oxygen and denies any shortness of breath no chest pain cough has decreased intensity mostly dry.Patient denies having any nausea or vomiting, no abdominal pain and no diarrhea has been reported. Patient feeling better wants to go home No new labs Objective - Vital Signs Vital signs: Vital Signs Temp 98.1 F 10/18/24 12:22 Pulse 76 10/18/24 12:22 Resp 16 10/18/24 12:22 BP 135/82 10/18/24 12:22 Pulse Ox 95 10/18/24 12:22 FiO2 Intake & Output 10/17/24 10/18/24 10/18/24 18:59 06:59 18:59 Intake Total 720 240 Output Total 600 1450 1000 Balance 120 -1450 -760 Weight 73.8 kg 73.8 kg Intake: Oral 720 240 Output: Urine 600 1450 1000 Other: Voiding Method External Catheter External Catheter # Voids 1 # Bowel Movements 1 - Exam GENERAL DESCRIPTION: An elderly female lying in bed in no distress RESPIRATORY SYSTEM: Unlabored breathing , decreased breath sounds at bases HEART: S1 S2 regular rate and rhythm , ABDOMEN: Soft , no tenderness EXTREMITIES: No edema feet - Labs CBC & Chem 7: 10/17/24 06:03 10/17/24 06:03 Assessment and Plan (1) Allergy to multiple antibiotics Current Visit: Yes Status: Acute Code(s): Z88.1 - ALLERGY STATUS TO OTHER ANTIBIOTIC AGENTS SNOMED Code(s): 403032268 (2) Multifocal pneumonia Current Visit: Yes Status: Acute Code(s): J18.9 - PNEUMONIA, UNSPECIFIED ORGANISM SNOMED Code(s): 099561629 (3) Sepsis Current Visit: Yes Status: Acute Code(s): A41.9 - SEPSIS, UNSPECIFIED ORGAN ISM SNOMED Code(s): 02968819 Plan: 1patient presented hospital with weakness and fall in this patient who did have a low-grade fever of 99.9 degrees 1 night patient did have a tachycardia hypotension tachycardia elevated lactic acid meeting criteria for SIRS/sepsis source is likely pneumonia likely community-acquired patient did have mildly positive UA however no urinary symptoms that would make symptomatic UTI less likely 2-patient with multiple antibiotic ALLERGIES that would limit the number of antibiotic safe to use 3-blood urine has been negative sputum not collected 4-patient has shown clinical improvement and insisting on going home she will need 2 more days of oral Levaquin to finish a 7-day course of therapy discussed with admitting physician working on discharge Dictation was produced using [employer] dictation software. please excuse any grammatical, word or spelling errors. Time with Patient: Less than 30
--- NOTE | 2024-10-18 22:15 | P.PN ---
Subjective Progress Note Date: 10/18/24 This is a 74-year-old female patient with a known history of multiple sclerosis maintained on ofatumumab in the outpatient setting, PE/DVT anticoagulated with Eliquis, thyroid cancer with previous thyroidectomy, hypertension, hyperlipidemia, chronic obstructive pulmonary disease, chronic tobacco dependen ce, on home oxygen at 2 L, atrial fibrillation, recent pneumonia. She has been here several times this month after sustaining weakness and falls. Refused admission on 10/12/2024. Presented back to the emergency room 10/13/2024 with another fall and hitting her head. CT scan of the brain revealed no acute intracranial abnormalities. CT scan of the C-spine revealed no acute fractures. CT scan of the pelvis revealed no acute fractures or dislocation. CT scan of the chest revealed patchy groundglass and consolidative opacities throughout the bilateral lungs suspicious for multifocal pneumonia. White count 13.6. Hemoglobin 13.6. Platelets 197. Sodium 137. Potassium 4.4. Bicarb 30. BUN 15. Creatinine 0.80. Glucose 151. Urinalysis with positive nitrates moderate leukocyte Estrase. Viral screen negative for influenza A/B, RSV, COVID. She is seen today in the emergency department. Currently sitting up in the stretcher. Awake and alert in no acute distress. Maintaining O2 saturations in the 90s on 5 L/min per nasal cannula. She is in atrial fibrillation with a rapid ventri cular response. Mean arterial blood pressure 72. She was initially on a Cardizem drip. On today's evaluation of 10/15/2024, the patient is being seen in follow-up. Patient was seen in consultation yesterday regarding the possibility of a pneumonia. The patient is known to have multiple sclerosis, along with previous history of DVT and pulmonary embolism maintained on anticoagulation with Eliquis and the patient also has thyroid cancer with previous thyroidectomy, hypertension hyperlipidemia and COPD and she has home O2 at 2 L/min nasal cannula. She also has atrial fibrillation. The patient presented to us with generalized weakness, falls, and suspected pneumonia. I reviewed the blood work. The patient's procalcitonin level is elevated at 14.3 suspecting and supporting the possibility of a bacterial sepsis. The viral screen was negative. Legionella urine antigen was negative. UA was abnormal with 19 WBCs and the patient's white cell count was at 13.6 with a hemoglobin of 13.6 and a platelet count of 197. Lactic acid level dropped from 2.3 down to 1.7. Urine culture is positive for Klebsiella pneumoniae from 10/13/2024. I also reviewed the chest x-ray. The chest x-ray shows increased interstitial density involving the lungs right more than left and the patient is currently on oxygen at 4 L with a pulse ox of 93%.CAT scan of the chest was also reviewed from 10/13/2024 and it shows patchy groundglass and consolidative opacities bilaterally suggestive of possibility of multifocal pneumonia. On 10/16/2024, the patient is stable on 3 L of oxygen by nasal cannula. She reports improvement and she seems to be less lethargic and weak on today's evaluation. Hemodynamically stable. Still on Levaquin and lactated Ringer at rate of 100 cc an hour. Amiodarone drip has been discontinued and the patient is currently on a combination of metoprolol 25 mg p.o. twice daily and Cardizem 180 mg p.o. daily for rate control and the patient is also on anticoagulation with Eliquis. Cultures are negative thus far. Procalcitonin level has been elevated at 14.3 and this needs to be further monitored. Oxygenation is stable at 2 L/min nasal cannula. Afebrile. Hemodynamically stable. 10/17/2024, the patient is being seen for a follow-up. The patient is doing well and sitting up in a chair. The patient has a underlying urine tract infection with Klebsiella pneumonia and the blood cultures were essentially negative. The patient remains on lactated Ringer at rate of 130 cc an hour. The patient is currently off antibiotics. ID is on the case. Clinically, the patient is afebrile. Hemodynamically stable. No nausea vomiting or diarrhea. The white cell count is 7.4 with a hemoglobin of 10.2 and a platelet count of 226. BUN is down with a creatinine 0.8. Viral screen is negative. Legionella urine antigen is also negative. 10/18/2024, the patient is doing well. No significant complaints. Oxygenation is stable and the patient is currently on 2 L with a pulse ox of 95%. No significant respiratory distress. No cough or sputum production. Hemodynamica lly stable. Afebrile. Tolerating diet. No pleurisy or hemoptysis. The white cell count 7.4 with a hemoglobin 10.2 and a platelet count of 226. Sodium is at 140 with a potassium level of 4.1. BUN is 9 with a creatinine of 0.8. No other significant events overnight. The patient is also being followed up by infectious disease. The patient will likely go home today to complete an outpatient course of antibiotics utilizing Levaquin. The patient has no new complaints otherwise for now. Noted the patient has significant elevation of the procalcitonin level at time of admission. The level has dropped to 1.9. Objective - Vital Signs Vital signs: Vital Signs Temp 98.1 F 10/18/24 12:22 Pulse 76 10/18/24 12:22 Resp 16 10/18/24 12:22 BP 135/82 10/18/24 12:22 Pulse Ox 95 10/18/24 12:22 FiO2 Intake & Output 10/17/24 10/18/24 10/18/24 18:59 06:59 18:59 Intake Total 720 240 Output Total 600 1450 1000 Balance 120 -1450 -760 Weight 73.8 kg Intake: Oral 720 240 Output: Urine 600 1450 1000 Other: Voiding Method External Catheter # Voids 1 # Bowel Movements 1 - Exam GENERAL EXAM: Alert, pleasant, weak 74-year-old female, on 3 L nasal cannula, fairly comfortable in no apparent distress. HEAD: Normocephalic. EYES: Normal reaction of pupils, equal size. NOSE: Clear with pink turbinates. THROAT: No erythema or exudates. NECK: No masses, no JVD. CHEST: No chest wall deformity. LUNGS: Equal air entry with bilateral scattered rhonchi. CVS: S1 and S2 normal with no audible murmur, irregular rhythm. ABDOMEN: No hepatosplenomegaly, normal bowel sounds, no guarding or rigidity. SPINE: No scoliosis or deformity SKIN: No rashes CENTRAL NERVOUS SYSTEM: No focal deficits, tone is normal in all 4 extremities. EXTREMITIES: There is no peripheral edema. No clubbing, no cyanosis. Peripheral pulses are intact. - Labs CBC & Chem 7: 10/17/24 06:03 10/17/24 06:03 Assessment and Plan Plan: Acute on chronic hypoxic respiratory failure, currently on 2 L of oxygen by nasal cannula. Oxygenation slightly improved. Rule out sepsis and using this underlying hypoxemia. Pneumonia cannot be completely excluded although this is felt to be less likely. Clinically stable and the patient denies having any significant respiratory distress. Patchy bilateral pulmonary infiltrates, possible pneumonia, currently on Levaqui n. Urine tract infection with Klebsiella pneumoniae, currently on Levaquin Multiple sclerosis with increasing weakness and falls. CT scan of the head and cervical spine revealed no acute intracranial abnormalities. No acute fractures Recent discharge following an episode of right lung pneumonia Atrial fibrillation with rapid ventricular response, , currently stable and the patient seems to be less tachycardic at this point and the patient is hemodynamically stable. History of PE/DVT maintained on Eliquis History of benign essential hypertension Chronic obstructive pulmonary disease, maintained on home oxygen at 2 L/min Chronic tobacco dependence Plan: Titrate FiO2 to maintain saturation above 90%, currently on 2 L/min nasal cannula May likely go home today on a course of Levaquin to be completed on outpatient basis Anticoagulated with Eliquis Continue metoprolol and Cardizem The repeat procalcitonin level was down to 1.9 ID is on the case PT/OT consult Will likely go home today.
== END 2024-10-18 18:56 | disposition home health service (06) | DRG 871 ==
LOC: EC 16:18 → 3SCARD 20:15
PROVIDERS: ADMIT Internal Medicine; ATTEND Internal Medicine
DX: A41.9 Sepsis, unspecified organism (principal); J18.9 Pneumonia, unspecified organism; J96.21 Acute and chronic respiratory failure with hypoxia; E87.20 Acidosis, unspecified; I48.3 Typical atrial flutter; G35 Multiple sclerosis; I48.0 Paroxysmal atrial fibrillation; J44.0 Chronic obstructive pulmonary disease with (acute) lower respiratory infection; E89.0 Postprocedural hypothyroidism; F32.A Depression, unspecified; I10 Essential (primary) hypertension; N39.0 Urinary tract infection, site not specified; R65.20 Severe sepsis without septic shock; E78.5 Hyperlipidemia, unspecified; B96.1 Klebsiella pneumoniae [K. pneumoniae] as the cause of diseases classified elsewhere; K21.9 Gastro-esophageal reflux disease without esophagitis; I95.9 Hypotension, unspecified; F17.200 Nicotine dependence, unspecified, uncomplicated; F41.9 Anxiety disorder, unspecified; M19.90 Unspecified osteoarthritis, unspecified site; I25.10 Atherosclerotic heart disease of native coronary artery without angina pectoris; R29.6 Repeated falls; S09.90XA Unspecified injury of head, initial encounter; W01.0XXA Fall on same level from slipping, tripping and stumbling without subsequent striking against object, initial encounter; Z99.81 Dependence on supplemental oxygen; Z79.01 Long term (current) use of anticoagulants; Z79.51 Long term (current) use of inhaled steroids; Z79.890 Hormone replacement therapy; Z79.899 Other long term (current) drug therapy; Z85.41 Personal history of malignant neoplasm of cervix uteri; Z85.828 Personal history of other malignant neoplasm of skin; Z85.850 Personal history of malignant neoplasm of thyroid; Z86.711 Personal history of pulmonary embolism; Z86.718 Personal history of other venous thrombosis and embolism; Z88.1 Allergy status to other antibiotic agents; Z90.710 Acquired absence of both cervix and uterus; Z91.81 History of falling; Z11.52 Encounter for screening for COVID-19; Z95.5 Presence of coronary angioplasty implant and graft; Z88.6 Allergy status to analgesic agent; Z88.5 Allergy status to narcotic agent
CPT/HCPCS: 36415; 70450; 71045; 71260; 72125; 72192; 80048; 80053; 81001; 83605; 83735; 83880; 84145; 84484; 85025; 85610; 85730; 87040; 87086; 87449; 87636; 93005; 94640; 94760; 96361; 96365; 96366; 96367; 96368; 96375; 96376; 99291